=== PATIENT | female | born 1950 | race Caucasian/White ===

== ENCOUNTER 2022-09-13 16:54 | Outpatient (OUT) | payer MEDICARE, OTHER, SELFPAY ==
[2022-09-13 17:40] LABS: D Dimer 0.21 mg/L FEU (<=0.59)
== END 2022-09-13 16:55 | disposition home or self-care (01) ==
PROVIDERS: PCP Internal Medicine; Visit Provider Internal Medicine
DX: R60.0 Localized edema (principal)
CPT/HCPCS: 36415; 85378

== ENCOUNTER 2022-09-21 13:01 | Outpatient (OUT) | payer MEDICARE, OTHER, SELFPAY | END 2022-09-21 13:02 | disposition home or self-care (01) | LOC: WC 13:01 | PROVIDERS: PCP Internal Medicine; Visit Provider Surgery | DX: I87.311 Chronic venous hypertension (idiopathic) with ulcer of right lower extremity (principal); L97.811 Non-pressure chronic ulcer of other part of right lower leg limited to breakdown of skin; E11.21 Type 2 diabetes mellitus with diabetic nephropathy; R09.89 Other specified symptoms and signs involving the circulatory and respiratory systems | CPT/HCPCS: A6213; G0463 ==

== ENCOUNTER 2022-10-04 14:19 | Outpatient (RCR) | payer MEDICARE, OTHER, SELFPAY | END 2022-11-25 13:25 | disposition home or self-care (01) | LOC: OT 14:19 | PROVIDERS: PCP Internal Medicine; Visit Provider Internal Medicine | DX: I89.0 Lymphedema, not elsewhere classified (principal) | CPT/HCPCS: 97110; 97140; 97166; 97530 ==

== ENCOUNTER 2022-10-09 12:55 | Outpatient (OUT) | payer MEDICARE, OTHER, SELFPAY ==
--- NOTE | 2022-10-09 13:19 | XR_ITS ---
The [address] [address] Patient Name: BILLIE URBINA MRN: [id number] date: 1950 Sex: F Assigned Patient Location: Current Patient Location: Accession/Order Number: [id number] Exam Date: 10/09/2022 13:19 Report Date: 10/10/2022 07:16 At the request of: STEVEN BE Procedure: XR foot LT min 3V PROCEDURE: XR foot LT min 3V COMPARISON: None. HISTORY: LEFT FOOT PAIN FINDINGS: BONES:Acute transverse fracture base of fifth metatarsal possibly extending to the medial articular surface. Distraction up to 2 mm with no angulation. Partial flattening of the plantar arch. Moderate enthesopathic spurring of the calcaneus at the Achilles and plantar insertions SOFT TISSUES:Moderate dorsal soft tissue swelling EFFUSION:None visible. OTHER: Negative. XR/XR foot LT min 3V IMPRESSION: Transverse fracture base of fifth metatarsal Electronically authenticated by: SID GALDAMEZ Date: 10/10/2022 07:16
== END 2022-10-09 12:56 | disposition home or self-care (01) ==
LOC: WC 12:56
PROVIDERS: PCP Internal Medicine; Visit Provider Physician Assistant
DX: M79.672 Pain in left foot (principal); I87.311 Chronic venous hypertension (idiopathic) with ulcer of right lower extremity; L97.811 Non-pressure chronic ulcer of other part of right lower leg limited to breakdown of skin
CPT/HCPCS: 73630; G0463

== ENCOUNTER 2022-10-25 13:55 | Outpatient (OUT) | payer MEDICARE, OTHER, SELFPAY ==
--- NOTE | 2022-10-25 | XR_ITS ---
The [address] [address] Patient Name: BILLIE URBINA MRN: [id number] date: 1950 Sex: F Assigned Patient Location: [facility] Current Patient Location: Accession/Order Number: [id number] Exam Date: 10/25/2022 14:09 Report Date: 10/26/2022 10:38 At the request of: AIMEE RUVALCABA Procedure: XR foot LT min 3V PROCEDURE: XR foot LT min 3V DATE: 10/25/2022 1:09 PM CDT COMPARISONS: 10/09/2022 CLINICAL INDICATION: LEFT FOOT PAIN FINDINGS: Transverse fracture base of fifth metatarsal is again identified. I estimate the amount of distraction at 3 mm slightly greater than on previous exam. No definite evidence of interval healing on today's images. Small spur off the posterior inferior os calcis, stable mild midfoot degenerative changes, stable XR/XR foot LT min 3V IMPRESSION: Slightly more distraction of the transverse fracture proximal fifth metatarsal than on previous exam. No clear evidence of interval healing at the fracture site on today's images.. Electronically authenticated by: JAQUELIN STAHL Date: 10/26/2022 10:38
== END 2022-10-25 13:56 | disposition home or self-care (01) ==
LOC: RAD 13:55
PROVIDERS: PCP Internal Medicine; Visit Provider Podiatrist Foot & Ankle Surgery
DX: S92.355A Nondisplaced fracture of fifth metatarsal bone, left foot, initial encounter for closed fracture (principal)
CPT/HCPCS: 73630

== ENCOUNTER 2022-11-08 14:26 | Outpatient (OUT) | payer MEDICARE, OTHER, SELFPAY ==
--- NOTE | 2022-11-08 | XR_ITS ---
The [address] [address] Patient Name: BILLIE URBINA MRN: [id number] date: 1950 Sex: F Assigned Patient Location: [facility] Current Patient Location: Accession/Order Number: [id number] Exam Date: 11/08/2022 14:38 Report Date: 11/09/2022 06:26 At the request of: AIMEE RUVALCABA Procedure: XR foot LT min 3V PROCEDURE: XR foot LT min 3V HISTORY: LEFT FOOT PAIN COMPARISON: XR foot left 10/25/2022, 10/09/2022 FINDINGS: BONES:Increasing with of the transverse fracture through base of fifth metatarsal, now 3 mm. No appreciable callus formation but there is slightly increasing density of the fracture line. SOFT TISSUES:No visible soft tissue swelling. EFFUSION:None visible. OTHER: Negative. XR/XR foot LT min 3V IMPRESSION: 1. Increasing width of fifth metatarsal fracture line; ongoing bone resorption versus movement/retraction at site of fracture. 2. No callus formation along the margins, but there appears to be minimally increased density within the fracture line suggesting some degree of bone healing. Electronically authenticated by: JIMY LAMB Date: 11/09/2022 06:26
== END 2022-11-08 14:27 | disposition home or self-care (01) ==
LOC: RAD 14:26
PROVIDERS: PCP Internal Medicine; Visit Provider Podiatrist Foot & Ankle Surgery
DX: S92.355A Nondisplaced fracture of fifth metatarsal bone, left foot, initial encounter for closed fracture (principal)
CPT/HCPCS: 73630

== ENCOUNTER 2022-11-29 11:18 | Outpatient (OUT) | payer MEDICARE, OTHER, SELFPAY ==
--- NOTE | 2022-11-29 | XR_ITS ---
The [address] [address] Patient Name: BILLIE URBINA MRN: [id number] date: 1950 Sex: F Assigned Patient Location: [facility] Current Patient Location: [facility] Accession/Order Number: [id number] Exam Date: 11/29/2022 11:43 Report Date: 11/29/2022 13:04 At the request of: AIMEE RUVALCABA Procedure: XR foot LT min 3V PROCEDURE: XR foot LT min 3V HISTORY: LEFT FOOT PAIN COMPARISON: XR foot left 11/08/2022 FINDINGS: BONES:Transverse fracture through base of fifth metatarsal with 4 mm wide fracture line. Questionable, very minimal increase in density of the fracture line. No callus formation. SOFT TISSUES:Mild dorsal soft tissue swelling. EFFUSION:None visible. OTHER: Negative. XR/XR foot LT min 3V IMPRESSION: 1. Base of fifth metatarsal fracture appears slightly wider than previously seen suggesting continuing movement. 2. Questionable minimal increased density of the fracture line which may represent some very early bone healing. Electronically authenticated by: JIMY LAMB Date: 11/29/2022 13:04
== END 2022-11-29 11:19 | disposition home or self-care (01) ==
LOC: RAD 11:18
PROVIDERS: PCP Internal Medicine; Visit Provider Podiatrist Foot & Ankle Surgery
DX: S92.355A Nondisplaced fracture of fifth metatarsal bone, left foot, initial encounter for closed fracture (principal)
CPT/HCPCS: 73630

== ENCOUNTER 2022-12-04 11:40 | Outpatient (OUT) | payer MEDICARE, OTHER, SELFPAY ==
[2022-12-04 12:28] LABS: Estimated Average Glucose 128 mg/dL; Glycohemoglobin A1C 6.1 % (4.5-6.2)
== END 2022-12-04 11:41 | disposition home or self-care (01) ==
LOC: LAB 11:43
PROVIDERS: PCP Internal Medicine; Visit Provider Internal Medicine
DX: E11.65 Type 2 diabetes mellitus with hyperglycemia (principal)
CPT/HCPCS: 36415; 83036

== ENCOUNTER 2023-01-10 13:55 | Outpatient (OUT) | payer MEDICARE, OTHER, SELFPAY ==
--- NOTE | 2023-01-10 | XR_ITS ---
The [address] [address] Patient Name: BILLIE URBINA MRN: [id number] date: 1950 Sex: F Assigned Patient Location: [facility] Current Patient Location: Accession/Order Number: [id number] Exam Date: 01/10/2023 14:10 Report Date: 01/11/2023 00:55 At the request of: AIMEE RUVALCABA Procedure: XR foot LT min 3V PROCEDURE: XR foot LT min 3V HISTORY: LEFT FOOT PAIN ; follow-up 5th metatarsal fracture COMPARISON: XR foot left 11/29/2022 FINDINGS: BONES:Base of 5th metatarsal fracture with stable alignment and increasing density of the fracture line. Mild calcaneal degenerative enthesopathic spurring. Moderate flattening of plantar arch. SOFT TISSUES:Mild soft tissue swelling; improved. EFFUSION:None visible. OTHER: Negative. XR/XR foot LT min 3V IMPRESSION: 1. Stable alignment and ongoing bone healing of 5th metatarsal fracture. 2. Pes planus. Electronically authenticated by: JIMY LAMB Date: 01/11/2023 00:55
== END 2023-01-10 13:56 | disposition home or self-care (01) ==
LOC: RAD 13:55
PROVIDERS: PCP Internal Medicine; Visit Provider Podiatrist Foot & Ankle Surgery
DX: M79.672 Pain in left foot (principal); S92.355D Nondisplaced fracture of fifth metatarsal bone, left foot, subsequent encounter for fracture with routine healing
CPT/HCPCS: 73630

== ENCOUNTER 2023-03-22 14:55 | Outpatient (OUT) | payer MEDICARE, OTHER, SELFPAY ==
--- NOTE | 2023-03-22 14:59 | US_ITS ---
[place] [id number] Patient Name: BILLIE URBINA MRN: [id number] date: 1950 Sex: F Assigned Patient Location: Current Patient Location: Accession/Order Number: [id number] Exam Date: 03/22/2023 15:00 Report Date: 03/23/2023 07:30 At the request of: DAVID MCKOY Procedure: US carotid duplex BI EXAMINATION: US carotid duplex BI HISTORY: transient ischemic attack G45.9, carotid stenosis I65.23 COMPARISON: No relevant comparison available. TECHNIQUE: Duplex Doppler ultrasound analysis of carotid and vertebral arteries. . Bilateral carotid arterial duplex examination was performed using B-mode, color flow and spectral analysis. Carotid stenosis is reported according to validated velocity parameters, similar to NASCET criteria. FINDINGS: RIGHT CAROTID ARTERY Moderate atherosclerotic plaque. Maximum area reduction in the bulb of 81%. Maximum area of reduction in the proximal ICA 78% Subclavian: PSV: 119.8 cm/s cm/s EDV: 4.7 cm/s cm/s CCA: Prox: PSV: 53.1 cm/s cm/s EDV: 6.8 cm/s cm/s Mid: PSV: 58.8 cm/s cm/s EDV: 8.3 cm/s cm/s Distal: PSV: 57.4 cm/s cm/s EDV: 8.3 cm/s cm/s BULB: PSV: 74.7 cm/s cm/s EDV: 9.2 cm/s cm/s ICA: Prox: PSV: 72.1 cm/s cm/s EDV: 17.1 cm/s cm/s Mid: PSV: 79.9 cm/s cm/s EDV: 11.0 cm/s cm/s Distal: PSV: 76.4 cm/s cm/s EDV: 17.1 cm/s cm/s ECA: PSV: 112.4 cm/s cm/s EDV: 5.8 cm/s cm/s VERTEBRAL: PSV: 46.8 cm/s cm/s EDV: 9.2 cm/s cm/s, antegrade ICA/CCA ratio: PSV: 1.4 EDV: 1.3 LEFT CAROTID ARTERY Marked atherosclerotic plaque Subclavian: PSV: 132.3 cm/s cm/s EDV: 14.7 cm/s CCA: Prox: PSV: 83.8 cm/s cm/s EDV: 9.5 cm/s Mid: PSV: 64.4 cm/s cm/s EDV: 11.7 cm/s Distal: PSV: 58.1 cm/s cm/s EDV: 11.0 cm/s BULB: PSV: 79.9 cm/s cm/s EDV: 8.4 cm/s ICA: Prox: PSV: 83.1 cm/s cm/s EDV: 16.0 cm/s Mid: PSV: 82.0 cm/s cm/s EDV: 14.9 cm/s Distal: PSV: 84.2 cm/s cm/s EDV: 19.3 cm/s ECA: PSV: 100.6 cm/s cm/s EDV: 5.1 cm/s VERTEBRAL: PSV: 48.5 cm/s cm/s EDV: 8.4 cm/s , antegrade ICA/CCA ratio: PSV: 1.4 EDV: 1.8 US/US carotid duplex BI IMPRESSION: Flow velocities suggests 0-49% flow stenosis bilateral internal carotid arteries Maximum area reduction measured to be 78% proximal right internal carotid artery Spectral Doppler US Thresholds (Reference: Isauro EG, et al. Radiology 2000; 214:247-252) Stenosis (%) PSV (cm/sec) VICA/VCCA 0-49 <150 <2.5 50-69 150-225 2.5-4.0 >70 >225 >4.0 Electronically authenticated by: SID GALDAMEZ Date: 03/23/2023 07:30
--- OUTSIDE RECORDS SUMMARY | 2023-03-22 14:59 | XMS_ITS | CCD ---
Author Name Unknown Address [address] [place] [address] Organization [facility] Care Team Providers Care Director Special Education Name Role Phone PHYSICIAN, DEFAULT Unavailable Unavailable PHYSICIAN, DEFAULT Unavailable Unavailable ALTOROK, NEZAM I Unavailable Unavailable ALTOROK, NEZAM I Unavailable Unavailable UNKNOWN, PHYSICIAN Unavailable Unavailable UNKNOWN, PHYSICIAN Unavailable Unavailable Roby Dumont DO Primary Care Provider Ramone JEONG, Maryam Koehler Unavailable [phone] Germania Ozuna PA-C Unavailable [phone] Rachael Bruce MD Unavailable Roby Dumont DO Primary Care Provider Ramone JEONG, Maryam Koehler Unavailable Germania Ozuna PA-C Unavailable Rachael Bruce MD Unavailable [phone] Roby Dumont Unavailable NATAN, DR HERBERT Admitting Unavailable BALL, DR HERBERT Attending Unavailable BALL, DR HERBERT Primary Care Unavailable BALL, DR HERBERT Consulting Unavailable NATAN, DR HERBERT Admitting Unavailable BALL, DR HERBERT Attending Unavailable BALL, DR HERBERT Primary Care Unavailable BALL, DR HERBERT Consulting Unavailable NATAN, DR HERBERT Admitting Unavailable BALL, DR HERBERT Attending Unavailable BALL, DR HERBERT Primary Care Unavailable BALL, DR HERBERT Consulting Unavailable DENICE, DR SID Rodriges Consulting Unavailable BALL, DR HERBERT Admitting Unavailable BALL, DR HERBERT Attending Unavailable BALL, DR HERBERT Primary Care Unavailable BALL, DR HERBERT Consulting Unavailable AMRITEBRADHA, DR JIMY Wynn Consulting Unavailable BALL, DR HERBERT Admitting Unavailable BALL, DR HERBERT Attending Unavailable BALL, DR HERBERT Primary Care Unavailable BALL, DR HERBERT Admitting Unavailable BALL, DR HERBERT Attending Unavailable BALL, DR HERBERT Primary Care Unavailable Roby Dumont DO Primary Care Provider Ramone JEONG, Maryam Koehler Unavailable Laith SCHOFIELD, Germania M Unavailable [phone] Rachael Bruce MD Unavailable [phone] ROBY DUMONT E Primary Care Unavailable KARAMLOU, RACHAEL Referring Unavailable KARAMLOU, RACHAEL Attending Unavailable NATAN, ROBY E Primary Care Unavailable BALL, ROBY E Primary Care Unavailable KARAMLOU, RACHAEL Referring Unavailable KARAMLOU, RACHAEL Attending Unavailable ROBY DUMONT Primary Care Unavailable KARAMLOU, RACHAEL Referring Unavailable Allergies Allergy Classification Reported Allergen(s) Allergy Type Date of Onset Reaction(s) Facility (8 sources) Aspirin; Translations: [ASPIRIN] Drug Allergy 07-22-19 14 Other: See Comments [facility] Work Phone: (5 sources) Non-steroidal anti-inflammatory agent; Translations: [NSAIDS (NON-STEROIDAL ANTI-INFLAMMATORY DRUG)] Drug Allergy 07-22-19 14 Other: See Comments [facility] Work Phone: (8 sources) Ondansetron; Translations: [ONDANSETRON HCL (PF)] Drug Allergy 06-16-19 18 Vomiting [facility] (8 sources) Nut - Unspecified; Translations: [NUT - UNSPECIFIED] Drug Allergy 07-22-19 14 Unknown [facility] (5 sources) Non-steroidal anti-inflammatory agent Drug Allergy 07-22-19 14 Other: See Comments [facility] Work Phone: (6 sources) NSAIDs Propensity to adverse reactions shortness of breath [facility] [email or web address] Other (5 sources) Ondansetron; Translations: [Zofran] Drug Allergy vomiting [facility] Repository (6 sources) tree nut, unspecified Propensity to adverse reactions anaphylaxis [email or web address] [email or web address] Other (1 source) Aspirin Drug Allergy 07-15-19 14 [facility] (1 source) NSAIDs Drug allergy (disorder) 07-29-19 15 [facility] (1 source) tree nut, unspecified Drug allergy (disorder) 03-12-18 70 [facility] (2 sources) DULoxetine Drug Allergy Comment:gennaro garcia [employer] Other (2 sources) Toradol *ANALGESICS - ANTI-INFLAMMATORY* Propensity to adverse reactions Unknown [employer] Other (2 sources) aspirin contraindicated Propensity to adverse reactions 10-21-19 Comment:advers e rxn/side effects [employer] Other (2 sources) Zofran *ANTIEMETICS* Propensity to adverse reactions Unknown [employer] Other Medications Current Medications Medication Drug Class(es) Dates Sig (Normalized) Sig (Original) Accu-Chek Toma Plus - (6 sources) Accu-Chek Toma Plus - USE TO TEST BLOOD SUGAR 3 TIMES DAILY for 30 Active Accu-Chek Toma Plus - as directed In Vitro Active furosemide 20 mg oral tablet (4 sources) Loop Diuretic Start: 09-13-2022 take 1 tablet by mouth every twenty-four hours Furosemide 20 MG 1 tablet Orally Once a day Sep, Active hydroCHLOROthiazide 12.5 mg oral capsule (12 sources) Thiazide Diuretic take 1 capsule by mouth once daily hydroCHLOROthiazide 12.5 MG TAKE 1 CAPSULE BY MOUTH EVERY DAY Active take 1 tablet by mouth once marilia y hydroCHLOROthiazide (HYDRODIURIL, ESIDRIX) 12.5 mg tablet Take 12.5 mg by mouth once daily. 0 Active Comment on above: Take 12.5 mg by mout h once daily. hydroxychloroquine sulfate 200 mg oral tablet (19 sources) Antimalarial, Antirheumatic Agent take 1 tablet by mouth twice daily Hydroxychloroquine Sulfate 200 MG TAKE 1 TABLET BY MOUTH TWICE A DAY for 90 Active take 1 tablet by mariana th every twenty-four hours Plaquenil 200 MG 1 tablet with food or milk Orally Once a day Not-Taking Comment on above: Take 200 mg by mouth twice daily. insulin isophane, human 100 unt/ml injectable suspension (6 sources) NovoLIN N 100 UN IT/ML 30/50 Subcutaneous daily Active NovoLIN N 100 UN IT/ML 20/50 Subcutaneous daily Active insulin, regular, human 100 unt/ml injectable solution (6 sources) Insulin NovoLIN R 100 UN IT/ML 30 units Injection three times daily Active magnesium citrate 200 mg ora l tablet (6 sources) Magnesium Citrat e 200 MG as directed Orally Active predniSONE 10 mg oral tablet (5 sources) Start: 07-28-2022 predniSONE 10 MG 2 tablets Orally twice daily w/ food and decrease slowly over 7-10 days for 10 days July, Active Completed/Discontinued Medications Medication Drug Class(es) Dates Sig (Normalized) Sig (Original) Acetaminophen (7 sources) ACETAMINOPHEN (TYLENOL ARTHRITIS ORAL) Take by mouth. 0 Active Comment on above: Take by mouth. atorvastatin 20 mg oral tablet (13 sources) HMG-CoA Reductase Inhibitor Start: 06-16-2018 take 1 tablet by mouth once daily atorvastatin (LIPITOR) 20 mg tablet Take 20 mg by mouth once daily. 5 06/16/2018 Active Comment on above: Take 20 mg by mouth once daily. biotin 1 mg oral tablet (7 sources) take 1 tablet by mouth once daily Biotin 1 mg tab Take 1 tablet by mouth once daily. 0 Active Comment on above: Take 1 tablet by mariana th once daily. cholecalciferol 0.05 mg oral capsule (7 sources) Vitamin D take 1 capsule by mouth once daily Cholecalciferol, Vitamin D3, 50 mcg (2,000 unit) cap Take 2,000 Units by mouth once daily. 0 Active Comment on above: Take 2,000 Units by mouth once daily. clopidogrel 75 mg oral tablet (13 sources) P2Y12 Platelet Inhibitor Start: 11-06-2020 take 1 tablet by mouth once daily clopidogrel (PLAVIX) 75 mg tablet Take 75 mg by mouth once daily. 0 11/06/2020 Active Comment on above: Take 75 mg by mouth once daily. famotidine 20 mg oral tablet (13 sources) Histamine-2 Receptor Antagonist Start: 12-12-2018 famotidine (PEPCID) 20 mg tablet insulin NPH human isophane (NOVOLIN N SUBCUTANEOUS) (7 sources) insulin NPH luly n isophane (NOVOLIN N SUBCUTANEOUS) Inject subcutaneously. Use as directed 0 Active Comment on above: Inject subcutaneousl y. Use as directed insulin regular, human (NOVOLIN R INJECTION) (7 sources) insulin regular, human (NOVOLIN R INJECTION) by INJECTION(UNSPECIFI ED PARENTERAL ROUTES) route. Sliding scale with meals 0 Active Comment on above: by INJECTION(UNSPECI FIED PARENTERAL ROUTES) route. Sliding scale with meals Lactobacillus acidophilus (7 sources) Lactobacillus acidophilus (PROBIOTIC ORAL) Take 1 capsule by mouth as needed. 0 Active Comment on above: Take 1 capsule by mo uth as needed. levothyroxine sodium 0.112 mg oral tablet (9 sources) l-Thyroxine Start: 06-25-2013 take 1 tablet by mouth once daily LEVOTHYROXINE 112 mcg tablet Take 112 mcg by mouth once daily. 0 06/25/2013 Active take 1 tablet by mouth once marilia y Levothyroxine Sodium 112 MCG TAKE 1 TABLET BY MOUTH EVERY DAY ON AN EMPTY STOMACH Active Comment on above: Take 112 mcg by mout h once daily. loratadine 10 mg oral tablet (13 sources) take 1 tablet by mouth every twenty-four hours Claritin 10 MG 1 tablet Orally Once a day Not-Taking Comment on above: Take 10 mg by mouth once daily. promethazine hydrochloride 12.5 mg oral tablet (6 sources) Phenothiazine take 1 tablet by mouth every six hours Promethazine HCl 12.5 MG 1 tablet as needed Orally every 6 hrs Not-Taking thioctic acid 600 mg oral capsule (7 sources) Alpha Lipoic Aci d 600 mg cap Take by mouth. 0 Active Comment on above: Take by mouth. Tylenol Arthritis Pain 650 MG (6 sources) take 2 tablets by mouth every eight hours as needed Tylenol Arthritis Pain 650 MG 2 tablets as needed Orally every 8 hrs Not-Taking Vitamin D3 2000 UNIT (6 sources) take 1 capsule by mouth twice daily Vitamin D3 2000 UNIT 1 capsule Orally TWICE a day Not-Taking Zantac 150 Maximum Strength 150 MG (6 sources) take 1 tablet by mouth once daily at bedtime Zantac 150 Maximum Strength 150 MG 1 tablet at bedtime Orally Once a day Not-Taking Problems Active Problems Problem Classification Problem Date Documented Date Episodic/Chronic Acute bronchitis (1 source) Acute bronchitis; Translations: [Acute bronchitis due to other specified organisms] Episodic Asthma (6 sources) Mild intermittent asthma; Translations: [Mild intermittent asthma, uncomplicated] Chronic Cancer of colon (20 sources) Malignant tumor of splenic flexure; Translations: [Malignant neoplasm of splenic flexure] Onset: 06-19-2017 06-19-2017 Chronic Cancer of colon (7 sources) History of malignant neoplasm of colon; Translations: [Personal history of other malignant neoplasm of large intestine] Episodic Chronic obstructive pulmonary disease and bronchiectasis (15 sources) Simple chronic bronchitis; Translations: [Simple chronic bronchitis] Chronic Chronic ulcer of skin (1 source) Non-pressure chronic ulcer of skin of other sites with unspecified severity; Translations: [Ulcer of skin] Chronic Diabetes mellitus with complications (20 sources) Hyperglycemia due to type 2 diabetes mellitus; Translations: [Type 2 diabetes mellitus with hyperglycemia] Onset: 05-10-2022 Chronic Diabetes mellitus without complication (8 sources) Type 2 diabetes mellitus without complication; Translations: [Type 2 diabetes mellitus without complications] Onset: 07-21-2013 Chronic Disorders of lipid metabolism (17 sources) Hyperlipidemia; Translations: [Hyperlipidemia, unspecified] Onset: 07-21-2013 07-21-2013 Chronic Esophageal disorders (1 source) Gastro-esophageal reflux disease with esophagitis; Translations: [Gastroesophageal reflux disease with esophagitis, unspecified whether hemorrhage] Chronic Essential hypertension (17 sources) Hypertensive disorder; Translations: [Essential (primary) hypertension] Onset: 07-21-2013 07-21-2013 Chronic Occlusion or stenosis of precerebral arteries (6 sources) Occlusion and stenosis of multiple and bilateral cerebral arteries; Translations: [Occlusion and stenosis of bilateral carotid arteries] Chronic Osteoarthritis (13 sources) Localized, primary osteoarthritis of the pelvic region and thigh; Translations: [Unilateral primary osteoarthritis, right hip] Onset: 08-15-2021 Chronic Osteoporosis (1 source) Age-related osteoporosis without current pathological fracture; Translations: [AGE-RELATED OSTEOPOROSIS W/O CURRENT PATHOLOGICAL FRACTURE] Onset: 01-24-2017 Chronic Other aftercare (6 sources) Long-term current use of insulin; Translations: [MCC (current) use of insulin] Episodic Other aftercare (3 sources) MCC (current) use of insulin Episodic Other circulatory disease (6 sources) Carotid bruit; Translations: [Other specified symptoms and signs involving the circulatory and respiratory systems] Episodic Other circulatory disease (6 sources) History of cerebrovascular accident without residual deficits; Translations: [Personal history of transient ischemic attack (TIA), and cerebral infarction without residual deficits] Episodic Other circulatory disease (1 source) Personal history of transient ischemic attack (TIA), and cerebral infarction without residual deficits Episodic Other connective tissue disease (1 source) Disorder of musculoskeletal system; Translations: [Other symptoms and signs involving the musculoskeletal system] Episodic Other connective tissue disease (1 source) Other symptoms and signs involving the nervous system; Translations: [Suspected sleep apnea] Episodic Other diseases of veins and lymphatics (4 sources) Lymphedema; Translations: [Lymphedema, not elsewhere classified] Chronic Other diseases of veins and lymphatics (1 source) Lymphedema, not elsewhere classified Chronic Other diseases of veins and lymphatics (6 sources) Peripheral venous insufficiency; Translations: [Venous insufficiency (chronic) (peripheral)] Episodic Other diseases of veins and lymphatics (4 sources) Venous insufficiency (chronic) (peripheral) Episodic Other hereditary and degenerative nervous system conditions (1 source) Idiopathic peripheral autonomic neuropathy; Translations: [Other idiopathic peripheral autonomic neuropathy] Chronic Other nervous system disorders (9 sources) Neuropathy; Translations: [Polyneuropathy, unspecified] Onset: 03-06-2018 03-06-2018 Chronic Other nervous system disorders (1 source) Paresthesia; Translations: [Paresthesia of skin] Episodic Other nutritional; endocrine; and metabolic disorders (6 sources) Body mass index 30+ - obesity; Translations: [Body mass index (BMI) 37.0-37.9, adult] Chronic Other screening for suspected conditions (not mental disorders or infectious disease) (1 source) Encounter for screening mammogram for malignant neoplasm of breast Episodic Residual codes; unclassified (12 sources) Obstructive sleep apnea syndrome; Translations: [Obstructive sleep apnea (adult) (pediatric)] Chronic Residual codes; unclassified (3 sources) Obstructive sleep apnea (adult) (pediatric) Chronic Residual codes; unclassified (6 sources) Asymptomatic menopausal state; Translations: [Menopause] Episodic Residual codes; unclassified (6 sources) Insomnia; Translations: [Insomnia, unspecified] Episodic Residual codes; unclassified (1 source) Localized edema Episodic Rheumatoid arthritis and related disease (14 sources) Rheumatoid arthritis, unspecified; Translations: [Rheumatoid arthritis] Onset: 01-24-2017 Chronic Spondylosis; intervertebral disc disorders; other back problems (20 sources) Cervical spondylosis without myelopathy; Translations: [Other spondylosis with radiculopathy, cervical region] Onset: 08-03-2021 Chronic Spondylosis; intervertebral disc disorders; other back problems (5 sources) Dorsalgia, unspecified; Translations: [Cervicalgia] Onset: 08-17-2021 Episodic Sprains and strains (1 source) Strain of unspecified muscle(s) and tendon(s) at lower leg level, right leg, initial encounter; Translations: [Strain of right knee, initial encounter] Episodic Substance-related disorders (6 sources) Tobacco user; Translations: [Nicotine dependence, cigarettes, in remission] Chronic Systemic lupus erythematosus and connective tissue disorders (6 sources) Sjogren's syndrome; Translations: [Sicca syndrome, unspecified] Chronic Thyroid disorders (20 sources) Zenaida thyroiditis; Translations: [Autoimmune thyroiditis] Onset: 08-03-2021 Chronic Transient cerebral ischemia (1 source) Transient cerebral ischemia; Translations: [Transient cerebral ischemic attack, unspecified] Chronic Past or Other Problems Problem Classification Problem Date Documented Date Episodic/Chronic Complication of device; implant or graft (7 sources) Blocked central line; Translations: [Other mechanical complication of infusion catheter, initial encounter] Onset: 02-12-2019 02-12-2019 Episodic Esophageal disorders (5 sources) Esophageal disorders; Translations: [Gastroesophageal reflux disease with esophagitis, unspecified whether hemorrhage] Other connective tissue disease (1 source) Other symptoms and signs involving the musculoskeletal system; Translations: [OTH SX AND SYMP INVOLV MUSCULOSKELTAL] Onset: 08-15-2021 Episodic Other nervous system disorders (1 source) Unsteadiness on feet; Translations: [UNSTEADINESS ON FEET] Onset: 08-15-2021 Episodic Other non-traumatic joint disorders (1 source) Pain in unspecified joint; Translations: [PAIN IN UNSPECIFIED JOINT] Onset: 01-24-2017 Episodic Residual codes; unclassified (7 sources) Edema; Translations: [Edema, unspecified] Onset: 09-15-2013 09-15-2013 Episodic Results Test Name Value Interpretation Reference Range Facility CBC W Auto Differential pane l (Bld)on 07-05-2022 Basophils (Bld) [#/Vol] 0.07 10*3/uL Normal <0.11 [facility] Comment on above: Order Comment: Landy riojas Type: BLOOD SPECIMENOrdering Facility: [facility] Address: [address] [place] [address] Performed By: #### 5 7021-8 ####[facility] LABCLIA [id number] [place] [address] Basophils/100 WBC (Bld) 1.0 % Normal [facility] Comment on above: Order Comment: Landy riojas Type: BLOOD SPECIMENOrdering Facility: [facility] Address: [address] [address] Performed By: #### 5 7021-8 ####[facility]CLIA [id number] [place] [address] Differential cell count method Nom (Bld) Auto Normal [facility] Comment on above: Order Comment: Speci men Type: BLOOD SPECIMENOrdering Facility: [facility] Address: [address] [place] [address] Performed By: #### 5 7021-8 ####[facility]CLIA [id number] [place] [address] Eosinophils (Bld) [#/Vol] 0.49 10*3/uL High <0.46 [facility] Comment on above: Order Comment: Speci men Type: BLOOD SPECIMENOrdering Facility: [facility] Address: [address] [place] [address] Performed By: #### 5 7021-8 ####[facility]CLIA [id number] [place] [address] Eosinophils/100 WBC (Bld) 6.7 % Normal [facility] Comment on above: Order Comment: Speci men Type: BLOOD SPECIMENOrdering Facility: [facility] Address: [address] [place] [address] Performed By: #### 5 7021-8 ####[facility]CLIA [id number] [place] [address] Erythrocyte distribution width (RBC) [Ratio] 14.6 % Normal 11.5-15.0 [facility] Comment on above: Order Comment: Speci men Type: BLOOD SPECIMENOrdering Facility: [facility] Address: [address] [place] [address] Performed By: #### 5 7021-8 ####[facility]CLIA [id number] [place] [address] Hematocrit (Bld) [Volume fraction] 42.3 % Normal 36.0-46.0 [facility] Comment on above: Order Comment: Speci men Type: BLOOD SPECIMENOrdering Facility: [facility] Address: [address] [address] Performed By: #### 5 7021-8 ####[facility]CLIA [id number] [place] [address] Hemoglobin (Bld) [Mass/Vol] 14.2 g/dL Normal 11.5-15.5 [facility] Comment on above: Order Comment: Speci men Type: BLOOD SPECIMENOrdering Facility: [facility] Address: [address] [address] Performed By: #### 5 7021-8 ####[facility] LABIA [id number] [place] [address] Immature granulocytes (Bld) [#/Vol] 0.04 10*3/uL Normal <0.10 [facility] Comment on above: Order Comment: Speci men Type: BLOOD SPECIMENOrdering Facility: [facility] Address: [address] [address] Performed By: #### 5 7021-8 ####[facility] LABIA [id number] [place] [address] Immature granulocytes/100 WBC (Bld) 0.5 % Normal [facility] Comment on above: Order Comment: Speci men Type: BLOOD SPECIMENOrdering Facility: [facility] Address: [address] [address] Performed By: #### 5 7021-8 ####[facility] LABIA [id number] [place] [address] Lymphocytes (Bld) [#/Vol] 1.84 10*3/uL Normal 1.00-4.00 [facility] Comment on above: Order Comment: Speci men Type: BLOOD SPECIMENOrdering Facility: [facility] Address: [address] [address] Performed By: #### 5 7021-8 ####[facility]CLIA [id number] [place] [address] Lymphocytes/100 WBC (Bld) 25.1 % Normal [facility] Comment on above: Order Comment: Speci men Type: BLOOD SPECIMENOrdering Facility: [facility] Address: [address] [place] [address] Performed By: #### 5 7021-8 ####[facility]CLIA [id number] [place] [address] MCH (RBC) [Entitic mass] 31.5 pg Normal 26.0-34.0 [facility] Comment on above: Order Comment: Speci men Type: BLOOD SPECIMENOrdering Facility: [facility] Address: [address] [place] [address] Performed By: #### 5 7021-8 ####[facility]CLIA [id number] [place] [address] MCHC (RBC) [Mass/Vol] 33.6 g/dL Normal 30.5-36.0 [facility] Comment on above: Order Comment: Speci men Type: BLOOD SPECIMENOrdering Facility: [facility] Address: [address] [place] [address] Performed By: #### 5 7021-8 ####[facility]CLIA [id number] [place] [address] MCV (RBC) [Entitic vol] 93.8 fL Normal 80.0-100.0 [facility] Comment on above: Order Comment: Speci men Type: BLOOD SPECIMENOrdering Facility: [facility] Address: [address] [place] [address] Performed By: #### 5 7021-8 ####[facility] LABIA [id number] [place] [address] Monocytes (Bld) [#/Vol] 0.70 10*3/uL Normal <0.87 [facility] Comment on above: Order Comment: Speci men Type: BLOOD SPECIMENOrdering Facility: [facility] Address: [address] [address] Performed By: #### 5 7021-8 ####[facility]CLIA [id number] [place] [address] Monocytes/100 WBC (Bld) 9.5 % Normal [facility] Comment on above: Order Comment: Speci men Type: BLOOD SPECIMENOrdering Facility: [facility] Address: [address] [address] Performed By: #### 5 7021-8 ####[facility]CLIA [id number] [place] [address] Neutrophils (Bld) [#/Vol] 4.20 10*3/uL Normal 1.45-7.50 [facility] Comment on above: Order Comment: Speci men Type: BLOOD SPECIMENOrdering Facility: [facility] Address: [address] [address] Performed By: #### 5 7021-8 ####[facility] LABIA [id number] [place] [address] Neutrophils/100 WBC (Bld) 57.2 % Normal [facility] Comment on above: Order Comment: Speci men Type: BLOOD SPECIMENOrdering Facility: [facility] Address: [address] [place] [address] Performed By: #### 5 7021-8 ####[facility]CLIA [id number] [place] [address] Nucleated RBC (Bld) [#/Vol] 10*3/uL Normal <0.01 [facility] Comment on above: Order Comment: Speci men Type: BLOOD SPECIMENOrdering Facility: [facility] Address: [address] [place] [address] Performed By: #### 5 7021-8 ####[facility]CLIA [id number] [place] [address] Nucleated RBC/100 WBC (Bld) [Ratio] 0.0 /100 WBC Normal [facility] Comment on above: Order Comment: Speci men Type: BLOOD SPECIMENOrdering Facility: [facility] Address: [address] [place] [address] Performed By: #### 5 7021-8 ####[facility]CLIA [id number] [place] [address] Platelet mean volume (Bld) [Entitic vol] 8.9 fL Low 9.0-12.7 [facility] Comment on above: Order Comment: Speci men Type: BLOOD SPECIMENOrdering Facility: [facility] Address: [address] [place] [address] Performed By: #### 5 7021-8 ####[facility] [id number] [place] [address] Platelets (Bld) [#/Vol] 188 10*3/uL Normal 150-400 [facility] Comment on above: Order Comment: Speci men Type: BLOOD SPECIMENOrdering Facility: [facility] Address: [address] [place] [address] Performed By: #### 5 7021-8 ####[facility] [id number] [place] [address] RBC (Bld) [#/Vol] 4.51 10*6/uL Normal 3.90-5.20 [facility] Comment on above: Order Comment: Speci men Type: BLOOD SPECIMENOrdering Facility: [facility] Address: [address] [place] [address] Performed By: #### 5 7021-8 ####[facility] [id number] [place] [address] WBC (Bld) [#/Vol] 7.34 10*3/uL Normal 3.70-11.00 [facility] Comment on above: Order Comment: Speci men Type: BLOOD SPECIMENOrdering Facility: [facility] Address: [address] [id number] Performed By: #### 5 7021-8 ####[facility] [id number] [place] [address] CEA SerPl-mCncon 07-05-2022 Carcinoembryonic Ag [Mass/Vol] 3.4 ng/mL High <=2.9 [facility] Comment on above: Order Comment: Landy men Type: BLOOD SPECIMEN Ordering Facility: [facility] Address: [address] [place] [address] Result Comment: Carc inoembryonic antigen test is used as an aid in monitoring response to treatment or recurrence in patients with established colorectal, breast, lung, prostatic, pancreatic, and ovarian carcinomas. Clinical correlation is required. The Carcinoembryonic antigen test was performed using the [employer] Unicel DXI paramagnetic particle chemiluminescent immunoassay method. Results obtained with different assay methods or kits cannot be used interchangeably. Performed By: #### 2 039-6 #### [facility] CLIA [id number] [address] [place] [address] OF [facility] CNOVSPon 07-05-2022 CNOVS Visit (SP) Office ([place]) BILLIE LIRIANO ([id number]) 1950 F Date Time Provider Department 07/05/22 2:30 PM RACHAEL BRUCE During your visit today, we recorded the following information about you: Temperature Pulse Respiration Blood pressure 97 degrees 73/minute 18/minute 184/59 Weight Height 114.1 kg 1.575 m Rachael Bruce MD 07/05/2022 4:47 PM Signed PATIENT NAME: Billie Liriano CLINIC NO.: [id number] ATTENDING PHYSICIAN: Rachael Bruce MD DATE OF SERVICE: July 05, 2022 Some of the elements of this note have been copied from my previous progress note dated 01/04/2022. All the information has been reviewed carefully. Here is an update on a follow up visit on female Billie Liriano at the clinic July 05, 2022 Diagnosis: 1. Original diagnosis of pathologically staged at T3a,N2a,M0 colon cancer April 2017. Tumor was microsatellite stable Treatment History: 1. While on vacation in [place] developed severe abdominal pain in April 2017. CT at that point noted a large bowel obstruction with colonic mass at the splenic flexure. No metastatic disease was identified and patient had a CEA of 20. At that point underwent resection. 2. Started adjuvant FOLFOX May 2017 while in [place]. Oxaliplatin dose reduced due to toxicity. In August 2017 oxaliplatin was held and patient continued 6 months of adjuvant chemotherapy with infusional 5FU and LCV, completed October 2017. 3. Signatera February 2019, Nov 2019, 04/2020, 07/2020, 12/2020, 06/2021 and 12/2021- negative 4. Last colonoscopy December 2018-, Negative- Repeat 08/2021: 2026 follow up recommended HPI: Billie Liriano is a 71 year old year old female here for follow up. Doing well but struggles with her neuropathy which was started after her FOLFOX. She did not have pre-existing neuropathy. DM well controlled. Denies any changes in BM and was not able to see the folks at [facility] but interested in discussing with palliative care team here. PAST MEDICAL HISTORY Diagnosis Date Colon cancer (HCC) Stage IIB ([id number] COPD (chronic obstructive pulmonary disease) (HCC) Esophagitis GERD (gastroesophageal reflux disease) Hyperlipidemia Lower extremity edema Lumbar spondylosis Menopause Nephrolithiasis OA (osteoarthritis) Obesity PMR (polymyalgia rheumatica) (HCC) Portacath in place T2DM (type 2 diabetes mellitus) (HCC) Thyroid disease Social History Tobacco Use Smoking status: Former Packs/day: 2.00 Years: 25.00 Pack years: 50.00 Types: Cigarettes Quit date: 03/12/1990 Years since quittin.3 Passive exposure: Past Smokeless tobacco: Never Tobacco comments: Quit 05/01/1990 Vaping Use Vaping Use: Never used Substance Use Topics Alcohol use: Yes Comment: occasionally Drug use: No FAMILY HISTORY Problem Relation Age of Onset Diabetes Mother Heart Mother 52 [place]. S/P CABG. at 69 from [place] other (Parkinson's [Other]) Mother COPD Mother Coronary Artery Disease Father 70 CABG other (CHF [Other]) Father Coronary Artery Disease Brother 65 CABG Coronary Artery Disease Brother 54 Stent Coronary Artery Disease Sister 52 CABG Past medical, social and family history reviewed without any changes. REVIEW OF SYSTEMS GENERAL: No weight loss, malaise or fevers. No night sweats. HEENT: Negative for headaches, No changes in hearing or vision, no nose bleeds or other nasal problems. RESPIRATORY: Negative for cough, wheezing and shortness of breath CARDIOVASCULAR: Negative for chest pain, leg swelling and palpitations GI: Negative for abdominal discomfort, blood in stools or black stools and change in bowel habits : Negative for dysuria, frequency and incontinence MUSCULOSKELETAL: Negative for joint pain or swelling, back pain, and muscle pain. SKIN: Negative for lesions, rash, and itching. HEMATOLOGY/LYMPHOLOGY Negative for prolonged bleeding, bruising easily, and swollen nodes. NEURO: Negative for numbness or tingling of hands/feet. No weakness. PHYSICAL EXAMINATION: BP 184/59 Pulse 73 Temp (Src) 97 (Temporal) Resp 18 Ht 5' 2.008 (1.58m) Wt 251 lb 9.6 oz (114.1kg) SpO2 100% BMI 46.01 kg/(m2). There were no vitals taken for this visit. Last 3 Encounter Wt Readings: Date: Wt: 02/26/2019 102.1 kg (225 lb) 02/12/2019 99.8 kg (220 lb) 09/04/2018 98.4 kg (217 lb) General appearance:ECOG PERFORMANCE STATUS: 0- Fully active, able to carry on all pre-disease performance w/o restriction. Patient in NAD. Skin: Skin color, texture, turgor normal. No rashes or lesions. Eyes: Anicteric sclera. Pupils are equally round and reactive to light. Extraocular movements are intact. Lymph Nodes: No cervical, supraclavicular, axillary or inguinal adenopathy. Oropharynx: Lips, mucosa, and tongue normal. Back: No pain to percussion. Negative SLR te (more content not included)... Normal [facility] metabolic 2000 panelon 07-05-2022 Albumin [Mass/Vol] 4.6 g/dL Normal 3.9-4.9 [facility] Comment on above: Order Comment: Speci men Type: BLOOD SPECIMENOrdering Facility: [facility] Address: [address] [address] Performed By: #### 2 4323-8 ####[facility] LABCLIA [id number] [place] [address] ALP [Catalytic activity/Vol] 116 U/L Normal 34-123 [facility] Comment on above: Order Comment: Speci men Type: BLOOD SPECIMENOrdering Facility: [facility] Address: [address] [address] Performed By: #### 2 4323-8 ####[facility]CLIA [id number] [place] [address] ALT [Catalytic activity/Vol] 17 U/L Normal 7-38 [facility] Comment on above: Order Comment: Speci men Type: BLOOD SPECIMENOrdering Facility: [facility] Address: [address] [address] Performed By: #### 2 4323-8 ####[facility]CLIA [id number] [place] [address] Anion gap [Moles/Vol] 9 mmol/L Normal 9-18 [facility] Comment on above: Order Comment: Speci men Type: BLOOD SPECIMENOrdering Facility: [facility] Address: [address] [address] Performed By: #### 2 4323-8 ####[facility]CLIA [id number] [place] [address] AST [Catalytic activity/Vol] 19 U/L Normal 13-35 [facility] Comment on above: Order Comment: Speci men Type: BLOOD SPECIMENOrdering Facility: [facility] Address: [address] [address] Performed By: #### 2 4323-8 ####[facility]CLIA [id number] [place] [address] Bilirubin [Mass/Vol] 0.9 mg/dL Normal 0.2-1.3 [facility] Comment on above: Order Comment: Speci men Type: BLOOD SPECIMENOrdering Facility: [facility] Address: [address] [place] [address] Performed By: #### 2 4323-8 ####[facility]CLIA [id number] [place] [address] Calcium [Mass/Vol] 9.9 mg/dL Normal 8.5-10.2 [facility] Comment on above: Order Comment: Speci men Type: BLOOD SPECIMENOrdering Facility: [facility] Address: [address] [place] [address] Performed By: #### 2 4323-8 ####[facility]CLIA [id number] [place] [address] Chloride [Moles/Vol] 101 mmol/L Normal 97-105 [facility] Comment on above: Order Comment: Speci men Type: BLOOD SPECIMENOrdering Facility: [facility] Address: [address] [place] [address] Performed By: #### 2 4323-8 ####[facility] [id number] [place] [address] CO2 [Moles/Vol] 29 mmol/L Normal 22-30 [facility] Comment on above: Order Comment: Speci men Type: BLOOD SPECIMENOrdering Facility: [facility] Address: [address] [place] [address] Performed By: #### 2 4323-8 ####[facility]CLIA [id number] [place] [address] Creatinine [Mass/Vol] 0.87 mg/dL Normal 0.58-0.96 [facility] Comment on above: Order Comment: Speci men Type: BLOOD SPECIMENOrdering Facility: [facility] Address: [address] [place] [address] Performed By: #### 2 4323-8 ####[facility] LABCLIA [id number] [place] [address] ESTIMATED GLOMERULAR FILTRATION RATE 71 mL/min/1.73m??? Normal >=60 [facility] Comment on above: Order Comment: Landy riojas Type: BLOOD SPECIMENOrdering Facility: [facility] Address: [address] [place] [address] Result Comment: Christi mated Glomerular Filtration Rate (eGFR) is calculated using the 2020 CKD-EPI creatinine equation. This equation utilizes serum creatinine, sex, and age as parameters. The creatinine assay has traceable calibration to isotope dilution-mass spectrometry. Refer to KDIGO guidelines for clinical interpretation. In patients with unstable renal function, e.g. those with acute kidney injury, the eGFR may not accurately reflect actual GFR. Performed By: #### 2 4323-8 ####[facility]CLIA [id number] [place] [address] Glucose [Mass/Vol] 162 mg/dL High 74-99 [facility] Comment on above: Order Comment: Nadianannette riojas Type: BLOOD SPECIMENOrdering Facility: [facility] Address: [address] [place] [address] Result Comment: The [place] Diabetes Association (ADA) provides guidance for cutoff values for fasting glucose and random glucose. The ADA defines fasting as no caloric intake for at least 8 hours. Fasting plasma glucose results between 100 to 125 mg/dL indicate increased risk for diabetes (prediabetes). Fasting plasma glucose results greater than or equal to 126 mg/dL meet the criteria for diagnosis of diabetes. In the absence of unequivocal hyperglycemia, results should be confirmed by repeat testing. In a patient with classic symptoms of hyperglycemia or hyperglycemic crisis, random plasma glucose results greater than or equal to 200 mg/dL meet the criteria for diagnosis of diabetes. Reference: Standards of Medical Care in Diabetes 2016, [place] Diabetes Association. Diabetes Care. 2016.39(Suppl 1). Performed By: #### 2 4323-8 ####[facility] LABCLIA [id number] [place] [address] Potassium [Moles/Vol] 4.2 mmol/L Normal 3.7-5.1 [facility] Comment on above: Order Comment: Speci men Type: BLOOD SPECIMENOrdering Facility: [facility] Address: [address] [address] Performed By: #### 2 4323-8 ####[facility]CLIA [id number] [place] [address] Protein [Mass/Vol] 7.0 g/dL Normal 6.3-8.0 [facility] Comment on above: Order Comment: Speci men Type: BLOOD SPECIMENOrdering Facility: [facility] Address: [address] [place] [address] Performed By: #### 2 4323-8 ####[facility]IA [id number] [place] [address] Sodium [Moles/Vol] 139 mmol/L Normal 136-144 [facility] Comment on above: Order Comment: Speci men Type: BLOOD SPECIMENOrdering Facility: [facility] Address: [address] [place] [address] Performed By: #### 2 4323-8 ####[facility]CLIA [id number] [place] [address] Urea nitrogen [Mass/Vol] 10 mg/dL Normal 7-21 [facility] Comment on above: Order Comment: Speci men Type: BLOOD SPECIMENOrdering Facility: [facility] Address: [address] [place] [address] Performed By: #### 2 4323-8 ####[facility] [id number] [place] [address] GLYCOHEMOGLOBIN A1Con 2022 ADA RECOMMENDATION SEE BELOW Normal [facility] [place] [facility] Comment on above: Result Comment: ADA RECOMMENDED LIMIT 4.0 - 6.0 ADA THERAPEUTIC TARGET < 7.0 ACTION SUGGESTED > 7.0 Performed By: #### A 1C #### [facility] [address] [address] [address] Linn Leone Glucose [Mass/Vol] 123 mg/dL Normal [facility] Comment on above: Performed By: #### A 1C #### [facility] [address] [address] [address] Linn Leone HbA1c (Bld) [Mass fraction] 5.9 % Normal 4.5-6.2 [facility] Comment on above: Performed By: #### A 1C #### [facility] [address] [address] [address] Linn Leone GLYCOHEMOGLOBIN A1Con 2021 ADA RECOMMENDATION SEE BELOW Normal [facility] Comment on above: Result Comment: ADA RECOMMENDED LIMIT 4.0 - 6.0 ADA THERAPEUTIC TARGET < 7.0 ACTION SUGGESTED > 7.0 Performed By: #### A 1C #### [facility] [address] [address] [address] Linn Leone Glucose [Mass/Vol] 134 mg/dL Normal [facility] Comment on above: Performed By: #### A 1C #### [facility] [address] [address] [address] Linn Leone HbA1c (Bld) [Mass fraction] 6.3 % Critically high 4.5-6.2 [facility] Comment on above: Performed By: #### A 1C #### [facility] [address] [place] [address] Dr. Linn Delgado 01-05-2022 GLORYN Telephone (HEMTSA) BILLIE LIRIANO ([id number]) 1950 F Date Time Provider Department 01/05/22 JOSUÉ HAMPTON During your visit today, we recorded the following information about you: Josué Hampton RN 01/05/2022 9:18 AM Signed Pt aware of negative Signatera results. She denies any questions or concerns at this time. Josué Hampton RN Allergies As of Date: 01/05/2022 Noted Allergy Reaction ASPIRIN 07/21/2013 14 - Other: See Comments Comments: NSAIDs-induced asthma NSAIDS (NON-STEROIDAL ANTI-INFLAM*07/21/2013 14 - Other: See Comments Comments: NSAIDs-induced asthma NUT - UNSPECIFIED 07/21/2013 16 - Unknown ZOFRAN (ONDANSETRON HCL (PF)) 06/15/2017 11 - Vomiting Date Reviewed: 01/04/2022 Reviewed by: Rachael Bruce MD - Fully Assessed Reason for Visit: Results [95] Prescriptions as of 01/05/2022 - clopidogrel (PLAVIX) 75 mg tablet Take 75 mg by mouth once daily. - ACCU-CHEK TOMA PLUS TEST STRP test strip USE TO TEST BLOOD SUGAR 3 TIMES A DAY E11.65 - Alpha Lipoic Acid 600 mg cap Take by mouth. - famotidine (PEPCID) 20 mg tablet - atorvastatin (LIPITOR) 20 mg tablet Take 20 mg by mouth once daily. - Lactobacillus acidophilus (PROBIOTIC ORAL) Take 1 capsule by mouth as needed. - insulin regular, human (NOVOLIN R INJECTION) by INJECTION(UNSPECIFIED PARENTERAL ROUTES) route. Sliding scale with meals - insulin NPH human isophane (NOVOLIN N SUBCUTANEOUS) Inject subcutaneously. Use as directed - ACETAMINOPHEN (TYLENOL ARTHRITIS ORAL) Take by mouth. - Biotin 1 mg tab Take 1 tablet by mouth once daily. - Cholecalciferol, Vitamin D3, 50 mcg (2,000 unit) cap Take 2,000 Units by mouth once daily. - hydroCHLOROthiazide (HYDRODIURIL, ESIDRIX) 12.5 mg tablet Take 12.5 mg by mouth once daily. - loratadine (CLARITIN) 10 mg tablet Take 10 mg by mouth once daily. - LEVOTHYROXINE 112 mcg tablet Take 112 mcg by mouth once daily. - hydrOXYchloroQUINE (PLAQUENIL) 200 mg tablet Take 200 mg by mouth twice daily. Problem List As Of Date 01/05/2022 Noted Resolved Hypertension [I10] 07/21/2013 Hyperlipidemia [E78.5] 07/21/2013 DM (diabetes mellitus) (HCC) [E11.9] 07/21/2013 Edema [R60.9] 09/15/2013 Malignant neoplasm of splenic flexure (HCC) [C1*06/19/2017 Neuropathy (HCC) [G62.9] 03/06/2018 Central line clotted (HCC) [T82.594A] 02/12/2019 Encounter Status:Closed by JOSUÉ HAMPTON on 01/05/22 [facility] CNOVSPon 01-04-2022 CNOVSP Visit (SP) Office ([place]) BILLIE LIRIANO ([id number]) 1950 F Date Time Provider Department 01/04/22 2:30 PM RACHAEL BRUCE During your visit today, we recorded the following information about you: Temperature Pulse Respiration Blood pressure 97.2 degrees 89/minute 18/minute 152/78 Weight Height 113.9 kg 1.575 m Rachael Bruce MD 01/04/2022 3:16 PM Signed PATIENT NAME: Billie Liriano CLINIC NO.: [id number] ATTENDING PHYSICIAN: Rachael Bruce MD DATE OF SERVICE: January 04, 2022 Some of the elements of this note have been copied from my previous progress note dated 07/06/2021. All the information has been reviewed carefully. Here is an update on a follow up visit on female Billie Liriano at the clinic January 04, 2022 Diagnosis: 1. Original diagnosis of pathologically staged at T3a,N2a,M0 colon cancer April 2017. Tumor was microsatellite stable Treatment History: 1. While on vacation in [place] developed severe abdominal pain in April 2017. CT at that point noted a large bowel obstruction with colonic mass at the splenic flexure. No metastatic disease was identified and patient had a CEA of 20. At that point underwent resection. 2. Started adjuvant FOLFOX May 2017 while in [place]. Oxaliplatin dose reduced due to toxicity. In August 2017 oxaliplatin was held and patient continued 6 months of adjuvant chemotherapy with infusional 5FU and LCV, completed October 2017. 3. Signatera February 2019, Nov 2019, 04/2020, 07/2020, 12/2020, 06/2021 and 12/2021- negative 4. Last colonoscopy December 2018-, Negative- Repeat 08/2021: 2026 follow up recommended HPI: Billie Liriano is a 71 year old year old female here for follow up. Doing well but struggles with her neuropathy which was started after her FOLFOX. She did not have pre-existing neuropathy. DM well controlled. Denies any changes in BM PAST MEDICAL HISTORY Diagnosis Date Colon cancer (HCC) Stage IIB ([id number] COPD (chronic obstructive pulmonary disease) (HCC) Esophagitis GERD (gastroesophageal reflux disease) Hyperlipidemia Lower extremity edema Lumbar spondylosis Menopause Nephrolithiasis OA (osteoarthritis) Obesity PMR (polymyalgia rheumatica) (HCC) Portacath in place T2DM (type 2 diabetes mellitus) (HCC) Thyroid disease Social History Tobacco Use Smoking status: Former Packs/day: 2.00 Years: 25.00 Pack years: 50.00 Types: Cigarettes Quit date: 03/12/1990 Years since quittin.8 Passive exposure: Past Smokeless tobacco: Never Tobacco comments: Quit 05/01/1990 Vaping Use Vaping Use: Never used Substance Use Topics Alcohol use: Yes Comment: occasionally Drug use: No FAMILY HISTORY Problem Relation Age of Onset Diabetes Mother Heart Mother 52 [place]. S/P CABG. at 69 from [place] other (Parkinson's [Other]) Mother COPD Mother Coronary Artery Disease Father 70 CABG other (CHF [Other]) Father Coronary Artery Disease Brother 65 CABG Coronary Artery Disease Brother 54 Stent Coronary Artery Disease Sister 52 CABG Past medical, social and family history reviewed without any changes. REVIEW OF SYSTEMS GENERAL: No weight loss, malaise or fevers. No night sweats. HEENT: Negative for headaches, No changes in hearing or vision, no nose bleeds or other nasal problems. RESPIRATORY: Negative for cough, wheezing and shortness of breath CARDIOVASCULAR: Negative for chest pain, leg swelling and palpitations GI: Negative for abdominal discomfort, blood in stools or black stools and change in bowel habits : Negative for dysuria, frequency and incontinence MUSCULOSKELETAL: Negative for joint pain or swelling, back pain, and muscle pain. SKIN: Negative for lesions, rash, and itching. HEMATOLOGY/LYMPHOLOGY Negative for prolonged bleeding, bruising easily, and swollen nodes. NEURO: Negative for numbness or tingling of hands/feet. No weakness. PHYSICAL EXAMINATION: BP 152/78[manuelly[ Pulse 89 Temp (Src) 97.2 (Temporal) Resp 18 Ht 5' 2.008 (1.58m) Wt 251 lb 3.2 oz (113.9kg) SpO2 96% BMI 45.93 kg/(m2). There were no vitals taken for this visit. Last 3 Encounter Wt Readings: Date: Wt: 02/26/2019 102.1 kg (225 lb) 02/12/2019 99.8 kg (220 lb) 09/04/2018 98.4 kg (217 lb) General appearance:ECOG PERFORMANCE STATUS: 0- Fully active, able to carry on all pre-disease performance w/o restriction. Patient in NAD. Skin: Skin color, texture, turgor normal. No rashes or lesions. Eyes: Anicteric sclera. Pupils are equally round and reactive to light. Extraocular movements are intact. Lymph Nodes: No cervical, supraclavicular, axillary or inguinal adenopathy. Oropharynx: Lips, mucosa, and tongue normal. Back: No pain to percussion. Negative SLR test Lungs clear to auscultation, No wheezing or rhonchi Heart: RRR without murmur, g (more content not included)... Normal [facility] CBC W Auto Differential pane l (Bld)on 12-21-2021 Basophils (Bld) [#/Vol] 0.06 10*3/uL Normal <0.11 [facility] Comment on above: Order Comment: Speci men Type: BLOOD SPECIMEN [facility]ing Facility: [facility] Address: [address] [place] [address] Performed By: #### 5 7021-8 #### [facility] CLIA [id number] [address] [place] [address] Basophils/100 WBC (Bld) 0.8 % Normal [facility] Comment on above: Order Comment: Speci men Type: BLOOD SPECIMEN Ordering Facility: [facility] Address: [address] [place] [address] Performed By: #### 5 7021-8 #### [facility] CLIA [id number] [address] [place] [address] Differential cell count method Nom (Bld) Auto Normal [facility] Comment on above: Order Comment: Speci men Type: BLOOD SPECIMEN Ordering Facility: [facility] Address: [address] [place] [address] Performed By: #### 5 7021-8 #### [facility] CLIA [id number] [address] [place] [address] Eosinophils (Bld) [#/Vol] 0.48 10*3/uL High <0.46 [facility] Comment on above: Order Comment: Speci men Type: BLOOD SPECIMEN Ordering Facility: [facility] Address: [address] [place] [address] Performed By: #### 5 7021-8 #### [facility] CLIA [id number] [address] [place] [address] Eosinophils/100 WBC (Bld) 6.3 % Normal [facility] Comment on above: Order Comment: Speci men Type: BLOOD SPECIMEN Ordering Facility: [facility] Address: [address] [place] [address] Performed By: #### 5 7021-8 #### [facility] CLIA [id number] [address] [place] [address] Erythrocyte distribution width (RBC) [Ratio] 14.4 % Normal 11.5-15.0 [facility] Comment on above: Order Comment: Speci men Type: BLOOD SPECIMEN Ordering Facility: [facility] Address: [address] [place] [address] Performed By: #### 5 7021-8 #### [facility] CLIA [id number] [address] [place] [address] 22875 Hematocrit (Bld) [Volume fraction] 40.7 % Normal 36.0-46.0 [facility] Comment on above: Order Comment: Speci men Type: BLOOD SPECIMEN Ordering Facility: [facility] Address: [address] [place] [address] Performed By: #### 5 7021-8 #### [facility] CLIA [id number] [address] [place] [address] 84957 Hemoglobin (Bld) [Mass/Vol] 13.6 g/dL Normal 11.5-15.5 [facility] Comment on above: Order Comment: Speci men Type: BLOOD SPECIMEN Ordering Facility: [facility] Address: [address] [place] [address] Performed By: #### 5 7021-8 #### [facility] CLIA [id number] [address] [place], [place] [address] IMMATURE GRAN % 0.5 % Normal [facility] Comment on above: Order Comment: Speci men Type: BLOOD SPECIMEN Ordering Facility: [facility] Address: [address] [place] [address] Performed By: #### 5 7021-8 #### [facility] CLIA [id number] [address] [place] [address] 91870 IMMATURE GRAN ABS 0.04 k/uL Normal <0.10 [facility] Comment on above: Order Comment: Speci men Type: BLOOD SPECIMEN Ordering Facility: [facility] Address: [address] [place] [address] Performed By: #### 5 7021-8 #### [facility] CLIA [id number] [address] [place] [address] 45744 Lymphocytes (Bld) [#/Vol] 1.70 10*3/uL Normal 1.00-4.00 [facility] Comment on above: Order Comment: Speci men Type: BLOOD SPECIMEN Ordering Facility: [facility] Address: [address] [place] [address] Performed By: #### 5 7021-8 #### [facility] CLIA [id number] [address] [place] [address] 28669 Lymphocytes/100 WBC (Bld) 22.1 % Normal [facility] Comment on above: Order Comment: Speci men Type: BLOOD SPECIMEN Ordering Facility: [facility] Address: [address] [place] [address] Performed By: #### 5 7021-8 #### [facility] CLIA [id number] [address] [place] [address] 35972 MCH (RBC) [Entitic mass] 31.3 pg Normal 26.0-34.0 [facility] Comment on above: Order Comment: Speci men Type: BLOOD SPECIMEN Ordering Facility: [facility] Address: [address] [place] [address] Performed By: #### 5 7021-8 #### [facility] CLIA [id number] [address] [place] [address] 80262 MCHC (RBC) [Mass/Vol] 33.4 g/dL Normal 30.5-36.0 [facility] Comment on above: Order Comment: Speci men Type: BLOOD SPECIMEN Ordering Facility: [facility] Address: [address] [place] [address] Performed By: #### 5 7021-8 #### [facility] CLIA [id number] [address] [place] [address] 55831 MCV (RBC) [Entitic vol] 93.6 fL Normal 80.0-100.0 [facility] Comment on above: Order Comment: Speci men Type: BLOOD SPECIMEN Ordering Facility: [facility] Address: [address] [place] [address] Performed By: #### 5 7021-8 #### [facility] CLIA [id number] [address] [place] [address] 97670 Monocytes (Bld) [#/Vol] 0.68 10*3/uL Normal <0.87 [facility] Comment on above: Order Comment: Speci men Type: BLOOD SPECIMEN Ordering Facility: [facility] Address: [address] Performed By: #### 5 7021-8 #### [facility] CLIA [id number] [address] [place] [address] 21264 Monocytes/100 WBC (Bld) 8.9 % Normal [facility] Comment on above: Order Comment: Speci men Type: BLOOD SPECIMEN Ordering Facility: [facility] Address: [address] [place], [place] [address] Performed By: #### 5 7021-8 #### [facility] CLIA [id number] [address] [place] [address] 23219 Neutrophils (Bld) [#/Vol] 4.72 10*3/uL Normal 1.45-7.50 [facility] Comment on above: Order Comment: Speci men Type: BLOOD SPECIMEN Ordering Facility: [facility] Address: [address] [place], [place] [address] Performed By: #### 5 7021-8 #### [facility] CLIA [id number] [address] [place] [address] 62442 Neutrophils/100 WBC (Bld) 61.4 % Normal [facility] Comment on above: Order Comment: Speci men Type: BLOOD SPECIMEN Ordering Facility: [facility] Address: [address] [place], [place] [address] Performed By: #### 5 7021-8 #### [facility] CLIA [id number] [address] [place] [address] 15079 Nucleated RBC (Bld) [#/Vol] 10*3/uL Normal <0.01 [facility] Comment on above: Order Comment: Speci men Type: BLOOD SPECIMEN Ordering Facility: [facility] Address: [address] [place], [place] [address] Performed By: #### 5 7021-8 #### [facility] CLIA [id number] [address] [place] [address] 28851 Nucleated RBC/100 WBC (Bld) [Ratio] 0.0 /100 WBC Normal [facility] Comment on above: Order Comment: Speci men Type: BLOOD SPECIMEN Ordering Facility: [facility] Address: [address] [place] [address] Performed By: #### 5 7021-8 #### [facility] CLIA [id number] [address] [place] [address] 92746 Platelet mean volume (Bld) [Entitic vol] 9.1 fL Normal 9.0-12.7 [facility] Comment on above: Order Comment: Speci men Type: BLOOD SPECIMEN Ordering Facility: [facility] Address: [address] [place] [address] Performed By: #### 5 7021-8 #### [facility] CLIA [id number] [address] [place] [address] 03521 Platelets (Bld) [#/Vol] 190 10*3/uL Normal 150-400 [facility] Comment on above: Order Comment: Speci men Type: BLOOD SPECIMEN Ordering Facility: [facility] Address: [address] [place] [address] Performed By: #### 5 7021-8 #### [facility] CLIA [id number] [address] [place] [address] 70472 RBC (Bld) [#/Vol] 4.35 10*6/uL Normal 3.90-5.20 [facility] Comment on above: Order Comment: Speci men Type: BLOOD SPECIMEN Ordering Facility: [facility] Address: [address] [place] [address] Performed By: #### 5 7021-8 #### [facility] CLIA [id number] [address] [place] [address] 55845 WBC (Bld) [#/Vol] 7.68 10*3/uL Normal 3.70-11.00 [facility] Comment on above: Order Comment: Speci men Type: BLOOD SPECIMEN Ordering Facility: [facility] Address: [address] [place] [address] Performed By: #### 5 7021-8 #### [facility] CLIA [id number] [address] [place] [address] 23888 CEA SerPl-mCncon 12-21-2021 Carcinoembryonic Ag [Mass/Vol] 3.8 ng/mL High <=2.9 [facility] Comment on above: Order Comment: Speci men Type: BLOOD SPECIMEN Ordering Facility: [facility] Address: [address] [place] [address] Result Comment: Carc inoembryonic antigen test is used as an aid in monitoring response to treatment or recurrence in patients with established colorectal, breast, lung, prostatic, pancreatic, and ovarian carcinomas. Clinical correlation is required. The Carcinoembryonic antigen test was performed using the [employer] Unicel DXI paramagnetic particle chemiluminescent immunoassay method. Results obtained with different assay methods or kits cannot be used interchangeably. Performed By: #### 2 039-6 #### [facility] CLIA [id number] [address] [place] [address] [place] Comprehensive metabolic 2000 panelon 12-21-2021 Albumin [Mass/Vol] 4.2 g/dL Normal 3.9-4.9 [facility] Comment on above: Order Comment: Speci men Type: BLOOD SPECIMEN Ordering Facility: [facility] Address: [address] [place] [address] Performed By: #### 2 4323-8 #### [facility] CLIA [id number] [address] [place] [address] 64217 ALP [Catalytic activity/Vol] 86 U/L Normal 34-123 [facility] Comment on above: Order Comment: Speci men Type: BLOOD SPECIMEN Ordering Facility: [facility] Address: [address] [place] [address] Performed By: #### 2 4323-8 #### [facility] CLIA [id number] [address] [place] [address] 71341 ALT [Catalytic activity/Vol] 15 U/L Normal 7-38 [facility] Comment on above: Order Comment: Speci men Type: BLOOD SPECIMEN Ordering Facility: [facility] Address: [facility] [address] Performed By: #### 2 4323-8 #### [facility] CLIA [id number] [address] [place] [address] 57306 Anion gap [Moles/Vol] 7 mmol/L Low 9-18 [facility] Comment on above: Order Comment: Speci men Type: BLOOD SPECIMEN Ordering Facility: [facility] Address: [address] [place] [address] Performed By: #### 2 4323-8 #### [facility] CLIA [id number] [address] [place] [address] 92429 AST [Catalytic activity/Vol] 18 U/L Normal 13-35 [facility] Comment on above: Order Comment: Speci men Type: BLOOD SPECIMEN Ordering Facility: [facility] Address: [address] [place], [place] [address] Performed By: #### 2 4323-8 #### [facility] CLIA [id number] [address] [place] [address] 89816 Bilirubin [Mass/Vol] 1.0 mg/dL Normal 0.2-1.3 [facility] Comment on above: Order Comment: Speci men Type: BLOOD SPECIMEN Ordering Facility: [facility] Address: [address] [place], [place] [address] Performed By: #### 2 4323-8 #### [facility] CLIA [id number] [address] [place] [address] 15106 Calcium [Mass/Vol] 9.6 mg/dL Normal 8.5-10.2 [facility] Comment on above: Order Comment: Speci men Type: BLOOD SPECIMEN Ordering Facility: [facility] Address: [address] [place], [place] [address] Performed By: #### 2 4323-8 #### [facility] CLIA [id number] [address] [place] [address] Chloride [Moles/Vol] 103 mmol/L Normal 97-105 [facility] Comment on above: Order Comment: Speci men Type: BLOOD SPECIMEN Ordering Facility: [facility] Address: [address] [place] [address] Performed By: #### 2 4323-8 #### [facility] CLIA [id number] [address] [place] [address] CO2 [Moles/Vol] 30 mmol/L Normal 22-30 [facility] Comment on above: Order Comment: Speci men Type: BLOOD SPECIMEN Ordering Facility: [facility] Address: [address] [place] [address] Performed By: #### 2 4323-8 #### [facility] CLIA [id number] [address] [place] [address] 82502 Creatinine [Mass/Vol] 0.79 mg/dL Normal 0.58-0.96 [facility] Comment on above: Order Comment: Speci men Type: BLOOD SPECIMEN Ordering Facility: [facility] Address: [address] [place] [address] Performed By: #### 2 4323-8 #### [facility] CLIA [id number] [address] [place] [address] 35989 ESTIMATED GLOMERULAR FILTRATION RATE 80 mL/min/1.73m??? Normal >=60 [facility] Comment on above: Order Comment: Speci men Type: BLOOD SPECIMEN Ordering Facility: [facility] Address: [address] [place] [address] Result Comment: Christi mated Glomerular Filtration Rate (eGFR) is calculated using the 2020 CKD-EPI creatinine equation. This equation utilizes serum creatinine, sex, and age as parameters. The creatinine assay has traceable calibration to isotope dilution-mass spectrometry. Refer to KDIGO guidelines for clinical interpretation. In patients with unstable renal function, e.g. those with acute kidney injury, the eGFR may not accurately reflect actual GFR. Performed By: #### 2 4323-8 #### [facility] CLIA [id number] [address] [place] [address] Glucose [Mass/Vol] 171 mg/dL High 74-99 [facility] Comment on above: Order Comment: Speci men Type: BLOOD SPECIMEN Ordering Facility: [facility] Address: [address] [place] [address] Result Comment: The [place] Diabetes Association (ADA) provides guidance for cutoff values for fasting glucose and random glucose. The ADA defines fasting as no caloric intake for at least 8 hours. Fasting plasma glucose results between 100 to 125 mg/dL indicate increased risk for diabetes (prediabetes). Fasting plasma glucose results greater than or equal to 126 mg/dL meet the criteria for diagnosis of diabetes. In the absence of unequivocal hyperglycemia, results should be confirmed by repeat testing. In a patient with classic symptoms of hyperglycemia or hyperglycemic crisis, random plasma glucose results greater than or equal to 200 mg/dL meet the criteria for diagnosis of diabetes. Reference: Standards of Medical Care in Diabetes 2016, [place] [employer] Association. Diabetes Care. 2016.39(Suppl 1). Performed By: #### 2 4323-8 #### [facility] CLIA [id number] [address] [place] [address] 79204 Potassium [Moles/Vol] 3.8 mmol/L Normal 3.7-5.1 [facility] Comment on above: Order Comment: Speci men Type: BLOOD SPECIMEN Ordering Facility: [facility] Address: [address] [place] [address] Performed By: #### 2 4323-8 #### [facility] CLIA [id number] [address] [place] [address] Sodium [Moles/Vol] 140 mmol/L Normal 136-144 [facility] Comment on above: Order Comment: Speci men Type: BLOOD SPECIMEN Ordering Facility: [facility] Address: [address] [place] [address] Performed By: #### 2 4323-8 #### [facility] CLIA [id number] [address] [place] [address] 56939 Urea nitrogen [Mass/Vol] 10 mg/dL Normal 7-21 [facility] Comment on above: Order Comment: Speci men Type: BLOOD SPECIMEN Ordering Facility: [facility] Address: [address] [place] [address] Performed By: #### 2 4323-8 #### [facility] CLIA [id number] [address] [place], [place] [address] IMMUNOFIXATION SCREEN, SERUM on 12-21-2021 MPA RESULT No M protein is identified. Normal No M protein is identified. [facility] Comment on above: Order Comment: Speci men Type: BLOOD SPECIMENOrdering Facility: [facility] Address: [address] [place] [address] Performed By: #### I FES ####[facility] [id number] [place] [address] [place] STAFF REVIEW (MPA) Reviewed by Juli Wagner MD [facility] Comment on above: Order Comment: Speci men Type: BLOOD SPECIMENOrdering Facility: [facility] Address: [address] [place] [address] Performed By: #### I FES ####[facility] [id number] [place] [address] [place] IMMUNOGLOBULINS GAMon 2021 IgA [Mass/Vol] 234 mg/dL Normal 70-400 [facility] Comment on above: Order Comment: Speci men Type: BLOOD SPECIMEN Ordering Facility: [facility] Address: [address] [place] [address] Performed By: #### S ERIMM #### [facility] CLIA [id number] [address] [place] [address] [place] IgG [Mass/Vol] 685 mg/dL Low 700-1600 [facility] Comment on above: Order Comment: Speci men Type: BLOOD SPECIMEN Ordering Facility: [facility] Address: [address] [place] [address] Performed By: #### S ERIMM #### [facility] CLIA [id number] [address] [place] [address] [place] IgM [Mass/Vol] 32 mg/dL Low 40-230 [facility] Comment on above: Order Comment: Speci men Type: BLOOD SPECIMEN Ordering Facility: [facility] Address: [address] [place] [address] Performed By: #### S ERIMM #### [facility] CLIA [id number] [address] [place] [address] [place] KAPPA/BAILEY,FREE,SERon 2021 Immunoglobulin light chains.kappa.free (S) [Mass/Vol] 20.8 mg/L High 3.3-19.4 [facility] Comment on above: Order Comment: Speci men Type: BLOOD SPECIMENOrdering Facility: [facility] Address: [address] [place] [address] Result Comment: Rare ly, increased serum free light chains levels may not be detected or accurately quantified due to prozone phenomenon or in high viscosity samples using this immunoturbidimetric assay. Correlation with other laboratory results and clinical findings is recommended. The [place] Free Light Chain was performed using the Binding Site Optilite immunoturbidimetric method. Result obtained with different assay methods or kits cannot be used interchangeably. Performed By: #### K LFRS ####[facility] [id number] [address] [place] Immunoglobulin light chains.kappa/Immunog lobulin light chains.lambda (S) [Mass ratio] 0.99 Normal 0.26-1.65 [facility] Comment on above: Order Comment: Speci men Type: BLOOD SPECIMENOrdering Facility: [facility] Address: [address] [place] [address] Performed By: #### K LFRS ####[facility] [id number] [place] Immunoglobulin light chains.lambda.free [Mass/Vol] 21.1 mg/L Normal 5.7-26.3 [facility] Comment on above: Order Comment: Speci men Type: BLOOD SPECIMENOrdering Facility: [facility] Address: [address] [place] [address] Result Comment: Rare ly, increased serum free light chains levels may not be detected or accurately quantified due to prozone phenomenon or in high viscosity samples using this immunoturbidimetric assay. Correlation with other laboratory results and clinical findings is recommended. The Lambda Free Light Chain was performed using the Binding Site Optilite immunoturbidimetric method. Result obtained with different assay methods or kits cannot be used interchangeably. Performed By: #### K LFRS ####[facility] [id number] [place] [address] [place] PROTEIN ELECTROPHORESIS SERU M (P)on 12-21-2021 Albumin [Mass/Vol] 3.79 g/dL Normal 3.37-4.23 [facility] Comment on above: Order Comment: Speci men Type: BLOOD SPECIMENOrdering Facility: [facility] Address: [address] [place] [address] Performed By: #### L [id number] ####[facility] [id number] [place] [address] [place] Alpha 1 globulin Elph [Mass/Vol] 0.25 g/dL Normal 0.18-0.31 [facility] Comment on above: Order Comment: Speci men Type: BLOOD SPECIMENOrdering Facility: [facility] Address: [address] [place] [address] Performed By: #### L [id number] ####[facility] [id number] [place] [address] [place] Alpha 2 globulin Elph [Mass/Vol] 0.74 g/dL Normal 0.52-0.97 [facility] Comment on above: Order Comment: Speci men Type: BLOOD SPECIMENOrdering Facility: [facility] Address: [address] [place], [place] [address] Performed By: #### L [id number] ####[facility] [id number] [address] [place] Beta globulin Elph [Mass/Vol] 0.91 g/dL Normal 0.84-1.36 [facility] Comment on above: Order Comment: Speci men Type: BLOOD SPECIMENOrdering Facility: [facility] Address: [address] [place], [place] [address] Performed By: #### L [id number] ####[facility] [id number] [address] [place] Gamma globulin Elph (Body fld) [Mass fraction] 0.72 g/dL Normal 0.70-1.44 [facility] Comment on above: Order Comment: Speci men Type: BLOOD SPECIMENOrdering Facility: [facility] Address: [address] [place] [address] Performed By: #### L [id number] ####[facility] [id number] [address] [place] M-PROTEIN LOCATION Normal [facility] Comment on above: Order Comment: Speci men Type: BLOOD SPECIMENOrdering Facility: [facility] Address: [address] [place] [address] Result Comment: Not Applicable. Performed By: #### L [id number] ####[facility] [id number] [place] [address] [place] Protein Fractions [Interp] No definitive M protein is identified on protein electrophoresis. Normal No definitive M protein is identified on protein electrophoresi s. [facility] Comment on above: Order Comment: Speci men Type: BLOOD SPECIMENOrdering Facility: [facility] Address: [address] [place] [address] Performed By: #### L [id number] ####[facility] [id number] [address] Protein.monoclonal Elph [Mass/Vol] 0.00 g/dL Normal <=0.00 [facility] Comment on above: Order Comment: Speci men Type: BLOOD SPECIMENOrdering Facility: [facility] Address: [address] [place] [address] Performed By: #### L [id number] ####[facility] [id number] [address] [place] SPE STAFF REVIEW Reviewed by Juli Wagner MD [facility] Comment on above: Order Comment: Speci men Type: BLOOD SPECIMENOrdering Facility: [facility] Address: [address] [place] [address] Performed By: #### L [id number] ####[facility] [id number] [address] [place] Prot SerPl-mCncon 12-21-2021 Protein [Mass/Vol] 6.4 g/dL Normal 6.3-8.0 [facility] Comment on above: Order Comment: Speci men Type: BLOOD SPECIMEN Ordering Facility: [facility] Address: [address] [place] [address] Performed By: #### 2 885-2 #### [facility] CLIA [id number] [address] [place] [address] [place] Performed By: #### 2 4323-8 #### [facility] CLIA [id number] [address] [place] [address] 41658 Glucose Poct Glucometerson 0 08-23-2021 Commemt1 Glu2: Cleaned Meter Normal [facility] Comment on above: Result Comment: PERF ORMED BY: [facility] [address] [place] [address] PATHOLOGIST [employer] [place]EN [place] M.D. Performed By: #### G DAVILS #### Point of Care testing , Glucose [Mass/Vol] 136 mg/dL Normal [facility] Comment on above: Result Comment: [place] Glucose Reference Range is dependent on time and content of last meal. Glucose of more than 200 mg/dL in a nonstressed, ambulatory subject supports the diagnosis of Diabetes Mellitus. Performed By: #### G LULS #### Point of Care testing , COVID-19 Antigenon 2 COVID-19 Antigen Healthcare Worker?: N Reference Range: Negative Negative results, from patients with symptom onset beyond five days, should be treated as presumptive and confirmation with a molecular assay, if necessary, for patient management, may be performed. Negative results do not rule out COVID-19 and should not be used as the sole basis for treatment or patient management decisions, including infection control decisions. Negative results should be considered in the context of a patient's recent exposures, history and the presence of clinical signs and symptoms consistent with COVID-19. The Jodie SARS Antigen MAXIMILIANO does not differentiate between SARS-CoV and SARS-CoV-2. This test was developed and its performance characteristic determined by [employer] and validated at [facility]. This test has not been FDA cleared or approved. This test has been authorized by FDA under an Emergency Use Authorization (EUA). This test has been validated in accordance with the FDA's Guidance Document (Policy for Diagnostics Testing in Laboratories Certified to Perform High Complexity Testing under CLIA prior to Emergency Use Authorization for Coronavirus Disease-2019 during the Public Health Emergency) issued on June 12, 2019. This test is only authorized for the duration of time the declaration that circumstances exist justifying the authorization of the emergency use of in vitro diagnostic tests for detection of SARS-CoV-2 virus and/or diagnosis of COVID-19 infection under section 564(b)(1) of the Act, 21 U.S.C. 360bbb-3(b)(1), unless the authorization is terminated or revoked sooner. SARS-CoV+SARS-CoV-2 (COVID-19) Ag [Presence] in Respiratory specimen by Rapid immunoassay Negative for SARS Antigen by [employer] PERFORMED BY: [place] [address] PATHOLOGIST [employer] CHEN RIVER M.D. Normal [facility] Comment on above: Performed By: #### S ANIVAL COVID-19 JODIE #### [address] Jodie Ag Negativeon 08-20-19 Jodie Ag Negative Negative Normal Negative [facility] Comment on above: Result Comment: This is a duplicate Jodie SARS Antigen (MAXIMILIANO) result to be used for statistical tracking purpose only. PERFORMED BY: [place] [address] PATHOLOGIST [employer] STAKER CHEN RIVER M.D. Performed By: #### S SHERRELLMEL COVID-19 JODIE #### [address] MRI CSPINE WO CONon 08-05-19 MRI CSPINE WO CON EXAMINATION: MRI CSPINE WO CON HISTORY: Radiculopathy due to cervical spondylosis COMPARISON: No relevant comparison available. TECHNIQUE: A variety of imaging planes and parameters were utilized for visualization of suspected pathology. FINDINGS: Limited exam secondary to use of an alternative coil for the patient's kyphosis CRANIOCERVICAL AREA: Normal foramen magnum with no Chiari malformation. PARASPINAL AREA: Normal with no visible mass. BONES: Normal alignment with no acute fracture or spondylolisthesis. No bone edema. CORD: Normal caliber, contour, and signal intensity. CERVICAL DISC LEVELS: C2-C3: Early degenerative disc disease is present without focal protrusion or neural impingement. C3-C4: Disc space narrowing and disc desiccation. Mild diffuse disc/osteophyte complex and facet osteoarthropathy. Narrowing of the central canal to 6.5 mm. No definite foraminal stenosis C4-C5: Disc space narrowing and disc desiccation. Mild diffuse disc/osteophyte complex and facet osteoarthropathy. Ligamentum flavum hypertrophy. Moderate trefoil narrowing of the central canal measuring 6 mm. No definite foraminal stenosis. C5-C6: Disc desiccation. Mild diffuse disc bulge and facet osteoarthropathy. No definite central canal or foraminal stenosis. C6-C7: Collapse with endplate sclerosis. Moderate diffuse anterior and posterior disc/osteophyte complex and facet osteoarthropathy. Narrowing the central canal to 7 mm in anterior posterior dimension. Mild right and severe left foraminal stenosis C7-T1:. Moderate disc space narrowing. No definite central or foraminal stenosis IMPRESSION: Moderately limited exam secondary to use of an alternative head coil from the patient's kyphosis Degenerative changes resulting in central and foraminal stenosis at multiple levels as detailed above Electronically authenticated by: SID GALDAMEZ Date: 2021-08-04 14:38 Normal [facility] MICROALBUMIN, RAND URon 05-2 mALB 1.3 mg/L Normal <=30.0 [facility] Comment on above: Performed By: #### M ALBR #### [facility] [address] [place] [address] Dr. Linn Leone TSHon 07-29-2021 TSH 2.670 uIU/mL Normal 0.358-3.740 [facility] Comment on above: Performed By: #### T SH #### [facility] [address] [place] [address] Dr. Linn Leone TSH RANGE SEE BELOW Normal [facility] Comment on above: Result Comment: <0.3 4 UIU/ml HYPERTHYROID 0.34-5.60 UIU/ml EUTHYROID >5.60 UIU/ml HYPOTHYROID Performed By: #### T SH #### [facility] [address] [place] [address] Dr. Linn Leone XR CSPINE 2_3 VIEWSon 2021 XR CSPINE 2_3 VIEWS EXAMINATION: XR CSPI NE 2_3 VIEWS HISTORY: Radiculopathy due to cervical spondylosis ; chronic neck pain COMPARISON: No relevant comparison available. FINDINGS: BONES: Moderate degenerative facet arthropathy at all cervical levels, greater involving the lower levels. Slight reversal of the normal lordotic curvature of the lower cervical spine. No fracture or significant spondylolisthesis. DISC SPACES: Moderate narrowing C6-C7. PARASPINOUS: Negative. No paraspinous abnormality is seen. OTHER: Negative. IMPRESSION: 1. Multilevel degenerative facet arthropathy. 2. Moderate or marked degenerative disc disease C6-C7. Consider MRI for further evaluation. Electronically authenticated by: JIMY Can: 2021-07-29 17:40 Normal [facility] CBC W Auto Differential pane l (Bld)on 06-29-2021 Abs Immature Gran 0.06 k/uL <0.10 k/uL [facility] Basophils (Bld) [#/Vol] 0.04 10*3/uL <0.11 k/uL [facility] Basophils/100 WBC (Bld) 0.5 % [facility] Differential cell count method Nom (Bld) Auto [facility] Eosinophils (Bld) [#/Vol] 0.44 10*3/uL <0.46 k/uL [facility] Eosinophils/100 WBC (Bld) 5.8 % [facility] Erythrocyte distribution width (RBC) [Ratio] 14.7 % 11.5 - 15.0 % [facility] Hematocrit (Bld) [Volume fraction] 42.2 % 36.0 - 46.0 % [facility] Hemoglobin (Bld) [Mass/Vol] 13.9 g/dL 11.5 - 15.5 g/dL [facility] Immature Gran % 0.8 % [facility] Lymphocytes (Bld) [#/Vol] 1.69 10*3/uL 1.00 - 4.00 k/uL [facility] Lymphocytes/100 WBC (Bld) 22.3 % [facility] MCH (RBC) [Entitic mass] 30.8 pg 26.0 - 34.0 pg [facility] MCHC (RBC) [Mass/Vol] 32.9 g/dL 30.5 - 36.0 g/dL [facility] MCV (RBC) [Entitic vol] 93.4 fL 80.0 - 100.0 fL [facility] Monocytes (Bld) [#/Vol] 0.77 10*3/uL <0.87 k/uL [facility] Monocytes/100 WBC (Bld) 10.2 % [facility] Neutrophils (Bld) [#/Vol] 4.58 10*3/uL 1.45 - 7.50 k/uL [facility] Neutrophils/100 WBC (Bld) 60.4 % [facility] Nucleated RBC (Bld) [#/Vol] 10*3/uL <0.01 k/uL [facility] Nucleated RBC/100 WBC (Bld) [Ratio] 0.0 /100 WBC [facility] Platelet mean volume (Bld) [Entitic vol] 8.9 fL Low 9.0 - 12.7 fL [facility] Platelets (Bld) [#/Vol] 200 10*3/uL 150 - 400 k/uL [facility] RBC (Bld) [#/Vol] 4.52 10*6/uL 3.90 - 5.2 0 m/uL [facility] WBC (Bld) [#/Vol] 7.58 10*3/uL 3.70 - 11. 00 k/uL [facility] Ambulatory Clinical Summaryo n 10-08-2019 Ambulatory Clinical Summary {[id number]}CD:[id number] Normal [facility] General Surgery Office/Clini c Noteon 10-08-2019 General Surgery Office/Clinic Note Chief Complaint post operative follow up HPI Staff 7 day post operative follow up post Mediport removal. Denies pain; minimal discomfort with palpation. No use of pain medication. Denies drainage or bleeding. History of Present Illness 1 week s/p port removal,doing well. minimal soreness, no drainage, not taking any pain meds. Physical Exam Vitals & Measurements T: 37.1 ?C (Tympanic) skin: incision healing well, minimal resolving ecchymosis, no drainage or erythema. Assessment/Plan 1. Encounter for care related to Port-a-Cath (Z45.2: Encounter for adjustment and management of vascular access device) doing well; call with problems/questions. 2. History of colon cancer, stage III (Z85.038: Personal history of other malignant neoplasm of large intestine) see # 1 Follow-up No qualifying data available Problem List/Past Medical History Ongoing COPD with emphysema DM II (diabetes mellitus, type II), controlled Encounter for care related to Port-a-Cath Esophagitis GERD (gastroesophageal reflux disease) History of colon cancer, stage III Hyperlipidemia Lumbar spondylosis Nephrolithiasis OA (osteoarthritis) PMR (polymyalgia rheumatica) Thyroid disease Historical Diabetes HT - Hypertension Procedure/Surgical History Removal of implantable venous access port (10/01/2019), Colonoscopy (12/10/2018), Appendectomy, Colostomy, Dilatation and curettage, History of back surgery, Partial resection of colon, Tonsillectomy and adenoidectomy. Medications Claritin 10 mg Tab, 10 mg= 1 tab(s), Oral, Daily Fish Oil 500 mg oral capsule, 1000 mg= 2 cap(s), Oral, Daily High Potency Probiotic, 2 cap(s), Oral, Daily hydrochlorothiazide 12.5 mg Cap, 12.5 mg= 1 cap(s), Oral, Daily hydroxychloroquine 200 mg Tab, 200 mg= 1 tab(s), Oral, BID levothyroxine 112 mcg (0.112 mg) oral capsule, 112 microgram= 1 cap(s), Oral, Daily magnesium citrate 125 mg oral capsule, 250 mg= 2 cap(s), Oral, Daily Novolin 70/30, See Instructions Novolin R, See Instructions Pepcid 40 mg Tab, 40 mg= 1 tab(s), Oral, BID Vitamin D3 2000 intl units, 1 tab, Oral, BID Allergies NSAIDs (H/O: asthma) Tree Nuts (mary, Anaphylactic reaction to food) Zofran (Vomiting) Social History Alcohol Current, Beer, Liquor, 1-2 times per month, 09/16/2019 Substance Abuse - Denies Substance Abuse, 09/16/2019 Tobacco - Denies Tobacco Use, 08/21/2016 Former smoker, quit more than 30 days ago Tobacco Use:., 09/16/2019 Family History Cardiac arrest: Mother and Father. [facility] Comment on above: Result Comment: Elec tronically Signed By: SUMAYA PATTEN, Victor Hugo Correa.david\Date and Time Signed: 10/08/19 16:33 EDT Operative Reporton 0 Operative Report [id number]. [id number]#1.0 0CD:127 Normal [facility] Lab Reportson 09-30-2019 Lab Reports [id number]. 70 [id number]#1.0 0CD:127 Normal [facility] ECG 12-Leadon 09-26-2019 ECG 12-Lead 104.170.. 70 [id number] 0CD:[address] [facility] Consenton 09-22-2019 Consent [id number] 70 [id number]#1.0 0CD:127 Normal [facility] Facesheeton 09-18-2019 Facesheet [id number]#1.0 0CD:127 Normal [facility] Ambulatory Clinical Summaryo n 09-16-2019 Ambulatory Clinical Summary {[id number]-98}[id number] Normal [facility] Physician Referralon 020 Physician Referral [id number] CD:127 Normal [facility] C REACTIVE PROTEINon 017 C reactive protein (CRP) 16.4 mg/L High 0.0-7.0 [facility] Comment on above: Performed By: #### 6 1405, 28058 ####[facility] CPKon 01-24-2017 Creatine kinase (CK) 54 U/L Normal 30-223 [facility] Comment on above: Performed By: #### 2 5508, 00009, 39927 ####[facility] CYCLIC CITRULLINATED PEPTIDE [place] [address]ia 01-24-2017 CYCLIC CIT PEP 2 Units Normal 0-19 [facility] Comment on above: Result Comment: INTE RPRETIVE INFORMATION: Cyclic Citrullinated PeptideAntibody, IgG 19 Units or less ................... Negative 20-39 Units ........................ Weak Positive 40-59 Units ........................ Moderate Positive 60 Units or greater ................ Strong PositiveAnti-cyclic citrullinated peptide (anti-CCP), IgGantibodies are present in about 69-83 percent of patientswith rheumatoid arthritis (RA) and have specificities of93-95 percent. These autoantibodies may be present in thepreclinical phase of disease, are associated with future RAdevelopment, and may predict radiographic jointdestruction. Patients with weak positive results should bemonitored and testing repeated.Performed by [facility],[address] [place] [id number] [email or web address], Stewart Rollins MD - Lab. Director [facility] LEFT [address] [facility] 01-24-2017 [facility] 3 [facility] [id number] [place] [address] ========Patient Name: BILLIE LIRIANO : 1950ex: FAge: Race: WhiteMRN: [id number]. Location: 264Patient Status: DVisit #: [id number] Date: 01/24/2017 4:50:00 PMCompleted Date: 01/24/2017 05:00 PMRequesting Provider: DALLAS BERNSTEIN I Attending Provider: DALLAS BERNSTEIN I Report Copy To: UNKNOWN, PHYSICIAN Signs & Symptoms: M06.9 Rheumatoid arthritis, unspecified [id number]: AthenaComments: , , Please evaluate for erosions , , , Ordering Provider - DALLAS BERNSTEIN MD , Rendering Provider - DALLAS BERNSTEIN MD , Supervising Provider - DALLAS BERNSTEIN MD , Exam: HAND LEFT 3 VWSAccession #: [id number] HAND RIGHT 3 VWS, HAND LEFT 3 VWS 01/24/2017 5:00 PM EST SIGNS AND SYMPTOMS: M06.9 Rheumatoid arthritis, unspecified I10 TECHNOLOGIST COMMENTS: pt states checking for rheumatoid arthritis, has nodules on both hands and pain in all joints of hands QUESTION FOR THE RADIOLOGIST: , , Please evaluate for erosions , , , Ordering Provider Gutierrez BERNSTEIN MD , Rendering Provider Gutierrez BERNSTEIN MD , Supervising Provider Gutierrez BERNSTEIN MD , PROTOCOL: AP,Lateral and Oblique views were obtained. COMPARISON: None FINDINGS: Soft tissues:Mild swelling Bones:Mild osteoporosisNo definite erosions Joints:Minor scattered spurring IMPRESSION: 1. No erosions2. Mild osteoporosis and minor scattered spurring consistent with osteoarthritis Electronically signed by:Tae Molina. Transcribed by: [email or web address], User Resident: Electronically Signed by: TAE MOLINA @ 01/25/2017 07:56 AM Normal [facility] [place] [facility] Comment on above: Order Comment: , , P lease evaluate for erosions , , , Ordering Provider Gutierrez BERNSTEIN MD , Rendering Provider Gutierrez BERNSTEIN MD , Supervising Ariel BERNSTEIN MD , HAND RIGHT 3 Son 7 HAND RIGHT 3 S [place] [facility] [address] [place] [address] ========Patient Name: BILLIE LIRIANO : 1950ex: FAge: Race: WhiteMRN: [id number]. Location: 264Patient Status: DVisit #: [id number] Date: 01/24/2017 4:50:00 PMCompleted Date: 01/24/2017 05:00 PMRequesting Provider: DALLAS BERNSTEIN I Attending Provider: DALLAS BERNSTEIN I Report Copy To: UNKNOWN, PHYSICIAN Signs & Symptoms: M06.9 Rheumatoid arthritis, unspecified [id number]: AthenaComments: , , Please evaluate for erosions , , , Ordering Provider - DALLAS BERNSTEIN MD , Rendering Provider - DALLAS BERNSTEIN MD , Supervising Provider - DALLAS BERNSTEIN MD , Exam: HAND RIGHT 3 VWSAccession #: [id number] HAND RIGHT 3 VWS, HAND LEFT 3 VWS 01/24/2017 5:00 PM EST SIGNS AND SYMPTOMS: M06.9 Rheumatoid arthritis, unspecified I10 TECHNOLOGIST COMMENTS: pt states checking for rheumatoid arthritis, has nodules on both hands and pain in all joints of hands QUESTION FOR THE RADIOLOGIST: , , Please evaluate for erosions , , , Ordering Provider - DALLAS BERNSTEIN MD , Rendering Provider - DALLAS BERNSTEIN MD , Supervising Provider Gutierrez BERNSTEIN MD , PROTOCOL: AP,Lateral and Oblique views were obtained. COMPARISON: None FINDINGS: Soft tissues:Mild swelling Bones:Mild osteoporosisNo definite erosions Joints:Minor scattered spurring IMPRESSION: 1. No erosions2. Mild osteoporosis and minor scattered spurring consistent with osteoarthritis Electronically signed by:Tae Molina. Transcribed by: [email or web address], User Resident: Electronically Signed by: TAE MOLINA @ 01/25/2017 07:56 AM Normal [facility] [place] [facility] Comment on above: Order Comment: , , P lease evaluate for erosions , , , Ordering Provider Gutierrez BERNSTEIN MD , Rendering Provider - DALLAS BERNSTEIN MD , Supervising Provider - DALLAS BERNSTEIN MD , HEPATITIS C ANTIBODYon 01-24 ANTI-HCV NONREACTIVE Normal NONREACTIVE [facility] [place] [facility] Comment on above: Performed By: #### 4 1661, 95370 ####[facility] [place] [address], [facility] PROTEIN ELECT Rudi 01-24-2017 Protein 6.6 g/dL Normal 6.0-8.3 [facility] [place] [facility] Comment on above: Performed By: #### 4 1661, 66224 ####[facility]3000 [facility] PROTEIN ELECT fractions of alpha 1 , alpha 2, beta and gamma globulins. Normal [facility] [place] [facility] Comment on above: Performed By: #### 4 1661, 06591 ####[facility]3000 [facility].[address] RHEUMATOID FACTOR SERUMon RA <20 Normal 0-20 [facility] [place] [facility] Comment on above: Performed By: #### 6 1405, [address] ####[place] [address] [facility] SEDIMENTATION RATEon 017 SED RATE 42 mm/hr High 0-20 [facility] [place] [facility] Comment on above: Performed By: #### 5 6506 ####[facility] TSHon 01-24-2017 Thyroid stimulating hormone (TSH) 2.61 MICRO-IU/ML Normal 0.34-5.60 [facility] [place] [facility] Comment on above: Performed By: #### 2 5508, 74720, 17093 ####[facility] VITAMIN D 25-HYDROXYon 01-24 VITAMIN D 25-OH 50.6 ng/mL Normal 30.0-80.0 [facility] [place] [facility] Comment on above: Result Comment: >80. 0 Toxicity possible Performed By: #### 2 5508, 54099, 14460 ####[facility] Vital Signs Date Time Vital Sign Value Performing Clinician Facility 11-28-2022 15:00-0400 Body height 157.48 cm Roby Ball Other [facility] Other 11-28-2022 15:00-0400 Body mass index (BMI) [Ratio] 43.93 kg/m2 Roby Ball Other [facility] Other 11-28-2022 15:00-0400 Body weight 108.95 kg Roby Ball Other [facility] Other 11-28-2022 15:00-0400 Diastolic blood pressure 70 mm[Hg] Roby Ball Other [facility] Other 11-28-2022 15:00-0400 Respiratory rate 12 /min Roby Ball Other [facility] Other 11-28-2022 15:00-0400 Systolic blood pressure 130 mm[Hg] Roby Ball Other [facility] Other 09-13-2022 15:45-0400 Body height 157.48 cm Roby Ball Other [facility] Other 09-13-2022 15:45-0400 Body mass index (BMI) [Ratio] 45.5 kg/m2 Roby Ball Other [facility] Other 09-13-2022 15:45-0400 Body weight 112.86 kg Roby Ball Other [facility] Other 09-13-2022 15:45-0400 Diastolic blood pressure 76 mm[Hg] Roby Ball Other [facility] Other 09-13-2022 15:45-0400 Respiratory rate 16 /min Roby Ball Other [facility] Other 09-13-2022 15:45-0400 Systolic blood pressure 124 mm[Hg] Roby Ball Other [facility] Other 07-28-2022 14:00-0400 Body height 157.48 cm Roby Ball Other [facility] Other 07-28-2022 14:00-0400 Body mass index (BMI) [Ratio] 45.9 kg/m2 Roby Ball Other [facility] Other 07-28-2022 14:00-0400 Body weight 113.85 kg Roby Ball Other [facility] Other 07-28-2022 14:00-0400 Diastolic blood pressure 68 mm[Hg] Roby Ball Other [facility] Other 07-28-2022 14:00-0400 Respiratory rate 12 /min Roby Ball Other [facility] Other 07-28-2022 14:00-0400 Systolic blood pressure 142 mm[Hg] Roby Ball Other [facility] Other 07-05-2022 14:30-0400 Body height 157.5 cm Rachael Bruce MD Work Phone: [facility] 07-05-2022 14:30-0400 Body temperature 97 [degF] Rachael Bruce MD Work Phone: [facility] 07-05-2022 14:30-0400 Body weight 114.13 kg Rachael Bruce MD Work Phone: [facility] 07-05-2022 14:30-0400 Diastolic blood pressure 59 mm[Hg] Rachael Bruce MD Work Phone: [facility] 07-05-2022 14:30-0400 Heart rate 73 /min Rachael Bruce MD Work Phone: [facility] 07-05-2022 14:30-0400 Respiratory rate 18 /min Rachael Bruce MD Work Phone: [facility] 07-05-2022 14:30-0400 SaO2% (BldA) [Mass fraction] 100 % Rachael Bruce MD Work Phone: [facility] 07-05-2022 14:30-0400 Systolic blood pressure 184 mm[Hg] Rachael Bruce MD Work Phone: [facility] 05-05-2022 14:00-0500 Body height 157.48 cm Roby Avaz Other [facility] Other 05-05-2022 14:00-0500 Body mass index (BMI) [Ratio] 46.12 kg/m2 Roby Ball Other [facility] Other 05-05-2022 14:00-0500 Body weight 114.4 kg Roby Ball Other [facility] Other 05-05-2022 14:00-0500 Diastolic blood pressure 70 mm[Hg] Roby Ball Other [facility] Other 05-05-2022 14:00-0500 Respiratory rate 16 /min Roby Ball Other [facility] Other 05-05-2022 14:00-0500 Systolic blood pressure 122 mm[Hg] Roby Ball Other [facility] Other 01-04-2022 14:22-0400 Body height 157.5 cm Rachael Bruce MD Work Phone: [facility] 01-04-2022 14:22-0400 Body temperature 97.2 [degF] Rachael Bruce MD Work Phone: [facility] 01-04-2022 14:22-0400 Body weight 113.94 kg Rachael Bruce MD Work Phone: [facility] 01-04-2022 14:22-0400 Diastolic blood pressure 78 mm[Hg] Rachael Bruce MD Work Phone: [facility] 01-04-2022 14:22-0400 Heart rate 89 /min Rachael Bruce MD Work Phone: [facility] 01-04-2022 14:22-0400 Respiratory rate 18 /min Rachael Bruce MD Work Phone: [facility] 01-04-2022 14:22-0400 SaO2% (BldA) [Mass fraction] 96 % Rachael Bruce MD Work Phone: [facility] 01-04-2022 14:22-0400 Systolic blood pressure 152 mm[Hg] Rachael Bruce MD Work Phone: [facility] 07-06-2021 14:17-0400 Body height 157.5 cm Rachael Bruce MD Work Phone: [facility] 07-06-2021 14:17-0400 Body temperature 98.29 [degF] Rachael Bruce MD Work Phone: [facility] 07-06-2021 14:17-0400 Body weight 112.95 kg Rachael Bruce MD Work Phone: [facility] 07-06-2021 14:17-0400 Diastolic blood pressure 78 mm[Hg] Rachael Bruce MD Work Phone: [facility] 07-06-2021 14:17-0400 Heart rate 78 /min Rachael Bruce MD Work Phone: [facility] 07-06-2021 14:17-0400 Respiratory rate 18 /min Rachael Bruce MD Work Phone: [facility] 07-06-2021 14:17-0400 SaO2% (BldA) [Mass fraction] 99 % Rachael Bruce MD Work Phone: [facility] 07-06-2021 14:17-0400 Systolic blood pressure 157 mm[Hg] Rachael Bruce MD Work Phone: [facility] Encounters Encounter Date Encounter Type Care Provider Facility Start: 12-05-2022 End: 12-05-2022 ambulatory Roby Dumont Other [facility] Other Start: 12-05-2022 Telephone encounter Roby Dumont [facility] Start: 11-28-2022 End: 11-28-2022 ambulatory Roby Dumont Other [facility] Other Start: 11-28-2022 Office outpatient vi sit [address] [facility] Start: 09-13-2022 End: 09-13-2022 ambulatory Roby Dumont Other [facility] Other Start: 09-13-2022 Office outpatient vi sit [address] [facility] Start: 09-13-2022 Telephone encounter Roby Dumont [facility] Start: 07-28-2022 End: 07-28-2022 ambulatory Roby Dumont Other [facility] Other Start: 07-28-2022 Patient encounter procedure Roby Dumont [facility] Start: 07-05-2022 End: 07-05-2022 ambulatory ROBY DUMONT Facility:[facility] Start: 07-05-2022 End: 07-05-2022 ambulatory Rachael Bruce MD Work Phone: Hematology/Oncology Comment on above: Idiopathic periphera l autonomic neuropathy (Primary Dx); Type 2 diabetes mellitus with hyperglycemia, without long-term current use of insulin (HCC) Start: 07-05-2022 End: 07-05-2022 Patient encounter procedure Rachael Bruce MD Work Phone: [facility] Start: 07-03-[address] ROBY DUMONT Facili ty:[facility] Start: 05-10-2022 End: 05-11-[address] ROBY DUMONT Facility:[facility] Start: 05-05-2022 End: 05-05-2022 ambulatory Roby Dumont Other [facility] Other Start: 05-05-2022 Office outpatient vi sit 25 minutes Roby Dumont [facility] Start: 01-13-2022 End: 01-14-[address] ROBY DUMONT Facility:[facility] Start: 01-05-2022 Telephone encounter Josué Garcia Hematology/Oncology Comment on above: Results Start: 01-04-2022 End: 01-04-2022 ambulatory ROBY DUMONT Facility:[facility] Start: 01-04-2022 End: 01-04-2022 ambulatory Rachael Bruce MD Work Phone: Hematology/Oncology Comment on above: Malignant neoplasm o f colon, unspecified part of colon (HCC) (Primary Dx); Neuropathy Start: 01-04-2022 End: 01-04-2022 Patient encounter procedure Rachael Bruce MD Work Phone: [facility] Start: 12-21-2021 End: 12-21-2021 ambulatory ROBY DUMONT Facility:[facility] Start: 08-12-2021 End: 11-19-[address] ROBY DUMONT Facility:[facility] Start: 08-04-2021 End: 08-05-[address] ROBY DUMONT Facility:[facility] Start: 07-29-2021 End: 07-30-[address] ROBY DUMONT Facility:[facility] Start: 07-06-2021 End: 07-06-2021 ambulatory Rachael Bruce MD Work Phone: Hematology/Oncology Comment on above: Malignant neoplasm o f colon, unspecified part of colon (HCC) (Primary Dx); Type 2 diabetes mellitus without complication, without long-term current use of insulin (HCC); Neuropathy Start: 07-06-2021 End: 07-06-2021 Patient encounter procedure Rachael Bruce MD Work Phone: YINKA Start: 07-06-2021 Telephone encounter Rachael bishop MD [facility] Comment on above: Referral Information (GI) Start: 06-29-2021 Telephone encounter Susanna Chavez RN Hematology/Oncology Comment on above: Results Start: 06-28-2021 Telephone encounter Rachael bishop MD Work Phone: Hematology/Oncology Comment on above: Lab Orders Start: 01-24-2017 End: 01-25-2017 Ambulatory NEZAM Nannette YBARRAK Facility:[facility] Start: 12-14-2016 End: 12-15-2016 Ambulatory DEFAULT PHYSICIAN Facility:[facility] Procedures Date Procedure Procedure Detail Performing Clinician Start: 07-06-2021 Adult depression screening assessment Rachael Bruce MD Work Phone: Start: 01-05-2021 Adult depression screening assessment Susanna Chavez RN Plan of Treatment Date Care Activity Detail Author Start: 07-06-2022 Adult depression screening assessment DEPRESSION SCREENING [facility] Start: 07-05-2022 End: 09-04-2022 Carcinoembryonic Ag [Mass/volume] in Serum or Plasma CEA BLD Lab Routine Malignant neoplasm of colon, unspecified part of colon (HCC) Expected: 07/05/2022 (Approximate), Expires: 09/04/2022 Work Phone: Comment on above: Expected: 07/05/2022 (Approximate), Expires: 09/04/2022 Start: 07-05-2022 End: 09-04-2022 CBC W Auto Differential panel - Blood CBC + DIFF Lab Routine Malignant neoplasm of colon, unspecified part of colon (HCC) Expected: 07/05/2022 (Approximate), Expires: 09/04/2022 Work Phone: Comment on above: Expected: 07/05/2022 (Approximate), Expires: 09/04/2022 Start: 07-05-2022 End: 09-04-2022 Comprehensive metabolic 2000 panel - Serum or Plasma COMP METABOLIC PANEL Lab Routine Malignant neoplasm of colon, unspecified part of colon (HCC) Expected: 07/05/2022 (Approximate), Expires: 09/04/2022 Work Phone: Comment on above: Expected: 07/05/2022 (Approximate), Expires: 09/04/2022 Start: 03-12-2022 ADVANCE DIRECTIVE DISCUSSION ADVANCE DIRECTIVE DISCUSSION [facility] Start: 03-12-2022 DEPRESSION ASSESSMENT DEPRESSION ASS ESSMENT [facility] Start: 01-05-2022 Adult depression screening assessment DEPRESSION SCREENING [facility] Start: 01-05-2022 End: 03-07-2022 Carcinoembryonic Ag [Mass/volume] in Serum or Plasma CEA BLD Lab Routine Malignant neoplasm of colon, unspecified part of colon (HCC) Expected: 01/05/2022 (Approximate), Expires: 03/07/2022 Work Phone: Comment on above: Expected: 01/05/2022 (Approximate), Expires: 03/07/2022 Start: 01-05-2022 End: 03-07-2022 CBC W Auto Differential panel - Blood CBC + DIFF Lab Routine Malignant neoplasm of colon, unspecified part of colon (HCC) Expected: 01/05/2022 (Approximate), Expires: 03/07/2022 Work Phone: Comment on above: Expected: 01/05/2022 (Approximate), Expires: 03/07/2022 Start: 01-05-2022 End: 03-07-2022 Comprehensive metabolic 2000 panel - Serum or Plasma COMP METABOLIC PANEL Lab Routine Malignant neoplasm of colon, unspecified part of colon (HCC) Expected: 01/05/2022 (Approximate), Expires: 03/07/2022 Work Phone: Comment on above: Expected: 01/05/2022 (Approximate), Expires: 03/07/2022 Start: 01-05-2022 End: 03-07-2022 MISC SEND OUT TST 1 MISC SEND OUT TST 1 Lab Routine Malignant neoplasm of colon, unspecified part of colon (HCC) Expected: 01/05/2022 (Approximate), Expires: 03/07/2022 Work Phone: Comment on above: Expected: 01/05/2022 (Approximate), Expires: 03/07/2022 Start: 01-05-2022 End: 03-07-2022 MONOCLONAL PROTEIN, SERUM (BLOOD) MONOCLONAL PROTEIN, SERUM (BLOOD) Lab Routine Neuropathy Expected: 01/05/2022 (Approximate), Expires: 03/07/2022 Work Phone: Comment on above: Expected: 01/05/2022 (Approximate), Expires: 03/07/2022 Start: 01-05-2022 End: 03-07-2022 PROTEIN ELECTROPHORESIS SERUM W/INTERP PROTEIN ELECTROPHORESIS SERUM W/INTERP Lab Routine Neuropathy Expected: 01/05/2022 (Approximate), Expires: 03/07/2022 Work Phone: Comment on above: Expected: 01/05/2022 (Approximate), Expires: 03/07/2022 Start: 12-29-2021 Hemoglobin A1c/Hemoglobin.total in Blood HBA1C [facility] Start: 06-29-2021 End: 08-29-2021 Hemoglobin A1c/Hemoglobin.total in Blood Work Phone: Comment on above: Expected: 06/29/2021 , Expires: 08/29/2021 Start: 03-12-2021 ADVANCE DIRECTIVE DISCUSSION ADVANCE DIRECTIVE DISCUSSION [facility] Start: 03-12-2021 DEPRESSION ASSESSMENT DEPRESSION ASS ESSMENT [facility] Start: 02-22-2021 COVID-19 VACCINE (4 - Booster for Pfizer series) COVID-19 VACCINE (4 - Booster for Pfizer series) [facility] Start: 01-10-2018 Hemoglobin A1c/Hemoglobin.total in Blood HBA1C [facility] Start: 12-19-2015 BONE DENSITY BONE DENSITY [facility] Start: 12-19-1995 COLOGUARD (FIT-DNA) COLOGUAELISHA (FIT-D NA) [facility] Start: 12-19-1995 Colonoscopy COLONOSCOPY [facility] Start: 12-19-1995 COLORECTAL CANCER SCREENING COLORECTAL CANCER SCREENING [facility] Start: 12-19-[address] COLONOGRAPHY [facility] Start: 12-19-1995 FECAL OCCULT BLOOD FECAL OCCULT BLOO D [facility] Start: 12-19-1995 SIGMOIDOSCOPY SIGMOIDOSCOPY [facility] Start: 1990 Mammography MAMMOGRAM [facility] Start: 1969 Urine microalbumin profile DTAP,TDAP,TD (1 - Tdap) [facility] Start: 1968 ANNUAL PCP TEAM FOOD SERVICES MANAGER JOSE LUIS DISEASE VISIT ANNUAL PCP TEAM CHRONIC DISEASE VISIT [facility] Start: 1968 BP CONTROLLED (<130/80) BP CONTROLLE D (<130/80) [facility] Start: 1968 Hepatitis B surface antibody level LDL CHOLESTEROL [facility] Start: 1968 HEPATITIS C SCREENING HEPATITIS C SC REENING [facility] Start: 1960 3 comp foot exam completed DIABETIC FOOT EXAM [facility] Start: 1960 Hepatitis B screening URINE AL BUMIN:CREATININE RATIO [facility] Start: 1960 Hepatitis C antibody , confirmatory test DILATED RETINAL EXAM [facility] Immunizations Immunization Date Immunization Notes Care Provider Gareth hendrix 07-24-2022 COVID-19 Pfizer (bivalent) Roby Dumont Other [employer] Other 12-02-2021 COVID-19 Pfizer (bivalent) Roby Dumont Other [employer] [facility] Other 12-02-2021 influenza, high-dose , quadrivalent vaccine (FLUZONE HIGH DOSE QUADRIVALENT) Rachael Bruce MD Work Phone: [facility] 12-01-2021 influenza, high dose seasonal, preservative-free Roby Dumont Other [employer] Other 12-13-2020 influenza virus vaccine, split virus (incl. purified surface antigen) Roby Dumont Other [facility] [employer] [facility] Other 11-23-2020 COVID-19 Vaccine Pfi zer - Documentation Purposes Only Roby Dumont Other [facility] [employer] [facility] Other 11-15-2020 influenza virus vaccine, split virus (incl. purified surface antigen) Roby Dumont Other [facility] Other 11-12-2020 influenza virus vaccine, unspecified formulation Susanna Kathy [facility] 05-01-2020 COVID-19 vaccine, ag e 12+ yr (PFIZER-BIONTECH - PURPLE TOP) Susanna Chavez [facility] 04-10-2020 COVID-19 vaccine, ag e 12+ yr (PFIZER-BIONTECH - PURPLE TOP) Susanna Chavez [facility] 12-05-2019 influenza virus vaccine, split virus (incl. purified surface antigen) Roby Dumont Other [facility] Other 12-05-2019 influenza, high-dose , quadrivalent vaccine (FLUZONE HIGH DOSE QUADRIVALENT) Susanna Chavez [facility] 11-28-2019 zoster vaccine recombinant Roby Dumont Other [facility] Other 11-23-2019 zoster vaccine recombinant Susanna Chavez [facility] 09-20-2019 zoster vaccine recombinant Susanna Chavez [facility] 12-23-2018 influenza, seasonal, injectable Susanna Chavez [facility] 12-16-2018 influenza, high dose seasonal, preservative-free Susanna Chavez [facility] 02-04-2018 pneumococcal polysaccharide vaccine, 23 valent Susanna Chavez [facility] 12-10-2017 influenza virus vaccine, split virus (incl. purified surface antigen) Roby Dumont Other [facility] Other 12-10-2017 Seasonal trivalent influenza vaccine, adjuvanted, preservative free Susanna Chavez [facility] 01-01-2017 influenza virus vaccine, split virus (incl. purified surface antigen) Roby Dumont Other [facility] [email or web address] Other 01-01-2017 influenza, high dose seasonal, preservative-free Susanna Chavez RN [facility] 03-22-2016 pneumococcal conjuga te vaccine, 13 valent Susanna Chavez RN [facility] 01-25-2016 influenza, high dose seasonal, preservative-free Susanna Chavez RN [facility] 12-01-2014 tetanus and diphther ia toxoids, adsorbed, preservative free, for adult use (5 Lf of tetanus toxoid and 2 Lf of diphtheria toxoid) Roby Dumont Other [facility] [email or web address] Other 11-20-2012 tetanus and diphther ia toxoids, adsorbed, preservative free, for adult use (5 Lf of tetanus toxoid and 2 Lf of diphtheria toxoid) Roby Dumont Other [employer] Other 12-13-2005 diphtheria, tetanus toxoids and acellular pertussis vaccine, unspecified formulation Roby Dumont Other [employer] Other Payers Date Payer Category Payer Unknown 2019 Unknown MMO MMO MEDICARE SUPPLEMENT [id number] 2019-Present [phone] [address] [place] [address] Indemnity [id number] 2015 Medicare MEDICARE MEDICAR E A AND B [id number] 2015-Present [phone] [place] [address] Medicare [id number] 2015 Medicare MEDICARE MEDICAR E A AND B [id number] 2015-Present [phone] [place] [address] Medicare [id number] 1959 Medicare [id number] 1959 Unknown [id number] 1950 Unknown [id number] 1950 Unknown [id number] 1950 Unknown [id number] 1950 Unknown [id number] 1950 Unknown [id number] 1950 Unknown [id number] Medicare [id number] Social History Date Type Detail Facility Start: 07-21-2013 End: 01-04-2022 Tobacco smoking status NHIS Ex-smoker [facility] End: 03-12-1990 History of tobacco use Current smoker [facility] End: 03-12-1990 History of tobacco use Cigarette Smoker [facility] Start: 07-21-2013 End: 01-04-2022 Cigarettes smoked current (pack per day) - Reported 2 [facility] Start: 07-21-2013 End: 01-04-2022 Tobacco use and exposure Smokeless tobacco non-user [facility] Start: 01-05-2021 End: 07-05-2022 Alcohol intake Current drinker of alcohol (finding) [facility] Start: 07-21-2013 History SDOH Alcohol Comment occasionally [facility] Start: 06-15-2017 End: 01-04-2022 Tobacco Comment Quit 05/01/1990 [facility] Start: 1950 Sex Assigned At Not on file [facility] Start: 06-19-2021 End: 01-04-2022 Exposure to SARS-CoV-2 (event) Not sure [facility] History of tobacco use Passive smoker [facility] Sex Assigned At Sex Assigned At [place] [facility] [place] [employer] Other Medical Equipment Procedure Code Equipment Code Equipment Origin al Text Equipment Identifier Dates USE TO TEST BLOO D SUGAR 3 TIMES A DAY E11.65 Start: 07-15-2020 Comment on above: USE TO TEST BLOOD PIERRE GAR 3 TIMES A DAY E11.65 Clinical Notes 06-10-2021 to 11-28-2022 Note Date & Type Note Facility 11-28-2022 Evaluation note Encounter Date Diagnosis Assessment Notes Nov, Type 2 diabetes mellitus with hyperglycemia (ICD-10 - E11.65) This patient is following a comprehensive diabetic treatment plan. They are checking their feet daily for calluses and nonhealing ulcers. They are being seen for yearly dilated eye examinations. Goals: SBP less than 130, LDL less than 100, FBS less than 140, AC and A1C less than 7%. They are checking their BS daily, will which are reviewed at the office visit. Continue regular routine monitoring of A1C,] Microalbumin, Dilated eye exam and Foot exam Nov, Obstructive sleep apnea (ICD-10 - G47.33) This patient is aware of the benefits associated with MARCELINA: With continued use, the patient reduces the risk for [place], CVA, HTN, cardiac dysrhythmias and sudden cardiac deaths.The patient is also aware of the association between MARCELINA and morning headaches, daytime somnolence, fatigue and obesity, which also has been improved with continued use.The patient is compliant with treatment, wearing the equipment every night for greater than 4 hours.The patient is instructed to continue use of the CPAP for MARCELINA treatment. Nov, Primary hypertension (ICD-10 - I10) This patient is instructed to consume a healthy, low-fat, low-salt diet. They are also encouraged to continue exercise to achieve/maintain a normal BMI. Nov, Elevated cholesterol (ICD-10 - E78.00) Instructed on diet and exercise with continued statin therapy.Discussed the beneficial effects of lowering cholesterol in reducing the risk for cerebrovascular and cardiovascular disease. Nov, Simple chronic bronchitis (ICD-10 - J41.0) No inhalers necessary No ER visits for AE Cough and deep breathing exercises Weight loss Nov, Other specified hypothyroidism (ICD-10 - E03.8) Nov, Autoimmune thyroiditis (ICD-10 - E06.3) Clinically euthyroid, TSH yearly Nov, Chronic venous insufficiency (ICD-10 - I87.2) Avoid salt and elevate lower extremities, support stockings, inspect legs and feet daily for blisters and ulcerations. Completed treatment w/ wound clinic and lymphatic clinic Continue to use moisturizers Nov, Adenocarcinoma of cecum (ICD-10 - C18.0) UTD w/ surveillance scopes No change in appetite or bowel habits. No dysphagia, heartburn, abdominal pain, melena or hematochezia No s/s recurrence Nov, MCC (current) use of insulin (ICD-10 - Z79.4) Reviewed dose and adverse effects. [employer] Other 07-05-2023 Evaluation note* Encounter Date Diagnosis Assessment Notes Treatment Notes Treatment Clinical Notes Sep, Lower extremity edema (ICD-10 - R60.0) Refer to Lymphatic Clinic for treatment. Replace HCTZ w/ Lasix for next week Sep, Lymphedema (ICD-10 - I89.0) Refer to Lymphatic Clinic for treatment. Replace HCTZ w/ Lasix for next week Sep, Chronic venous insufficiency (ICD-10 - I87.2) Avoid salt and elevate lower extremities, support stockings, inspect legs and feet daily for blisters and ulcerations. Sep, Type 2 diabetes mellitus with hyperglycemia (ICD-10 - E11.65) May increase risk of infection. Presently, no s/s infection. Serous drainage form abrasion. This patient is following a comprehensive diabetic treatment plan. They are checking their feet daily for calluses and nonhealing ulcers. They are being seen for yearly dilated eye examinations. Goals: SBP less than 130, LDL less than 100, FBS less than 140, AC and A1C less than 7%. They are checking their BS daily, will which are reviewed at the office visit. Continue regular routine monitoring of A1C,] Microalbumin, Dilated eye exam and Foot exam [employer] Other 05-19-2023 Evaluation note* Encounter Date Diagnosis Assessment Notes Treatment Notes Treatment Clinical Notes July, Medicare annual wellness visit, subsequent (ICD-10 - Z00.00) Personalized health advice was given to the beneficiary including a written plan for screenings discussed and provided. Advanced care planning reviewed and/or information given as requested. Additional counseling was provided here today in regards to, [ ]. The above visit was performed by [ ], under direct supervision of [ ]. Document reviewed and amended by provider signed below. July, Type 2 diabetes mellitus with hyperglycemia (ICD-10 - E11.65) This patient is following a comprehensive diabetic treatment plan. They are checking their feet daily for calluses and nonhealing ulcers. They are being seen for yearly dilated eye examinations. Goals: SBP less than 130, LDL less than 100, FBS less than 140, AC and A1C less than 7%. They are checking their BS daily, will which are reviewed at the office visit. Continue regular routine monitoring of A1C,] Microalbumin, Dilated eye exam and Foot exam July, Obstructive sleep apnea (ICD-10 - G47.33) This patient is aware of the benefits associated with MARCELINA: With continued use, the patient reduces the risk for KS, CVA, HTN, cardiac dysrhythmias and sudden cardiac deaths.The patient is also aware of the association between MARCELINA and morning headaches, daytime somnolence, fatigue and obesity, which also has been improved with continued use.The patient is compliant with treatment, wearing the equipment every night for greater than 4 hours.The patient is instructed to continue use of the CPAP for MARCELINA treatment. July, Primary hypertension (ICD-10 - I10) This patient is instructed to consume a healthy, low-fat, low-salt diet. They are also encouraged to continue exercise to achieve/maintain a normal BMI. July, Other specified hypothyroidism (ICD-10 - E03.8) July, Autoimmune thyroiditis (ICD-10 - E06.3) Euthyroid, yearly TSH July, Chronic venous insufficiency (ICD-10 - I87.2) Avoid salt and elevate lower extremities, support stockings, inspect legs and feet daily for blisters and ulcerations. July, Elevated cholesterol (ICD-10 - E78.00) Instructed on diet and exercise with continued statin therapy.Discussed the beneficial effects of lowering cholesterol in reducing the risk for cerebrovascular and cardiovascular disease. July, Adenocarcinoma of cecum (ICD-10 - C18.0) UTD w/ survellance scopes. No s/s recurrence. July, Simple chronic bronchitis (ICD-10 - J41.0) July, Screening mammogram, encounter for (ICD-10 - Z12.31) July, terminal gauger supervisor (current) use of insulin (ICD-10 - Z79.4) [employer] Other 04-26-2023 NoteHNO ID: [id number] Author: Rachael Bruce MD Service: ? Author Type: Physician Type: Progress Notes Filed: 07/05/2022 4:47 PM Note Text: PATIENT NAME: Billie Liriano CLINIC NO.: [id number] ATTENDING PHYSICIAN: Rachael Bruce MD DATE OF SERVICE: July 05, 2022 Some of the elements of this note have been copied from my previous progress note dated 01/04/2022. All the information has been reviewed carefully. Here is an update on a follow up visit on female Billie Liriano at the clinic July 05, 2022 Diagnosis: 1. Original diagnosis of pathologically staged at T3a,N2a,M0 colon cancer April 2017. Tumor was microsatellite stable Treatment History: 1. While on vacation in [place] developed severe abdominal pain in April 2017. CT at that point noted a large bowel obstruction with colonic mass at the splenic flexure. No metastatic disease was identified and patient had a CEA of 20. At that point underwent resection. 2. Started adjuvant FOLFOX May 2017 while in [place]. Oxaliplatin dose reduced due to toxicity. In August 2017 oxaliplatin was held and patient continued 6 months of adjuvant chemotherapy with infusional 5FU and LCV, completed October 2017. 3. Signatera February 2019, Nov 2019, 04/2020, 07/2020, 12/2020, 06/2021 and 12/2021- negative 4. Last colonoscopy December 2018-, Negative- Repeat 08/2021: 2026 follow up recommended HPI: Billie Liriano is a 71 year old year old female here for follow up. Doing well but struggles with her neuropathy which was started after her FOLFOX. She did not have pre-existing neuropathy. DM well controlled. Denies any changes in BM and was not able to see the folks at main but interested in discussing with palliative care team here. PAST MEDICAL HISTORY Diagnosis Date Colon cancer (HCC) Stage IIB ([id number] COPD (chronic obstructive pulmonary disease) ([facility]) Esophagitis GERD (gastroesophageal reflux disease) Hyperlipidemia Lower extremity edema Lumbar spondylosis Menopause Nephrolithiasis OA (osteoarthritis) Obesity PMR (polymyalgia rheumatica) ([facility]) Portacath in place T2DM (type 2 diabetes mellitus) ([facility]) Thyroid disease Social History Tobacco Use Smoking status: Former Packs/day: 2.00 Years: 25.00 Pack years: 50.00 Types: Cigarettes Quit date: 03/12/1990 Years since quittin.3 Passive exposure: Past Smokeless tobacco: Never Tobacco comments: Quit 05/01/1990 Vaping Use Vaping Use: Never used Substance Use Topics Alcohol use: Yes Comment: occasionally Drug use: No FAMILY HISTORY Problem Relation Age of Onset Diabetes Mother Heart Mother 52 [place]. S/P CABG. at 69 from [place] other (Parkinson's [Other]) Mother COPD Mother Coronary Artery Disease Father 70 CABG other (CHF [Other]) Father Coronary Artery Disease Brother 65 CABG Coronary Artery Disease Brother 54 Stent Coronary Artery Disease Sister 52 CABG Past medical, social and family history reviewed without any changes. REVIEW OF SYSTEMS GENERAL: No weight loss, malaise or fevers. No night sweats. HEENT: Negative for headaches, No changes in hearing or vision, no nose bleeds or other nasal problems. RESPIRATORY: Negative for cough, wheezing and shortness of breath CARDIOVASCULAR: Negative for chest pain, leg swelling and palpitations GI: Negative for abdominal discomfort, blood in stools or black stools and change in bowel habits : Negative for dysuria, frequency and incontinence MUSCULOSKELETAL: Negative for joint pain or swelling, back pain, and muscle pain. SKIN: Negative for lesions, rash, and itching. HEMATOLOGY/LYMPHOLOGY Negative for prolonged bleeding, bruising easily, and swollen nodes. NEURO: Negative for numbness or tingling of hands/feet. No weakness. PHYSICAL EXAMINATION: BP 184/59 Pulse 73 Temp (Src) 97 (Temporal) Resp 18 Ht 5' 2.008 (1.58m) Wt 251 lb 9.6 oz (114.1kg) SpO2 100% BMI 46.01 kg/(m2). There were no vitals taken for this visit. Last 3 Encounter Wt Readings: Date: Wt: 02/26/2019 102.1 kg (225 lb) 02/12/2019 99.8 kg (220 lb) 09/04/2018 98.4 kg (217 lb) General appearance:ECOG PERFORMANCE STATUS: 0- Fully active, able to carry on all pre-disease performance w/o restriction. Patient in NAD. Skin: Skin color, texture, turgor normal. No rashes or lesions. Eyes: Anicteric sclera. Pupils are equally round and reactive to light. Extraocular movements are intact. Lymph Nodes: No cervical, supraclavicular, axillary or inguinal adenopathy. Oropharynx: Lips, mucosa, and tongue normal. Back: No pain to percussion. Negative SLR test Lungs clear to auscultation, No wheezing or rhonchi Heart: RRR without murmur, gallop, or rubs. Abdomen soft, non-tender. No masses, organomegaly Extremities: No deformities. No edema Neuro: Gait and speech normal. Reflexes normal and symmetric. Muscular strength intact. Sensation grossly intact. (more content not included)...[facility]04-26-2023 History of Present illness Narrative* Rachael Bruce MD - 07/05/2022 2:55 PM EDT Images from the original note were not included. PATIENT NAME: Billie Liriano [facility] NO.: [id number] ATTENDING PHYSICIAN: Rachael Bruce MD DATE OF SERVICE: July 05, 2022 Some of the elements of this note have been copied from my previous progress note dated 01/04/2022.All the information has been reviewed carefully. Here is an update on a follow up visit on female Billie Liriano at the clinic July 05, 2022 Diagnosis: 1. Original diagnosis of pathologically staged at T3a,N2a,M0 colon cancer April 2017. Tumor was microsatellite stable Treatment History: 1. While on vacation in [place] developed severe abdominal pain in April 2017. CT at thatpoint noted a large bowel obstruction with colonic mass at the splenic flexure. No metastatic disease was identified and patient had a CEA of 20. At that point underwent resection. 2. Started adjuvant FOLFOX May 2017 while in [place]. Oxaliplatin dose reduced due to toxicity. In August 2017 oxaliplatin was held and patient continued 6 months of adjuvant chemotherapy withinfusional 5FU and LCV, completed October 2017. 3. Signatera February 2019, Nov 2019, 04/2020, 07/2020, 12/2020, 06/2021 and 12/2021- negative 4. Last colonoscopy December 2018-, Negative- Repeat 08/2021: 2026 follow up recommended HPI: Billie Liriano is a 71 year old year old female here for follow up. Doing well but struggles with her neuropathy which was started after her FOLFOX. She did not have pre-existing neuropathy. DM well controlled. Denies any changes in BM and was not able to see the folks at [facility] but interested in discussing with palliative care team here. PAST MEDICAL HISTORY Diagnosis Date Colon cancer (HCC) Stage IIB ([id number] COPD (chronic obstructive pulmonary disease) ([facility]) Esophagitis GERD (gastroesophageal reflux disease) Hyperlipidemia Lower extremity edema Lumbar spondylosis Menopause Nephrolithiasis OA (osteoarthritis) Obesity PMR (polymyalgia rheumatica) ([facility]) Portacath in place T2DM (type 2 diabetes mellitus) ([facility]) Thyroid disease Social History Tobacco Use Smoking status: Former Packs/day: 2.00 Years: 25.00 Pack years: 50.00 Types: Cigarettes Quit date: 03/12/1990 Years since quittin.3 Passive exposure: Past Smokeless tobacco: Never Tobacco comments: Quit 05/01/1990 Vaping Use Vaping Use: Never used Substance Use Topics Alcohol use: Yes Comment: occasionally Drug use: No FAMILY HISTORY Problem Relation Age of Onset Diabetes Mother Heart Mother 52 [place]. S/P CABG. at 69 from [place] other (Parkinson's [Other]) Mother COPD Mother Coronary Artery Disease Father 70 CABG other (CHF [Other]) Father Coronary Artery Disease Brother 65 CABG Coronary Artery Disease Brother 54 Stent Coronary Artery Disease Sister 52 CABG Past medical, social and family history reviewed without any changes. REVIEW OF SYSTEMS GENERAL: No weight loss, malaise or fevers. No night sweats. HEENT: Negative for headaches, No changes in hearing or vision, no nose bleeds or other nasal problems. RESPIRATORY: Negative for cough, wheezing and shortness of breath CARDIOVASCULAR: Negative for chest pain, leg swelling and palpitations GI: Negative for abdominal discomfort, blood in stools or black stools and change in bowel habits : Negative for dysuria, frequency and incontinence MUSCULOSKELETAL: Negative for joint pain or swelling, back pain, and muscle pain. SKIN: Negative for lesions, rash, and itching. HEMATOLOGY/LYMPHOLOGY Negative for prolonged bleeding, bruising easily, and swollen nodes. NEURO: Negative for numbness or tingling of hands/feet. No weakness. PHYSICAL EXAMINATION: BP 184/59 Pulse 73 Temp (Src) 97 (Temporal) Resp 18 Ht 5' 2.008 (1.58m) Wt 251 lb 9.6 oz(114.1kg) SpO2 100% BMI 46.01 kg/(m^2). There were no vitals taken for this visit. Last 3 Encounter Wt Readings: Date: Wt: 02/26/2019 102.1 kg (225 lb) 02/12/2019 99.8 kg (220 lb) 09/04/2018 98.4 kg (217 lb) General appearance:ECOG PERFORMANCE STATUS: 0- Fully active, able to carry on all pre-disease performance w/o restriction. Patient in NAD. Skin: Skin color, texture, turgor normal. No rashes or lesions. Eyes: Anicteric sclera. Pupils are equally round and reactive to light. Extraocular movements are intact. Lymph Nodes: No cervical, supraclavicular, axillary or inguinal adenopathy. Oropharynx: Lips, mucosa, and tongue normal. Back: No pain to percussion. Negative SLR test Lungs clear to auscultation, No wheezing or rhonchi Heart: RRR without murmur, gallop, or rubs. Abdomen soft, non-tender. No masses, organomegaly Extremities: No deformities. No edema Neuro: Gait and speech normal. Reflexes normal and symmetric. Muscular strength intact. Sensation grossly intact. Rectal: Deferred : Deferred LABS: Glucose (mg/dL) Date Value 07/05/2022 162 12/20/2020 147 Potassium (mmol/L) Date Value 07/05/2022 4.2 12/20/2020 4.5 Sodium (mmol/L) Date Value 07/05/2022 139 12/20/2020 139 Chloride (mmol/L) Date Value 07/05/2022 101 12/20/2020 103 CO2 (mmol/L) Date Value 07/05/2022 29 12/20/2020 27 Creatinine (mg/dL) Date Value 07/05/2022 0.87 12/20/2020 0.78 BUN (mg/dL) Date Value 07/05/2022 10 12/20/2020 13 Anion Gap (mmol/L) Date Value 07/05/2022 9 12/20/2020 9 Calcium (mg/dL) Date Value 12/20/2020 10.2 Calcium, Total (mg/dL) Date Value 07/05/2022 9.9 Protein, Total (g/dL) Date Value 07/05/2022 7.0 12/20/2020 6.9 Albumin (g/dL) Date Value 07/05/2022 4.6 12/20/2020 4.5 Bilirubin, Total (mg/dL) Date Value 07/05/2022 0.9 12/20/2020 0.9 Alkaline Phosphatase (U/L) Date Value 07/05/2022 116 12/20/2020 81 AST (U/L) Date Value 07/05/2022 19 12/20/2020 18 ALT (U/L) Date Value 07/05/2022 17 12/20/2020 13 WBC Date Value Ref Range Status 07/05/2022 7.34 3.70 - 11.00 k/uL Final RBC Date Value Ref Range Status 07/05/2022 4.51 3.90 - 5.20 m/uL Final Hemoglobin Date Value Ref Range Status 07/05/2022 14.2 11.5 - 15.5 g/dL Final Hematocrit Date Value Ref Range Status 07/05/2022 42.3 36.0 - 46.0 % Final MCV Date Value Ref Range Status 07/05/2022 93.8 80.0 - 100.0 fL Final MCH Date Value Ref Range Status 07/05/2022 31.5 26.0 - 34.0 pg Final MCHC Date Value Ref Range Status 07/05/2022 33.6 30.5 - 36.0 g/dL Final RDW-CV Date Value Ref Range Status 07/05/2022 14.6 11.5 - 15.0 % Final Platelet Count Date Value Ref Range Status 07/05/2022 188 150 - 400 k/uL Final MPV Date Value Ref Range Status 07/05/2022 8.9 (L) 9.0 - 12.7 fL Final Abs Neut Date Value Ref Range Status 07/05/2022 4.20 1.45 - 7.50 k/uL Final Lymphocytes % Date Value Ref Range Status 07/05/2022 25.1 % Final Abs Lymph Date Value Ref Range Status 07/05/2022 1.84 1.00 - 4.00 k/uL Final Monocytes % Date Value Ref Range Status 07/05/2022 9.5 % Final Abs [place] Date Value Ref Range Status 07/05/2022 0.70 <0.87 k/uL Final Eosinophils % Date Value Ref Range Status 07/05/2022 6.7 % Final Abs Eosin Date Value Ref Range Status 07/05/2022 0.49 (H) <0.46 k/uL Final Basophils % Date Value Ref Range Status 07/05/2022 1.0 % Final Abs Baso Date Value Ref Range Status 07/05/2022 0.07 <0.11 k/uL Final PATH: Imaging: CT of the Chest and Abdomen and Pelvis 09/01/2019: 1. No evidence of intrathoracic metastases. No interval change since 02/19/2019. 2. Multiple groundglass opacities measuring up to 1-1.5 cm and nodular opacities measuring less than 5 mm, stable since 11/27/2017 1. No evidence of intra-abdominal/pelvic metastases. No evidence of a locally recurrent mass. No interval change since 02/19/2019. 2. Cholelithiasis. 3. Sigmoid colon and left colon diverticulosis without evidence of diverticulitis. Assessment and Plan: Billie Liriano is a 71 year old year old female here for follow up. Pathologically staged at T3a,N2a, M0, left sided colon cancer status post resection and completion of 6 months of adjuvant chemotherapy with FOLFOX. Oxaliplatin was held for the last 2 months of therapy per review of her notes due to neuropathy. She appears to be doing well. Follow up Signatera negative on multiple occasions. Colonoscopy 08/2021- Next 2026 Neuropathy- Unchanged referred to functional medicine at [facility], but she decided that it was difficultto go to [place] and she does not want to see neurology. Pharmacologic treatments have not helped. Noevidence on M spike. Will refer to palliative care locally DM- Follow up with Dr. Dumont HTN- Per Dr. Dumont She is 5 years post treatment and can see us on a prn basis Thank you for the kind referral. If there are any questions and or concerns please do not hesitate to contact me at [phone]. Rachael Bruce MD Hematology/Medical Oncology [facility] CC: Roby Dumont MD I spent a total of 30 minutes on the date of the service which included preparing to see the patient, [id number] patient care, completing clinical documentation, obtaining and/or reviewing separately obtained history, performing a medically appropriate examination, counseling and educating the pat ient/family/caregiver and ordering medications, tests, or procedures. documented in this encounterM[facility] Evaluation note* Encounter Date Diagnosis Assessment Notes Treatment Notes Treatment Clinical Notes Apr, Primary hypertension (ICD-10 - I10) This patient is instructed to consume a healthy, low-fat, low-salt diet. They are also encouraged to continue exercise to achieve/maintain a normal BMI. Apr, MARCELINA (obstructive sleep apnea) (ICD-10 - G47.33) This patient is aware of the benefits associated with MARCELINA: With continued use, the patient reduces the risk for [place], CVA, HTN, cardiac dysrhythmias and sudden cardiac deaths.The patient is also aware of the association between MARCELINA and morning headaches, daytime somnolence, fatigue and obesity, which also has been improved with continued use.The patient is compliant with treatment, wearing the equipment every night for greater than 4 hours.The patient is instructed to continue use of the CPAP for MARCELINA treatment. Apr, Simple chronic bronchitis (ICD-10 - J41.0) Continue abstinence from tobacco use. Cough and deep breathing exercises. Mucinex as needed Apr, Type 2 diabetes mellitus with hyperglycemia (ICD-10 - E11.65) This patient is following a comprehensive diabetic treatment plan. They are checking their feet daily for calluses and nonhealing ulcers. They are being seen for yearly dilated eye examinations. Goals: SBP less than 130, LDL less than 100, FBS less than 140, AC and A1C less than 7%. They are checking their BS daily, will which are reviewed at the office visit. A1C: [ ] Microalbumin: [ ] Eye exam: [ ] Foot exam: [ ] Apr, MCC (current) use of insulin (ICD-10 - Z79.4) Apr, Elevated cholesterol (ICD-10 - E78.00) Diet and exercise with continued statin therapy. Apr, Rheumatoid arthritis with rheumatoid factor of right wrist without organ or systems involvement (ICD-10 - M05.731) Apr, Rheumatoid arthritis with rheumatoid factor of left wrist without organ or systems involvement (ICD-10 - M05.732) Apr, Other specified hypothyroidism (ICD-10 - E03.8) Apr, Autoimmune thyroiditis (ICD-10 - E06.3) Euthyroid, yearly TSH Apr, Chronic venous insufficiency (ICD-10 - I87.2) Avoid salt and elevate lower extremities, support stockings, inspect legs and feet daily for blisters and ulcerations. Apr, Hx of malignant neoplasm of colon (ICD-10 - Z85.038) Apr, History of TIA (transient ischemic attack) (ICD-10 - Z86.73) Continue secondary prevention measures. Antiplatelet therapy and statin [employer] [place] Other [id number] Miscellaneous Notes* Telephone Encounter - Josué Hampton RN - 01/05/2022 9:16 AM EDT Pt aware of negative Signatera results. She denies any questions or concerns at this time. Josué Hampton RN documented in this encounterM[facility]10-26-[facility] NoteHNO ID: [id number] Author: Rachael Bruce MD Service: ? Author Type: Physician Type: Progress Notes Filed: 01/04/2022 3:16 PM Note Text: PATIENT NAME: Billie Liriano [facility] NO.: [id number] ATTENDING PHYSICIAN: Rachael Bruce MD DATE OF SERVICE: January 04, 2022 Some of the elements of this note have been copied from my previous progress note dated 07/06/2021. All the information has been reviewed carefully. Here is an update on a follow up visit on female Billie Liriano at the clinic January 04, 2022 Diagnosis: 1. Original diagnosis of pathologically staged at T3a,N2a,M0 colon cancer April 2017. Tumor was microsatellite stable Treatment History: 1. While on vacation in [place] developed severe abdominal pain in April 2017. CT at that point noted a large bowel obstruction with colonic mass at the splenic flexure. No metastatic disease was identified and patient had a CEA of 20. At that point underwent resection. 2. Started adjuvant FOLFOX May 2017 while in [place]. Oxaliplatin dose reduced due to toxicity. In August 2017 oxaliplatin was held and patient continued 6 months of adjuvant chemotherapy with infusional 5FU and LCV, completed October 2017. 3. Signatera February 2019, Nov 2019, 04/2020, 07/2020, 12/2020, 06/2021 and 12/2021- negative 4. Last colonoscopy December 2018-, Negative- Repeat 08/2021: 2026 follow up recommended HPI: Billie Liriano is a 71 year old year old female here for follow up. Doing well but struggles with her neuropathy which was started after her FOLFOX. She did not have pre-existing neuropathy. DM well controlled. Denies any changes in BM PAST MEDICAL HISTORY Diagnosis Date Colon cancer (HCC) Stage IIB ([id number] COPD (chronic obstructive pulmonary disease) (HCC) Esophagitis GERD (gastroesophageal reflux disease) Hyperlipidemia Lower extremity edema Lumbar spondylosis Menopause Nephrolithiasis OA (osteoarthritis) Obesity PMR (polymyalgia rheumatica) (HCC) Portacath in place T2DM (type 2 diabetes mellitus) (HCC) Thyroid disease Social History Tobacco Use Smoking status: Former Packs/day: 2.00 Years: 25.00 Pack years: 50.00 Types: Cigarettes Quit date: 03/12/1990 Years since quittin.8 Passive exposure: Past Smokeless tobacco: Never Tobacco comments: Quit 05/01/1990 Vaping Use Vaping Use: Never used Substance Use Topics Alcohol use: Yes Comment: occasionally Drug use: No FAMILY HISTORY Problem Relation Age of Onset Diabetes Mother Heart Mother 52 [place]. S/P CABG. at 69 from [place] other (Parkinson's [Other]) Mother COPD Mother Coronary Artery Disease Father 70 CABG other (CHF [Other]) Father Coronary Artery Disease Brother 65 CABG Coronary Artery Disease Brother 54 Stent Coronary Artery Disease Sister 52 CABG Past medical, social and family history reviewed without any changes. REVIEW OF SYSTEMS GENERAL: No weight loss, malaise or fevers. No night sweats. HEENT: Negative for headaches, No changes in hearing or vision, no nose bleeds or other nasal problems. RESPIRATORY: Negative for cough, wheezing and shortness of breath CARDIOVASCULAR: Negative for chest pain, leg swelling and palpitations GI: Negative for abdominal discomfort, blood in stools or black stools and change in bowel habits : Negative for dysuria, frequency and incontinence MUSCULOSKELETAL: Negative for joint pain or swelling, back pain, and muscle pain. SKIN: Negative for lesions, rash, and itching. HEMATOLOGY/LYMPHOLOGY Negative for prolonged bleeding, bruising easily, and swollen nodes. NEURO: Negative for numbness or tingling of hands/feet. No weakness. PHYSICAL EXAMINATION: BP 152/78[manuelly[ Pulse 89 Temp (Src) 97.2 (Temporal) Resp 18 Ht 5' 2.008 (1.58m) Wt 251 lb 3.2 oz (113.9kg) SpO2 96% BMI 45.93 kg/(m2). There were no vitals taken for this visit. Last 3 Encounter Wt Readings: Date: Wt: 02/26/2019 102.1 kg (225 lb) 02/12/2019 99.8 kg (220 lb) 09/04/2018 98.4 kg (217 lb) General appearance:ECOG PERFORMANCE STATUS: 0- Fully active, able to carry on all pre-disease performance w/o restriction. Patient in NAD. Skin: Skin color, texture, turgor normal. No rashes or lesions. Eyes: Anicteric sclera. Pupils are equally round and reactive to light. Extraocular movements are intact. Lymph Nodes: No cervical, supraclavicular, axillary or inguinal adenopathy. Oropharynx: Lips, mucosa, and tongue normal. Back: No pain to percussion. Negative SLR test Lungs clear to auscultation, No wheezing or rhonchi Heart: RRR without murmur, gallop, or rubs. Abdomen soft, non-tender. No masses, organomegaly Extremities: No deformities. No edema Neuro: Gait and speech normal. Reflexes normal and symmetric. Muscular strength intact. Sensation grossly intact. Rectal: Deferred : Deferred LABS: Glucose (mg/dL) Date Value 12/21/2021 171 (more content not included)...[facility]10-26-2022 Miscellaneous Notes* Addendum Note - Rachael Bruce MD - 01/04/2022 3:17 PM EDTAddended by: RACHAEL BRUCE on: 01/04/2022 03:17 PM Modules accepted: Orders documented in this encounterMari[facility]10-26-2022 History of Present illness Narrative* Rachael Bruce MD - 01/04/2022 2:57 PM EDT Images from the original note were not included. PATIENT NAME: Billie Liriano [facility] NO.: [id number] ATTENDING PHYSICIAN: Rachael Bruce MD DATE OF SERVICE: January 04, 2022 Some of the elements of this note have been copied from my previous progress note dated 07/06/2021. All the information has been reviewed carefully. Here is an update on a follow up visit on female Billie Liriano at the clinic January 04, 2022 Diagnosis: 1. Original diagnosis of pathologically staged at T3a,N2a,M0 colon cancer April 2017. Tumor was microsatellite stable Treatment History: 1. While on vacation in [place] developed severe abdominal pain in April 2017. CT at thatpoint noted a large bowel obstruction with colonic mass at the splenic flexure. No metastatic disease was identified and patient had a CEA of 20. At that point underwent resection. 2. Started adjuvant FOLFOX May 2017 while in [place]. Oxaliplatin dose reduced due to toxicity. In August 2017 oxaliplatin was held and patient continued 6 months of adjuvant chemotherapy withinfusional 5FU and LCV, completed October 2017. 3. Signatera February 2019, Nov 2019, 04/2020, 07/2020, 12/2020, 06/2021 and 12/2021- negative 4. Last colonoscopy December 2018-, Negative- Repeat 08/2021: 2026 follow up recommended HPI: Billie Liriano is a 71 year old year old female here for follow up. Doing well but struggles with her neuropathy which was started after her FOLFOX. She did not have pre-existing neuropathy. DM well controlled. Denies any changes in BM PAST MEDICAL HISTORY Diagnosis Date Colon cancer (HCC) Stage IIB ([id number] COPD (chronic obstructive pulmonary disease) (HCC) Esophagitis GERD (gastroesophageal reflux disease) Hyperlipidemia Lower extremity edema Lumbar spondylosis Menopause Nephrolithiasis OA (osteoarthritis) Obesity PMR (polymyalgia rheumatica) (HCC) Portacath in place T2DM (type 2 diabetes mellitus) (HCC) Thyroid disease Social History Tobacco Use Smoking status: Former Packs/day: 2.00 Years: 25.00 Pack years: 50.00 Types: Cigarettes Quit date: 03/12/1990 Years since quittin.8 Passive exposure: Past Smokeless tobacco: Never Tobacco comments: Quit 05/01/1990 Vaping Use Vaping Use: Never used Substance Use Topics Alcohol use: Yes Comment: occasionally Drug use: No FAMILY HISTORY Problem Relation Age of Onset Diabetes Mother Heart Mother 52 [place]. S/P CABG. at 69 from [place] other (Parkinson's [Other]) Mother COPD Mother Coronary Artery Disease Father 70 CABG other (CHF [Other]) Father Coronary Artery Disease Brother 65 CABG Coronary Artery Disease Brother 54 Stent Coronary Artery Disease Sister 52 CABG Past medical, social and family history reviewed without any changes. REVIEW OF SYSTEMS GENERAL: No weight loss, malaise or fevers. No night sweats. HEENT: Negative for headaches, No changes in hearing or vision, no nose bleeds or other nasal problems. RESPIRATORY: Negative for cough, wheezing and shortness of breath CARDIOVASCULAR: Negative for chest pain, leg swelling and palpitations GI: Negative for abdominal discomfort, blood in stools or black stools and change in bowel habits : Negative for dysuria, frequency and incontinence MUSCULOSKELETAL: Negative for joint pain or swelling, back pain, and muscle pain. SKIN: Negative for lesions, rash, and itching. HEMATOLOGY/LYMPHOLOGY Negative for prolonged bleeding, bruising easily, and swollen nodes. NEURO: Negative for numbness or tingling of hands/feet. No weakness. PHYSICAL EXAMINATION: BP 152/78[manuelly[ Pulse 89 Temp (Src) 97.2 (Temporal) Resp 18 Ht 5' 2.008 (1.58m) Wt 251 lb 3.2 oz (113.9kg) SpO2 96% BMI 45.93 kg/(m^2). There were no vitals taken for this visit. Last 3 Encounter Wt Readings: Date: Wt: 02/26/2019 102.1 kg (225 lb) 02/12/2019 99.8 kg (220 lb) 09/04/2018 98.4 kg (217 lb) General appearance:ECOG PERFORMANCE STATUS: 0- Fully active, able to carry on all pre-disease performance w/o restriction. Patient in NAD. Skin: Skin color, texture, turgor normal. No rashes or lesions. Eyes: Anicteric sclera. Pupils are equally round and reactive to light. Extraocular movements are intact. Lymph Nodes: No cervical, supraclavicular, axillary or inguinal adenopathy. Oropharynx: Lips, mucosa, and tongue normal. Back: No pain to percussion. Negative SLR test Lungs clear to auscultation, No wheezing or rhonchi Heart: RRR without murmur, gallop, or rubs. Abdomen soft, non-tender. No masses, organomegaly Extremities: No deformities. No edema Neuro: Gait and speech normal. Reflexes normal and symmetric. Muscular strength intact. Sensation grossly intact. Rectal: Deferred : Deferred LABS: Glucose (mg/dL) Date Value 12/21/2021 171 12/20/2020 147 Potassium (mmol/L) Date Value 12/21/2021 3.8 12/20/2020 4.5 Sodium (mmol/L) Date Value 12/21/2021 140 12/20/2020 139 Chloride (mmol/L) Date Value 12/21/2021 103 12/20/2020 103 CO2 (mmol/L) Date Value 12/21/2021 30 12/20/2020 27 Creatinine (mg/dL) Date Value 12/21/2021 0.79 12/20/2020 0.78 BUN (mg/dL) Date Value 12/21/2021 10 12/20/2020 13 Anion Gap (mmol/L) Date Value 12/21/2021 7 12/20/2020 9 Calcium (mg/dL) Date Value 12/20/2020 10.2 Calcium, Total (mg/dL) Date Value 12/21/2021 9.6 Protein, Total (g/dL) Date Value 12/21/2021 6.4 12/21/2021 6.4 12/20/2020 6.9 Albumin (g/dL) Date Value 12/21/2021 4.2 12/20/2020 4.5 Bilirubin, Total (mg/dL) Date Value 12/21/2021 1.0 12/20/2020 0.9 Alkaline Phosphatase (U/L) Date Value 12/21/2021 86 12/20/2020 81 AST (U/L) Date Value 12/21/2021 18 12/20/2020 18 ALT (U/L) Date Value 12/21/2021 15 12/20/2020 13 WBC Date Value Ref Range Status 12/21/2021 7.68 3.70 - 11.00 k/uL Final RBC Date Value Ref Range Status 12/21/2021 4.35 3.90 - 5.20 m/uL Final Hemoglobin Date Value Ref Range Status 12/21/2021 13.6 11.5 - 15.5 g/dL Final Hematocrit Date Value Ref Range Status 12/21/2021 40.7 36.0 - 46.0 % Final MCV Date Value Ref Range Status 12/21/2021 93.6 80.0 - 100.0 fL Final MCH Date Value Ref Range Status 12/21/2021 31.3 26.0 - 34.0 pg Final MCHC Date Value Ref Range Status 12/21/2021 33.4 30.5 - 36.0 g/dL Final RDW-CV Date Value Ref Range Status 12/21/2021 14.4 11.5 - 15.0 % Final Platelet Count Date Value Ref Range Status 12/21/2021 190 150 - 400 k/uL Final MPV Date Value Ref Range Status 12/21/2021 9.1 9.0 - 12.7 fL Final Abs Neut Date Value Ref Range Status 12/21/2021 4.72 1.45 - 7.50 k/uL Final Lymph% Date Value Ref Range Status 12/21/2021 22.1 % Final Abs Lymph Date Value Ref Range Status 12/21/2021 1.70 1.00 - 4.00 k/uL Final [place]% Date Value Ref Range Status 12/21/2021 8.9 % Final Abs [place] Date Value Ref Range Status 12/21/2021 0.68 <0.87 k/uL Final Eosin% Date Value Ref Range Status 12/21/2021 6.3 % Final Abs Eosin Date Value Ref Range Status 12/21/2021 0.48 (H) <0.46 k/uL Final Baso% Date Value Ref Range Status 12/21/2021 0.8 % Final Abs Baso Date Value Ref Range Status 12/21/2021 0.06 <0.11 k/uL Final PATH: Imaging: CT of the Chest and Abdomen and Pelvis 09/01/2019: 1. No evidence of intrathoracic metastases. No interval change since 02/19/2019. 2. Multiple groundglass opacities measuring up to 1-1.5 cm and nodular opacities measuring less than 5 mm, stable since 11/27/2017 1. No evidence of intra-abdominal/pelvic metastases. No evidence of a locally recurrent mass. No interval change since 02/19/2019. 2. Cholelithiasis. 3. Sigmoid colon and left colon diverticulosis without evidence of diverticulitis. Assessment and Plan: Billie Liriano is a 71 year old year old female here for follow up. Pathologically staged at T3a,N2a, M0, left sided colon cancer status post resection and completion of 6 months of adjuvant chemotherapy with FOLFOX. Oxaliplatin was held for the last 2 months of therapy per review of her notes due to neuropathy. She appears to be doing well. Follow up Signatera negative. Colonoscopy 08/2021- Next 2026 See back with in 6 months Neuropathy- Unchanged will refer to functional medicine at [facility] and she does not want to see neurology. Pharmacologic treatments have not helped. No evidence on M spike DM- Follow up with Dr. Dumont HTN- Per Dr. Dumont Thank you for the kind referral. If there are any questions and or concerns please do not hesitate to contact me at [phone]. Rachael Bruce MD Hematology/Medical Oncology [facility] CC: Roby Dumont MD I spent a total of 25 minutes on the date of the service which included preparing to see the patient, [id number] patient care, completing clinical documentation, obtaining and/or reviewing separately obtained history, performing a medically appropriate examination, counseling and educating the pat ient/family/caregiver and ordering medications, tests, or procedures. documented in this encounterM[facility]05-20-2022 NotePROCEDURE: XR KNEE RT 3V HISTORY: Idiopathic osteoarthritis ; chronic knee pain and weakness and COMPARISON: None. FINDINGS: BONES:Mild-moderate narrowing the medial and lateral joint spaces with small periarticular degenerative osteophytes involving all 3 compartments. No fracture, dislocation, bone lesion. SOFT TISSUES:No visible soft tissue swelling. EFFUSION:Small joint effusion. OTHER: Negative. IMPRESSION: 1. Mild-moderate degenerative joint disease. No acute bone abnormality. 2. Small joint effusion. Electronically authenticated by: JIMY LAMB Date: 2021-07-29 17:38[facility]05-02-2022 Miscellaneous Notes* Telephone Encounter - Bibiana Garay [facility] [place] - 07/11/2021 9:29 AM EDT Meagan Correa spoke with Sherie. She states they have received patient referral/records and have patient scheduled to see Dr Holbrook for colonoscopy on 08/23. Bibiana Walters * Telephone Encounter - Estrella Barillas [facility] - 07/07/2021 8:02 AM EDT Records faxed to Dr. Holbrook * Telephone Encounter - Bibiana Garay [facility] [place] - 07/07/2021 7:27 AM EDT Theodora: Information ready for you. Bibiana Walters * Telephone Encounter - Sangeeta Keane - 07/06/2021 3:18 PM EDT Patient to be referred to Dr. Holbrook for surveillance colonoscopy. Previous patient of Dr. Licona from 2018 per patient. Theodora/Calvin: Can you please send referral information and follow up? Thanks! Sangeeta Keane documented in this encounterMarietta [facility] Hospital04-27-2022 History of Present illness Narrative* Rachael Bruce MD - 07/06/2021 3:00 PM EDT PATIENT NAME: Billie Liriano CLINIC NO.: [id number] ATTENDING PHYSICIAN: Rachael Bruce MD DATE OF SERVICE: July 06, 2021 Some of the elements of this note have been copied from my previous progress note dated 01/05/2021.All the information has been reviewed carefully. Here is an update on a follow up visit on female Billie Liriano at the clinic July 06, 2021 Diagnosis: 1. Original diagnosis of pathologically staged at T3a,N2a,M0 colon cancer April 2017. Tumor was microsatellite stable Treatment History: 1. While on vacation in [place] developed severe abdominal pain in April 2017. CT at thatpoint noted a large bowel obstruction with colonic mass at the splenic flexure. No metastatic disease was identified and patient had a CEA of 20. At that point underwent resection. 2. Started adjuvant FOLFOX May 2017 while in [place]. Oxaliplatin dose reduced due to toxicity. In August 2017 oxaliplatin was held and patient continued 6 months of adjuvant chemotherapy withinfusional 5FU and LCV, completed October 2017. 3. Signatera February 2019, Nov 2019, 04/2020, 07/2020, 12/2020, 06/2021- negative 4. Last colonoscopy December 2018-, Negative-3 year follow-up recommended (2021) HPI: Billie Liriano is a 70 year old year old female here for follow up. Did not have a great time in [place] and continues to have difficulty with her neuropathy and she is seeing neurology in am and also joint stiffness [facility]. Denies any bowel changes and or abdominal pain PAST MEDICAL HISTORY Diagnosis Date Colon cancer (HCC) Stage IIB ([id number] COPD (chronic obstructive pulmonary disease) (HCC) Esophagitis GERD (gastroesophageal reflux disease) Hyperlipidemia Lower extremity edema Lumbar spondylosis Menopause Nephrolithiasis OA (osteoarthritis) Obesity PMR (polymyalgia rheumatica) (HCC) Portacath in place T2DM (type 2 diabetes mellitus) (HCC) Thyroid disease Social History Tobacco Use Smoking status: Former Smoker Packs/day: 2.00 Years: 25.00 Pack years: 50.00 Types: Cigarettes Quit date: 03/12/1990 Years since quittin.3 Smokeless tobacco: Never Used Tobacco comment: Quit 05/01/1990 Vaping Use Vaping Use: Never used Substance Use Topics Alcohol use: Yes Comment: occasionally Drug use: No FAMILY HISTORY Problem Relation Age of Onset Diabetes Mother Heart Mother 52 [place]. S/P CABG. at 69 from [place] other (Parkinson's [Other]) Mother COPD Mother Coronary Artery Disease Father 70 CAB[place] other (CHF [Other]) Father Coronary Artery Disease Brother 65 CABG Coronary Artery Disease Brother 54 Stent Coronary Artery Disease Sister 52 CABG Past medical, social and family history reviewed without any changes. REVIEW OF SYSTEMS GENERAL: No weight loss, malaise or fevers. No night sweats. HEENT: Negative for headaches, No changes in hearing or vision, no nose bleeds or other nasal problems. RESPIRATORY: Negative for cough, wheezing and shortness of breath CARDIOVASCULAR: Negative for chest pain, leg swelling and palpitations GI: Negative for abdominal discomfort, blood in stools or black stools and change in bowel habits : Negative for dysuria, frequency and incontinence MUSCULOSKELETAL: Negative for joint pain or swelling, back pain, and muscle pain. SKIN: Negative for lesions, rash, and itching. HEMATOLOGY/LYMPHOLOGY Negative for prolonged bleeding, bruising easily, and swollen nodes. NEURO: Negative for numbness or tingling of hands/feet. No weakness. PHYSICAL EXAMINATION: BP 157/78 Pulse 78 Temp (Src) 98.3 (Temporal) Resp 18 Ht 5' 2.008 (1.58m) Wt 249 lb (112.9kg) SpO2 99% BMI 45.53 kg/(m^2). There were no vitals taken for this visit. Last 3 Encounter Wt Readings: Date: Wt: 02/26/2019 102.1 kg (225 lb) 02/12/2019 99.8 kg (220 lb) 09/04/2018 98.4 kg (217 lb) General appearance:ECOG PERFORMANCE STATUS: 0- Fully active, able to carry on all pre-disease performance w/o restriction. Patient in NAD. Skin: Skin color, texture, turgor normal. No rashes or lesions. Eyes: Anicteric sclera. Pupils are equally round and reactive to light. Extraocular movements are intact. Lymph Nodes: No cervical, supraclavicular, axillary or inguinal adenopathy. Oropharynx: Lips, mucosa, and tongue normal. Back: No pain to percussion. Negative SLR test Lungs clear to auscultation, No wheezing or rhonchi Heart: RRR without murmur, gallop, or rubs. Abdomen soft, non-tender. No masses, organomegaly Extremities: No deformities. No edema Neuro: Gait and speech normal. Reflexes normal and symmetric. Muscular strength intact. Sensation grossly intact. Rectal: Deferred : Deferred LABS: Glucose (mg/dL) Date Value 06/29/2021 135 12/20/2020 147 Potassium (mmol/L) Date Value 06/29/2021 4.6 12/20/2020 4.5 Sodium (mmol/L) Date Value 06/29/2021 141 12/20/2020 139 Chloride (mmol/L) Date Value 06/29/2021 104 12/20/2020 103 CO2 (mmol/L) Date Value 06/29/2021 28 12/20/2020 27 Creatinine (mg/dL) Date Value 06/29/2021 0.82 12/20/2020 0.78 BUN (mg/dL) Date Value 06/29/2021 12 12/20/2020 13 Anion Gap (mmol/L) Date Value 06/29/2021 9 12/20/2020 9 Calcium (mg/dL) Date Value 12/20/2020 10.2 Calcium, Total (mg/dL) Date Value 06/29/2021 10.2 Protein, Total (g/dL) Date Value 06/29/2021 6.9 12/20/2020 6.9 Albumin (g/dL) Date Value 06/29/2021 4.5 12/20/2020 4.5 Bilirubin, Total (mg/dL) Date Value 06/29/2021 0.9 12/20/2020 0.9 Alkaline Phosphatase (U/L) Date Value 06/29/2021 91 12/20/2020 81 AST (U/L) Date Value 06/29/2021 19 12/20/2020 18 ALT (U/L) Date Value 06/29/2021 14 12/20/2020 13 WBC Date Value Ref Range Status 06/29/2021 7.58 3.70 - 11.00 k/uL Final RBC Date Value Ref Range Status 06/29/2021 4.52 3.90 - 5.20 m/uL Final Hemoglobin Date Value Ref Range Status 06/29/2021 13.9 11.5 - 15.5 g/dL Final Hematocrit Date Value Ref Range Status 06/29/2021 42.2 36.0 - 46.0 % Final MCV Date Value Ref Range Status 06/29/2021 93.4 80.0 - 100.0 fL Final MCH Date Value Ref Range Status 06/29/2021 30.8 26.0 - 34.0 pg Final MCHC Date Value Ref Range Status 06/29/2021 32.9 30.5 - 36.0 g/dL Final RDW-CV Date Value Ref Range Status 06/29/2021 14.7 11.5 - 15.0 % Final Platelet Count Date Value Ref Range Status 06/29/2021 200 150 - 400 k/uL Final MPV Date Value Ref Range Status 06/29/2021 8.9 (L) 9.0 - 12.7 fL Final Abs Neut Date Value Ref Range Status 06/29/2021 4.58 1.45 - 7.50 k/uL Final Lymph% Date Value Ref Range Status 06/29/2021 22.3 % Final Abs Lymph Date Value Ref Range Status 06/29/2021 1.69 1.00 - 4.00 k/uL Final [place]% Date Value Ref Range Status 06/29/2021 10.2 % Final Abs [place] Date Value Ref Range Status 06/29/2021 0.77 <0.87 k/uL Final Eosin% Date Value Ref Range Status 06/29/2021 5.8 % Final Abs Eosin Date Value Ref Range Status 06/29/2021 0.44 <0.46 k/uL Final Baso% Date Value Ref Range Status 06/29/2021 0.5 % Final Abs Baso Date Value Ref Range Status 06/29/2021 0.04 <0.11 k/uL Final PATH: Imaging: CT of the Chest and Abdomen and Pelvis 09/01/2019: 1. No evidence of intrathoracic metastases. No interval change since 02/19/2019. 2. Multiple groundglass opacities measuring up to 1-1.5 cm and nodular opacities measuring less than 5 mm, stable since 11/27/2017 1. No evidence of intra-abdominal/pelvic metastases. No evidence of a locally recurrent mass. No interval change since 02/19/2019. 2. Cholelithiasis. 3. Sigmoid colon and left colon diverticulosis without evidence of diverticulitis. Assessment and Plan: Billie Liriano is a 70 year old year old female here for follow up. Pathologically staged at T3a,N2a, M0, left sided colon cancer status post resection and completion of 6 months of adjuvant chemotherapy with FOLFOX. Oxaliplatin was held for the last 2 months of therapy per review of her notes due to neuropathy. She appears to be doing well. Follow up Signatera negative. Refer to GI for colonoscopy due this year, See back with Signatera in 6 months and labs Neuropathy- follow up with neuro DM- Follow up with Dr. Dumont HTN- Per Dr. Dumont Thank you for the kind referral. If there are any questions and or concerns please do not hesitate to contact me at [phone]. Rachael Bruce MD Hematology/Medical Oncology [facility] CC: Roby Dumont MD I spent a total of 25 minutes on the date of the service which included preparing to see the patient, [id number] patient care, completing clinical documentation, obtaining and/or reviewing separately obtained history, performing a medically appropriate examination, counseling and educating the pat ient/family/caregiver and ordering medications, tests, or procedures. documented in this encounterMarietta [facility] Hospital04-20-2022 Miscellaneous Notes* Telephone Encounter - Susanna Chavez RN - 06/29/2021 12:01 PM EDT Informed pt of Signatera results. Pt verbalized understanding. RONEL: Pt would like to know if she can have her A1C checked today with her other labs. Order pending, if agreeable to review and sign. Susanna Chavez RN documented in this encounterMarietta [facility] Hospital04-01-2022 Miscellaneous Notes* Telephone Encounter - Zuly Denton - 06/28/2021 11:00 AM EDT Please sign pending new cbc order. Thanks, Zuly Denton mA [facility] encounterJ[facility]* Diagnosis Type 2 diabetes mellitus without complication, without long-term current use of insulin (HCC)- Primary documented in this encounter [facility]* Diagnosis Malignant neoplasm of colon, unspecified part of colon (HCC)- Primary documented in this encounter [facility]* Diagnosis Malignant neoplasm of colon, unspecified part of colon (HCC)- Primary Type 2 diabetes mellitus without complication, without long-term current use of insulin (HCC) Neuropathy Mononeuritis of unspecified site documented in this encounter [facility]* Diagnosis Malignant neoplasm of colon, unspecified part of colon (HCC)- Primary Neuropathy Mononeuritis of unspecified site documented in this encounter [facility]* Diagnosis Idiopathic peripheral autonomic neuropathy- Primary Idiopathic peripheral autonomic neuropathy, unspecified Type 2 diabetes mellitus with hyperglycemia, without long-term current use of insulin (HCC) documented in this encounter [facility] noteNo Data Stream CBOT Other History general Narrative - Reported* Type Description Date Medical History Hyperlipemia, mixed Medical History Chronic bronchitis, simple Medical History Paresthesia Medical History Cervical spondylosis with radicu lopathy Medical History Rheumatoid arthritis involving right hand with positive rheumatoid factor Medical History Sjogren's syndrome Medical History Carcinoma of ascending colon Medical History Essential hypertension Medical History Controlled type 2 di abetes mellitus with hyperglycemia, unspecified whether predatory animal exterminator insulin use Medical History Weakness of both lower extremiti es Medical History Ulcer of skin Medical History Primary osteoarthritis of right knee Medical History Strain of right knee, initial en counter Medical History Obstructive sleep apnea Medical History Carotid stenosis, bilateral Medical History Transient ischemic a ttack (TIA), and cerebral infarction without residual deficits Medical History Carotid bruit Medical History Primary osteoarthritis of right hip Medical History TIA (transient ischemic attack) Medical History Insomnia Medical History Suspected sleep apnea Medical History Menopause Medical History Asthmatic bronchitis , mild intermittent, uncomplicated Medical History Lumbosacral spondylosis with rad iculopathy Medical History Acquired autoimmune hypothyroidi sm Medical History Nicotine dependence, cigarettes, in remission Medical History Lumbar spondylosis Medical History Acute bronchitis due to other sp ecified organisms Medical History Gastroesophageal ref lux disease with esophagitis, unspecified whether hemorrhage Surgical History COLON RESECTION AT SPLENIC FLEX URE/COLOSTOMY 04-17-2017 Surgical History TONSILLECTOMY Surgical History APPENDECTOMY Surgical History D&C Surgical History PORT PLACED Surgical History REMOVAL OF LENS LESION 03/2021 Surgical History REVISION OF COLOSTOMY 03/2018 Hospitalization History SEE ABOVE [employer] [place] Other Summary Purpose Family History No Family History Records FoundNo Family History Records FoundNo Family History Records FoundNo Family History Records FoundNo Family History Records Found Advance Directives No Advanced Directives Records FoundNo Advanced Directives Records FoundNo Advanced Directives Records FoundNo Advanced Directives Records FoundNo Advanced Directives Records Found Reason for Referral Specialty Diagnoses / Procedures Referred By Contac t Referred To Contact Gastroenterology Diagnoses Malignant neoplasm of colon, unspecified part of colon (HCC) Procedures CONSULT TO GASTROENTEROLOGY OFFICE/OUTPATIENT CARE ONE AT [facility] 60-74 MINUTES Rachael Bruce MD [address] [place] [id number] Referral ID Status Reason Start Date Expiration Date Visits Requested Visits Authorized [id number] Authorized PCP Requested Referral 07/06/2021 07/06/2022 1 1 Specialty Diagnoses / Procedures Referred By Contac t Referred To Contact Diagnoses Malignant neoplasm of colon, unspecified part of colon (HCC) Neuropathy Procedures CONSULT TO FUNCTIONAL MEDICINE OFFICE/OUTPATIENT CARE ONE AT [facility] 60-74 MINUTES Rachael Bruce MD [address] [place] [id number] Referral ID Status Reason Start Date Expiration Date Visits Requested Visits Authorized [id number] Authorized PCP Requested Referral 2 01/04/2023 1 1 Specialty Diagnoses / Procedures Referred By Contac t Referred To Contact Diagnoses Malignant neoplasm of colon, unspecified part of colon (HCC) Neuropathy Procedures CONSULT TO WELLNESS PHYSICIAN OFFICE/OUTPATIENT CARE ONE AT [facility] 60-74 MINUTES Rachael Bruce MD [address] [place] [id number] Referral ID Status Reason Start Date Expiration Date Visits Requested Visits Authorized [id number] Authorized PCP Requested Referral 2 01/04/2023 1 1 Specialty Diagnoses / Procedures Referred By Contac t Referred To Contact Diagnoses Idiopathic peripheral autonomic neuropathy Procedures CONSULT TO PALLIATIVE CARE OFFICE/OUTPATIENT CARE ONE AT [facility] 60-74 MINUTES Rachael Bruce MD [address] [place] [id number] Referral ID Status Reason Start Date Expiration Date Visits Requested Visits Authorized [id number] Authorized PCP Requested Referral 07/05/2022 07/05/2023 1 1 Additional Source Comments INFORMATION SOURCE (unrecogn ized section and content) DATE CREATED AUTHOR 09/04/2017 [facility] DATE CREATED AUTHOR AUTHOR'S ORGANIZ ATION 10/09/2019 [facility] DATE CREATED AUTHOR AUTHOR'S ORGANIZ ATION 08/29/2021 [facility] DATE CREATED AUTHOR AUTHOR'S ORGANIZ ATION 07/04/2022 [facility] DATE CREATED AUTHOR AUTHOR'S ORGANIZ ATION 07/07/2022 [facility] Source Comments (unrecognize d section and content) In the event this informatio n is protected by the Federal Confidentiality of Alcohol and Drug Abuse Patient Records regulations: The Federal rules restrict any use of the information to criminally investigate or prosecute any alcohol or drug abuse patient.[facility] HospitalIn the event this information is protected by the Federal Confidentiality of Alcohol and Drug Abuse Patient Records regulations: The Federal rules restrict any use of the information to criminally investigate or prosecute any alcohol or drug abuse patient.[facility] HospitalIn the event this information is protected by the Federal Confidentiality of Alcohol and Drug Abuse Patient Records regulations: The Federal rules restrict any use of the information to criminally investigate or prosecute any alcohol or drug abuse patient.[facility] HospitalIn the event this information is protected by the Federal Confidentiality of Alcohol and Drug Abuse Patient Records regulations: The Federal rules restrict any use of the information to criminally investigate or prosecute any alcohol or drug abuse patient.[facility] HospitalIn the event this information is protected by the Federal Confidentiality of Alcohol and Drug Abuse Patient Records regulations: The Federal rules restrict any use of the information to criminally investigate or prosecute any alcohol or drug abuse patient.[facility] HospitalIn the event this information is protected by the Federal Confidentiality of Alcohol and Drug Abuse Patient Records regulations: The Federal rules restrict any use of the information to criminally investigate or prosecute any alcohol or drug abuse patient.[facility] HospitalIn the event this information is protected by the Federal Confidentiality of Alcohol and Drug Abuse Patient Records regulations: The Federal rules restrict any use of the information to criminally investigate or prosecute any alcohol or drug abuse patient.[facility] Reason for Visit (unrecogniz ed section and content) Lab Results Reason Comments Results Reason Comments Lab Orders Reason Comments Colon Cancer follow up Reason Comments Referral Information GI Reason Comments Colon Cancer Follow up Reason Comments Colon Cancer Follow up Care Teams (unrecognized sec tion and content) Director Special Education Relationship Specialty Start Date End Date Roby Dumont DO PCP - General Internal Medicine 07/15/13 Maryam Pack RN [address] [address] Specialty Lab Support Tech Hematology/Oncology 06/19/17 Germania Ozuna, PAGutierrezC [address] [place] [address] Physician [employer] Engineer Hematology/Oncology 06/19/17 Rachael Bruce MD [address] [facility] [place] [address] Physician Hematology/Oncology 03/20/19 Director Special Education Relationship Specialty Start Date End Date Roby Dumont DO PCP - General Internal Medicine 07/15/13 Maryam Pack RN [address] [facility] [address] Specialty Lab Support Tech Hematology/Oncology 06/19/17 Germania Ozuna, PA-C [address] [place] [address] Physician [employer] Engineer Hematology/Oncology 06/19/17 Rachael Bruce MD [address] [place] [address] Physician Hematology/Oncology 03/20/19 Director Special Education Relationship Specialty Start Date End Date Roby Dumont, DO PCP - General Internal Medicine 07/15/13 Maryam Pack RN [address] [facility] [address] Specialty Lab Support Tech Hematology/Oncology 06/19/17 Germania Ozuna, PAGutierrezC [address] [facility] [address] Physician [employer] Engineer Hematology/Oncology 06/19/17 Rachael Bruce MD [address] [facility] [address] [place] [address] Physician Hematology/Oncology 03/20/19 Director Special Education Relationship Specialty Start Date End Date Roby Dumont, DO PCP - General Internal Medicine 07/15/13 Maryam Pack RN [address] [facility] [address] Specialty Lab Support Tech Hematology/Oncology 06/19/17 Germania Ozuna, PAGutierrezC [address] [facility] [address] Physician [employer] Engineer Hematology/Oncology 06/19/17 Rachael Bruce MD [address] [facility] [place] [address] Physician Hematology/Oncology 03/20/19 Director Special Education Relationship Specialty Start Date End Date Roby Dumont, DO PCP - General Internal Medicine 07/15/13 Maryam Pack RN [address] [facility] [address] Specialty Lab Support Tech Hematology/Oncology 06/19/17 Germania Ozuna PA-C [address] [facility] [address] Physician [employer] Engineer Hematology/Oncology 06/19/17 Rachael Bruce MD [address] [place] [address] Physician Hematology/Oncology 03/20/19 Director Special Education Relationship Specialty Start Date End Date Roby Dumont, DO PCP - General Internal Medicine 07/15/13 Maryam Pack RN [address] [facility] [address] Specialty Lab Support Tech Hematology/Oncology 06/19/17 Germania Ozuna PA-C [address] [facility] [address] Physician [employer] Engineer Hematology/Oncology 06/19/17 Rachael Bruce MD [address] [place] [address] Physician Hematology/Oncology 03/20/19 Director Special Education Relationship Specialty Start Date End Date Roby Dumont, DO PCP - General Internal Medicine 07/15/13 Maryam Pack RN [address] [facility] [address] Specialty Lab Support Tech Hematology/Oncology 06/19/17 Germania Ozuna PA-C [address] [facility] [address] Physician [employer] Engineer Hematology/Oncology 06/19/17 Rachael Bruce MD [address] [place] [address] Physician Hematology/Oncology 03/20/19 FOR RECORDS PERTAINING TO PATIENTS WHO ARE OR HAVE BEEN ENROLLED IN A CHEMICAL DEPENDENCY/SUBSTANCEABUSE PROGRAM, SOME INFORMATION MAY BE OMITTED. This clinical summary was aggregated from multiple sources. Caution should be exercised in using it in the provision of clinical care. This summary normalizes information from multiple sources, and as a consequence, information in this document may materially change the coding, format and clinical context of patient data. In addition, data may be omitted in some cases. CLINICAL DECISIONS SHOULD BE BASED ON THE PRIMARY CLINICAL RECORDS. [facility]. provides no warranty or guarantee of the accuracy or completeness of information in this document.
== END 2023-03-22 14:56 | disposition home or self-care (01) ==
LOC: US 14:55
PROVIDERS: PCP Internal Medicine; Visit Provider Nurse Practitioner Family
DX: G45.9 Transient cerebral ischemic attack, unspecified (principal); I65.23 Occlusion and stenosis of bilateral carotid arteries; E78.5 Hyperlipidemia, unspecified
CPT/HCPCS: 93880

== ENCOUNTER 2023-04-16 13:49 | Outpatient (RCR) | payer MEDICARE, OTHER, SELFPAY | END 2023-06-01 16:43 | disposition home or self-care (01) | LOC: PT 13:49 | PROVIDERS: PCP Internal Medicine; Visit Provider Internal Medicine | DX: M47.816 Spondylosis without myelopathy or radiculopathy, lumbar region (principal) | CPT/HCPCS: 20561; 97010; 97035; 97110; 97140; 97161; G0283 ==

== ENCOUNTER 2023-10-11 14:54 | Outpatient (OUT) | payer MEDICARE, OTHER, SELFPAY ==
--- NOTE | 2023-10-11 14:57 | MM_ITS ---
Patient Name: BILLIE URBINA MR#: [id number] : 1950 Exam Date: 10/11/2023 Ordering Doctor: DR Roby Dumont D.O. RADIOLOGY REPORT PROCEDURE: MM TOMOSYNTHESIS SCREENING BI COMPARISON: MG MAMM SCREEN 3D SHARLENE CAD, 08/13/2020. MG MAMM SCREEN SHARLENE W CAD, 03/04/2018. MG MAMM SCREEN SHARLENE W CAD, 07/11/2016. INDICATIONS: Screening Calculator Name NCI Breast Cancer Risk Assessment Tool 5 Year Breast Cancer Risk 2.10% Lifetime Breast Cancer Risk 5.60% Personal Breast Cancer No Personal Ovarian Cancer No Treatments None Family Cancers None LOCATION: [facility] BREAST COMPOSITION: There are scattered areas of fibroglandular density. FINDINGS: DIAGNOSTIC CATEGORY 1--NEGATIVE. RIGHT BREAST: No significant suspicious finding. No significant change has occurred. LEFT BREAST: No significant suspicious finding. No significant change has occurred. RECOMMENDATIONS: ROUTINE MAMMOGRAM AND CLINICAL EVALUATION IN 12 MONTHS. PLEASE NOTE: A NORMAL MAMMOGRAM DOES NOT EXCLUDE THE POSSIBILITY OF BREAST CANCER. A CLINICALLY SUSPICIOUS PALPABLE LUMP SHOULD BE BIOPSIED. Dictated by: Chris Katz M.D. on 10/12/2023 at 14:14 Approved by: Chris Katz M.D. on 10/12/2023 at 14:17
--- OUTSIDE RECORDS SUMMARY | 2023-10-11 15:15 | XMS_ITS | CCD ---
[facility] Team Providers Care Powder Monkey Name Role Phone PHYSICIAN, DEFAULT Unavailable Unavailable PHYSICIAN, DEFAULT Unavailable Unavailable ALTOROK, NEZAM I Unavailable Unavailable ALTOROK, NEZAM I Unavailable Unavailable UNKNOWN, PHYSICIAN Unavailable Unavailable UNKNOWN, PHYSICIAN Unavailable Unavailable Roby Dumont DO Primary Care Provider Ramone JEONG, Maryam Koehler Unavailable Germania Ozuna PA-C M Unavailable [phone] Janis PATTEN, Rachael Unavailable [phone] Roby Dumont DO Primary Care Provider Ramone JEONG, Maryam Koehler Unavailable Laith SCHOFIELD, Germania M Unavailable [phone] Janis PATTEN, Rachael Unavailable Roby Dumont Unavailable NATAN, DR HERBERT Admitting Unavailable BALL, DR HERBERT Attending Unavailable BALL, DR HERBERT Primary Care Unavailable BALL, DR HERBERT Consulting Unavailable BALL, DR HERBERT Admitting Unavailable BALL, DR HERBERT Attending Unavailable BALL, DR HERBERT Primary Care Unavailable BALL, DR HERBERT Consulting Unavailable BALL, DR HERBERT Admitting Unavailable BALL, DR HERBERT Attending Unavailable BALL, DR HERBERT Primary Care Unavailable BALL, DR HERBERT Consulting Unavailable DENICE, DR SID Rodriges Consulting Unavailable BALL, DR HERBERT Admitting Unavailable BALL, DR HERBERT Attending Unavailable BALL, DR HERBERT Primary Care Unavailable BALL, DR HERBERT Consulting Unavailable ZIEBER, DR JIMY Wynn Consulting Unavailable BALL, DR HERBERT Admitting Unavailable BALL, DR HERBERT Attending Unavailable BALL, DR HERBERT Primary Care Unavailable BALL, DR HERBERT Admitting Unavailable BALL, DR HERBERT Attending Unavailable BALL, DR HERBERT Primary Care Unavailable Roby Dumont DO Primary Care Provider Maryam Pack RN Unavailable [phone] Laith SCHOFIELD, Germania Maia Unavailable [phone] Rachael Bruce MD Unavailable [phone] ROBY DUMONT Primary Care Unavailable KARAMLOAngella, RACHAEL Referring Unavailable JANIS, RACHAEL Attending Unavailable ROBY DUMONT E Primary Care Unavailable BALL, ROBY E Primary Care Unavailable KARAMLOU, RACHAEL Referring Unavailable HERMILALOU, RACHAEL Attending Unavailable ROBY DUMONT Primary Care Unavailable KARAMLOU, RACHAEL Referring Unavailable Bg Kramer Unavailable [phone] Allergies Allergy Classification Reported Allergen(s) Allergy Type Date of Onset Reaction(s) Facility (9 sources) Aspirin; Translations: [ASPIRIN] Drug Allergy 07-22-19 14 Other: See Comments [facility] Work Phone: (5 sources) Non-steroidal anti-inflammatory agent; Translations: [NSAIDS (NON-STEROIDAL ANTI-INFLAMMATORY DRUG)] Drug Allergy 07-22-19 14 Other: See Comments [facility] Work Phone: (8 sources) Ondansetron; Translations: [ONDANSETRON HCL (PF)] Drug Allergy 06-16-19 18 Vomiting [facility] (8 sources) Nut - Unspecified; Translations: [NUT - UNSPECIFIED] Drug Allergy 07-22-19 14 Unknown [facility] (8 sources) Non-steroidal anti-inflammatory agent Drug Allergy 07-22-19 14 Other: See Comments [facility] Work Phone: (6 sources) NSAIDs Propensity to adverse reactions shortness of breath [facility] Flare Code Other (5 sources) Ondansetron; Translations: [Zofran] Drug Allergy vomiting [facility] Rep[facility] (9 sources) tree nut, unspecified Propensity to adverse reactions anaphylaxis [facility] Flare Code Other (1 source) Aspirin Drug Allergy 07-15-19 14 [facility] (1 source) NSAIDs Drug allergy (disorder) 07-29-19 15 [facility] (2 sources) tree nut, unspecified Drug allergy (disorder) 03-12-18 70 Anaphylaxis [facility] (6 sources) DULoxetine Drug Allergy 10-02-19 24 Comment:diarrh ea [facility] (5 sources) Toradol *ANALGESICS - ANTI-INFLAMMATORY* Propensity to adverse reactions Unknown [facility] Flare Code Other (5 sources) aspirin contraindicated Propensity to adverse reactions 10-21-19 15 Comment:advers e rxn/side effects [facility] Ju[facility] Other (5 sources) Zofran *ANTIEMETICS* Propensity to adverse reactions Unknown [facility] Flare Code Other (1 source) Ibuprofen Drug Allergy 10-02-19 24 Unknown Reaction [facility] (1 source) Ondansetron Drug Allergy 10-02-[address] [facility] (1 source) NSAIDS (Non-Steroidal Anti-Inflamma Allergy to substance 10-02-19 Unknown Reaction, NSAIDS [facility] (1 source) Toradol *ANALGESICS - ANTI-INF Allergy to substance 10-02-19 Unknown Reaction [facility] Medications Current Medications Medication Drug Class(es) Dates Sig (Normalized) Sig (Original) Accu-Chek Toma Plus - (9 sources) Accu-Chek Toma Plus - USE TO TEST BLOOD SUGAR 3 TIMES DAILY for 30 Active Accu-Chek Toma Plus - as directed In Vitro Active biotin 1 mg oral capsule (8 sources) Start: 12-21-2017 take 1 mg by mouth once daily Biotin Active 1 MG PO Daily December 21, 2017 12:00am take 1 tablet by mouth once marilia y Biotin 1 mg tab Take 1 tablet by mouth once daily. 0 Active Comment on above: Take 1 tablet by [facility] once daily. cholecalciferol 0.125 mg oral tablet (9 sources) Vitamin D Start: take 125 ug by mouth once daily Cholecalciferol (Vitamin D3) Active 125 MCG PO Daily August 22, 2021 12:00am Start: 12-21-2017 End: 08-22-2021 take 2 capsules by mouth once daily Cholecalciferol (Vitamin D3) (Vitamin D3) 2,000 unit Tablet Discontinued 2 CAP PO Daily December 21, 2017 12:00am August 22, 2021 1:27pm take 1 capsule by [facility] once daily Cholecalciferol, Vitamin D3, 50 mcg (2,000 unit) cap Take 2,000 Units by mouth once daily. 0 Active Comment on above: Take 2,000 Units by mouth once daily. clopidogrel 75 mg oral tablet (18 sources) P2Y12 Platelet Inhibitor Start: 09-24-2023 take 1 tablet by mouth once daily Clopidogrel Active 0 .ROUTE .COMPLEX 90 September 24, 2023 12:50pm TAKE 1 TABLET BY MOUTH EVERY DAY Start: 11-06-2020 End: 09-24-2023 take 75 mg by mouth once daily Clopidogrel Discontinue d 75 MG PO Daily August 22, 2021 12:00am September 24, 2023 12:50pm Comment on above: Take 75 mg by mouth once daily. famotidine 20 mg oral tablet (17 sources) Histamine-2 Receptor Antagonist Start: 01-03-2019 take 20 mg by mouth twice daily Famotidine Active 20 MG PO Twice daily January 03, 2019 12:00am Start: 12-12-2018 famotidine (PE PCID) 20 mg tablet furosemide 20 mg oral tablet (7 sources) Loop Diuretic Start: 09-13-2022 take 1 tablet by mouth every twenty-four hours Furosemide 20 MG 1 tablet Orally Once a day Sep, Active hydroCHLOROthiazide 12.5 mg oral capsule (14 sources) Thiazide Diuretic Start: 07-25-2023 take 1 capsule by mouth once daily Hydrochlorothiazide Active 0 .ROUTE .COMPLEX July 25, 2023 1:20pm TAKE 1 CAPSULE BY MOUTH EVERY DAY Start: 12-21-2017 End: 07-25-2023 take 12.5 mg by mouth once daily Hydrochlorothiazide Discontinued 12.5 MG PO Daily December 21, 2017 12:00am July 25, 2023 1:20pm take 1 tablet by mariana th once daily hydroCHLOROthiazide (HYDRODIURIL, ESIDRIX) 12.5 mg tablet Take 12.5 mg by mouth once daily. 0 Active Comment on above: Take 12.5 mg by mout h once daily. hydroxychloroquine sulfate 200 mg oral tablet (20 sources) Antimalarial, Antirheumatic Agent Start: 2017 take 200 mg by mouth twice daily Hydroxychloroquine Active 200 MG PO Twice daily December 21, 2017 12:00am take 1 tablet by mariana th every twenty-four hours Plaquenil 200 MG 1 tablet with food or m ilk Orally Once a day Not-Taking/PRN Comment on above: Take 200 mg by mouth twice daily. insulin isophane, human 100 unt/ml injectable suspension (11 sources) Start: 12-21-2017 End: 06-27-2023 Insulin Nph Isoph U-100 Human (Novolin N Nph U-100 Insulin) 100 unit/mL suspension Active 30 UNIT SUBCUT Twice daily 54 90 June 27, 2023 5:05pm NovoLIN N 100 UN IT/ML 30 units SC before bkfst and 60units SC before evening meal Subcutaneous bid for 30 days Active NovoLIN N 100 UN IT/ML 30/50 Subcutaneous daily Active NovoLIN N 100 UN IT/ML 20/50 Subcutaneous daily Active insulin, regular, human 100 unt/ml injectable solution (11 sources) Insulin Start: 12-21-2017 End: 07-25-2023 Insulin Regular Human (Novol in R Regular U100 Insulin) 100 unit/mL solution Active 0 .ROUTE .COMPLEX July 25, 2023 1:20pm INJECT 30 UNITS BEFORE EACH MEAL SUBCUTANEOUSLY THREE TIMES A DAY NovoLIN R 100 UN IT/ML 30 units before each meal SC three times daily for 30 days Active NovoLIN R 100 UN IT/ML 30 units Injection three times daily Active Lactobacillus Combination No.4 (Probiotic) 3 billion cell Capsule (1 source) Start: 03-01-2018 take 3 capsules by mouth once daily Lactobacillus Combination No.4 (Probiotic) 3 billion cell Capsule Active 3000 MMU CELLS PO Daily March 01, 2018 1:00am levothyroxine sodium 0.112 mg oral tablet (13 sources) l-Thyrox ine Start: 06-25-2013 take 112 ug by mouth once daily Levothyroxine Active 112 MCG PO Daily December 21, 2017 12:00am take 1 tablet by mouth once marilia y Levothyroxine Sodium 112 MCG TAKE 1 TABLET BY MOUTH EVERY DAY ON AN EMPTY STOMACH Active Comment on above: Take 112 mcg by mout h once daily. loratadine 10 mg oral tablet (17 sources) Start: 12-21-2017 take 1 tablet by mouth once daily Loratadine (Claritin) 10 mg Tablet Active 10 MG PO Daily December 21, 2017 12:00am Comment on above: Take 10 mg by mouth once daily. magnesium citrate 200 mg oral tablet (9 sources) Magnesium Citrat e 200 MG as directed Orally Active [place] 3,6,9 Combination No.7 (1 source) Start: 03-01-2018 take 1 tablet by mouth once daily [place] 3,6,9 Combination No.7 Active 1 TAB PO Daily March 01, 2018 1:00am predniSONE 10 mg oral tablet (8 sources) Start: 07-28-2022 predniSONE 10 MG 2 tablets Orally twice daily w/ food and decrease slowly over 7-10 days for 10 days July, Active Completed/Discontinued Medications Medication Drug Class(es) Dates Sig (Normalized) Sig (Original) Acetaminophen (7 sources) ACETAMINOPHEN (TYLENOL ARTHRITIS ORAL) Take by mouth. 0 Active Comment on above: Take by mouth. atorvastatin 20 mg oral tablet (18 sources) HMG-CoA Reductase Inhibitor Start: 06-16-2018 End: 01-03-2019 Atorvastatin Discontinued TABLET January 03, 2019 12:00am January 03, 2019 1:47pm Comment on above: Take 20 mg by mouth once daily. insulin NPH human isophane (NOVOLIN N SUBCUTANEOUS) (7 sources) insulin NPH luly n isophane (NOVOLIN N SUBCUTANEOUS) Inject subcutaneously. Use as directed 0 Active Comment on above: Inject subcutaneousl y. Use as directed insulin regular, human (NOVOLIN R INJECTION) (7 sources) insulin regular, human (NOVOLIN R INJECTION) by INJECTION(UNSPECIF IED PARENTERAL ROUTES) route. Sliding scale with meals 0 Active Comment on above: by INJECTION(UNSPECI FIED PARENTERAL ROUTES) route. Sliding scale with meals Lactobacillus acidophilus (7 sources) Lactobacillus acidophilus (PROBIOTIC ORAL) Take 1 capsule by mouth as needed. 0 Active Comment on above: Take 1 capsule by [facility] as needed. promethazine hydrochloride 12.5 mg oral tablet (9 sources) Phenothiazine take 1 tablet by mouth every six hours Promethazine HCl 12.5 MG 1 tablet as needed Orally every 6 hrs Not-Taking/PRN raNITIdine 150 mg oral tablet (1 source) Histamine-2 Receptor Antagonist Start: 12-21-2017 End: 01-03-2019 take 1 tablet by mouth twice daily Ranitidine Hcl (Zantac) 150 mg Tablet Discontinued 150 MG PO Twice daily December 21, 2017 12:00am January 03, 2019 1:46pm thioctic acid 600 mg oral capsule (7 sources) Alpha Lipoic Aci d 600 mg cap Take by mouth. 0 Active Comment on above: Take by mouth. Tylenol Arthritis Pain 650 MG (9 sources) take 2 tablets by mouth every eight hours as needed Tylenol Arthritis Pain 650 MG 2 tablets as needed Orally every 8 hrs Not-Taking/PRN take 2 tablets by mo ut every eight hours as needed Tylenol Arthritis Pain 650 MG 2 tablets as needed Orally every 8 hrs Not-Taking Vitamin D3 2000 UNIT (9 sources) take 1 capsule by mo uth twice daily as needed Vitamin D3 2000 UNIT 1 capsule Orally TWICE a day Not-Taking/PRN take 1 capsule by mouth twice da shahid Vitamin D3 2000 UNIT 1 capsule Orally TWICE a day Not-Taking Zantac 150 Maximum Strength 150 MG (9 sources) take 1 tablet by mariana th once daily at bedtime Zantac 150 Maximum Strength 150 MG 1 tablet at bedtime Orally Once a day Not-Taking/PRN take 1 tablet by mariana th once daily at bedtime Zantac 150 Maximum Strength 150 MG 1 tab let at bedtime Orally Once a day Not-Taking Problems Active Problems Problem Classification Problem Date Documented Date Episodic/Chronic Acute bronchitis (1 source) Acute bronchitis; Translations: [Acute bronchitis due to other specified organisms] Episodic Asthma (11 sources) Mild intermittent asthma; Translations: [Mild intermittent asthma, uncomplicated] 09-30-2023 Chronic Cancer of colon (20 sources) Malignant tumor of splenic flexure; Translations: [Malignant neoplasm of splenic flexure] Onset: 06-19-2017 06-19-2017 Chronic Cancer of colon (13 sources) History of malignant neoplasm of colon; Translations: [Personal history of other malignant neoplasm of large intestine] Episodic Chronic obstructive pulmonary disease and bronchiectasis (20 sources) Simple chronic bronchitis; Translations: [Simple chronic [...] Onset: 07-21-2013 Chronic Disorders of lipid metabolism (20 sources) Hyperlipidemia; Translations: [Hyperlipidemia, unspecified] Onset: 07-21-2013 07-21-2013 Chronic Esophageal disorders (6 sources) Gastro-esophageal reflux disease with esophagitis; Translations: [Gastroesophageal reflux disease with esophagitis, unspecified whether hemorrhage] 09-30-2023 Chronic Essential hypertension (20 sources) Hypertensive disorder; Translations: [Essential (primary) hypertension] Onset: 07-21-2013 07-21-2013 Chronic Occlusion or stenosis of precerebral arteries (13 sources) Occlusion and stenosis of multiple and bilateral cerebral arteries; Translations: [Occlusion and stenosis of bilateral carotid arteries] Chronic Osteoarthritis (19 sources) Localized, primary osteoarthritis of the pelvic region and thigh; Translations: [Unilateral primary osteoarthritis, right hip] Onset: 08-15-2021 Chronic Osteoporosis (1 source) Age-related osteoporosis without current pathological fracture; Translations: [AGE-RELATED OSTEOPOROSIS W/O CURRENT PATHOLOGICAL FRACTURE] Onset: 01-24-2017 Chronic Other aftercare (9 sources) Long-term current use of insulin; Translations: [intermediate (current) use of insulin] Episodic Other aftercare (4 sources) terminal computer operator (current) use of insulin Episodic Other and ill-defined cerebrovascular disease (3 sources) Cerebral atherosclerosis; Translations: [Cerebral atherosclerosis] Chronic Other and ill-defined cerebrovascular disease (1 source) Cerebral atherosclerosis Chronic Other circulatory disease (9 sources) Carotid bruit; Translations: [Other specified symptoms and signs involving the circulatory and respiratory systems] Episodic Other circulatory disease (9 sources) History of cerebrovascular accident without residual deficits; Translations: [Personal history of transient ischemic attack (TIA), and cerebral infarction without residual deficits] Episodic Other circulatory disease (2 sources) Personal history of transient ischemic attack (TIA), and cerebral infarction without residual deficits Episodic Other connective tissue disease (1 source) Disorder of musculoskeletal system; Translations: [Other symptoms and signs involving the musculoskeletal system] Episodic Other connective tissue disease (1 source) Other symptoms and signs involving the nervous system; Translations: [Suspected sleep apnea] Episodic Other diseases of veins and lymphatics (7 sources) Lymphedema; Translations: [Lymphedema, not elsewhere classified] Chronic Other diseases of veins and lymphatics (1 source) Lymphedema, not elsewhere classified Chronic Other diseases of veins and lymphatics (9 sources) Peripheral venous insufficiency; Translations: [Venous insufficiency (chronic) (peripheral)] Episodic Other diseases of veins and lymphatics (5 sources) Venous insufficiency (chronic) (peripheral) Episodic Other hereditary and degenerative nervous system conditions (1 source) Idiopathic peripheral autonomic neuropathy; Translations: [Other idiopathic peripheral autonomic neuropathy] Chronic Other nervous system disorders (9 sources) Neuropathy; Translations: [Polyneuropathy, unspecified] Onset: 03-06-2018 03-06-2018 Chronic Other nervous system disorders (1 source) Paresthesia; Translations: [Paresthesia of skin] Episodic Other nutritional; endocrine; and metabolic disorders (9 sources) Body mass index 30+ - obesity; Translations: [Body mass index (BMI) 37.0-37.9, adult] Chronic Other screening for suspected conditions (not mental disorders or infectious disease) (2 sources) Encounter for screening mammogram for malignant neoplasm of breast; Translations: [Other screening mammogram] Episodic Residual codes; unclassified (19 sources) Obstructive sleep apnea syndrome; Translations: [Obstructive sleep apnea (adult) (pediatric)] 09-30-2023 Chronic Residual codes; unclassified (5 sources) Obstructive sleep apnea (adult) (pediatric); Translations: [Obstructive sleep apnea (adult)(pediatric)] Chronic Residual codes; unclassified (7 sources) Asymptomatic menopausal state; Translations: [Menopause] Episodic Residual codes; unclassified (9 sources) Insomnia; Translations: [Insomnia, unspecified] Episodic Residual codes; unclassified (1 source) Localized edema Episodic Residual codes; unclassified (2 sources) Menopause present; Translations: [Asymptomatic menopausal state] Episodic Rheumatoid arthritis and related disease (17 sources) Rheumatoid arthritis, unspecified; Translations: [Rheumatoid arthritis] [...] right knee, initial encounter] Episodic Substance-related disorders (9 sources) Tobacco user; Translations: [Nicotine dependence, cigarettes, in remission] Chronic Systemic lupus erythematosus and connective tissue disorders (9 sources) Sjogren's syndrome; Translations: [Sicca syndrome, unspecified] [...] Basophils (Bld) [#/Vol] 0.07 10*3/uL Normal <0.11 [facility] Comment on above: Order Comment: Speci men Type: BLOOD SPECIMENOrdering Facility: [facility] Address: [address] [place] [address] Performed By: #### 5 7021-8 ####[facility] LABCLIA [id number] [place] [address] Basophils/100 WBC (Bld) 1.0 % Normal [facility] Comment on above: Order Comment: Speci men Type: BLOOD SPECIMENOrdering Facility: [facility] Address: [address] [place] [address] Performed By: #### 5 7021-8 ####[facility] LABCLIA [id number] [place] [address] Differential cell count method Nom (Bld) Auto Normal [facility] Comment on above: Order Comment: Speci men Type: BLOOD SPECIMENOrdering Facility: [facility] Address: [address] [place] [address] Performed By: #### 5 7021-8 ####[facility] LABCLIA [id number] [place] [address] Eosinophils (Bld) [#/Vol] 0.49 10*3/uL High <0.46 [facility] Comment on above: Order Comment: Speci men Type: BLOOD SPECIMENOrdering Facility: [facility] Address: [address] [place] [address] Performed By: #### 5 7021-8 ####[facility] LABCLIA [id number] [place] [address] Eosinophils/100 WBC (Bld) 6.7 % Normal [facility] Comment on above: Order Comment: Speci men Type: BLOOD SPECIMENOrdering Facility: [facility] Address: [address] [place] [address] Performed By: #### 5 7021-8 ####[facility] LABCLIA [id number] [place] [address] Erythrocyte distribution width (RBC) [Ratio] 14.6 % Normal 11.5-15.0 [facility] Comment on above: Order Comment: Speci men Type: BLOOD SPECIMENOrdering Facility: [facility] Address: [address] [place] [address] Performed By: #### 5 7021-8 ####[facility] LABCLIA [id number] [place] [address] Hematocrit (Bld) [Volume fraction] 42.3 % Normal 36.0-46.0 [facility] Comment on above: Order Comment: Speci men Type: BLOOD SPECIMENOrdering Facility: [facility] Address: [address] [place] [address] Performed By: #### 5 7021-8 ####[facility] LABCLIA [id number] [place] [address] Hemoglobin (Bld) [Mass/Vol] 14.2 g/dL Normal 11.5-15.5 [facility] Comment on above: Order Comment: Speci men Type: BLOOD SPECIMENOrdering Facility: [facility] Address: [address] [place] [address] Performed By: #### 5 7021-8 ####[facility] LABCLIA [id number] [place] [address] Immature granulocytes (Bld) [#/Vol] 0.04 10*3/uL Normal <0.10 [facility] Comment on above: Order Comment: Speci men Type: BLOOD SPECIMENOrdering Facility: [facility] Address: [address] [place] [address] Performed By: #### 5 7021-8 ####[facility] LABCLIA [id number] [place] [address] Immature granulocytes/100 WBC (Bld) 0.5 % Normal [facility] Comment on above: Order Comment: Speci men Type: BLOOD SPECIMENOrdering Facility: [facility] Address: [address] [place] [address] Performed By: #### 5 7021-8 ####[facility] LABCLIA [id number] [place] [address] Lymphocytes (Bld) [#/Vol] 1.84 10*3/uL Normal 1.00-4.00 [facility] Comment on above: Order Comment: Speci men Type: BLOOD SPECIMENOrdering Facility: [facility] Address: [address] [place] [address] Performed By: #### 5 7021-8 ####[facility] LABCLIA [id number] [place] [address] Lymphocytes/100 WBC (Bld) 25.1 % Normal [facility] Comment on above: Order Comment: Speci men Type: BLOOD SPECIMENOrdering Facility: [facility] Address: [address] [place] [address] Performed By: #### 5 7021-8 ####[facility] LABCLIA [id number] [place] [address] MCH (RBC) [Entitic mass] 31.5 pg Normal 26.0-34.0 [facility] Comment on above: Order Comment: Speci men Type: BLOOD SPECIMENOrdering Facility: [facility] Address: [address] [place] [address] Performed By: #### 5 7021-8 ####[facility] LABCLIA [id number] [place] [address] MCHC (RBC) [Mass/Vol] 33.6 g/dL Normal 30.5-36.0 [facility] Comment on above: Order Comment: Speci men Type: BLOOD SPECIMENOrdering Facility: [facility] Address: [address] [address] Performed By: #### 5 7021-8 ####[facility] LABCLIA [id number] [place] [address] MCV (RBC) [Entitic vol] 93.8 fL Normal 80.0-100.0 [facility] Comment on above: Order Comment: Speci men Type: BLOOD SPECIMENOrdering Facility: [facility] Address: [address] [address] Performed By: #### 5 7021-8 ####[facility] LABCLIA [id number] [place] [address] Monocytes (Bld) [#/Vol] 0.70 10*3/uL Normal <0.87 [facility] Comment on above: Order Comment: Speci men Type: BLOOD SPECIMENOrdering Facility: [facility] Address: [address] [place] [address] Performed By: #### 5 7021-8 ####[facility] LABCLIA [id number] [place] [address] Monocytes/100 WBC (Bld) 9.5 % Normal [facility] Comment on above: Order Comment: Speci men Type: BLOOD SPECIMENOrdering Facility: [facility] Address: [address] [place] [address] Performed By: #### 5 7021-8 ####[facility] [id number] [place] [address] Neutrophils (Bld) [#/Vol] 4.20 10*3/uL Normal 1.45-7.50 [facility] Comment on above: Order Comment: Speci men Type: BLOOD SPECIMENOrdering Facility: [facility] Address: [address] [place] [address] Performed By: #### 5 7021-8 ####[facility] [id number] [place] [address] Neutrophils/100 WBC (Bld) 57.2 % Normal [facility] Comment on above: Order Comment: Speci men Type: BLOOD SPECIMENOrdering Facility: [facility] Address: [address] [place] [address] Performed By: #### 5 7021-8 ####[facility]CLIA [id number] [place] [address] Nucleated RBC (Bld) [#/Vol] 10*3/uL Normal <0.01 [facility] Comment on above: Order Comment: Speci men Type: BLOOD SPECIMENOrdering Facility: [facility] Address: [address] [place] [address] Performed By: #### 5 7021-8 ####[facility]CLIA [id number] [place] [address] Nucleated RBC/100 WBC (Bld) [Ratio] 0.0 /100 WBC Normal [facility] Comment on above: Order Comment: Speci men Type: BLOOD SPECIMENOrdering Facility: [facility] Address: [address] [place] [address] Performed By: #### 5 7021-8 ####[facility]IA [id number] [place] [address] Platelet mean volume (Bld) [Entitic vol] 8.9 fL Low 9.0-12.7 [facility] Comment on above: Order Comment: Speci men Type: BLOOD SPECIMENOrdering Facility: [facility] Address: [address] [place] [address] Performed By: #### 5 7021-8 ####[facility]CLIA [id number] [place] [address] Platelets (Bld) [#/Vol] 188 10*3/uL Normal 150-400 [facility] Comment on above: Order Comment: Speci men Type: BLOOD SPECIMENOrdering Facility: [facility] Address: [address] [place] [address] Performed By: #### 5 7021-8 ####[facility]CLIA [id number] [place] [address] RBC (Bld) [#/Vol] 4.51 10*6/uL Normal 3.90-5.20 [facility] Comment on above: Order Comment: Speci men Type: BLOOD SPECIMENOrdering Facility: [facility] Address: [address] [place] [address] Performed By: #### 5 7021-8 ####[facility]CLIA [id number] [place] [address] WBC (Bld) [#/Vol] 7.34 10*3/uL Normal 3.70-11.00 [facility] Comment on above: Order Comment: Speci men Type: BLOOD SPECIMENOrdering Facility: [facility] Address: [address] [place] [address] Performed By: #### 5 7021-8 ####[facility]CLIA [id number] [place] [address] CEA SerPl-mCncon 07-05-2022 Carcinoembryonic Ag [Mass/Vol] 3.4 ng/mL High <=2.9 [facility] Comment on above: Order Comment: Speci men Type: BLOOD SPECIMEN [facility] Address: [address] [place] [address] Result Comment: Carc inoembryonic antigen test is used as an aid in monitoring response to treatment or recurrence in patients with established colorectal, breast, lung, prostatic, pancreatic, and ovarian carcinomas. Clinical correlation is required. The Carcinoembryonic antigen test was performed using the Junito [employer] DXI paramagnetic particle chemiluminescent immunoassay method. Results obtained with different assay methods or kits cannot be used interchangeably. Performed By: #### 2 039-6 #### [facility] CLIA [id number] [place] CNOVSPon 07-05-2022 CNOVSP Visit (SP) Office (HEMAS[place]) CARLITOSBILLIE ([id number]) 1950 F Date Time Provider Department 07/05/22 2:30 PM RACHAEL BRUCE During your visit today, we recorded the following information about you: Temperature Pulse Respiration Blood pressure 97 degrees 73/minute 18/minute 184/59 Weight Height 114.1 kg 1.575 m Rachael Bruce MD 07/05/2022 4:47 PM Signed PATIENT NAME: Billie Liriano CLINIC NO.: [id number] ATTENDING PHYSICIAN: Rachael Bruce MD DATE OF [...] Treatment History: 1. While on vacation in [place] developed severe abdominal pain in April 2017. CT at that point noted a large bowel obstruction with colonic mass at the splenic flexure. No metastatic disease was identified and patient had a CEA of 20. At that point underwent resection. 2. Started adjuvant FOLFOX May 2017 while in [place]. Oxaliplatin dose reduced due to toxicity. In [...] Diagnosis Date Colon cancer (HCC) Stage IIB ([id number] COPD (chronic obstructive pulmonary disease) (HCC) Esophagitis [...] of Onset Diabetes Mother Heart Mother 52 [place]. S/P CABG. at 69 from [place] other (Parkinson's [Other]) Mother COPD Mother Coronary [...] SLR te (more content not included)... Normal [facility] Comprehensive metabolic 2000 panelon 07-05-2022 Albumin [Mass/Vol] 4.6 g/dL Normal 3.9-4.9 [facility] Comment on above: Order Comment: Speci men Type: BLOOD SPECIMENOrdering Facility: [facility] Address: [address] [address] Performed By: #### 2 4323-8 ####[facility]CLIA [id number] [place] [address] ALP [Catalytic activity/Vol] 116 U/L Normal 34-123 [facility] Comment on above: Order Comment: Speci men Type: BLOOD SPECIMENOrdering Facility: [facility] Address: [address] [address] Performed By: #### 2 4323-8 ####[facility]CLIA [id number] [place] [address] ALT [Catalytic activity/Vol] 17 U/L Normal 7-38 [facility] Comment on above: Order Comment: Speci men Type: BLOOD SPECIMENOrdering Facility: [facility] Address: [address] [address] Performed By: #### 2 4323-8 ####[facility]CLIA [id number] [place] [address] Anion gap [Moles/Vol] 9 mmol/L Normal 9-18 [facility] Comment on above: Order Comment: Speci men Type: BLOOD SPECIMENOrdering Facility: [facility] Address: [address] [address] Performed By: #### 2 4323-8 ####[facility]CLIA [id number] [place] [address] AST [Catalytic activity/Vol] 19 U/L Normal 13-35 [facility] Comment on above: Order Comment: Speci men Type: BLOOD SPECIMENOrdering Facility: [facility] Address: [address] [place] [address] Performed By: #### 2 4323-8 ####[facility]CLIA [id number] [place] [address] Bilirubin [Mass/Vol] 0.9 mg/dL Normal 0.2-1.3 [facility] Comment on above: Order Comment: Speci men Type: BLOOD SPECIMENOrdering Facility: [facility] Address: [address] [address] Performed By: #### 2 4323-8 ####[facility] LABCLIA [id number] [place] [address] Calcium [Mass/Vol] 9.9 mg/dL Normal 8.5-10.2 [facility] Comment on above: Order Comment: Speci men Type: BLOOD SPECIMENOrdering Facility: [facility] Address: [address] [address] Performed By: #### 2 4323-8 ####[facility]CLIA [id number] [place] [address] Chloride [Moles/Vol] 101 mmol/L Normal 97-105 [facility] Comment on above: Order Comment: Speci men Type: BLOOD SPECIMENOrdering Facility: [facility] Address: [address] [address] Performed By: #### 2 4323-8 ####[facility]CLIA [id number] [place] [address] CO2 [Moles/Vol] 29 mmol/L Normal 22-30 [facility] Comment on above: Order Comment: Speci men Type: BLOOD SPECIMENOrdering Facility: [facility] Address: [address] [address] Performed By: #### 2 4323-8 ####[facility]CLIA [id number] [place] [address] Creatinine [Mass/Vol] 0.87 mg/dL Normal 0.58-0.96 [facility] Comment on above: Order Comment: Speci men Type: BLOOD SPECIMENOrdering Facility: [facility] Address: [address] [address] Performed By: #### 2 4323-8 ####[facility] LABCLIA [id number] [place] [address] ESTIMATED GLOMERULAR FILTRATION RATE 71 mL/min/1.73m??? Normal >=60 [facility] Comment on above: Order Comment: Landy riojas Type: BLOOD SPECIMENOrdering Facility: [facility] Address: [address] [place] [address] Result Comment: Christi mated Glomerular Filtration Rate [...] actual GFR. Performed By: #### 2 4323-8 ####[facility] LABCLIA [id number] [place] [address] Glucose [Mass/Vol] 162 mg/dL High 74-99 [facility] Comment on above: Order Comment: Speci men Type: BLOOD SPECIMENOrdering Facility: [facility] Address: [address] [place] [address] Result Comment: The [place] Diabetes Association (ADA) provides guidance for cutoff [...] Standards of Medical Care in Diabetes 2016, [place] Diabetes Association. Diabetes Care. 2016.39(Suppl 1). Performed By: #### 2 4323-8 ####[facility] LABCLIA [id number] [place] [address] Potassium [Moles/Vol] 4.2 mmol/L Normal 3.7-5.1 [facility] Comment on above: Order Comment: Speci men Type: BLOOD SPECIMENOrdering Facility: [facility] Address: [address] [place] [address] Performed By: #### 2 4323-8 ####[facility] LABCLIA [id number] [place] [address] Protein [Mass/Vol] 7.0 g/dL Normal 6.3-8.0 [facility] Comment on above: Order Comment: Speci men Type: BLOOD SPECIMENOrdering Facility: [facility] Address: [address] [place] [address] Performed By: #### 2 4323-8 ####[facility] LABCLIA [id number] [place] [address] Sodium [Moles/Vol] 139 mmol/L Normal 136-144 [facility] Comment on above: Order Comment: Speci men Type: BLOOD SPECIMENOrdering Facility: [facility] Address: [address] [address] Performed By: #### 2 4323-8 ####[facility] LABCLIA [id number] [place] [address] Urea nitrogen [Mass/Vol] 10 mg/dL Normal 7-21 [facility] Comment on above: Order Comment: Speci men Type: BLOOD SPECIMENOrdering Facility: [facility] Address: [address] [address] Performed By: #### 2 4323-8 ####[facility] LABCLIA [id number] [place] [address] GLYCOHEMOGLOBIN A1Con 2022 ADA RECOMMENDATION SEE BELOW Normal [facility] Comment on above: Result Comment: ADA RECOMMENDED LIMIT 4.0 - 6.0 ADA THERAPEUTIC TARGET < 7.0 ACTION SUGGESTED > 7.0 Performed By: #### A 1C #### [facility] [address] [place] [address] [address] Linn Leone Glucose [Mass/Vol] 123 mg/dL Normal [facility] Comment on above: Performed By: #### A 1C #### [facility] [address] [place] [address] Dr. Linn Leone HbA1c (Bld) [Mass fraction] 5.9 % Normal 4.5-6.2 [facility] Comment on above: Performed By: #### A 1C #### [facility] [address] [address] [address] Linn Leone GLYCOHEMOGLOBIN A1Con 2021 ADA RECOMMENDATION SEE BELOW Normal [facility] Comment on above: Result Comment: ADA RECOMMENDED LIMIT 4.0 - 6.0 ADA THERAPEUTIC TARGET < 7.0 ACTION SUGGESTED > 7.0 Performed By: #### A 1C #### [facility] [address] [place] [address] Dr. Linn Leone Glucose [Mass/Vol] 134 mg/dL Normal [facility] Comment on above: Performed By: #### A 1C #### [facility] [address] [address] [address] Linn Leone HbA1c (Bld) [Mass fraction] 6.3 % Critically high 4.5-6.2 [facility] Comment on above: Performed By: #### A 1C #### [facility] [address] [place] [address] Dr. Linn Delgado 01-05-2022 HEIDI Telephone (HEMTSA) BILLIE LIRIANO ([id number]) 1950 F Date Time Provider Department 01/05/22 [...] Encounter Status:Closed by JOSUÉ HAMPTON on 01/05/22 [facility] CNOVSPon 01-04-2022 CNOVSP Visit (SP) Office ([place]) BILLIE LIRIANO ([id number]) 1950 F Date Time Provider Department 01/04/22 2:30 PM RACHAEL BRUCE During your visit today, we recorded the following information about you: Temperature Pulse Respiration Blood pressure 97.2 degrees 89/minute 18/minute 152/78 Weight Height 113.9 kg 1.575 m Rachael Bruce MD 01/04/2022 3:16 PM Signed PATIENT NAME: Billie Liriano CLINIC NO.: [id number] ATTENDING PHYSICIAN: Rachael Bruce MD DATE OF [...] Treatment History: 1. While on vacation in [place] developed severe abdominal pain in April 2017. CT at that point noted a large bowel obstruction with colonic mass at the splenic flexure. No metastatic disease was identified and patient had a CEA of 20. At that point underwent resection. 2. Started adjuvant FOLFOX May 2017 while in [place]. Oxaliplatin dose reduced due to toxicity. In [...] Diagnosis Date Colon cancer (HCC) Stage IIB ([id number] COPD (chronic obstructive pulmonary disease) ([facility]) Esophagitis GERD (gastroesophageal reflux disease) Hyperlipidemia Lower extremity edema Lumbar spondylosis Menopause Nephrolithiasis OA (osteoarthritis) Obesity PMR (polymyalgia rheumatica) ([facility]) Portacath in place T2DM (type 2 diabetes mellitus) ([facility]) Thyroid disease Social History Tobacco Use Smoking status: Former Packs/day: 2.00 Years: 25.00 Pack years: 50.00 Types: Cigarettes Quit date: 03/12/1990 Years since quittin.8 Passive exposure: Past Smokeless tobacco: Never Tobacco comments: Quit 05/01/1990 Vaping Use Vaping Use: Never used Substance Use Topics Alcohol use: Yes Comment: occasionally Drug use: No FAMILY HISTORY Problem Relation Age of Onset Diabetes Mother Heart Mother 52 [place]. S/P CABG. at 69 from [place] other (Parkinson's [Other]) Mother COPD Mother Coronary [...] murmur, g (more content not included)... Normal [facility] CBC W Auto Differential pane l (Bld)on 12-21-2021 Basophils (Bld) [#/Vol] 0.06 10*3/uL Normal <0.11 [facility] Comment on above: Order Comment: Speci men Type: BLOOD SPECIMEN [facility] Address: [address] [id number] Performed By: #### 5 7021-8 #### [facility] CLIA [id number] [address] [place] [address] Basophils/100 WBC (Bld) 0.8 % Normal [facility] Comment on above: Order Comment: Speci men Type: BLOOD SPECIMEN [facility] Address: [address] [id number] Performed By: #### 5 7021-8 #### [facility] CLIA [id number] [address] [place] [address] Differential cell count method Nom (Bld) Auto Normal [facility] Comment on above: Order Comment: Speci men Type: BLOOD SPECIMEN [facility] Address: [address] [place] [address] Performed By: #### 5 7021-8 #### [facility] CLIA [id number] [address] [place] [address] Eosinophils (Bld) [#/Vol] 0.48 10*3/uL High <0.46 [facility] Comment on above: Order Comment: Speci men Type: BLOOD SPECIMEN [facility] Address: [address] [place] [address] Performed By: #### 5 7021-8 #### [facility] CLIA [id number] [address] [place] [address] Eosinophils/100 WBC (Bld) 6.3 % Normal [facility] Comment on above: Order Comment: Speci men Type: BLOOD SPECIMEN [facility] Address: [address] [place] [address] Performed By: #### 5 7021-8 #### [facility] CLIA [id number] [address] [place] [address] Erythrocyte distribution width (RBC) [Ratio] 14.4 % Normal 11.5-15.0 [facility] Comment on above: Order Comment: Speci men Type: BLOOD SPECIMEN [facility] Address: [address] [place] [address] Performed By: #### 5 7021-8 #### [facility] CLIA [id number] [address] [place] [address] Hematocrit (Bld) [Volume fraction] 40.7 % Normal 36.0-46.0 [facility] Comment on above: Order Comment: Speci men Type: BLOOD SPECIMEN [facility] Address: [address] [place] [address] Performed By: #### 5 7021-8 #### [facility] CLIA [id number] [address] [place] [address] Hemoglobin (Bld) [Mass/Vol] 13.6 g/dL Normal 11.5-15.5 [facility] Comment on above: Order Comment: Speci men Type: BLOOD SPECIMEN [facility] Address: [address] [place] [address] Performed By: #### 5 7021-8 #### [facility] CLIA [id number] [address] [place] [address] IMMATURE GRAN % 0.5 % Normal [facility] Comment on above: Order Comment: Speci men Type: BLOOD SPECIMEN [facility] Address: [address] [place] [address] Performed By: #### 5 7021-8 #### [facility] CLIA [id number] [address] [place] [address] IMMATURE GRAN ABS 0.04 k/uL Normal <0.10 [facility] Comment on above: Order Comment: Speci men Type: BLOOD SPECIMEN [facility] Address: [address] [place] [address] Performed By: #### 5 7021-8 #### [facility] CLIA [id number] [address] [place] [address] Lymphocytes (Bld) [#/Vol] 1.70 10*3/uL Normal 1.00-4.00 [facility] Comment on above: Order Comment: Speci men Type: BLOOD SPECIMEN [facility] Address: [address] [place] [address] Performed By: #### 5 7021-8 #### [facility] CLIA [id number] [address] [place] [address] Lymphocytes/100 WBC (Bld) 22.1 % Normal [facility] Comment on above: Order Comment: Speci men Type: BLOOD SPECIMEN [facility] Address: [address] [place], [place] [address] Performed By: #### 5 7021-8 #### [facility] CLIA [id number] [address] [place] [address] MCH (RBC) [Entitic mass] 31.3 pg Normal 26.0-34.0 [facility] Comment on above: Order Comment: Speci men Type: BLOOD SPECIMEN [facility] Address: [address] [place] [address] Performed By: #### 5 7021-8 #### [facility] CLIA [id number] [address] [place] [address] MCHC (RBC) [Mass/Vol] 33.4 g/dL Normal 30.5-36.0 [facility] Comment on above: Order Comment: Speci men Type: BLOOD SPECIMEN [facility] Address: [address] [place] [address] Performed By: #### 5 7021-8 #### [facility] CLIA [id number] [address] [place] [address] MCV (RBC) [Entitic vol] 93.6 fL Normal 80.0-100.0 [facility] Comment on above: Order Comment: Speci men Type: BLOOD SPECIMEN [facility] Address: [address] [place], [place] [address] Performed By: #### 5 7021-8 #### [facility] CLIA [id number] [address] [place] [address] Monocytes (Bld) [#/Vol] 0.68 10*3/uL Normal <0.87 [facility] Comment on above: Order Comment: Speci men Type: BLOOD SPECIMEN [facility] Address: [address] [place], [place] [address] Performed By: #### 5 7021-8 #### [facility] CLIA [id number] [address] [place] [address] Monocytes/100 WBC (Bld) 8.9 % Normal [facility] Comment on above: Order Comment: Speci men Type: BLOOD SPECIMEN [facility] Address: [address] [place] [address] Performed By: #### 5 7021-8 #### [facility] CLIA [id number] [address] [place] [address] Neutrophils (Bld) [#/Vol] 4.72 10*3/uL Normal 1.45-7.50 [facility] Comment on above: Order Comment: Speci men Type: BLOOD SPECIMEN [facility] Address: [address] [place] [address] Performed By: #### 5 7021-8 #### [facility] CLIA [id number] [address] [place] [address] Neutrophils/100 WBC (Bld) 61.4 % Normal [facility] Comment on above: Order Comment: Speci men Type: BLOOD SPECIMEN [facility] Address: [address] [place] [address] Performed By: #### 5 7021-8 #### [facility] CLIA [id number] [address] [place] [address] Nucleated RBC (Bld) [#/Vol] 10*3/uL Normal <0.01 [facility] Comment on above: Order Comment: Speci men Type: BLOOD SPECIMEN [facility] Address: [address] [place] [address] Performed By: #### 5 7021-8 #### [facility] CLIA [id number] [address] [place] [address]21 Nucleated RBC/100 WBC (Bld) [Ratio] 0.0 /100 WBC Normal [facility] Comment on above: Order Comment: Speci men Type: BLOOD SPECIMEN [facility] Address: [address] [place], [place] [address] Performed By: #### 5 7021-8 #### [facility] CLIA [id number] [address] [place] [address]682 Platelet mean volume (Bld) [Entitic vol] 9.1 fL Normal 9.0-12.7 [facility] Comment on above: Order Comment: Speci men Type: BLOOD SPECIMEN [facility] Address: [address] [place], [place] [address] Performed By: #### 5 7021-8 #### [facility] CLIA [id number] [address] [place] [address] Platelets (Bld) [#/Vol] 190 10*3/uL Normal 150-400 [facility] Comment on above: Order Comment: Speci men Type: BLOOD SPECIMEN [facility] Address: [address] [place] [address] Performed By: #### 5 7021-8 #### [facility] CLIA [id number] [address] [place] [address] RBC (Bld) [#/Vol] 4.35 10*6/uL Normal 3.90-5.20 [facility] Comment on above: Order Comment: Speci men Type: BLOOD SPECIMEN [facility] Address: [address] [place], [place] [address] Performed By: #### 5 7021-8 #### [facility] CLIA [id number] [address] [place] [address]70 WBC (Bld) [#/Vol] 7.68 10*3/uL Normal 3.70-11.00 [facility] Comment on above: Order Comment: Speci men Type: BLOOD SPECIMEN [facility] Address: [address] [place], [place] [address] Performed By: #### 5 7021-8 #### [facility] CLIA [id number] [address] [place], [place] [address] CEA SerPl-ncon 12-21-2021 Carcinoembryonic Ag [Mass/Vol] 3.8 ng/mL High <=2.9 [facility] Comment on above: Order Comment: Speci men Type: BLOOD SPECIMEN [facility] Address: [address] [place] [address] Result Comment: Carc inoembryonic antigen test is used as an aid in monitoring response to treatment or recurrence in patients with established colorectal, breast, lung, prostatic, pancreatic, and ovarian carcinomas. Clinical correlation is required. The Carcinoembryonic antigen test was performed using the Junito [employer] DXI paramagnetic particle chemiluminescent immunoassay method. Results obtained with different assay methods or kits cannot be used interchangeably. Performed By: #### 2 039-6 #### [facility] CLIA [id number] [address] [place] [address] [facility] Comprehensive metabolic 2000 panelon 12-21-2021 Albumin [Mass/Vol] 4.2 g/dL Normal 3.9-4.9 [facility] Comment on above: Order Comment: Speci men Type: BLOOD SPECIMEN [facility] Address: [address] [place] [address] Performed By: #### 2 4323-8 #### [facility] CLIA [id number] [address] [place] [address] 85982 ALP [Catalytic activity/Vol] 86 U/L Normal 34-123 [facility] Comment on above: Order Comment: Speci men Type: BLOOD SPECIMEN Ordering Facility[facility] Address: [address] [place] [address] Performed By: #### 2 4323-8 #### [facility] CLIA [id number] [address] [place] [address] 02762 ALT [Catalytic activity/Vol] 15 U/L Normal 7-38 [facility] Comment on above: Order Comment: Speci men Type: BLOOD SPECIMEN Ordering Facility: [facility] Address: [address] [place] [address] Performed By: #### 2 4323-8 #### [facility] CLIA [id number] [address] [place] [address] Anion gap [Moles/Vol] 7 mmol/L Low 9-18 [facility] Comment on above: Order Comment: Speci men Type: BLOOD SPECIMEN Ordering Facility: [facility] Address: [address] [place] [address] Performed By: #### 2 4323-8 #### [facility] CLIA [id number] [address] [place] [address] 19912 AST [Catalytic activity/Vol] 18 U/L Normal 13-35 [facility] Comment on above: Order Comment: Speci men Type: BLOOD SPECIMEN Ordering Facility[facility] Address: [address] [place] [address] Performed By: #### 2 4323-8 #### [facility] CLIA [id number] [address] [place] [address] 15957 Bilirubin [Mass/Vol] 1.0 mg/dL Normal 0.2-1.3 [facility] Comment on above: Order Comment: Speci men Type: BLOOD SPECIMEN Ordering Facility: [facility] Address: [address] [place] [address] Performed By: #### 2 4323-8 #### [facility] CLIA [id number] [address] [place] [address] 73355 Calcium [Mass/Vol] 9.6 mg/dL Normal 8.5-10.2 [facility] Comment on above: Order Comment: Speci men Type: BLOOD SPECIMEN Ordering Facility[facility] Address: [address] [place], [place] [address] Performed By: #### 2 4323-8 #### [facility] CLIA [id number] [address] [place] [address] 54048 Chloride [Moles/Vol] 103 mmol/L Normal 97-105 [facility] Comment on above: Order Comment: Speci men Type: BLOOD SPECIMEN Ordering Facility[facility] Address: [address] [place] [address] Performed By: #### 2 4323-8 #### [facility] CLIA [id number] [address] [place] [address] CO2 [Moles/Vol] 30 mmol/L Normal 22-30 [facility] Comment on above: Order Comment: Speci men Type: BLOOD SPECIMEN [facility] Address: [address] [place] [address] Performed By: #### 2 4323-8 #### [facility] CLIA [id number] [address] [place] [address] 30354 Creatinine [Mass/Vol] 0.79 mg/dL Normal 0.58-0.96 [facility] Comment on above: Order Comment: Speci men Type: BLOOD SPECIMEN Ordering Facility[facility] Address: [address] [place] [address] Performed By: #### 2 4323-8 #### [facility] CLIA [id number] [address] [place] [address] 30259 ESTIMATED GLOMERULAR FILTRATION RATE 80 mL/min/1.73m??? Normal >=60 [facility] Comment on above: Order Comment: Speci men Type: BLOOD SPECIMEN [facility]ing [facility] Address: [address] [place] [address] Result Comment: Christi mated Glomerular Filtration Rate [...] GFR. Performed By: #### 2 4323-8 #### [facility] CLIA [id number] [address] [place] [address] 82433 Glucose [Mass/Vol] 171 mg/dL High 74-99 [facility] Comment on above: Order Comment: Landy riojas Type: BLOOD SPECIMEN Ordering Facility: [facility] Address: [address] [place], [place] [address] Result Comment: The [place] Diabetes Association (ADA) provides guidance for cutoff [...] Standards of Medical Care in Diabetes 2016, [place] Diabetes Association. Diabetes Care. 2016.39(Suppl 1). Performed By: #### 2 4323-8 #### [facility] CLIA [id number] [address] [place] [address] 20629 Potassium [Moles/Vol] 3.8 mmol/L Normal 3.7-5.1 [facility] Comment on above: Order Comment: Landy riojas Type: BLOOD SPECIMEN Ordering Facility[facility] Address: [address] [place], [place] [address] Performed By: #### 2 4323-8 #### [facility] CLIA [id number] [address] [place] [address] 57449 Sodium [Moles/Vol] 140 mmol/L Normal 136-144 [facility] Comment on above: Order Comment: Landy riojas Type: BLOOD SPECIMEN [facility] Address: [address] [id number] Performed By: #### 2 4323-8 #### [facility] CLIA [id number] [address] [place] [address] 40274 Urea nitrogen [Mass/Vol] 10 mg/dL Normal 7-21 [facility] Comment on above: Order Comment: Landy riojas Type: BLOOD SPECIMEN [facility] Address: [address] [place], [place] [address] Performed By: #### 2 4323-8 #### [facility] CLIA [id number] [address] [place] [address] 95981 IMMUNOFIXATION SCREEN, SERUM on 12-21-2021 MPA RESULT No M protein is identified. Normal No M protein is identified. [facility] Comment on above: Order Comment: Speci men Type: BLOOD SPECIMENOrdering Facility: [facility] Address: [address] [place], [place] [address] Performed By: #### I FESC ####[facility] [id number] [place] [address] [place] STAFF REVIEW (MPA) Reviewed by Juli Wagner MD [facility] Comment on above: Order Comment: Speci men Type: BLOOD SPECIMENOrdering Facility: [facility] Address: [address] [place], [place] [address] Performed By: #### I FES ####[facility] [id number] [place] [address] [place] IMMUNOGLOBULINS GAMon 2021 IgA [Mass/Vol] 234 mg/dL Normal 70-400 [facility] Comment on above: Order Comment: Speci men Type: BLOOD SPECIMEN [facility] Address: [address] [place], [place] [address] Performed By: #### S ERIMM #### [facility] CLIA [id number] [address] [place] [address] [place] IgG [Mass/Vol] 685 mg/dL Low 700-1600 [facility] Comment on above: Order Comment: Speci men Type: BLOOD SPECIMEN [facility] Address: [address] [place] [address] Performed By: #### S ERIMM #### [facility] CLIA [id number] [place] IgM [Mass/Vol] 32 mg/dL Low 40-230 [facility] Comment on above: Order Comment: Landy riojas Type: BLOOD SPECIMEN [facility] Address: [address] [place] [address] Performed By: #### S LATRELLM #### [facility] CLIA [id number] [address] [place] [address] [place] KAPPA/BAILEY,FREE,SERon 2021 Immunoglobulin light chains.kappa.free (S) [Mass/Vol] 20.8 mg/L High 3.3-19.4 [facility] Comment on above: Order Comment: Landy riojas Type: BLOOD SPECIMENOrdering Facility: [facility] Address: [address] [place] [address] Result Comment: Rare ly, increased serum free light chains levels may not be detected or accurately quantified due to prozone phenomenon or in high viscosity samples using this immunoturbidimetric assay. Correlation with other laboratory results and clinical findings is recommended. The Spade Free Light Chain was performed using the Binding Site Optilite immunoturbidimetric method. Result obtained with different assay methods or kits cannot be used interchangeably. Performed By: #### K LFRS ####[facility] [id number] [place] [address] [place] Immunoglobulin light chains.kappa/Immunog lobulin light chains.lambda (S) [Mass ratio] 0.99 Normal 0.26-1.65 [facility] Comment on above: Order Comment: Landy riojas Type: BLOOD SPECIMENOrdering Facility: [facility] Address: [address] [place] [address] Performed By: #### K LFRS ####[facility] [id number] [place] [address] [place] Immunoglobulin light chains.lambda.free [Mass/Vol] 21.1 mg/L Normal 5.7-26.3 [facility] Comment on above: Order Comment: Speci men Type: BLOOD SPECIMENOrdering Facility: [facility] Address: [address] [place] [address] Result Comment: Rare ly, increased serum free [...] used interchangeably. Performed By: #### K LFRS ####[facility] [id number] [address] [place] PROTEIN ELECTROPHORESIS SERU M (P)on 12-21-2021 Albumin [Mass/Vol] 3.79 g/dL Normal 3.37-4.23 [facility] Comment on above: Order Comment: Speci men Type: BLOOD SPECIMENOrdering Facility: [facility] Address: [address] [place] [address] Performed By: #### L [id number] ####[facility] [id number] [address] [place] Alpha 1 globulin Elph [Mass/Vol] 0.25 g/dL Normal 0.18-0.31 [facility] Comment on above: Order Comment: Speci men Type: BLOOD SPECIMENOrdering Facility: [facility] Address: [address] [place] [address] Performed By: #### L [id number] ####[facility] [id number] [address] [place] Alpha 2 globulin Elph [Mass/Vol] 0.74 g/dL Normal 0.52-0.97 [facility] Comment on above: Order Comment: Speci men Type: BLOOD SPECIMENOrdering Facility: [facility] Address: [address] [place] [address] Performed By: #### L [id number] ####[facility] [id number] [place] [address] [place] Beta globulin Elph [Mass/Vol] 0.91 g/dL Normal 0.84-1.36 [facility] Comment on above: Order Comment: Speci men Type: BLOOD SPECIMENOrdering Facility: [facility] Address: [address] [place] [address] Performed By: #### L [id number] ####[facility] [id number] [place] [address] [place] Gamma globulin Elph (Body fld) [Mass fraction] 0.72 g/dL Normal 0.70-1.44 [facility] Comment on above: Order Comment: Speci men Type: BLOOD SPECIMENOrdering Facility: [facility] Address: [address] [place] [address] Performed By: #### L [id number] ####[facility] [id number] [address] [place] M-PROTEIN LOCATION Normal [facility] Comment on above: Order Comment: Speci men Type: BLOOD SPECIMENOrdering Facility: [facility] Address: [address] [place] [address] Result Comment: Not Applicable. Performed By: #### L [id number] ####[facility] [id number] [place] [address] [place] Protein Fractions [Interp] No definitive M protein is identified on protein electrophoresis. Normal No definitive M protein is identified on protein electrophoresi s. [facility] Comment on above: Order Comment: Speci men Type: BLOOD SPECIMENOrdering Facility: [facility] Address: [address] [place] [address] Performed By: #### L [id number] ####[facility] [id number] [place] [address] [place] Protein.monoclonal Elph [Mass/Vol] 0.00 g/dL Normal <=0.00 [facility] Comment on above: Order Comment: Speci men Type: BLOOD SPECIMENOrdering Facility: [facility] Address: [address] [place] [address] Performed By: #### L [id number] ####[facility] [id number] [place] [address] [place] SPE STAFF REVIEW Reviewed by Juli Wagner MD [facility] Comment on above: Order Comment: Speci men Type: BLOOD SPECIMENOrdering Facility: [facility] Address: [address] [place] [address] Performed By: #### L [id number] ####[facility] [id number] [place] [address] [place] Prot SerPl-mCncon 12-21-2021 Protein [Mass/Vol] 6.4 g/dL Normal 6.3-8.0 [facility] Comment on above: Order Comment: Speci men Type: BLOOD SPECIMEN [facility] Address: [address] [place] [address] Performed By: #### 2 885-2 #### [facility] CLIA [id number] [address] [place] [address] [place] Performed By: #### 2 4323-8 #### [facility] CLIA [id number] [address] [place] [address] 87821 Glucose Poct Glucometerson 0 08-23-2021 Commemt1 Glu2: Cleaned Meter Normal [facility] Comment on above: Result Comment: PERF ORMED BY: [facility] [address] [place] [address] PATHOLOGIST HOME VISITS NURSE CHEN RIVER M.D. Performed By: #### G LULS #### Point of Care testing , Glucose [Mass/Vol] 136 mg/dL Normal [facility] Comment on above: Result Comment: [place] om Glucose Reference Range is dependent on time and content of last meal. Glucose of more than 200 mg/dL in a nonstressed, ambulatory subject supports the diagnosis of Diabetes Mellitus. Performed By: #### G DONALDO #### Point of Care testing , COVID-19 [...] developed and its performance characteristic determined by [employer] and validated at [facility]. This test has not been FDA cleared [...] for SARS Antigen by MAXIMILIANO PERFORMED BY: [facility] [place] [address] PATHOLOGIST HOME VISITS NURSE [place] M.D. [facility] Comment on above: Performed By: #### S OFMEL, COVID-19 JODIE #### [facility] [address] [id number] [facility] Jodie Ag Negativeon 08-20-19 Jodie Ag Negative Negative Normal Negative [facility] Comment on above: Result Comment: This is a duplicate Jodie SARS Antigen (MAXIMILIANO) result to be used for statistical tracking purpose only. PERFORMED BY: [facility] [address] [facility] [place] [address] PATHOLOGIST HOME VISITS NURSE [place]EN [place] M.D. Performed By: #### S OFIANEG, COVID-19 JODIE #### [facility] [address] MRI CSPINE WO CONon 08-05-19 MRI [...] SID GALDAMEZ Date: 2021-08-04 14:38 Normal [facility] MICROALBUMIN, RAND URon 05-2 mALB 1.3 mg/L Normal <=30.0 [facility] Comment on above: Performed By: #### M ALBR #### [facility] [address] [address] [address] Linn Leone TSHon 07-29-2021 TSH 2.670 uIU/mL Normal 0.358-3.740 [facility] Comment on above: Performed By: #### T SH #### [facility] [address] [address] [address] Linn Leone TSH RANGE SEE BELOW Normal [facility] Comment on above: Result Comment: <0.3 4 UIU/ml HYPERTHYROID 0.34-5.60 UIU/ml EUTHYROID >5.60 UIU/ml HYPOTHYROID Performed By: #### T SH #### [facility] [address] [place] [address] Dr. Linn Leone XR CSPINE 2_3 VIEWSon [...] for further evaluation. Electronically authenticated by: JIMY LAMB Date: 2021-07-29 17:40 Normal [facility] CBC W Auto Differential pane l (Bld)on 06-29-2021 Abs Immature Gran 0.06 k/uL <0.10 k/uL [facility] Basophils (Bld) [#/Vol] 0.04 10*3/uL <0.11 k/uL [facility] Basophils/100 WBC (Bld) 0.5 % [facility] Differential cell count method Nom (Bld) Auto [facility] Eosinophils (Bld) [#/Vol] 0.44 10*3/uL <0.46 k/uL [facility] Eosinophils/100 WBC (Bld) 5.8 % [facility] Erythrocyte distribution width (RBC) [Ratio] 14.7 % 11.5 - 15.0 % [facility] Hematocrit (Bld) [Volume fraction] 42.2 % 36.0 - 46.0 % [facility] Hemoglobin (Bld) [Mass/Vol] 13.9 g/dL 11.5 - 15.5 g/dL [facility] Immature Gran % 0.8 % [facility] Lymphocytes (Bld) [#/Vol] 1.69 10*3/uL 1.00 - 4.00 k/uL [facility] Lymphocytes/100 WBC (Bld) 22.3 % [facility] MCH (RBC) [Entitic mass] 30.8 pg 26.0 - 34.0 pg [facility] MCHC (RBC) [Mass/Vol] 32.9 g/dL 30.5 - 36.0 g/dL [facility] MCV (RBC) [Entitic vol] 93.4 fL 80.0 - 100.0 fL [facility] Monocytes (Bld) [#/Vol] 0.77 10*3/uL <0.87 k/uL [facility] Monocytes/100 WBC (Bld) 10.2 % [facility] Neutrophils (Bld) [#/Vol] 4.58 10*3/uL 1.45 - 7.50 k/uL [facility] Neutrophils/100 WBC (Bld) 60.4 % [facility] Nucleated RBC (Bld) [#/Vol] 10*3/uL <0.01 k/uL [facility] Nucleated RBC/100 WBC (Bld) [Ratio] 0.0 /100 WBC [facility] Platelet mean volume (Bld) [Entitic vol] 8.9 fL Low 9.0 - 12.7 fL [facility] Platelets (Bld) [#/Vol] 200 10*3/uL 150 - 400 k/uL [facility] RBC (Bld) [#/Vol] 4.52 10*6/uL 3.90 - 5.2 0 m/uL [facility] WBC (Bld) [#/Vol] 7.58 10*3/uL 3.70 - 11. 00 k/uL [facility] Ambulatory Clinical Summaryo n 10-08-2019 Ambulatory Clinical Summary {[id number]-23}CD:[id number] Normal [facility] General Surgery Office/Clini c Noteon 10-08-2019 General [...] Family History Cardiac arrest: Mother and Father. [facility] Comment on above: Result Comment: Elec tronically Signed By: SUMAYA PATTEN, Victor Hugo Flores\Date and Time Signed: 10/08/19 16:33 EDT Operative Reporton 0 Operative Report [id number] 0CD:127 [facility] Lab Reportson 09-30-2019 Lab Reports [id number]#1.0 0CD:127 [facility] ECG 12-Leadon 09-26-2019 ECG 12-Lead [id number]. [id number]#1.0 0CD:127 [facility] Consenton 09-22-2019 Consent [id number]#1.0 0CD:127 [facility] Facesheeton 09-18-2019 Facesheet [id number]#1.0 0CD:127 Normal [facility] Ambulatory Clinical Summaryo n 09-16-2019 Ambulatory Clinical Summary {[id number]-98}CD:[id number] Normal [facility] Physician Referralon 020 Physician Referral [id number]#1.00 CD:127 Normal [facility] C REACTIVE PROTEINon 017 C reactive protein (CRP) 16.4 mg/L High 0.0-7.0 [facility] Comment on above: Performed By: #### 6 1405, 12766 ####[facility] CPKon 01-24-2017 Creatine kinase (CK) 54 U/L Normal 30-223 [facility] Comment on above: Performed By: #### 2 5508, 74297, 71036 ####[facility] CYCLIC [place] PEPTIDE [place] [id number] 01-24-2017 CYCLIC CIT PEP 2 Units Normal 0-19 [facility] Comment on above: Result Comment: INTE [...] results should bemonitored and testing repeated.Performed by [facility],[address] [place] [address],[place] [address] nwr.[employer], Stewart Rollins MD - Lab. Director HAND LEFT 3 VWSon 01-24-2017 HAND LEFT 3 VWS [facility] [address] [place] [address] ========Patient Name: BILLIE LIRIANO : 1950ex: FAge: Race: WhiteMRN: [id number]. Location: 264Patient Status: DVisit #: [id number] Date: 01/24/2017 4:50:00 PMCompleted Date: 01/24/2017 05:00 PMRequesting Provider: DALLAS BERNSTEIN I Attending Provider: DALLAS BERNSTEIN I Report Copy To: UNKNOWN, PHYSICIAN Signs & Symptoms: M06.9 Rheumatoid arthritis, unspecified I31Lsvbbkr: AthenaComments: , , Please evaluate for erosions , , , Ordering Provider - DALLAS BERNSTEIN MD , Rendering Provider - DALLAS BERNSTEIN MD , Supervising Provider - DALLAS BERNSTEIN MD , Exam: HAND LEFT 3 VWSAccession #: [id number] HAND RIGHT 3 VWS, HAND LEFT 3 [...] osteoarthritis Electronically signed by:Tae Molina. Transcribed by: [email or web address], User Resident: Electronically Signed by: TAE MOLINA @ 01/25/2017 07:56 AM Normal [facility] Comment on above: Order Comment: , , P lease evaluate for erosions , , , Ordering Provider Gutierrez BERNSTEIN MD , Rendering Provider Gutierrez BERNSTEIN MD , Supervising Provider Gutierrez BERNSTEIN MD , HAND RIGHT 3 [facility] 7 HAND RIGHT 3 [facility] [address] [place] [address] ========Patient Name: BILLIE LIRIANO : 1950ex: FAge: Race: WhiteMRN: [id number]. Location: 264Patient Status: DVisit #: [id number] Date: 01/24/2017 4:50:00 PMCompleted Date: 01/24/2017 05:00 PMRequesting Provider: DALLAS BERNSTEIN I Attending Provider: DALLAS BERNSTEIN I Report Copy To: UNKNOWN, PHYSICIAN Signs & Symptoms: M06.9 Rheumatoid arthritis, unspecified M74Tkygfhr: AthenaComments: , , Please evaluate for erosions , , , Ordering Provider Gutierrez BERNSTEIN MD , Rendering Provider Gutierrez BERNSTEIN MD , Supervising Provider Gutierrez BERNSTEIN MD , Exam: HAND RIGHT 3 VWSAccession #: [id number] HAND RIGHT 3 VWS, HAND LEFT 3 VWS 01/24/2017 5:00 PM EST SIGNS AND SYMPTOMS: M06.9 Rheumatoid arthritis, unspecified I10 TECHNOLOGIST COMMENTS: pt states checking for rheumatoid arthritis, has nodules on both hands and pain in all joints of hands QUESTION FOR THE RADIOLOGIST: , , Please evaluate for erosions , , , Ordering Ariel BERNSTEIN MD , Rendering Provider Gutierrez BERNSTEIN MD , Supervising Ariel BERNSTEIN MD , PROTOCOL: AP,Lateral and Oblique views were obtained. COMPARISON: None FINDINGS: Soft tissues:Mild swelling Bones:Mild osteoporosisNo definite erosions Joints:Minor scattered spurring IMPRESSION: 1. No erosions2. Mild osteoporosis and minor scattered spurring consistent with osteoarthritis Electronically signed by:Tae Molina. Transcribed by: [email or web address], User Resident: Electronically Signed by: TAE MOLINA @ 01/25/2017 07:56 AM Normal [facility] Comment on above: Order Comment: , , P lease evaluate for erosions , , , Ordering Ariel BERNSTEIN MD , Rendering Ariel BERNSTEIN MD , Supervising Ariel BERNSTEIN MD , HEPATITIS C ANTIBODYon 01-24 ANTI-HCV NONREACTIVE Normal NONREACTIVE [facility] Comment on above: Performed By: #### 4 1661, 97704 ####[facility] [place] [address], [facility] PROTEIN ELECT Rudi 01-24-2017 Protein 6.6 g/dL Normal 6.0-8.3 [facility] Comment on above: Performed By: #### 4 1661, 55710 ####[facility] PROTEIN ELECT fractions of alpha 1 , alpha 2, beta and gamma globulins. Normal [facility] Comment on above: Performed By: #### 4 1661, 39487 ####[facility] RHEUMATOID FACTOR SERUMon RA <20 Normal 0-20 [facility] Comment on above: Performed By: #### 6 1405, 34235 ####[facility] SEDIMENTATION RATEon 017 SED RATE 42 mm/hr High 0-20 [facility] Comment on above: Performed By: #### 5 6506 ####[facility] TSHon 01-24-2017 Thyroid stimulating hormone (TSH) 2.61 MICRO-IU/ML Normal 0.34-5.60 [facility] Comment on above: Performed By: #### 2 5508, 43026, 48887 ####[facility] VITAMIN D 25-HYDROXYon 01-24 VITAMIN D 25-OH 50.6 ng/mL Normal 30.0-80.0 [facility] Comment on above: Result Comment: >80. 0 Toxicity possible Performed By: #### 2 [id number] ####[facility] Vital Signs Date Time Vital Sign Value Performing Clinician Facility 10-02-2023 15:32-0400 Body height 157.48 cm [facility] 10-02-2023 15:32-0400 Body mass index (BMI) [Ratio] 44 kg/m2 [facility] 10-02-2023 15:32-0400 Body weight 109.31 kg [facility] 10-02-2023 15:32-0400 Diastolic blood pressure 50 mm[Hg] [facility] 10-02-2023 15:32-0400 Heart rate 66 /min [facility] 10-02-2023 15:32-0400 Respiratory rate 12 /min [facility] 10-02-2023 15:32-0400 Systolic blood pressure 118 mm[Hg] [facility] 04-05-2023 10:00-0500 Body height 157.48 cm Bg Kramer Other [facility] Other 04-05-2023 10:00-0500 Body mass index (BMI) [Ratio] 44.44 kg/m2 Bg Kramer Other [facility] Other 04-05-2023 10:00-0500 Body temperature 97.8 [degF] Bg Kramer Other [facility] Other 04-05-2023 10:00-0500 Body weight 110.22 kg Bg Kramer Other [facility] Other 04-05-2023 10:00-0500 Diastolic blood pressure 86 mm[Hg] Bg Kramer Other [facility] Other 04-05-2023 10:00-0500 SaO2% (BldA) [Mass fraction] 99 % Bg Kramer Other [facility] Other 04-05-2023 10:00-0500 Systolic blood pressure 152 mm[Hg] Bg Kramer Other [facility] Other 03-30-2023 13:30-0500 Body height 157.48 cm Roby Ball Other [facility] Other 03-30-2023 13:30-0500 Body mass index (BMI) [Ratio] 44.44 kg/m2 Roby Ball Other [facility] Other 03-30-2023 13:30-0500 Body weight 110.22 kg Roby Ball Other [facility] Other 03-30-2023 13:30-0500 Diastolic blood pressure 85 mm[Hg] Roby Ball Other [facility] Other 03-30-2023 13:30-0500 Respiratory rate 12 /min Roby Ball Other [facility] Other 03-30-2023 13:30-0500 Systolic blood pressure 135 mm[Hg] Roby Ball Other [facility] Other 11-28-2022 15:00-0400 Body height 157.48 cm Roby Ball Other [facility] Other 11-28-2022 15:00-0400 Body mass index (BMI) [Ratio] 43.93 kg/m2 Roby Ball Other [facility] Other 11-28-2022 15:00-0400 Body weight 108.95 kg Roby Ball Other [facility] Other 11-28-2022 15:00-0400 Diastolic blood pressure 70 mm[Hg] Roby Ball Other [facility] Other 11-28-2022 15:00-0400 Respiratory rate 12 /min Roby Ball Other [facility] Other 11-28-2022 15:00-0400 Systolic blood pressure 130 mm[Hg] Roby Ball Other [facility] Other 09-13-2022 15:45-0400 Body height 157.48 cm Roby Ball Other [facility] Other 09-13-2022 15:45-0400 Body mass index (BMI) [Ratio] 45.5 kg/m2 Roby Ball Other [facility] Other 09-13-2022 15:45-0400 Body weight 112.86 kg Roby Ball Other [facility] Other 09-13-2022 15:45-0400 Diastolic blood pressure 76 mm[Hg] Roby Ball Other [facility] Other 09-13-2022 15:45-0400 Respiratory rate 16 /min Roby Ball Other [facility] Other 09-13-2022 15:45-0400 Systolic blood pressure 124 mm[Hg] Roby Ball Other [facility] Other 07-28-2022 14:00-0400 Body height 157.48 cm Roby Ball Other [facility] Other 07-28-2022 14:00-0400 Body mass index (BMI) [Ratio] 45.9 kg/m2 Roby Ball Other [facility] Other 07-28-2022 14:00-0400 Body weight 113.85 kg Roby Ball Other [facility] Other 07-28-2022 14:00-0400 Diastolic blood pressure 68 mm[Hg] Roby Ball Other [facility] Other 07-28-2022 14:00-0400 Respiratory rate 12 /min Roby Ball Other [facility] Other 07-28-2022 14:00-0400 Systolic blood pressure 142 mm[Hg] Roby Ball Other [facility] Other 07-05-2022 14:30-0400 Body height 157.5 cm Rachael Bruce MD Work Phone: [facility] 07-05-2022 14:30-0400 Body temperature 97 [degF] Rachael Bruce MD Work Phone: [facility] 07-05-2022 14:30-0400 Body weight 114.13 kg Rachael Bruce MD Work Phone: [facility] 07-05-2022 14:30-0400 Diastolic blood pressure 59 mm[Hg] Rachael Bruce MD Work Phone: [facility] 07-05-2022 14:30-0400 Heart rate 73 /min Rachael Bruce MD Work Phone: [facility] 07-05-2022 14:30-0400 Respiratory rate 18 /min Rachael Bruce MD Work Phone: [facility] 07-05-2022 14:30-0400 SaO2% (BldA) [Mass fraction] 100 % Rachael Bruce MD Work Phone: [facility] 07-05-2022 14:30-0400 Systolic blood pressure 184 mm[Hg] Rachael Bruce MD Work Phone: [facility] 05-05-2022 14:00-0500 Body height 157.48 cm Roby Ball Other [facility] Other 05-05-2022 14:00-0500 Body mass index (BMI) [Ratio] 46.12 kg/m2 Roby Ball Other [facility] Other 05-05-2022 14:00-0500 Body weight 114.4 kg Roby Ball Other [facility] Other 05-05-2022 14:00-0500 Diastolic blood pressure 70 mm[Hg] Roby Ball Other [facility] Other 05-05-2022 14:00-0500 Respiratory rate 16 /min Roby Ball Other [facility] Other 05-05-2022 14:00-0500 Systolic blood pressure 122 mm[Hg] Roby Ball Other [facility] Other 01-04-2022 14:22-0400 Body height 157.5 cm Rachael Bruce MD Work Phone: [facility] 01-04-2022 14:22-0400 Body temperature 97.2 [degF] Rachael Bruce MD Work Phone: [facility] 01-04-2022 14:22-0400 Body weight 113.94 kg Rachael Bruce MD Work Phone: [facility] 01-04-2022 14:22-0400 Diastolic blood pressure 78 mm[Hg] Rachael Bruce MD Work Phone: [facility] 01-04-2022 14:22-0400 Heart rate 89 /min Rachael Bruce MD Work Phone: [facility] 01-04-2022 14:22-0400 Respiratory rate 18 /min Rachael Bruce MD Work Phone: [facility] 01-04-2022 14:22-0400 SaO2% (BldA) [Mass fraction] 96 % Rachael Bruce MD Work Phone: [facility] 01-04-2022 14:22-0400 Systolic blood pressure 152 mm[Hg] Rachael Bruce MD Work Phone: [facility] 07-06-2021 14:17-0400 Body height 157.5 cm Rachael Bruce MD Work Phone: [facility] 07-06-2021 14:17-0400 Body temperature 98.29 [degF] Rachael Bruce MD Work Phone: [facility] 07-06-2021 14:17-0400 Body weight 112.95 kg Rachael Bruce MD Work Phone: [facility] 07-06-2021 14:17-0400 Diastolic blood pressure 78 mm[Hg] Rachael Bruce MD Work Phone: [facility] 07-06-2021 14:17-0400 Heart rate 78 /min Rachael Bruce MD Work Phone: [facility] 07-06-2021 14:17-0400 Respiratory rate 18 /min Rachael Bruce MD Work Phone: [facility] 07-06-2021 14:17-0400 SaO2% (BldA) [Mass fraction] 99 % Rachael Bruce MD Work Phone: [facility] 07-06-2021 14:17-0400 Systolic blood pressure 157 mm[Hg] Rachael Bruce MD Work Phone: [facility] Encounters Encounter Date Encounter Type Care Provider Facility Start: 10-02-2023 End: 10-02-2023 ambulatory [facility] Work Phone: Start: 10-02-2023 End: 10-02-2023 Patient encounter procedure [facility] Work Phone: Start: 07-25-2023 Non-patient / Non-visit [facility] Work Phone: Start: 04-05-2023 End: 04-05-2023 ambulatory Bg Kramer Other [facility] Other Start: 04-05-2023 FQ visit new patient Bg Ibarra tirsoadrian [facility] V[facility] Surgery Start: 04-01-2023 End: 04-01-2023 ambulatory Roby Dumont Other [facility] Other Start: 04-01-2023 Telephone encounter Roby Dumont [facility] Start: 03-30-2023 End: 03-30-2023 ambulatory Roby Dumont Other [facility] Other Start: 03-30-2023 Office outpatient vi sit 25 minutes Roby Ball [facility] Start: 12-05-2022 End: 12-05-2022 ambulatory Roby Natan Other [facility] Other Start: 12-05-2022 Telephone encounter Roby Dumont [facility] Start: 11-28-2022 End: 11-28-2022 ambulatory Roby Ball Other [facility] Other Start: 11-28-2022 Office outpatient vi sit 25 minutes Roby Ball [facility] Start: 09-13-2022 End: 09-13-2022 ambulatory Roby Ball Other [facility] Other Start: 09-13-2022 Office outpatient vi sit 15 minutes Roby Ball [facility] Start: 09-13-2022 Telephone encounter Roby Ball [facility] Start: 07-28-2022 End: 07-28-2022 ambulatory Roby Ball Other [facility] Other Start: 07-28-2022 Patient encounter procedure Roby Ball [facility] Start: 07-05-2022 End: 07-05-2022 ambulatory ROBY DUMONT Facility:[facility] Start: 07-05-2022 End: 07-05-2022 ambulatory Rachael [...] 05-05-2022 End: 05-05-2022 ambulatory Roby Dumont Other [facility] Other Start: 05-05-2022 Office outpatient vi sit 25 minutes Roby Dumont [facility] Start: 01-13-2022 End: 01-14-[address] ROBY DUMONT Facility:[facility] Start: 01-05-2022 Telephone encounter Josué Garcia Hematology/Oncology Comment on above: Results Start: 01-04-2022 End: 01-04-2022 ambulatory ROBY DUMONT Facility:[facility] Start: 01-04-2022 End: 01-04-2022 ambulatory Rachael Bruce MD Work Phone: Hematology/Oncology Comment on above: Malignant neoplasm o f colon, unspecified part of colon (HCC) (Primary Dx); Neuropathy Start: 01-04-2022 End: 01-04-2022 Patient encounter procedure Rachael Bruce MD Work Phone: [facility] Start: 12-21-2021 End: 12-21-2021 ambulatory ROBY DUMONT Facility:[facility] Start: 08-12-2021 End: 11-19-[address] ROBY DUMONT Facility:[facility] Start: 08-04-2021 End: 08-05-[address] ROBY DUMONT Facility:[facility] Start: 07-29-2021 End: 07-30-[address] ROBY DUMONT Facility: Start: 07-06-2021 End: 07-06-2021 ambulatory Rachael Bruce MD Work Phone: Hematology/Oncology Comment on above: Malignant neoplasm o f colon, unspecified part of colon (HCC) (Primary Dx); Type 2 diabetes mellitus without complication, without long-term current use of insulin (HCC); Neuropathy Start: 07-06-2021 End: 07-06-2021 Patient encounter procedure Rachael Bruce MD Work Phone: [facility] Start: 07-06-2021 Telephone encounter Rachael bishop MD [facility] on above: Referral Information (GI) Start: 06-29-2021 Telephone encounter Susanna Chavez RN Hematology/Oncology Comment on above: Results Start: 06-28-2021 Telephone encounter Rachael bishop MD Work Phone: Hematology/Oncology Comment on above: Lab Orders Start: 01-24-2017 End: 01-25-2017 Ambulatory JASIELM Ni BERNSTEIN Facility:[facility] Start: 12-14-2016 End: 12-15-2016 Ambulatory DEFAULT PHYSICIAN Facility:[facility] Procedures Date Procedure Procedure Detail Performing Clinician Start: 07-06-2021 Adult depression screening assessment Rachael Bruce MD Work Phone: Start: 01-05-2021 Adult depression screening assessment Susanna Chavez RN Plan of Treatment Date Care Activity Detail Author Start: 07-06-2022 Adult depression screening assessment DEPRESSION SCREENING [facility] Start: 07-05-2022 End: 09-04-2022 Carcinoembryonic Ag [Mass/volume] in Serum or Plasma CEA BLD Lab Routine Malignant neoplasm of colon, unspecified part of colon (HCC) Expected: 07/05/2022 (Approximate), Expires: 09/04/2022 [facility] Work Phone: Comment on above: Expected: 07/05/2022 (Approximate), Expires: 09/04/2022 Start: 07-05-2022 End: 09-04-2022 CBC W Auto Differential panel - Blood CBC + DIFF Lab Routine Malignant neoplasm of colon, unspecified part of colon (HCC) Expected: 07/05/2022 (Approximate), Expires: 09/04/2022 [facility] Work Phone: Comment on above: Expected: 07/05/2022 (Approximate), Expires: 09/04/2022 Start: 07-05-2022 End: 09-04-2022 Comprehensive metabolic 2000 panel - Serum or Plasma COMP METABOLIC PANEL Lab Routine Malignant neoplasm of colon, unspecified part of colon (HCC) Expected: 07/05/2022 (Approximate), Expires: 09/04/2022 [facility] Work Phone: Comment on above: Expected: 07/05/2022 (Approximate), Expires: 09/04/2022 Start: 03-12-2022 ADVANCE DIRECTIVE DISCUSSION ADVANCE DIRECTIVE DISCUSSION [facility] Start: 03-12-2022 DEPRESSION ASSESSMENT DEPRESSION ASS ESSMENT [facility] Start: 01-05-2022 Adult depression screening assessment DEPRESSION SCREENING [facility] Start: 01-05-2022 End: 03-07-2022 Carcinoembryonic Ag [Mass/volume] in Serum or Plasma CEA BLD Lab Routine Malignant neoplasm of colon, unspecified part of colon (HCC) Expected: 01/05/2022 (Approximate), Expires: 03/07/2022 [facility] Work Phone: Comment on above: Expected: 01/05/2022 (Approximate), Expires: 03/07/2022 Start: 01-05-2022 End: 03-07-2022 CBC W Auto Differential panel - Blood CBC + DIFF Lab Routine Malignant neoplasm of colon, unspecified part of colon (HCC) Expected: 01/05/2022 (Approximate), Expires: 03/07/2022 [facility] Work Phone: Comment on above: Expected: 01/05/2022 (Approximate), Expires: 03/07/2022 Start: 01-05-2022 End: 03-07-2022 Comprehensive metabolic 2000 panel - Serum or Plasma COMP METABOLIC PANEL Lab Routine Malignant neoplasm of colon, unspecified part of colon (HCC) Expected: 01/05/2022 (Approximate), Expires: 03/07/2022 [facility] Work Phone: Comment on above: Expected: 01/05/2022 (Approximate), Expires: 03/07/2022 Start: 01-05-2022 End: 03-07-2022 MISC SEND OUT TST 1 MISC SEND OUT TST 1 Lab Routine Malignant neoplasm of colon, unspecified part of colon (HCC) Expected: 01/05/2022 (Approximate), Expires: 03/07/2022 [facility] Work Phone: Comment on above: Expected: 01/05/2022 (Approximate), Expires: 03/07/2022 Start: 01-05-2022 End: 03-07-2022 MONOCLONAL PROTEIN, SERUM (BLOOD) MONOCLONAL PROTEIN, SERUM (BLOOD) Lab Routine Neuropathy Expected: 01/05/2022 (Approximate), Expires: 03/07/2022 [facility] Work Phone: Comment on above: Expected: 01/05/2022 (Approximate), Expires: 03/07/2022 Start: 01-05-2022 End: 03-07-2022 PROTEIN ELECTROPHORESIS SERUM W/INTERP PROTEIN ELECTROPHORESIS SERUM W/INTERP Lab Routine Neuropathy Expected: 01/05/2022 (Approximate), Expires: 03/07/2022 [facility] Work Phone: Comment on above: Expected: 01/05/2022 (Approximate), Expires: 03/07/2022 Start: 12-29-2021 Hemoglobin A1c/Hemoglobin.total in Blood HBA1C [facility] Start: 06-29-2021 End: 08-29-2021 Hemoglobin A1c/Hemoglobin.total in Blood [facility] Work Phone: Comment on above: Expected: 06/29/2021 , Expires: 08/29/2021 Start: 03-12-2021 ADVANCE DIRECTIVE DISCUSSION ADVANCE DIRECTIVE DISCUSSION [facility] Start: 03-12-2021 DEPRESSION ASSESSMENT DEPRESSION ASS ESSMENT [facility] Start: 02-22-2021 COVID-19 VACCINE (4 - Booster for Pfizer series) COVID-19 VACCINE (4 - Booster for Pfizer series) [facility] Start: 01-10-2018 Hemoglobin A1c/Hemoglobin.total in Blood HBA1C [facility] Start: 12-19-2015 BONE DENSITY BONE DENSITY [facility] Start: 12-19-1995 COLOGUARD (FIT-DNA) COLOGUARD (FIT-D NA) [facility] Start: 12-19-1995 Colonoscopy COLONOSCOPY [facility] Start: 12-19-1995 COLORECTAL CANCER SCREENING COLORECTAL CANCER SCREENING [facility] Start: 12-19-[address] COLONOGRAPHY [facility] Start: 12-19-1995 FECAL OCCULT BLOOD FECAL OCCULT BLOO D [facility] Start: 12-19-1995 SIGMOIDOSCOPY SIGMOIDOSCOPY [facility] Start: 1990 Mammography MAMMOGRAM [facility] Start: 1969 Urine microalbumin profile DTAP,TDAP,TD (1 - Tdap) [facility] Start: 1968 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 DISEASE VISIT ANNUAL PCP TEAM CHRONIC DISEASE VISIT [facility] Start: 1968 BP CONTROLLED (<130/80) BP CONTROLLE D (<130/80) [facility] Start: 1968 Hepatitis B surface antibody level LDL CHOLESTEROL [facility] Start: 1968 HEPATITIS C SCREENING HEPATITIS C SC REENING [facility] Start: 1960 3 comp foot exam completed DIABETIC FOOT EXAM [facility] Start: 1960 Hepatitis B screening URINE AL BUMIN:CREATININE RATIO [facility] Start: 1960 Hepatitis C antibody , confirmatory test DILATED RETINAL EXAM [facility] Comprehensive metabo lic 2000 panel - Serum or Plasma [facility] MG Breast - bilatera l Screening [facility] Microalbumin [Mass/volume] in Urine [facility] Immunizations Immunization Date Immunization Notes Care Provider Gareth hendrix 07-24-2022 COVID-19 Pfizer (bivalent) Roby Dumont Other [facility] 12-02-2021 COVID-19 Pfizer (bivalent) Roby Dumont Other [facility] 12-02-2021 influenza, high-dose , quadrivalent vaccine (FLUZONE HIGH DOSE QUADRIVALENT) Rachael Bruce MD Work Phone: [facility] 12-01-2021 influenza, high dose seasonal, preservative-free Roby Dumont Other [facility] Other 12-01-2021 influenza virus vaccine, unspecified formulation [facility] 05-26-2021 COVID-19 mRNA, Comirnaty (Pfizer) [facility] 12-13-2020 influenza virus vaccine, split virus (incl. purified surface antigen) Roby Dumont Other [facility] Other 12-13-2020 influenza virus vaccine, unspecified formulation [facility] 11-23-2020 COVID-19 Vaccine Pfi zer - Documentation Purposes Only Roby Dumont Other [facility] 11-15-2020 influenza virus vaccine, split virus (incl. purified surface antigen) Roby Dumont Other [facility] Other 11-15-2020 influenza virus vaccine, unspecified formulation [facility] 11-12-2020 influenza virus vaccine, unspecified formulation Susanna Chavez [facility] 05-01-2020 COVID-19 vaccine, ag e 12+ yr (PFIZER-BIONTECH - PURPLE TOP) Susanna Chavez RN [facility] 04-10-2020 COVID-19 vaccine, ag e 12+ yr (PFIZER-BIONTECH - PURPLE TOP) Susanna Chavez RN [facility] 12-05-2019 influenza virus vaccine, split virus (incl. purified surface antigen) Roby Dumont Other [facility] [employer] [facility] Other 12-05-2019 influenza virus vaccine, unspecified formulation [facility] 12-05-2019 influenza, high-dose , quadrivalent vaccine (FLUZONE HIGH DOSE QUADRIVALENT) Susanna Chavez RN [facility] 11-28-2019 zoster vaccine recombinant Roby Dumont Other [facility] 11-24-2019 COVID-19 mRNA, Comirnaty (Pfizer) [facility] 11-23-2019 zoster vaccine recombinant Susanna Chavez [facility] 09-20-2019 zoster vaccine recombinant Susanna Chavez [facility] 12-23-2018 influenza, seasonal, injectable Susanna Chavez [facility] 12-16-2018 influenza, high dose seasonal, preservative-free Susanna Chavez [facility] 02-04-2018 pneumococcal polysaccharide vaccine, 23 valent Susanna Chavez [facility] 12-10-2017 influenza virus vaccine, split virus (incl. purified surface antigen) Roby Dumont Other [facility] Other 12-10-2017 influenza virus vaccine, unspecified formulation [facility] 12-10-2017 Seasonal trivalent influenza vaccine, adjuvanted, preservative free Susanna Chavez [facility] 01-01-2017 influenza virus vaccine, split virus (incl. purified surface antigen) Roby Dumont Other [facility] Other 01-01-2017 influenza virus vaccine, unspecified formulation [facility] 01-01-2017 influenza, high dose seasonal, preservative-free Susanna Chavez [facility] 03-22-2016 pneumococcal conjuga te vaccine, 13 valent Susanna Chavez [facility] 01-25-2016 influenza, high dose seasonal, preservative-free Susanna Chavez [facility] 12-01-2014 tetanus and diphther ia toxoids, adsorbed, preservative free, for adult use (5 Lf of tetanus toxoid and 2 Lf of diphtheria toxoid) Roby Dumont Other [facility] 11-20-2012 tetanus and diphther ia toxoids, adsorbed, preservative free, for adult use (5 Lf of tetanus toxoid and 2 Lf of diphtheria toxoid) Roby Dumont Other [facility] 12-13-2005 diphtheria, tetanus toxoids and acellular pertussis vaccine, unspecified formulation Roby Dumont Other [facility] Payers Date Payer Category Payer Unknown 2019 Unknown MMO MMO MEDICARE SUPPLEMENT [id number] 2019-Present [phone] [address] [place] [address] Indemnity [id number] 2015 Medicare MEDICARE MEDICAR E A AND B [id number] 2015-Present [phone] [address] [address] [place] [address] Medicare [id number] 2015 Medicare MEDICARE MEDICAR E A AND B [id number] 2015-Present [phone] [place] [address] Medicare [id number] 1959 Medicare [id number] 1959 Unknown [id number] 1950 Unknown [id number] 1950 Unknown [id number] 1950 Unknown [id number] 1950 Unknown [id number] 1950 Unknown [id number] 1950 Unknown [id number] Medicare [id number] Self-pay Self Pay [id number] Unknown [id number] Social History Date Type Detail Facility Start: 07-21-2013 End: 03-30-2023 Tobacco smoking status NHIS Ex-smoker [facility] End: 03-12-1990 History of tobacco use Current smoker [facility] End: 03-12-1990 History of tobacco use Cigarette Smoker [facility] Start: 07-21-2013 End: 01-04-2022 Cigarettes smoked current (pack per day) - Reported 2 [facility] Start: 07-21-2013 End: 01-04-2022 Tobacco use and exposure Smokeless tobacco non-user [facility] Start: 01-05-2021 End: 07-05-2022 Alcohol intake Current drinker of alcohol (finding) [facility] Start: 07-21-2013 History SDOH Alcohol Comment occasionally [facility] Start: 06-15-2017 End: 01-04-2022 Tobacco Comment Quit 05/01/1990 [facility] Start: 1950 Sex Assigned At Not on file [facility] Start: 06-19-2021 End: 01-04-2022 Exposure to SARS-CoV-2 (event) Not sure [facility] History of tobacco use Passive smoker [facility] Sex Assigned At Sex Assigned At [facility] Other Start: 1950 Sex Assigned At Female [facility] Medical Equipment Procedure Code Equipment Code Equipment Origin al Text Equipment Identifier Dates USE TO TEST BLOO D SUGAR 3 TIMES A DAY E11.65 Start: 07-15-2020 Comment on above: USE TO TEST BLOOD PIERRE GAR 3 TIMES A DAY E11.65 Blood Sugar Diagnostic (Accu-Chek Toma Plus Test Strp) strip Start: 07-25-2023 Blood Sugar Diagnostic (Accu-Chek Toma Plus Test Strp) strip Start: 07-25-2023 End: 07-25-2023 Clinical Notes 06-10-2021 to 04-05-2023 Note Date & Type Note Facility 04-05-2023 Evaluation note Encounter Date Diagnosis Assessment Notes Mar, Other This documentation is being amended on 05/28/2023 due to an internal data corruption event that occurred on 04/05/2023. This data corruption event was not the result of any breach, fraud, or malicious third-libertarian actors and no personal patient information was compromised. [facility] Other 01-19-2024 Evaluation note* Encounter Date Diagnosis Assessment Notes Treatment Notes Treatment Clinical Notes Mar, Type 2 diabetes mellitus with hyperglycemia (ICD-10 - E11.65) This patient is following a comprehensive diabetic treatment plan. They are checking their feet daily for calluses and nonhealing ulcers. They are being seen for yearly dilated eye examinations. Goals: SBP less than 130, LDL less than 100, FBS less than 140, A1C less than 7%. They are checking their BS daily, will which are reviewed at the office visit. Continue regular routine monitoring of A1C,] Microalbumin, Dilated eye exam and Foot exam Mar, Primary hypertension (ICD-10 - I10) This patient is instructed to consume a healthy, low-fat, low-salt diet. They are also encouraged to continue exercise to achieve/maintain a normal BMI. Patient is instructed on home BP measurements: - rest for 5 minutes w/o talking.- positioned w/ feet on floor and arm supported.- average best 2/3 readings w/ goal < 135/85.- update office w/ home readings in 2 weeks. Mar, Elevated cholesterol (ICD-10 - E78.00) Instructed on diet and exercise with continued statin therapy.Discussed the beneficial effects of lowering cholesterol in reducing the risk for cerebrovascular and cardiovascular disease. Mar, Obstructive sleep apnea (ICD-10 - G47.33) This patient is aware of the benefits associated with MARCELINA: With continued use, the patient reduces the risk for AR, CVA, HTN, cardiac dysrhythmias and sudden cardiac deaths.The patient is also aware of the association between MARCELINA and morning headaches, daytime somnolence, fatigue and obesity, which also has been improved with continued use.The patient is compliant with treatment, wearing the equipment every night for greater than 4 hours.The patient is instructed to continue use of the CPAP for MARCELINA treatment. Mar, Cerebral atherosclerosis (ICD-10 - I67.2) Continue secondary prevention measures. Reviewed stroke symptoms and instructed to go to ER for any suspicious symptoms. Mar, Autoimmune thyroiditis (ICD-10 - E06.3) Mar, Other specified hypothyroidism (ICD-10 - E03.8) Clinically euthyroid, continue to monitor TSH yearly Mar, Chronic venous insufficiency (ICD-10 - I87.2) Avoid salt and elevate lower extremities, support stockings, inspect legs and feet daily for blisters and ulcerations. Monitor for any skin changes: blisters, ulcers, erythema, warmth or tenderness Mar, Adenocarcinoma of cecum (ICD-10 - C18.0) UTD w/ surveillance scopes and scans. No longer required to f/u with Oncology Planned repeat colonoscopy in 2026 No change in bowel habits as well as melena or hematochezia Mar, intermediate (current) use of insulin (ICD-10 - Z79.4) Mar, Hx of transient ischemic attack (TIA) (ICD-10 - Z86.73) Mar, Stenosis of right carotid artery (ICD-10 - I65.21) Soft bruit right carotid w/ strong pulsation. Continue secondary prevention measures. Recent carotid US w/ 78% proximal right ICA stenosis - velocities < 125 and ICA/CCA < 2 [facility] Other 09-19-2023 Evaluation note* Encounter Date Diagnosis Assessment Notes Treatment Notes Treatment Clinical Notes Nov, Type 2 diabetes mellitus with [...] use, the patient reduces the risk for AR, CVA, HTN, cardiac dysrhythmias and sudden cardiac [...] melena or hematochezia No s/s recurrence Nov, intermediate (current) use of insulin (ICD-10 - Z79.4) Reviewed dose and adverse effects. [facility] Other 07-05-2023 Evaluation note* Encounter Date Diagnosis [...] Microalbumin, Dilated eye exam and Foot exam [facility] Other 05-19-2023 Evaluation note* Encounter Date Diagnosis [...] use, the patient reduces the risk for AR, CVA, HTN, cardiac dysrhythmias and sudden cardiac [...] mammogram, encounter for (ICD-10 - Z12.31) July, intermediate (current) use of insulin (ICD-10 - Z79.4) [facility] Other 04-26-2023 NoteHNO ID: [id number] Author: Rachael Bruce MD Service: ? Author Type: Physician Type: Progress Notes Filed: 07/05/2022 4:47 PM Note Text: PATIENT NAME: Billie Liriano CLINIC NO.: [id number] ATTENDING PHYSICIAN: Rachael Bruce MD DATE OF [...] Treatment History: 1. While on vacation in [place] developed severe abdominal pain in April 2017. CT at that point noted a large bowel obstruction with colonic mass at the splenic flexure. No metastatic disease was identified and patient had a CEA of 20. At that point underwent resection. 2. Started adjuvant FOLFOX May 2017 while in [place]. Oxaliplatin dose reduced due to toxicity. In [...] Diagnosis Date Colon cancer (HCC) Stage IIB ([id number] COPD (chronic obstructive pulmonary disease) (HCC) Esophagitis GERD (gastroesophageal reflux disease) Hyperlipidemia Lower extremity edema Lumbar spondylosis Menopause Nephrolithiasis OA (osteoarthritis) Obesity PMR (polymyalgia rheumatica) ([facility]) Portacath in place T2DM (type 2 diabetes mellitus) ([facility]) Thyroid disease Social History Tobacco Use Smoking status: Former Packs/day: 2.00 Years: 25.00 Pack years: 50.00 Types: Cigarettes Quit date: 03/12/1990 Years since quittin.3 Passive exposure: Past Smokeless tobacco: Never Tobacco comments: Quit 05/01/1990 Vaping Use Vaping Use: Never used Substance Use Topics Alcohol use: Yes Comment: occasionally Drug use: No FAMILY HISTORY Problem Relation Age of Onset Diabetes Mother Heart Mother 52 AR. S/P CABG. at 69 from [place] other (Parkinson's [Other]) Mother COPD Mother Coronary [...] intact. Sensation grossly intact. (more content not included)...[facility]04-26-2023 History of Present illness Narrative* Rachael Bruce MD - 07/05/2022 2:55 PM EDT Images from the original note were not included. [id number] ATTENDING PHYSICIAN: Rachael Bruce MD DATE OF [...] Treatment History: 1. While on vacation in [place] developed severe abdominal pain in April 2017. CT at thatpoint noted a large bowel obstruction with colonic mass at the splenic flexure. No metastatic disease was identified and patient had a CEA of 20. At that point underwent resection. 2. Started adjuvant FOLFOX May 2017 while in [place]. Oxaliplatin dose reduced due to toxicity. In [...] Diagnosis Date Colon cancer (HCC) Stage IIB ([id number] COPD (chronic obstructive pulmonary disease) ([facility]) Esophagitis GERD (gastroesophageal reflux disease) Hyperlipidemia Lower extremity edema Lumbar spondylosis Menopause Nephrolithiasis OA (osteoarthritis) Obesity PMR (polymyalgia rheumatica) ([facility]) Portacath in place T2DM (type 2 diabetes mellitus) ([facility]) Thyroid disease Social History Tobacco Use Smoking status: Former Packs/day: 2.00 Years: 25.00 Pack years: 50.00 Types: Cigarettes Quit date: 03/12/1990 Years since quittin.3 Passive exposure: Past Smokeless tobacco: Never Tobacco comments: Quit 05/01/1990 Vaping Use Vaping Use: Never used Substance Use Topics Alcohol use: Yes Comment: occasionally Drug use: No FAMILY HISTORY Problem Relation Age of Onset Diabetes Mother Heart Mother 52 AR. S/P CABG. at 69 from [place] other (Parkinson's [Other]) Mother COPD Mother Coronary [...] Range Status 07/05/2022 9.5 % Final Abs Emmons Date Value Ref Range Status 07/05/2022 0.70 [...] Neuropathy- Unchanged referred to functional medicine at [facility], but she decided that it [...] do not hesitate to contact me at [phone]. Rachael Bruce MD Hematology/Medical Oncology [facility] CC: Roby Dumont MD I spent a total of 30 minutes on the date of the service which included preparing to see the patient, [id number] patient care, completing clinical documentation, obtaining and/or reviewing separately obtained history, performing a medically appropriate examination, counseling and educating the pat ient/family/caregiver and ordering medications, tests, or procedures. documented in this encounterChildren'S [facility]02-24-2023 Evaluation note* Encounter Date Diagnosis Assessment Notes [...] use, the patient reduces the risk for AR, CVA, HTN, cardiac dysrhythmias and sudden cardiac [...] [ ] Foot exam: [ ] Apr, intermediate (current) use of insulin (ICD-10 - Z79.4) [...] secondary prevention measures. Antiplatelet therapy and statin [facility] Other 10-27-2022 Miscellaneous Notes* Telephone Encounter - Josué Hampton RN - 01/05/2022 9:16 AM EDT Pt aware of negative Signatera results. She denies any questions or concerns at this time. Josué aHmpton RN documented in this encounterChildren'S Hospital For Rehabilitation10-26-2022 NoteHNO ID: [id number] Author: Rachael Bruce MD Service: ? Author Type: Physician Type: Progress Notes Filed: 01/04/2022 3:16 PM Note Text: PATIENT NAME: Billie Liriano CLINIC NO.: [id number] ATTENDING PHYSICIAN: Rachael Bruce MD DATE OF [...] Treatment History: 1. While on vacation in [place] developed severe abdominal pain in April 2017. CT at that point noted a large bowel obstruction with colonic mass at the splenic flexure. No metastatic disease was identified and patient had a CEA of 20. At that point underwent resection. 2. Started adjuvant FOLFOX May 2017 while in [place]. Oxaliplatin dose reduced due to toxicity. In [...] Diagnosis Date Colon cancer (HCC) Stage IIB ([id number] COPD (chronic obstructive pulmonary disease) (HCC) Esophagitis [...] of Onset Diabetes Mother Heart Mother 52 AR. S/P CABG. at 69 from [place] other (Parkinson's [Other]) Mother COPD Mother Coronary [...] Date Value 12/21/2021 171 (more content not included)...[facility]10-26-2022 Miscellaneous Notes* Addendum Note - Rachael Bruce MD - 01/04/2022 3:17 PM EDTAddended by: RACHAEL BRUCE on: 01/04/2022 03:17 PM Modules accepted: Orders documented in this encounterChildren'S Hospital For Rehabilitation10-26-2022 History of Present illness Narrative* Rachael Bruce MD - 01/04/2022 2:57 PM EDT Images from the original note were not included. PATIENT NAME: Billie Liriano [facility] NO.: [id number] ATTENDING PHYSICIAN: Rachael Bruce MD DATE OF [...] Treatment History: 1. While on vacation in [place] developed severe abdominal pain in April 2017. CT at thatpoint noted a large bowel obstruction with colonic mass at the splenic flexure. No metastatic disease was identified and patient had a CEA of 20. At that point underwent resection. 2. Started adjuvant FOLFOX May 2017 while in [place]. Oxaliplatin dose reduced due to toxicity. In [...] Diagnosis Date Colon cancer (HCC) Stage IIB ([id number] COPD (chronic obstructive pulmonary disease) (HCC) Esophagitis [...] of Onset Diabetes Mother Heart Mother 52 AR. S/P CABG. at 69 from [place] other (Parkinson's [Other]) Mother COPD Mother Coronary [...] 12/21/2021 1.70 1.00 - 4.00 k/uL Final Emmons% Date Value Ref Range Status 12/21/2021 8.9 % Final Abs Emmons Date Value Ref Range Status 12/21/2021 0.68 [...] Unchanged will refer to functional medicine at [facility] and she does not want to see neurology. Pharmacologic treatments have not helped. No evidence on M spike DM- Follow up with Dr. Dumont HTN- Per Dr. Dumont Thank you for the kind referral. If there are any questions and or concerns please do not hesitate to contact me at [phone]. Rachael Bruce MD Hematology/Medical Oncology [facility] CC: Roby Dumont MD I spent a total of 25 minutes on the date of the service which included preparing to see the patient, [id number] patient care, completing clinical documentation, obtaining and/or reviewing separately obtained history, performing a medically appropriate examination, counseling and educating the pat ient/family/caregiver and ordering medications, tests, or procedures. documented in this encounterChildren'S Hospital For Rehabilitation05-20-2022 NotePROCEDURE: XR KNEE RT 3V HISTORY: Idiopathic [...] Electronically authenticated by: JIMY LAMB Date: 2021-07-29 17:38[facility]05-02-2022 Miscellaneous Notes* Telephone Encounter - Bibiana Garay [facility] - 07/11/2021 9:29 AM EDT Meagan Correa spoke with Sherie. She states they have received patient referral/records and have patient scheduled to see Dr Holbrook for colonoscopy on 08/23. Bibiana Walters * Telephone Encounter - Estrella Barillas [facility] - 07/07/2021 8:02 AM EDT Records faxed to Dr. Holbrook * Telephone Encounter - Bibiana Garay [facility] - 07/07/2021 7:27 AM EDT Theodora: Information ready for you. Bibiana Walters * Telephone Encounter - Sangeeta Keane - 07/06/2021 3:18 PM EDT Patient to be referred to Dr. Holbrook for surveillance colonoscopy. Previous patient of Dr. Licona from 2018 per patient. Theodora/Calvin: Can you please send referral information and follow up? Thanks! Sangeeta Keane documented in this encounterChildren'S Hospital For Rehabilitation04-27-2022 History of Present illness Narrative* Rachael Bruce MD - 07/06/2021 3:00 PM EDT PATIENT NAME: Billie Liriano [facility] NO.: [id number] ATTENDING PHYSICIAN: Rachael Bruce MD DATE OF [...] Treatment History: 1. While on vacation in [place] developed severe abdominal pain in April 2017. CT at thatpoint noted a large bowel obstruction with colonic mass at the splenic flexure. No metastatic disease was identified and patient had a CEA of 20. At that point underwent resection. 2. Started adjuvant FOLFOX May 2017 while in [place]. Oxaliplatin dose reduced due to toxicity. In [...] Did not have a great time in [place] and continues to have difficulty with her neuropathy and she is seeing neurology in am and also joint stiffness and will reconnect with rhem as well. Denies any bowel changes and or abdominal pain PAST MEDICAL HISTORY Diagnosis Date Colon cancer (HCC) Stage IIB ([id number] COPD (chronic obstructive pulmonary disease) (HCC) Esophagitis [...] of Onset Diabetes Mother Heart Mother 52 AR. S/P CABG. at 69 from [place] other (Parkinson's [Other]) Mother COPD Mother Coronary [...] 06/29/2021 1.69 1.00 - 4.00 k/uL Final Emmons% Date Value Ref Range Status 06/29/2021 10.2 % Final Abs Emmons Date Value Ref Range Status 06/29/2021 0.77 [...] do not hesitate to contact me at [phone]. Rachael Bruce MD Hematology/Medical Oncology [facility] CC: Roby Dumont MD I spent a total of 25 minutes on the date of the service which included preparing to see the patient, [id number] patient care, completing clinical documentation, obtaining and/or reviewing separately obtained history, performing a medically appropriate examination, counseling and educating the pat ient/family/caregiver and ordering medications, tests, or procedures. documented in this encounterChildren'S Hospital For Rehabilitation04-20-2022 Miscellaneous Notes* Telephone Encounter - Susanna Chavez RN - 06/29/2021 12:01 PM EDT Informed pt of Signatera results. Pt verbalized understanding. RONEL: Pt would like to know if she can have her A1C checked today with her other labs. Order pending, if agreeable to review and sign. Susanna Chavez RN documented in this encounterChildren'S Hospital For Rehabilitation04-01-2022 Miscellaneous Notes* Telephone Encounter - Zuly Denton - 06/28/2021 11:00 AM EDT Please sign pending new cbc order. Thanks, Zuly Denton mA [facility]* Diagnosis Type 2 diabetes mellitus without complication, without long-term current use of insulin (HCC)- Primary documented in this encounter [facility] note* Diagnosis Malignant neoplasm of colon, unspecified part of colon (HCC)- Primary documented in this encounter [facility] note* Diagnosis Malignant neoplasm of colon, unspecified part of colon (HCC)- Primary Type 2 diabetes mellitus without complication, without long-term current use of insulin (HCC) Neuropathy Mononeuritis of unspecified site documented in this encounter [facility] note* Diagnosis Malignant neoplasm of colon, unspecified part of colon (HCC)- Primary Neuropathy Mononeuritis of unspecified site documented in this encounter [facility] note* Diagnosis Idiopathic peripheral autonomic neuropathy- Primary Idiopathic peripheral autonomic neuropathy, unspecified Type 2 diabetes mellitus with hyperglycemia, without long-term current use of insulin (HCC) documented in this encounter [facility] noteNo [employer] [facility] [employer] Other Evaluation note* Diagnosis Onset Date Resolution Status Asthma acute GERD (gastroesophageal reflux disease) acute History of colon cancer acut e Hypercholesterolemia acute Hypertension acute MARCELINA (obstructive sleep apnea) acute Type 2 diabetes mellitus with hyperglycemia acute Medicare annual wellness visit, subsequent noneactive Screening mammogram for breast cancer noneactive [facility] Work Phone: History general Narrative - Reported* Type Description [...] di abetes mellitus with hyperglycemia, unspecified whether retirement insulin use Medical History Weakness of both [...] History COLON RESECTION AT SPLENIC FLEX URE/COLOSTOMY - Surgical History TONSILLECTOMY Surgical History APPENDECTOMY Surgical History D&C Surgical History PORT PLACED Surgical History REMOVAL OF LENS LESION 03/2021 Surgical History REVISION OF COLOSTOMY 03/2018 Hospitalization History SEE ABOVE [facility] Other History general Narrative - Reported* Type [...] di abetes mellitus with hyperglycemia, unspecified whether retirement insulin use Medical History Weakness of both [...] History COLON RESECTION AT SPLENIC FLEX URE/COLOSTOMY - Surgical History TONSILLECTOMY Surgical History APPENDECTOMY Surgical History D&C Surgical History PORT PLACED Surgical History REMOVAL OF LENS LESION 03/2021 Surgical History REVISION OF COLOSTOMY 03/2018 Surgical History Colonoscopy (repeat 5 years) 20 22 Hospitalization History SEE ABOVE [facility] Other Summary Purpose Family History Relationship Condition Age at Onset Recorded Date/T jeramie father Coronary artery disease Unknown mother Coronary artery disease Unknown brother Coronary artery disease Unknown Malignant neoplasm of neck Unknown Malignant neoplasm of kidney Unknown sister Coronary artery disease Unknown Non-small cell lung cancer Unknown father Unknown Diabetes mellitus Unknown Hypertension Unknown Heart disease Unknown mother Heart disease Unknown Unknown Advance Directives Advance Directive Response Recorded Date/ Time Advance Directives No 2017 12:58pm Reason for Referral Specialty Diagnoses / Procedures Referred By Contac t Referred To Contact Gastroenterology Diagnoses Malignant neoplasm of colon, unspecified part of colon (HCC) Procedures CONSULT TO GASTROENTEROLOGY OFFICE/OUTPATIENT [facility] 60-74 MINUTES Rachael Bruce MD [address] [place] [id number] Referral ID Status Reason Start Date Expiration Date Visits Requested Visits Authorized [id number] Authorized PCP Requested Referral 07/06/2021 07/06/2022 1 1 Specialty Diagnoses / Procedures Referred By Contac t Referred To Contact Diagnoses Malignant neoplasm of colon, unspecified part of colon (HCC) Neuropathy Procedures CONSULT TO FUNCTIONAL MEDICINE OFFICE/OUTPATIENT [facility] 60-74 MINUTES Rachael Bruce MD [address] [place] [id number] Referral ID Status Reason Start Date Expiration Date Visits Requested Visits Authorized [id number] Authorized PCP Requested Referral 01/04/2023 1 1 Specialty Diagnoses / Procedures Referred By Contac t Referred To Contact Diagnoses Malignant neoplasm of colon, unspecified part of colon (HCC) Neuropathy Procedures CONSULT TO WELLNESS PHYSICIAN OFFICE/OUTPATIENT [facility] 60-74 MINUTES Rachael Bruce MD [address] [place] [phone] Referral ID Status Reason Start Date Expiration Date Visits Requested Visits Authorized [id number] Authorized PCP Requested Referral 01/04/2023 1 1 Specialty Diagnoses / Procedures Referred By Contac t Referred To Contact Diagnoses Idiopathic peripheral autonomic neuropathy Procedures CONSULT TO PALLIATIVE CARE OFFICE/OUTPATIENT [facility] MDM 60-74 MINUTES Rachael Bruce MD [address] [place] [address] Referral ID Status Reason Start Date Expiration Date Visits Requested Visits Authorized [id number] Authorized PCP Requested Referral 07/05/2022 07/05/2023 1 1 Chief Complaint and Reason for Visit Chief Complaint Amb Documentation Wellness Reason for Visit Asthma GERD (gastroesophageal reflux disease) History of colon cancer Hypercholesterolemia Hypertension MARCELINA (obstructive sleep apnea) Type 2 diabetes mellitus with hyperglycemia Medicare annual wellness visit, subsequent Screening mammogram for breast cancer Additional Source Comments INFORMATION SOURCE (unrecogn ized section and content) DATE CREATED AUTHOR 09/04/2017 [facility] DATE CREATED AUTHOR AUTHOR'S ORGANIZ ATION 10/09/2019 [facility] DATE CREATED AUTHOR AUTHOR'S ORGANIZ ATION 08/29/2021 [facility] DATE CREATED AUTHOR AUTHOR'S ORGANIZ ATION 07/04/2022 [facility] DATE CREATED AUTHOR AUTHOR'S ORGANIZ ATION 07/07/2022 [facility] Source Comments (unrecognize d section and content) In the event this informatio n is protected by the Federal Confidentiality of Alcohol and Drug Abuse Patient Records regulations: The Federal rules restrict any use of the information to criminally investigate or prosecute any alcohol or drug abuse patient.[facility] For RehabilitationIn the event this information is protected by the Federal Confidentiality of Alcohol and Drug Abuse Patient Records regulations: The Federal rules restrict any use of the information to criminally investigate or prosecute any alcohol or drug abuse patient.[facility] For RehabilitationIn the event this information is protected by the Federal Confidentiality of Alcohol and Drug Abuse Patient Records regulations: The Federal rules restrict any use of the information to criminally investigate or prosecute any alcohol or drug abuse patient.[facility] RehabilitationIn the event this information is protected by the Federal Confidentiality of Alcohol and Drug Abuse Patient Records regulations: The Federal rules restrict any use of the information to criminally investigate or prosecute any alcohol or drug abuse patient.[facility] RehabilitationIn the event this information is protected by the Federal Confidentiality of Alcohol and Drug Abuse Patient Records regulations: The Federal rules restrict any use of the information to criminally investigate or prosecute any alcohol or drug abuse patient.[facility] For RehabilitationIn the event this information is protected by the Federal Confidentiality of Alcohol and Drug Abuse Patient Records regulations: The Federal rules restrict any use of the information to criminally investigate or prosecute any alcohol or drug abuse patient.[facility] For RehabilitationIn the event this information is protected by the Federal Confidentiality of Alcohol and Drug Abuse Patient Records regulations: The Federal rules restrict any use of the information to criminally investigate or prosecute any alcohol or drug abuse patient.[facility] Reason for Visit (unrecogniz ed section and content) Reason Comments Results Reason Comments Lab Orders Reason Comments Colon Cancer follow up Reason Comments Referral Information GI Reason Comments Colon Cancer Follow up Reason Comments Colon Cancer Follow up Care Teams (unrecognized sec tion and content) Powder Monkey Relationship Specialty Start Date End Date Roby Dumont DO PCP - General Internal Medicine 07/15/13 Maryam Pack RN [facility] [place] [address] Specialty Vocal Teacher Hematology/Oncology 06/19/17 Germania Ozuna PA-C [facility] [place] [address] Physician Client Experience Specialist Hematology/Oncology 06/19/17 Rachael Bruce MD [facility] [place] [address] Physician Hematology/Oncology 03/20/19 Powder Monkey Relationship Specialty Start Date End Date Roby Dumont, DO PCP - General Internal Medicine 07/15/13 Maryam Pack, RN [address] [facility] [place] [address] Specialty Vocal Teacher Hematology/Oncology 06/19/17 Germania Ozuna, PAGutierrezC [address] [facility] [place] [address] Physician Client Experience Specialist Hematology/Oncology 06/19/17 Rachael Bruce MD [address] [facility] [place] [address] Physician Hematology/Oncology 03/20/19 Powder Monkey Relationship Specialty Start Date End Date Roby Dumont, DO PCP - General Internal Medicine 07/15/13 Maryam Pack RN [address] [facility] [place] [address] Specialty Vocal Teacher Hematology/Oncology 06/19/17 Germania Ozuna PAGutierrezC [address] [facility] [place] [address] Physician Client Experience Specialist Hematology/Oncology 06/19/17 Rachael Bruce MD [address] [facility] [place] [address] Physician Hematology/Oncology 03/20/19 Powder Monkey Relationship Specialty Start Date End Date Roby Dumont, DO PCP - General Internal Medicine 07/15/13 Maryam Pack RN [address] [facility] [place] [address] Specialty Vocal Teacher Hematology/Oncology 06/19/17 Germania Ozuna PAGutierrezC [address] [facility] [place] [address] Physician Client Experience Specialist Hematology/Oncology 06/19/17 Rachael Bruce MD [address] [place] [address] Physician Hematology/Oncology 03/20/19 Powder Monkey Relationship Specialty Start Date End Date Roby Dumont, DO PCP - General Internal Medicine 07/15/13 Maryam Pack, ADENIKE [address] [facility] [place] [address] Specialty Vocal Teacher Hematology/Oncology 06/19/17 Germania Ozuna, PAGutierrezC [address] [facility] [place] [address] Physician Client Experience Specialist Hematology/Oncology 06/19/17 Rachael Bruce MD [address] [place] [address] Physician Hematology/Oncology 03/20/19 Powder Monkey Relationship Specialty Start Date End Date Roby Dumont, DO PCP - General Internal Medicine 07/15/13 Maryam Pack RN [address] [facility] [place] [address] Specialty Vocal Teacher Hematology/Oncology 06/19/17 Germania Ozuna PAGutierrezC [address] [facility] [place] [address] Physician Client Experience Specialist Hematology/Oncology 06/19/17 Rachael Bruce MD [address] [facility] [place] [address] Physician Hematology/Oncology 03/20/19 Powder Monkey Relationship Specialty Start Date End Date Roby Dumont, DO PCP - General Internal Medicine 07/15/13 Maryam Pack RN [address] [facility] [place] [address] Specialty Vocal Teacher Hematology/Oncology 06/19/17 Germania Ozuna PA-C [address] [facility] [place] [place] [address] Physician Client Experience Specialist Hematology/Oncology 06/19/17 Rachael Bruce MD [address] [facility] [place] [address] Physician Hematology/Oncology 03/20/19 Team Status: Active Member Role Status Dates Roby Dumont , Primary Care Provider Active Team Status: Active Member Role Status Dates Roby Dumont DO Primary Care Provider Active Start: July 25, 2023 RADHIKA Baltazar Attending Provider Active Start : July 25, 2023 Team Status: Inactive Member Role Status Dates Roby Dumont DO Primary Care Provide r, Attending Provider Active Start: October 02, 2023 End: October 02, 2023 Goals (unrecognized section and content) Goals may be documented in a n alternate section FOR RECORDS PERTAINING TO PATIENTS WHO ARE [...] BE BASED ON THE PRIMARY CLINICAL RECORDS. [employer] provides no warranty or guarantee of the accuracy or completeness of information in this document.
== END 2023-10-11 14:55 | disposition home or self-care (01) ==
LOC: MAMMO 14:55
PROVIDERS: PCP Internal Medicine; Visit Provider Internal Medicine
DX: Z12.31 Encounter for screening mammogram for malignant neoplasm of breast (principal)
CPT/HCPCS: 77063; 77067

== ENCOUNTER 2023-10-15 09:59 | Outpatient (OUT) | payer MEDICARE, OTHER, SELFPAY ==
--- OUTSIDE RECORDS SUMMARY | 2023-10-15 10:09 | XMS_ITS | CCD ---
Author Organization [facility] Care Team Providers Care Solution Professional Name Role Phone PHYSICIAN, DEFAULT Unavailable Unavailable PHYSICIAN, DEFAULT Unavailable Unavailable ALTOROK, NEZAM I Unavailable Unavailable ALTOROK, NEZAM I Unavailable Unavailable UNKNOWN, PHYSICIAN Unavailable Unavailable UNKNOWN, PHYSICIAN Unavailable Unavailable Roby Dumont DO Primary Care Provider Ramone JEONG, Mayram Koehler Unavailable [phone] Germania Ozuna PA-C M Unavailable Janis PATTEN, Rachael Unavailable [phone] Roby Dumont DO Primary Care Provider Ramone JEONG, Maryam Koehler Unavailable Laith SCHOFIELD, Germania M Unavailable Janis PATTEN, Rachael Unavailable Roby Dumont Unavailable [...] Primary Care Provider Maryam Pack RN Unavailable [phone] Laith SCHOFIELD, Germania Maia Unavailable Rachael Bruce MD Unavailable ROBY DUMONT Primary Care Unavailable KARAMLOAngella, RACHAEL Referring Unavailable JANIS, RACHAEL Attending Unavailable ROBY DUMONT E Primary Care Unavailable BALL, ROBY E Primary Care Unavailable KARAMLOU, RACHAEL Referring Unavailable HERMILALOU, RACHAEL Attending Unavailable ROBY DUMONT Primary Care Unavailable KARAMLOU, RACHAEL Referring Unavailable Bg Kramer Unavailable Allergies Allergy Classification Reported Allergen(s) Allergy Type Date of Onset Reaction(s) Facility (9 sources) Aspirin; Translations: [ASPIRIN] Drug Allergy 07-22-19 14 Other: See Comments [facility] Work Phone: (5 sources) Non-steroidal anti-inflammatory agent; Translations: [NSAIDS (NON-STEROIDAL ANTI-INFLAMMATORY DRUG)] Drug Allergy 07-22-19 14 Other: See Comments [facility] Work Phone: (8 sources) Ondansetron; Translations: [ONDANSETRON HCL (PF)] Drug Allergy 06-16-19 18 Vomiting [facility] (8 sources) Nut - Unspecified; Translations: [NUT - UNSPECIFIED] Drug Allergy 07-22-19 14 Unknown [facility] (8 sources) Non-steroidal anti-inflammatory agent Drug Allergy 07-22-19 14 Other: See Comments [facility] Work Phone: (6 sources) NSAIDs Propensity to adverse reactions shortness of breath [facility] [employer] Other (5 sources) Ondansetron; Translations: [Zofran] Drug Allergy vomiting [facility] (9 sources) tree nut, unspecified Propensity to adverse reactions anaphylaxis [facility] [employer] Other (1 source) Aspirin Drug Allergy 07-15-19 14 [facility] (1 source) NSAIDs Drug allergy (disorder) 07-29-19 15 [facility] (2 sources) tree nut, unspecified Drug allergy (disorder) 03-12-18 70 Anaphylaxis [facility] (6 sources) DULoxetine Drug Allergy 10-02-19 24 Comment:diarrh ea [facility] (5 sources) Toradol *ANALGESICS - ANTI-INFLAMMATORY* Propensity to adverse reactions Unknown [facility] [employer] Other (5 sources) aspirin contraindicated Propensity to adverse reactions 10-21-19 15 Comment:advers e rxn/side effects [facility] Other (5 sources) Zofran *ANTIEMETICS* Propensity to adverse reactions Unknown [facility] [employer] Other (1 source) Ibuprofen Drug Allergy 10-02-19 24 Unknown Reaction [facility] (1 source) Ondansetron Drug Allergy 10-02-19 Nausea [facility] (1 source) NSAIDS (Non-Steroidal Anti-Inflamma Allergy to substance 10-02-19 Unknown Reaction, NSAIDS [facility] (1 source) Toradol *ANALGESICS - ANTI-INF Allergy to substance 10-02-19 Unknown Reaction [facility] Medications Current Medications Medication Drug Class(es) [...] Comment on above: Take 1 tablet by [facility] once daily. cholecalciferol 0.125 mg oral tablet [...] 22, 2021 1:27pm take 1 capsule by [facility] once daily Cholecalciferol, Vitamin D3, 50 mcg [...] e 200 MG as directed Orally Active [place] 3,6,9 Combination No.7 (1 source) Start: 03-01-2018 take 1 tablet by mouth once daily [place] 3,6,9 Combination No.7 Active 1 TAB PO [...] Comment on above: Take 1 capsule by [facility] as needed. promethazine hydrochloride 12.5 mg oral [...] sources) Long-term current use of insulin; Translations: [FDC (current) use of insulin] Episodic Other aftercare (4 sources) terminal operations supervisor (current) use of insulin Episodic Other and [...] Basophils (Bld) [#/Vol] 0.07 10*3/uL Normal <0.11 [facility] Comment on above: Order Comment: Speci men Type: BLOOD SPECIMENOrdering Facility: [facility] Address: [address] [place] [address] Performed By: #### 5 7021-8 ####[facility] LABCLIA [id number] [place] [address] Basophils/100 WBC (Bld) 1.0 % Normal [facility] Comment on above: Order Comment: Speci men Type: BLOOD SPECIMENOrdering Facility: [facility] Address: [address] [place] [address] Performed By: #### 5 7021-8 ####[facility] LABCLIA [id number] [place] [address] Differential cell count method Nom (Bld) Auto Normal [facility] Comment on above: Order Comment: Speci men Type: BLOOD SPECIMENOrdering Facility: [facility] Address: [address] [place] [address] Performed By: #### 5 7021-8 ####[facility] LABCLIA [id number] [place] [address] Eosinophils (Bld) [#/Vol] 0.49 10*3/uL High <0.46 [facility] Comment on above: Order Comment: Speci men Type: BLOOD SPECIMENOrdering Facility: [facility] Address: [address] [place] [address] Performed By: #### 5 7021-8 ####[facility] LABCLIA [id number] [place] [address] Eosinophils/100 WBC (Bld) 6.7 % Normal [facility] Comment on above: Order Comment: Speci men Type: BLOOD SPECIMENOrdering Facility: [facility] Address: [address] [place] [address] Performed By: #### 5 7021-8 ####[facility] LABCLIA [id number] [place] [address] Erythrocyte distribution width (RBC) [Ratio] 14.6 % Normal 11.5-15.0 [facility] Comment on above: Order Comment: Speci men Type: BLOOD SPECIMENOrdering Facility: [facility] Address: [address] [place] [address] Performed By: #### 5 7021-8 ####[facility] LABCLIA [id number] [place] [address] Hematocrit (Bld) [Volume fraction] 42.3 % Normal 36.0-46.0 [facility] Comment on above: Order Comment: Speci men Type: BLOOD SPECIMENOrdering Facility: [facility] Address: [address] [place] [address] Performed By: #### 5 7021-8 ####[facility] LABCLIA [id number] [place] [address] Hemoglobin (Bld) [Mass/Vol] 14.2 g/dL Normal 11.5-15.5 [facility] Comment on above: Order Comment: Speci men Type: BLOOD SPECIMENOrdering Facility: [facility] Address: [address] [place] [address] Performed By: #### 5 7021-8 ####[facility] LABCLIA [id number] [place] [address] Immature granulocytes (Bld) [#/Vol] 0.04 10*3/uL Normal <0.10 [facility] Comment on above: Order Comment: Speci men Type: BLOOD SPECIMENOrdering Facility: [facility] Address: [address] [place] [address] Performed By: #### 5 7021-8 ####[facility] LABCLIA [id number] [place] [address] Immature granulocytes/100 WBC (Bld) 0.5 % Normal [facility] Comment on above: Order Comment: Speci men Type: BLOOD SPECIMENOrdering Facility: [facility] Address: [address] [place] [address] Performed By: #### 5 7021-8 ####[facility] LABCLIA [id number] [place] [address] Lymphocytes (Bld) [#/Vol] 1.84 10*3/uL Normal 1.00-4.00 [facility] Comment on above: Order Comment: Speci men Type: BLOOD SPECIMENOrdering Facility: [facility] Address: [address] [place] [address] Performed By: #### 5 7021-8 ####[facility] LABCLIA [id number] [place] [address] Lymphocytes/100 WBC (Bld) 25.1 % Normal [facility] Comment on above: Order Comment: Speci men Type: BLOOD SPECIMENOrdering Facility: [facility] Address: [address] [place] [address] Performed By: #### 5 7021-8 ####[facility] LABCLIA [id number] [place] [address] MCH (RBC) [Entitic mass] 31.5 pg Normal 26.0-34.0 [facility] Comment on above: Order Comment: Speci men Type: BLOOD SPECIMENOrdering Facility: [facility] Address: [address] [place] [address] Performed By: #### 5 7021-8 ####[facility] LABCLIA [id number] [place] [address] MCHC (RBC) [Mass/Vol] 33.6 g/dL Normal 30.5-36.0 [facility] Comment on above: Order Comment: Speci men Type: BLOOD SPECIMENOrdering Facility: [facility] Address: [address] [address] Performed By: #### 5 7021-8 ####[facility] LABCLIA [id number] [place] [address] MCV (RBC) [Entitic vol] 93.8 fL Normal 80.0-100.0 [facility] Comment on above: Order Comment: Speci men Type: BLOOD SPECIMENOrdering Facility: [facility] Address: [address] [address] Performed By: #### 5 7021-8 ####[facility] LABCLIA [id number] [place] [address] Monocytes (Bld) [#/Vol] 0.70 10*3/uL Normal <0.87 [facility] Comment on above: Order Comment: Speci men Type: BLOOD SPECIMENOrdering Facility: [facility] Address: [address] [place] [address] Performed By: #### 5 7021-8 ####[facility] LABCLIA [id number] [place] [address] Monocytes/100 WBC (Bld) 9.5 % Normal [facility] Comment on above: Order Comment: Speci men Type: BLOOD SPECIMENOrdering Facility: [facility] Address: [address] [place] [address] Performed By: #### 5 7021-8 ####[facility] LABCLIA [id number] [place] [address] Neutrophils (Bld) [#/Vol] 4.20 10*3/uL Normal 1.45-7.50 [facility] Comment on above: Order Comment: Speci men Type: BLOOD SPECIMENOrdering Facility: [facility] Address: [address] [place] [address] Performed By: #### 5 7021-8 ####[facility] LABCLIA [id number] [place] [address] Neutrophils/100 WBC (Bld) 57.2 % Normal [facility] Comment on above: Order Comment: Speci men Type: BLOOD SPECIMENOrdering Facility: [facility] Address: [address] [place] [address] Performed By: #### 5 7021-8 ####[facility] LABCLIA [id number] [place] [address] Nucleated RBC (Bld) [#/Vol] 10*3/uL Normal <0.01 [facility] Comment on above: Order Comment: Speci men Type: BLOOD SPECIMENOrdering Facility: [facility] Address: [address] [place] [address] Performed By: #### 5 7021-8 ####[facility] LABCLIA [id number] [place] [address] Nucleated RBC/100 WBC (Bld) [Ratio] 0.0 /100 WBC Normal [facility] Comment on above: Order Comment: Speci men Type: BLOOD SPECIMENOrdering Facility: [facility] Address: [address] [place] [address] Performed By: #### 5 7021-8 ####[facility] LABCLIA [id number] [place] [address] Platelet mean volume (Bld) [Entitic vol] 8.9 fL Low 9.0-12.7 [facility] Comment on above: Order Comment: Speci men Type: BLOOD SPECIMENOrdering Facility: [facility] Address: [address] [place] [address] Performed By: #### 5 7021-8 ####[facility] LABCLIA [id number] [place] [address] Platelets (Bld) [#/Vol] 188 10*3/uL Normal 150-400 [facility] Comment on above: Order Comment: Speci men Type: BLOOD SPECIMENOrdering Facility: [facility] Address: [address] [place] [address] Performed By: #### 5 7021-8 ####[facility] LABCLIA [id number] [place] [address] RBC (Bld) [#/Vol] 4.51 10*6/uL Normal 3.90-5.20 [facility] Comment on above: Order Comment: Speci men Type: BLOOD SPECIMENOrdering Facility: [facility] Address: [address] [place] [address] Performed By: #### 5 7021-8 ####[facility] LABCLIA [id number] [place] [address] WBC (Bld) [#/Vol] 7.34 10*3/uL Normal 3.70-11.00 [facility] Comment on above: Order Comment: Speci men Type: BLOOD SPECIMENOrdering Facility: [facility] Address: [address] [place] [address] Performed By: #### 5 7021-8 ####[facility] LABCLIA [id number] [place] [address] CEA SerPl-mCncon 07-05-2022 Carcinoembryonic Ag [Mass/Vol] 3.4 ng/mL High <=2.9 [facility] Comment on above: Order Comment: Speci men Type: BLOOD SPECIMEN Ordering Facility: [facility] Address: [address] [place] [address] Result Comment: Carc inoembryonic antigen test is used as an aid in monitoring response to treatment or recurrence in patients with established colorectal, breast, lung, prostatic, pancreatic, and ovarian carcinomas. Clinical correlation is required. The Carcinoembryonic antigen test was performed using the [employer] DXI paramagnetic particle chemiluminescent immunoassay method. Results obtained with different assay methods or kits cannot be used interchangeably. Performed By: #### 2 039-6 #### [facility] CLIA [id number] [address] [place] CNOVSPon 07-05-2022 CNOVSP Visit (SP) Office (HEMASA) CARLITOSBILLIE ([id number]) 1950 F Date Time Provider Department 07/05/22 2:30 PM RACHAEL BRUCE During your visit today, we recorded the following information about you: Temperature Pulse Respiration Blood pressure 97 degrees 73/minute 18/minute 184/59 Weight Height 114.1 kg 1.575 m Rachael Bruce MD 07/05/2022 4:47 PM Signed PATIENT NAME: Billie Liriano CLINIC NO.: [id number] ATTENDING PHYSICIAN: Rachael Bruce MD DATE OF [...] Treatment History: 1. While on vacation in [place] developed severe abdominal pain in April 2017. CT at that point noted a large bowel obstruction with colonic mass at the splenic flexure. No metastatic disease was identified and patient had a CEA of 20. At that point underwent resection. 2. Started adjuvant FOLFOX May 2017 while in [place]. Oxaliplatin dose reduced due to toxicity. In August 2017 oxaliplatin was held and patient continued 6 months of adjuvant chemotherapy with infusional 5FU and LCV, completed October 2017. 3. Signatera February 2019, Nov 2019, 04/2020, 07/2020, 12/2020, 06/2021 and 12/2021- negative 4. Last colonoscopy December 2018-, Negative- Repeat 08/2021: 2026 follow up recommended HPI: Billei Liriano is a 71 year old year [...] Diagnosis Date Colon cancer (HCC) Stage IIB ([id number] COPD (chronic obstructive pulmonary disease) (HCC) Esophagitis [...] of Onset Diabetes Mother Heart Mother 52 [place]. S/P CABG. at 69 from [place] other (Parkinson's [Other]) Mother COPD Mother Coronary [...] SLR te (more content not included)... Normal [facility] Comprehensive metabolic 2000 panelon 07-05-2022 Albumin [Mass/Vol] 4.6 g/dL Normal 3.9-4.9 [facility] Comment on above: Order Comment: Speci men Type: BLOOD SPECIMENOrdering Facility: [facility] Address: [address] [address] Performed By: #### 2 4323-8 ####[facility] LABCLIA [id number] [place] [address] ALP [Catalytic activity/Vol] 116 U/L Normal 34-123 [facility] Comment on above: Order Comment: Speci men Type: BLOOD SPECIMENOrdering Facility: [facility] Address: [address] [address] Performed By: #### 2 4323-8 ####[facility] LABCLIA [id number] [place] [address] ALT [Catalytic activity/Vol] 17 U/L Normal 7-38 [facility] Comment on above: Order Comment: Speci men Type: BLOOD SPECIMENOrdering Facility: [facility] Address: [address] [address] Performed By: #### 2 4323-8 ####[facility] LABCLIA [id number] [place] [address] Anion gap [Moles/Vol] 9 mmol/L Normal 9-18 [facility] Comment on above: Order Comment: Speci men Type: BLOOD SPECIMENOrdering Facility: [facility] Address: [address] [address] Performed By: #### 2 4323-8 ####[facility] LABCLIA [id number] [place] [address] AST [Catalytic activity/Vol] 19 U/L Normal 13-35 [facility] Comment on above: Order Comment: Speci men Type: BLOOD SPECIMENOrdering Facility: [facility] Address: [address] [place] [address] Performed By: #### 2 4323-8 ####[facility] LABCLIA [id number] [place] [address] Bilirubin [Mass/Vol] 0.9 mg/dL Normal 0.2-1.3 [facility] Comment on above: Order Comment: Speci men Type: BLOOD SPECIMENOrdering Facility: [facility] Address: [address] [address] Performed By: #### 2 4323-8 ####[facility] LABCLIA [id number] [place] [address] Calcium [Mass/Vol] 9.9 mg/dL Normal 8.5-10.2 [facility] Comment on above: Order Comment: Speci men Type: BLOOD SPECIMENOrdering Facility: [facility] Address: [address] [address] Performed By: #### 2 4323-8 ####[facility] LABCLIA [id number] [place] [address] Chloride [Moles/Vol] 101 mmol/L Normal 97-105 [facility] Comment on above: Order Comment: Speci men Type: BLOOD SPECIMENOrdering Facility: [facility] Address: [address] [address] Performed By: #### 2 4323-8 ####[facility] LABCLIA [id number] [place] [address] CO2 [Moles/Vol] 29 mmol/L Normal 22-30 [facility] Comment on above: Order Comment: Speci men Type: BLOOD SPECIMENOrdering Facility: [facility] Address: [address] [address] Performed By: #### 2 4323-8 ####[facility] LABCLIA [id number] [place] [address] Creatinine [Mass/Vol] 0.87 mg/dL Normal 0.58-0.96 [facility] Comment on above: Order Comment: Speci men Type: BLOOD SPECIMENOrdering Facility: [facility] Address: [address] [address] Performed By: #### 2 4323-8 ####[facility] LABCLIA [id number] [place] [address] ESTIMATED GLOMERULAR FILTRATION RATE 71 mL/min/1.73m??? Normal >=60 [facility] Comment on above: Order Comment: Landy riojas Type: BLOOD SPECIMENOrdering Facility: [facility] Address: [address] [place] [address] Result Comment: Christi mated Glomerular Filtration Rate [...] actual GFR. Performed By: #### 2 4323-8 ####[facility] LABCLIA [id number] [place] [address] Glucose [Mass/Vol] 162 mg/dL High 74-99 [facility] Comment on above: Order Comment: Speci men Type: BLOOD SPECIMENOrdering Facility: [facility] Address: [address] [place] [address] Result Comment: The [place] Diabetes Association (ADA) provides guidance for cutoff [...] Standards of Medical Care in Diabetes 2016, [place] [employer] Association. Diabetes Care. 2016.39(Suppl 1). Performed By: #### 2 4323-8 ####[facility] LABCLIA [id number] [place] [address] Potassium [Moles/Vol] 4.2 mmol/L Normal 3.7-5.1 [facility] Comment on above: Order Comment: Speci men Type: BLOOD SPECIMENOrdering Facility: [facility] Address: [address] [place] [address] Performed By: #### 2 4323-8 ####[facility] LABCLIA [id number] [place] [address] Protein [Mass/Vol] 7.0 g/dL Normal 6.3-8.0 [facility] Comment on above: Order Comment: Speci men Type: BLOOD SPECIMENOrdering Facility: [facility] Address: [address] [place] [address] Performed By: #### 2 4323-8 ####[facility] LABCLIA [id number] [place] [address] Sodium [Moles/Vol] 139 mmol/L Normal 136-144 [facility] Comment on above: Order Comment: Speci men Type: BLOOD SPECIMENOrdering Facility: [facility] Address: [address] [address] Performed By: #### 2 4323-8 ####[facility] LABCLIA [id number] [place] [address] Urea nitrogen [Mass/Vol] 10 mg/dL Normal 7-21 [facility] Comment on above: Order Comment: Speci men Type: BLOOD SPECIMENOrdering Facility: [facility] Address: [address] [address] Performed By: #### 2 4323-8 ####[facility] LABCLIA [id number] [place] [address] GLYCOHEMOGLOBIN A1Con 2022 ADA RECOMMENDATION SEE BELOW Normal [facility] Comment on above: Result Comment: ADA RECOMMENDED LIMIT 4.0 - 6.0 ADA THERAPEUTIC TARGET < 7.0 ACTION SUGGESTED > 7.0 Performed By: #### A 1C #### [facility] [address] [place] [address] Linn Leone Glucose [Mass/Vol] 123 mg/dL Normal [facility] Comment on above: Performed By: #### A 1C #### [facility] [address] [place] [address] Dr. Linn Leone HbA1c (Bld) [Mass fraction] 5.9 % Normal 4.5-6.2 [facility] Comment on above: Performed By: #### A 1C #### [facility] [address] [address] [address] Linn Leone GLYCOHEMOGLOBIN A1Con 2021 ADA RECOMMENDATION SEE BELOW Normal [facility] Comment on above: Result Comment: ADA RECOMMENDED LIMIT 4.0 - 6.0 ADA THERAPEUTIC TARGET < 7.0 ACTION SUGGESTED > 7.0 Performed By: #### A 1C #### [facility] [address] [place] [address] Dr. Linn Leone Glucose [Mass/Vol] 134 mg/dL Normal [facility] Comment on above: Performed By: #### A 1C #### [facility] [address] [address] [address] Linn Leone HbA1c (Bld) [Mass fraction] 6.3 % Critically high 4.5-6.2 [facility] Comment on above: Performed By: #### A 1C #### [facility] [address] [place] [address] Dr. Linn Delgado 01-05-2022 HEIDI Telephone (HEMTSA) BILLIE LIRIANO ([id number]) 1950 F Date Time Provider Department 01/05/22 [...] by JOSUÉ HAMPTON on 01/05/22 [facility] CNOVSPon 01-04-2022 CNOVSP Visit (SP) Office (HEMASA) BILLIE LIRIANO ([id number]) 1950 F Date Time Provider Department 01/04/22 2:30 PM RACHAEL BRUCE During your visit today, we recorded the following information about you: Temperature Pulse Respiration Blood pressure 97.2 degrees 89/minute 18/minute 152/78 Weight Height 113.9 kg 1.575 m Rachael Bruce MD 01/04/2022 3:16 PM Signed PATIENT NAME: Billie Liriano CLINIC NO.: [id number] ATTENDING PHYSICIAN: Rachael Bruce MD DATE OF [...] Treatment History: 1. While on vacation in [place] developed severe abdominal pain in April 2017. CT at that point noted a large bowel obstruction with colonic mass at the splenic flexure. No metastatic disease was identified and patient had a CEA of 20. At that point underwent resection. 2. Started adjuvant FOLFOX May 2017 while in [place]. Oxaliplatin dose reduced due to toxicity. In [...] Diagnosis Date Colon cancer (HCC) Stage IIB ([id number] COPD (chronic obstructive pulmonary disease) ([facility]) Esophagitis GERD (gastroesophageal reflux disease) Hyperlipidemia Lower extremity edema Lumbar spondylosis Menopause Nephrolithiasis OA (osteoarthritis) Obesity PMR (polymyalgia rheumatica) ([facility]) Portacath in place T2DM (type 2 diabetes mellitus) ([facility]) Thyroid disease Social History Tobacco Use [...] of Onset Diabetes Mother Heart Mother 52 [place]. S/P CABG. at 69 from [place] other (Parkinson's [Other]) Mother COPD Mother Coronary [...] murmur, g (more content not included)... Normal [facility] CBC W Auto Differential pane l (Bld)on 12-21-2021 Basophils (Bld) [#/Vol] 0.06 10*3/uL Normal <0.11 [facility] Comment on above: Order Comment: Speci men Type: BLOOD SPECIMEN Ordering Facility: [facility] Address: [address] [id number] Performed By: #### 5 7021-8 #### [facility] CLIA [id number] [address] [place] [address] 11672 Basophils/100 WBC (Bld) 0.8 % Normal [facility] Comment on above: Order Comment: Speci men Type: BLOOD SPECIMEN Ordering Facility: [facility] Address: [address] [phone] Performed By: #### 5 7021-8 #### [facility] CLIA [id number] [address] [place] [address] Differential cell count method Nom (Bld) Auto Normal [facility] Comment on above: Order Comment: Speci men Type: BLOOD SPECIMEN Ordering Facility: [facility] Address: [address] [place] [address] Performed By: #### 5 7021-8 #### [facility] CLIA [id number] [address] [place] [address] 76838 Eosinophils (Bld) [#/Vol] 0.48 10*3/uL High <0.46 [facility] Comment on above: Order Comment: Speci men Type: BLOOD SPECIMEN Ordering Facility: [facility] Address: [address] [place] [address] Performed By: #### 5 7021-8 #### [facility] CLIA [id number] [address] [place] [address] 80335 Eosinophils/100 WBC (Bld) 6.3 % Normal [facility] Comment on above: Order Comment: Speci men Type: BLOOD SPECIMEN Ordering Facility: [facility] Address: [address] [place] [address] Performed By: #### 5 7021-8 #### [facility] CLIA [id number] [address] [place] [address] 36558 Erythrocyte distribution width (RBC) [Ratio] 14.4 % Normal 11.5-15.0 [facility] Comment on above: Order Comment: Speci men Type: BLOOD SPECIMEN Ordering Facility: [facility] Address: [address] [place] [address] Performed By: #### 5 7021-8 #### [facility] CLIA [id number] [address] [place] [address] 50963 Hematocrit (Bld) [Volume fraction] 40.7 % Normal 36.0-46.0 [facility] Comment on above: Order Comment: Speci men Type: BLOOD SPECIMEN Ordering Facility: [facility] Address: [address] [place] [address] Performed By: #### 5 7021-8 #### [facility] CLIA [id number] [address] [place] [address] 94415 Hemoglobin (Bld) [Mass/Vol] 13.6 g/dL Normal 11.5-15.5 [facility] Comment on above: Order Comment: Speci men Type: BLOOD SPECIMEN Ordering Facility: [facility] Address: [address] [place] [address] Performed By: #### 5 7021-8 #### [facility] CLIA [id number] [address] [place] [address] 13283 IMMATURE GRAN % 0.5 % Normal [facility] Comment on above: Order Comment: Speci men Type: BLOOD SPECIMEN Ordering Facility: [facility] Address: [address] [place] [address] Performed By: #### 5 7021-8 #### [facility] CLIA [id number] [address] [place] [address] 76737 IMMATURE GRAN ABS 0.04 k/uL Normal <0.10 [facility] Comment on above: Order Comment: Speci men Type: BLOOD SPECIMEN Ordering Facility: [facility] Address: [address] [place] [address] Performed By: #### 5 7021-8 #### [facility] CLIA [id number] [address] [place] [address] 06151 Lymphocytes (Bld) [#/Vol] 1.70 10*3/uL Normal 1.00-4.00 [facility] Comment on above: Order Comment: Speci men Type: BLOOD SPECIMEN Ordering Facility: [facility] Address: [address] [place] [address] Performed By: #### 5 7021-8 #### [facility] CLIA [id number] [address] [place] [address] 72355 Lymphocytes/100 WBC (Bld) 22.1 % Normal [facility] Comment on above: Order Comment: Speci men Type: BLOOD SPECIMEN Ordering Facility: [facility] Address: [address] [place], [place] [address] Performed By: #### 5 7021-8 #### [facility] CLIA [id number] [address] [place] [address] 13112 MCH (RBC) [Entitic mass] 31.3 pg Normal 26.0-34.0 [facility] Comment on above: Order Comment: Speci men Type: BLOOD SPECIMEN Ordering Facility: [facility] Address: [address] [place] [address] Performed By: #### 5 7021-8 #### [facility] CLIA [id number] [address] [place] [address] 02942 MCHC (RBC) [Mass/Vol] 33.4 g/dL Normal 30.5-36.0 [facility] Comment on above: Order Comment: Speci men Type: BLOOD SPECIMEN Ordering Facility: [facility] Address: [address] [place] [address] Performed By: #### 5 7021-8 #### [facility] CLIA [id number] [address] [place] [address] 72849 MCV (RBC) [Entitic vol] 93.6 fL Normal 80.0-100.0 [facility] Comment on above: Order Comment: Speci men Type: BLOOD SPECIMEN Ordering Facility: [facility] Address: [address] [place], [place] [address] Performed By: #### 5 7021-8 #### [facility] CLIA [id number] [address] [place] [address] 95742 Monocytes (Bld) [#/Vol] 0.68 10*3/uL Normal <0.87 [facility] Comment on above: Order Comment: Speci men Type: BLOOD SPECIMEN Ordering Facility: [facility] Address: [address] [place], [place] [address] Performed By: #### 5 7021-8 #### [facility] CLIA [id number] [address] [place] [address] Monocytes/100 WBC (Bld) 8.9 % Normal [facility] Comment on above: Order Comment: Speci men Type: BLOOD SPECIMEN Ordering Facility: [facility] Address: [address] [place] [address] Performed By: #### 5 7021-8 #### [facility] CLIA [id number] [address] [place] [address] 99537 Neutrophils (Bld) [#/Vol] 4.72 10*3/uL Normal 1.45-7.50 [facility] Comment on above: Order Comment: Speci men Type: BLOOD SPECIMEN Ordering Facility: [facility] Address: [address] [place] [address] Performed By: #### 5 7021-8 #### [facility] CLIA [id number] [address] [place] [address] 59229 Neutrophils/100 WBC (Bld) 61.4 % Normal [facility] Comment on above: Order Comment: Speci men Type: BLOOD SPECIMEN Ordering Facility: [facility] Address: [address] [place] [address] Performed By: #### 5 7021-8 #### [facility] CLIA [id number] [address] [place] [address] 70841 Nucleated RBC (Bld) [#/Vol] 10*3/uL Normal <0.01 [facility] Comment on above: Order Comment: Speci men Type: BLOOD SPECIMEN Ordering Facility: [facility] Address: [address] [place] [address] Performed By: #### 5 7021-8 #### [facility] CLIA [id number] [address] [place] [address] 64689 Nucleated RBC/100 WBC (Bld) [Ratio] 0.0 /100 WBC Normal [facility] Comment on above: Order Comment: Speci men Type: BLOOD SPECIMEN Ordering Facility: [facility] Address: [address] [place], [place] [address] Performed By: #### 5 7021-8 #### [facility] CLIA [id number] [address] [place] [address] 70177 Platelet mean volume (Bld) [Entitic vol] 9.1 fL Normal 9.0-12.7 [facility] Comment on above: Order Comment: Speci men Type: BLOOD SPECIMEN Ordering Facility: [facility] Address: [address] [place], [place] [address] Performed By: #### 5 7021-8 #### [facility] CLIA [id number] [address] [place] [address] 64501 Platelets (Bld) [#/Vol] 190 10*3/uL Normal 150-400 [facility] Comment on above: Order Comment: Speci men Type: BLOOD SPECIMEN Ordering Facility: [facility] Address: [address] [place] [address] Performed By: #### 5 7021-8 #### [facility] CLIA [id number] [address] [place] [address] 06280 RBC (Bld) [#/Vol] 4.35 10*6/uL Normal 3.90-5.20 [facility] Comment on above: Order Comment: Speci men Type: BLOOD SPECIMEN Ordering Facility: [facility] Address: [address] [place], [place] [address] Performed By: #### 5 7021-8 #### [facility] CLIA [id number] [address] [place] [address] 02799 WBC (Bld) [#/Vol] 7.68 10*3/uL Normal 3.70-11.00 [facility] Comment on above: Order Comment: Speci men Type: BLOOD SPECIMEN Ordering Facility: [facility] Address: [address] [place], [place] [address] Performed By: #### 5 7021-8 #### [facility] CLIA [id number] [address] [place], [place] [address] CEA SerPl-ncon 12-21-2021 Carcinoembryonic Ag [Mass/Vol] 3.8 ng/mL High <=2.9 [facility] Comment on above: Order Comment: Speci men Type: BLOOD SPECIMEN Ordering Facility: [facility] Address: [address] [place] [address] Result Comment: Carc inoembryonic antigen test is used as an aid in monitoring response to treatment or recurrence in patients with established colorectal, breast, lung, prostatic, pancreatic, and ovarian carcinomas. Clinical correlation is required. The Carcinoembryonic antigen test was performed using the [employer] Un[employer] DXI paramagnetic particle chemiluminescent immunoassay method. Results obtained with different assay methods or kits cannot be used interchangeably. Performed By: #### 2 039-6 #### [facility] CLIA [id number] [address] [place] [address] [facility] Comprehensive metabolic 2000 panelon 12-21-2021 Albumin [Mass/Vol] 4.2 g/dL Normal 3.9-4.9 [facility] Comment on above: Order Comment: Speci men Type: BLOOD SPECIMEN Ordering Facility: [facility] Address: [address] [place] [address] Performed By: #### 2 4323-8 #### [facility] CLIA [id number] [address] [place] [address] 86548 ALP [Catalytic activity/Vol] 86 U/L Normal 34-123 [facility] Comment on above: Order Comment: Speci men Type: BLOOD SPECIMEN Ordering Facility: [facility] Address: [address] [place] [address] Performed By: #### 2 4323-8 #### [facility] CLIA [id number] [address] [place] [address] 37131 ALT [Catalytic activity/Vol] 15 U/L Normal 7-38 [facility] Comment on above: Order Comment: Speci men Type: BLOOD SPECIMEN Ordering Facility: [facility] Address: [address] [place] [address] Performed By: #### 2 4323-8 #### [facility] CLIA [id number] [address] [place] [address] Anion gap [Moles/Vol] 7 mmol/L Low 9-18 [facility] Comment on above: Order Comment: Speci men Type: BLOOD SPECIMEN Ordering Facility: [facility] Address: [address] [place] [address] Performed By: #### 2 4323-8 #### [facility] CLIA [id number] [address] [place] [address] 84553 AST [Catalytic activity/Vol] 18 U/L Normal 13-35 [facility] Comment on above: Order Comment: Speci men Type: BLOOD SPECIMEN Ordering Facility: [facility] Address: [address] [place] [address] Performed By: #### 2 4323-8 #### [facility] CLIA [id number] [address] [place] [address] 03718 Bilirubin [Mass/Vol] 1.0 mg/dL Normal 0.2-1.3 [facility] Comment on above: Order Comment: Speci men Type: BLOOD SPECIMEN Ordering Facility: [facility] Address: [address] [place] [address] Performed By: #### 2 4323-8 #### [facility] CLIA [id number] [address] [place] [address] 14474 Calcium [Mass/Vol] 9.6 mg/dL Normal 8.5-10.2 [facility] Comment on above: Order Comment: Speci men Type: BLOOD SPECIMEN Ordering Facility: [facility] Address: [address] [place], [place] [address] Performed By: #### 2 4323-8 #### [facility] CLIA [id number] [address] [place] [address] 73046 Chloride [Moles/Vol] 103 mmol/L Normal 97-105 [facility] Comment on above: Order Comment: Speci men Type: BLOOD SPECIMEN Ordering Facility: [facility] Address: [address] [place] [address] Performed By: #### 2 4323-8 #### [facility] CLIA [id number] [address] [place] [address] CO2 [Moles/Vol] 30 mmol/L Normal 22-30 [facility] Comment on above: Order Comment: Speci men Type: BLOOD SPECIMEN Ordering Facility: [facility] Address: [address] [place] [address] Performed By: #### 2 4323-8 #### [facility] CLIA [id number] [address] [place] [address] 11052 Creatinine [Mass/Vol] 0.79 mg/dL Normal 0.58-0.96 [facility] Comment on above: Order Comment: Speci men Type: BLOOD SPECIMEN Ordering Facility: [facility] Address: [address] [place] [address] Performed By: #### 2 4323-8 #### [facility] CLIA [id number] [address] [place] [address] 50002 ESTIMATED GLOMERULAR FILTRATION RATE 80 mL/min/1.73m??? Normal >=60 [facility] Comment on above: Order Comment: Speci men Type: BLOOD SPECIMEN Ordering Facility: [facility] Address: [address] [place] [address] Result Comment: Christi mated Glomerular Filtration Rate [...] GFR. Performed By: #### 2 4323-8 #### [facility] CLIA [id number] [address] [place] [address] 05759 Glucose [Mass/Vol] 171 mg/dL High 74-99 [facility] Comment on above: Order Comment: Landy riojas Type: BLOOD SPECIMEN Ordering Facility: [facility] Address: [address] [place], [place] [phone] Result Comment: The [place] Diabetes Association (ADA) provides guidance for cutoff [...] Standards of Medical Care in Diabetes 2016, [place] [employer]. Diabetes Care. 2016.39(Suppl 1). Performed By: #### 2 4323-8 #### [facility] CLIA [id number] [address] [place] [address] 21135 Potassium [Moles/Vol] 3.8 mmol/L Normal 3.7-5.1 [facility] Comment on above: Order Comment: Landy riojas Type: BLOOD SPECIMEN Ordering Facility: [facility] Address: [address] [place], [place] [address] Performed By: #### 2 4323-8 #### [facility] CLIA [id number] [address] [place] [address] 31278 Sodium [Moles/Vol] 140 mmol/L Normal 136-144 [facility] Comment on above: Order Comment: Landy riojas Type: BLOOD SPECIMEN Ordering Facility: [facility] Address: [address] [phone] Performed By: #### 2 4323-8 #### [facility] CLIA [id number] [address] [place] [address] 46454 Urea nitrogen [Mass/Vol] 10 mg/dL Normal 7-21 [facility] Comment on above: Order Comment: Landy riojas Type: BLOOD SPECIMEN Ordering Facility: [facility] Address: [address] [place], [place] [address] Performed By: #### 2 4323-8 #### [facility] CLIA [id number] [address] [place] [address] 50339 IMMUNOFIXATION SCREEN, SERUM on 12-21-2021 MPA RESULT No M protein is identified. Normal No M protein is identified. [facility] Comment on above: Order Comment: Speci men Type: BLOOD SPECIMENOrdering Facility: [facility] Address: [address] [place], [place] [address] Performed By: #### I FESC ####[facility] [id number] [place] [address] [place] STAFF REVIEW (MPA) Reviewed by Juli Wagner MD [facility] Comment on above: Order Comment: Speci men Type: BLOOD SPECIMENOrdering Facility: [facility] Address: [address] [place], [place] [address] Performed By: #### I FES ####[facility] [id number] [place] [address] [place] IMMUNOGLOBULINS GAMon 2021 IgA [Mass/Vol] 234 mg/dL Normal 70-400 [facility] Comment on above: Order Comment: Speci men Type: BLOOD SPECIMEN Ordering Facility: [facility] Address: [address] [place], [place] [address] Performed By: #### S ERIMM #### [facility] CLIA [id number] [address] [place] [address] [place] IgG [Mass/Vol] 685 mg/dL Low 700-1600 [facility] Comment on above: Order Comment: Speci men Type: BLOOD SPECIMEN Ordering Facility: [facility] Address: [address] [place] [address] Performed By: #### S ERIMM #### [facility] CLIA [id number] [id number] [place] IgM [Mass/Vol] 32 mg/dL Low 40-230 [facility] Comment on above: Order Comment: Landy riojas Type: BLOOD SPECIMEN Ordering Facility: [facility] Address: [address] [place] [address] Performed By: #### S LATRELLM #### [facility] CLIA [id number] [address] [place] [address] [place] KAPPA/BAILEY,FREE,SERon 2021 Immunoglobulin light chains.kappa.free (S) [Mass/Vol] 20.8 mg/L High 3.3-19.4 [facility] Comment on above: Order Comment: Landy riojas Type: BLOOD SPECIMENOrdering Facility: [facility] Address: [address] [place] [address] Result Comment: Rare ly, increased serum free light chains levels may not be detected or accurately quantified due to prozone phenomenon or in high viscosity samples using this immunoturbidimetric assay. Correlation with other laboratory results and clinical findings is recommended. The [place] Free Light Chain was performed using the [employer] immunoturbidimetric method. Result obtained with different assay methods or kits cannot be used interchangeably. Performed By: #### K LFRS ####[facility] [id number] [place] [address] [place] Immunoglobulin light chains.kappa/Immunog lobulin light chains.lambda (S) [Mass ratio] 0.99 Normal 0.26-1.65 [facility] Comment on above: Order Comment: Landy riojas Type: BLOOD SPECIMENOrdering Facility: [facility] Address: [address] [place] [address] Performed By: #### K LFRS ####[facility] [id number] [place] [address] [place] Immunoglobulin light chains.lambda.free [Mass/Vol] 21.1 mg/L Normal 5.7-26.3 [facility] Comment on above: Order Comment: Speci men Type: BLOOD SPECIMENOrdering Facility: [facility] Address: [address] [place] [address] Result Comment: Rare ly, increased serum free [...] used interchangeably. Performed By: #### K LFRS ####[facility] [id number] [address] [place] PROTEIN ELECTROPHORESIS SERU M (P)on 12-21-2021 Albumin [Mass/Vol] 3.79 g/dL Normal 3.37-4.23 [facility] Comment on above: Order Comment: Speci men Type: BLOOD SPECIMENOrdering Facility: [facility] Address: [address] [place] [address] Performed By: #### L [id number] ####[facility] [id number] [address] [place] Alpha 1 globulin Elph [Mass/Vol] 0.25 g/dL Normal 0.18-0.31 [facility] Comment on above: Order Comment: Speci men Type: BLOOD SPECIMENOrdering Facility: [facility] Address: [address] [place] [address] Performed By: #### L [id number] ####[facility] [id number] [address] [place] Alpha 2 globulin Elph [Mass/Vol] 0.74 g/dL Normal 0.52-0.97 [facility] Comment on above: Order Comment: Speci men Type: BLOOD SPECIMENOrdering Facility: [facility] Address: [address] [place] [address] Performed By: #### L [id number] ####[facility] [id number] [place] [address] [place] Beta globulin Elph [Mass/Vol] 0.91 g/dL Normal 0.84-1.36 [facility] Comment on above: Order Comment: Speci men Type: BLOOD SPECIMENOrdering Facility: [facility] Address: [address] [place] [address] Performed By: #### L [id number] ####[facility] [id number] [place] [address] [place] Gamma globulin Elph (Body fld) [Mass fraction] 0.72 g/dL Normal 0.70-1.44 [facility] Comment on above: Order Comment: Speci men Type: BLOOD SPECIMENOrdering Facility: [facility] Address: [address] [place] [address] Performed By: #### L [id number] ####[facility] [id number] [address] [place] M-PROTEIN LOCATION Normal [facility] Comment on above: Order Comment: Speci men Type: BLOOD SPECIMENOrdering Facility: [facility] Address: [address] [place] [address] Result Comment: Not Applicable. Performed By: #### L [id number] ####[facility] [id number] [place] [address] [place] Protein Fractions [Interp] No definitive M protein is identified on protein electrophoresis. Normal No definitive M protein is identified on protein electrophoresi s. [facility] Comment on above: Order Comment: Speci men Type: BLOOD SPECIMENOrdering Facility: [facility] Address: [address] [place] [address] Performed By: #### L [id number] ####[facility] LABIA [id number] [place] [address] [place] Protein.monoclonal Elph [Mass/Vol] 0.00 g/dL Normal <=0.00 [facility] Comment on above: Order Comment: Speci men Type: BLOOD SPECIMENOrdering Facility: [facility] Address: [address] [place] [address] Performed By: #### L [id number] ####[facility] LABCLIA [id number] [place] [address] [place] SPE STAFF REVIEW Reviewed by Juli Wagner MD [facility] Comment on above: Order Comment: Speci men Type: BLOOD SPECIMENOrdering Facility: [facility] Address: [address] [place] [address] Performed By: #### L [id number] ####[facility] LABCLIA [id number] [place] [address] [place] Prot SerPl-mCncon 12-21-2021 Protein [Mass/Vol] 6.4 g/dL Normal 6.3-8.0 [facility] Comment on above: Order Comment: Speci men Type: BLOOD SPECIMEN Ordering Facility: [facility] Address: [address] [place] [address] Performed By: #### 2 885-2 #### [facility] CLIA [id number] [address] [place] [address] [place] Performed By: #### 2 4323-8 #### [facility] CLIA [id number] [address] [place] [address] Glucose Poct Glucometerson 0 08-23-2021 Commemt1 Glu2: Cleaned Meter Normal [facility] Comment on above: Result Comment: PERF ORMED BY: [facility] [address] [place] [address] PATHOLOGIST OPERATIONS RECRUITER CHEN RIVER M.D. Performed By: #### G LULS #### Point of Care testing , Glucose [Mass/Vol] 136 mg/dL Normal [facility] Comment on above: Result Comment: [place] Glucose Reference Range is dependent on [...] developed and its performance characteristic determined by [employer] and validated at [facility]. This test has not been FDA [...] for SARS Antigen by MAXIMILIANO PERFORMED BY: [facility] [place] [address] PATHOLOGIST OPERATIONS RECRUITER CHEN RIVER M.D. [facility] Comment on above: Performed By: #### S OFMEL, COVID-19 JODIE #### [facility] [address] [id number] [facility] Jodie Ag Negativeon 08-20-19 Jodie Ag Negative Negative Normal Negative [facility] Comment on above: Result Comment: This is a duplicate Jodie SARS Antigen (MAXIMILIANO) result to be used for statistical tracking purpose only. PERFORMED BY: [facility] [address] [facility] [place] [address] PATHOLOGIST OPERATIONS RECRUITER CHEN RIVER M.D. Performed By: #### S OFIANEG, COVID-19 JODIE #### [facility] [address] MRI CSPINE WO CONon 08-05-19 MRI [...] SID GALDAMEZ Date: 2021-08-04 14:38 Normal [facility] MICROALBUMIN, RAND URon 05-2 mALB 1.3 mg/L Normal <=30.0 [facility] Comment on above: Performed By: #### M ALBR #### [facility] [address] [address] [address] Linn Leone TSHon 07-29-2021 TSH 2.670 uIU/mL Normal 0.358-3.[address] [facility] Comment on above: Performed By: #### T SH #### [facility] [address] [address] [address] Linn Leone TSH RANGE SEE BELOW Normal [facility] Comment on above: Result Comment: <0.3 4 UIU/ml HYPERTHYROID 0.34-5.60 UIU/ml EUTHYROID >5.60 UIU/ml HYPOTHYROID Performed By: #### T SH #### [facility] [address] [place] [address] Dr. Linn Leone XR CSPINE 2_3 VIEWSon [...] JIMY LAMB Date: 2021-07-29 17:40 Normal [facility] CBC W Auto Differential pane l (Bld)on 06-29-2021 Abs Immature Gran 0.06 k/uL <0.10 k/uL [facility] Basophils (Bld) [#/Vol] 0.04 10*3/uL <0.11 k/uL [facility] Basophils/100 WBC (Bld) 0.5 % [facility] Differential cell count method Nom (Bld) Auto [facility] Eosinophils (Bld) [#/Vol] 0.44 10*3/uL <0.46 k/uL [facility] Eosinophils/100 WBC (Bld) 5.8 % [facility] Erythrocyte distribution width (RBC) [Ratio] 14.7 % 11.5 - 15.0 % [facility] Hematocrit (Bld) [Volume fraction] 42.2 % 36.0 - 46.0 % [facility] Hemoglobin (Bld) [Mass/Vol] 13.9 g/dL 11.5 - 15.5 g/dL [facility] Immature Gran % 0.8 % [facility] Lymphocytes (Bld) [#/Vol] 1.69 10*3/uL 1.00 - 4.00 k/uL [facility] Lymphocytes/100 WBC (Bld) 22.3 % [facility] MCH (RBC) [Entitic mass] 30.8 pg 26.0 - 34.0 pg [facility] MCHC (RBC) [Mass/Vol] 32.9 g/dL 30.5 - 36.0 g/dL [facility] MCV (RBC) [Entitic vol] 93.4 fL 80.0 - 100.0 fL [facility] Monocytes (Bld) [#/Vol] 0.77 10*3/uL <0.87 k/uL [facility] Monocytes/100 WBC (Bld) 10.2 % [facility] Neutrophils (Bld) [#/Vol] 4.58 10*3/uL 1.45 - 7.50 k/uL [facility] Neutrophils/100 WBC (Bld) 60.4 % [facility] Nucleated RBC (Bld) [#/Vol] 10*3/uL <0.01 k/uL [facility] Nucleated RBC/100 WBC (Bld) [Ratio] 0.0 /100 WBC [facility] Platelet mean volume (Bld) [Entitic vol] 8.9 fL Low 9.0 - 12.7 fL [facility] Platelets (Bld) [#/Vol] 200 10*3/uL 150 - 400 k/uL [facility] RBC (Bld) [#/Vol] 4.52 10*6/uL 3.90 - 5.2 0 m/uL [facility] WBC (Bld) [#/Vol] 7.58 10*3/uL 3.70 - 11. 00 k/uL [facility] Ambulatory Clinical Summaryo n 10-08-2019 Ambulatory Clinical Summary {[id number]}CD:[id number] Normal [facility] General Surgery Office/Clini c Noteon 10-08-2019 General [...] Family History Cardiac arrest: Mother and Father. [facility] Comment on above: Result Comment: Elec tronically Signed By: SUMAYA PATTEN, Victor Hugo Flores\Date and Time Signed: 10/08/19 16:33 EDT Operative Reporton 0 Operative Report [id number]#1.0 0CD:127 [facility] Lab Reportson 09-30-2019 Lab Reports [id number]#1.0 0CD:127 [facility] ECG 12-Leadon 09-26-2019 ECG 12-Lead [id number]. [id number]#1.0 0CD:127 [facility] Consenton 09-22-2019 Consent [id number]#1.0 0CD:127 [facility] Facesheeton 09-18-2019 Facesheet [id number]#1.0 0CD:127 Normal [facility] Ambulatory Clinical Summaryo n 09-16-2019 Ambulatory Clinical Summary {[id number]}CD:[id number] Normal [facility] Physician Referralon 020 Physician Referral [id number]#1.00 CD:127 Normal [facility] C REACTIVE PROTEINon 017 C reactive protein (CRP) 16.4 mg/L High 0.0-7.0 [facility] Comment on above: Performed By: #### 6 1405, 42980 ####[facility] CPKon 01-24-2017 Creatine kinase (CK) 54 U/L Normal 30-223 [facility] Comment on above: Performed By: #### 2 5508, 90300, 28108 ####[facility] CYCLIC CITRULLINATED PEPTIDE [place] [id number] 01-24-2017 CYCLIC CIT PEP 2 Units Normal 0-19 [facility] Comment on above: Result Comment: INTE [...] results should bemonitored and testing repeated.Performed by [employer],[address] [place] [address],[place] [address] [employer], Stewart Rollins MD - Lab. Director HAND LEFT 3 VWSon 01-24-2017 HAND LEFT 3 VWS [facility] [address]pl[address]fu[address] [place] [address] ========Patient Name: BILLIE LIRIANO : 1950ex: FAge: Race: WhiteMRN: [id number]. Location: 264Patient Status: DVisit #: [id number] Date: 01/24/2017 4:50:00 PMCompleted Date: 01/24/2017 05:00 PMRequesting Provider: DALLAS BERNSTEIN I Attending Provider: DALLAS BERNSTEIN I Report Copy To: UNKNOWN, PHYSICIAN Signs & Symptoms: M06.9 Rheumatoid arthritis, unspecified [id number]: AthenaComments: , , Please evaluate for erosions , , , Ordering Provider - DALLAS BERNSTEIN MD , Rendering Provider - DALLAS BERNSTEIN MD , Supervising Provider - DALLAS BERNSTEIN MD , Exam: HAND LEFT 3 VWSAccession #: [id number] HAND RIGHT 3 VWS, HAND LEFT 3 [...] osteoarthritis Electronically signed by:Tae Molina. Transcribed by: [email or web address], User Resident: Electronically Signed by: TAE MOLINA @ 01/25/2017 07:56 AM Normal [facility] Comment on above: Order Comment: , , P lease evaluate for erosions , , , Ordering Provider Gutierrez BERNSTEIN MD , Rendering Provider Gutierrez BERNSTEIN MD , Supervising Provider Gutierrez BERNSTEIN MD , HAND RIGHT 3 [facility] [address] [facility] [address] [place] [address] ========Patient Name: BILLIE LIRIANO : 1950ex: FAge: Race: WhiteMRN: [id number]. Location: 264Patient Status: DVisit #: [id number] Date: 01/24/2017 4:50:00 PMCompleted Date: 01/24/2017 05:00 PMRequesting Provider: DALLAS BERNSTEIN I Attending Provider: DALLAS BERNSTEIN I Report Copy To: UNKNOWN, PHYSICIAN Signs & Symptoms: M06.9 Rheumatoid arthritis, unspecified [id number]: AthenaComments: , , Please evaluate for erosions , , , Ordering Provider Gutierrez BERNSTEIN MD , Rendering Provider Gutierrez BERNSTEIN MD , Supervising Provider Gutierrez BERNSTEIN MD , Exam: HAND RIGHT 3 VWSAccession #: [id number] HAND RIGHT 3 VWS, HAND LEFT 3 [...] osteoarthritis Electronically signed by:Tae Molina. Transcribed by: [email or web address], User Resident: Electronically Signed by: TAE MOLINA @ 01/25/2017 07:56 AM Normal [facility] Comment on above: Order Comment: , , P lease evaluate for erosions , , , Ordering Ariel BERNSTEIN MD , Rendering Ariel BERNSTEIN MD , Supervising Ariel BERNSTEIN MD , HEPATITIS C ANTIBODYon 01-24 ANTI-HCV NONREACTIVE Normal NONREACTIVE [facility] Comment on above: Performed By: #### 4 1661, 32468 ####[facility] [place] [address], [facility] PROTEIN ELECT Rudi 01-24-2017 Protein 6.6 g/dL Normal 6.0-8.3 [facility] Comment on above: Performed By: #### 4 1661, 18341 ####[facility] PROTEIN ELECT fractions of alpha 1 , alpha 2, beta and gamma globulins. Normal [facility] Comment on above: Performed By: #### 4 1661, 61822 ####[facility] RHEUMATOID FACTOR SERUMon RA <20 Normal 0-20 [facility] Comment on above: Performed By: #### 6 1405, 424[address] ####[facility] SEDIMENTATION RATEon 017 SED RATE 42 mm/hr High 0-20 [facility] Comment on above: Performed By: #### 5 6506 ####[facility] TSHon 01-24-2017 Thyroid stimulating hormone (TSH) 2.61 MICRO-IU/ML Normal 0.34-5.60 [facility] Comment on above: Performed By: #### 2 5508, 10617, 27393 ####[facility] VITAMIN D 25-HYDROXYon 01-24 VITAMIN D 25-OH 50.6 ng/mL Normal 30.0-80.0 [facility] Comment on above: Result Comment: >80. 0 Toxicity possible Performed By: #### 2 1968, 99679, 70943 ####[facility] Vital Signs Date Time Vital Sign Value Performing Clinician Facility 10-02-2023 15:32-0400 Body height 157.48 cm [facility] 10-02-2023 15:32-0400 Body mass index (BMI) [Ratio] 44 kg/m2 [facility] 10-02-2023 15:32-0400 Body weight 109.31 kg [facility] 10-02-2023 15:32-0400 Diastolic blood pressure 50 mm[Hg] [facility] 10-02-2023 15:32-0400 Heart rate 66 /min [facility] 10-02-2023 15:32-0400 Respiratory rate 12 /min [facility] 10-02-2023 15:32-0400 Systolic blood pressure 118 mm[Hg] [facility] 04-05-2023 10:00-0500 Body height 157.48 cm Bg Kramer Other [facility] [employer] Other 04-05-2023 10:00-0500 Body mass index (BMI) [Ratio] 44.44 kg/m2 Bg Kramer Other [facility] [employer] Other 04-05-2023 10:00-0500 Body temperature 97.8 [degF] Bg Kramer Other [facility] Other 04-05-2023 10:00-0500 Body weight 110.22 kg Bg Kramer Other [facility] Other 04-05-2023 10:00-0500 Diastolic blood pressure 86 mm[Hg] Bg Kramer Other [facility] Other 04-05-2023 10:00-0500 SaO2% (BldA) [Mass fraction] 99 % Bg Kramer Other [facility] Other 04-05-2023 10:00-0500 Systolic blood pressure 152 mm[Hg] Bg Kramer Other [facility] Other 03-30-2023 13:30-0500 Body height 157.48 cm Roby Ball Other [facility] Other 03-30-2023 13:30-0500 Body mass index (BMI) [Ratio] 44.44 kg/m2 Roby Ball Other [facility] Other 03-30-2023 13:30-0500 Body weight 110.22 kg Roby Ball Other [facility] Other 03-30-2023 13:30-0500 Diastolic blood pressure 85 mm[Hg] Roby Ball Other [facility] Other 03-30-2023 13:30-0500 Respiratory rate 12 /min Roby Ball Other [facility] Other 03-30-2023 13:30-0500 Systolic blood pressure 135 mm[Hg] Roby Ball Other [facility] Other 11-28-2022 15:00-0400 Body height 157.48 cm Roby Ball Other [facility] Other 11-28-2022 15:00-0400 Body mass index (BMI) [Ratio] 43.93 kg/m2 Roby Ball Other [facility] Other 11-28-2022 15:00-0400 Body weight 108.95 kg Roby Ball Other [facility] Other 11-28-2022 15:00-0400 Diastolic blood pressure 70 mm[Hg] Roby Ball Other [facility] Other 11-28-2022 15:00-0400 Respiratory rate 12 /min Roby Ball Other [facility] Other 11-28-2022 15:00-0400 Systolic blood pressure 130 mm[Hg] Roby Ball Other [facility] Other 09-13-2022 15:45-0400 Body height 157.48 cm Roby Ball Other [facility] Other 09-13-2022 15:45-0400 Body mass index (BMI) [Ratio] 45.5 kg/m2 Roby Ball Other [facility] Other 09-13-2022 15:45-0400 Body weight 112.86 kg Roby Ball Other [facility] Other 09-13-2022 15:45-0400 Diastolic blood pressure 76 mm[Hg] Roby Ball Other [facility] Other 09-13-2022 15:45-0400 Respiratory rate 16 /min Roby Ball Other [facility] Other 09-13-2022 15:45-0400 Systolic blood pressure 124 mm[Hg] Roby Ball Other [facility] Other 07-28-2022 14:00-0400 Body height 157.48 cm Roby Ball Other [facility] Other 07-28-2022 14:00-0400 Body mass index (BMI) [Ratio] 45.9 kg/m2 Roby Ball Other [facility] Other 07-28-2022 14:00-0400 Body weight 113.85 kg Roby Ball Other [facility] Other 07-28-2022 14:00-0400 Diastolic blood pressure 68 mm[Hg] Roby Ball Other [facility] Other 07-28-2022 14:00-0400 Respiratory rate 12 /min Roby Ball Other [facility] Other 07-28-2022 14:00-0400 Systolic blood pressure 142 mm[Hg] Roby Ball Other [employer] Other 07-05-2022 14:30-0400 Body height 157.5 cm Rachael Bruce MD Work Phone: [facility] 07-05-2022 14:30-0400 Body temperature 97 [degF] Rachael Bruce MD Work Phone: [facility] 07-05-2022 14:30-0400 Body weight 114.13 kg Rachael Bruce MD Work Phone: [facility] 07-05-2022 14:30-0400 Diastolic blood pressure 59 mm[Hg] Rachael Bruce MD Work Phone: [facility] 07-05-2022 14:30-0400 Heart rate 73 /min Rachael Bruce MD Work Phone: [facility] 07-05-2022 14:30-0400 Respiratory rate 18 /min Rachael Bruce MD Work Phone: [facility] 07-05-2022 14:30-0400 SaO2% (BldA) [Mass fraction] 100 % Rachael Bruce MD Work Phone: [facility] 07-05-2022 14:30-0400 Systolic blood pressure 184 mm[Hg] Rachael Bruce MD Work Phone: [facility] 05-05-2022 14:00-0500 Body height 157.48 cm Roby Ball Other [facility] Other 05-05-2022 14:00-0500 Body mass index (BMI) [Ratio] 46.12 kg/m2 Roby Ball Other [facility] Other 05-05-2022 14:00-0500 Body weight 114.4 kg Roby Ball Other [facility] Other 05-05-2022 14:00-0500 Diastolic blood pressure 70 mm[Hg] Roby Ball Other [facility] Other 05-05-2022 14:00-0500 Respiratory rate 16 /min Roby Ball Other [facility] Other 05-05-2022 14:00-0500 Systolic blood pressure 122 mm[Hg] Roby Ball Other [facility] Other 01-04-2022 14:22-0400 Body height 157.5 cm Rachael Bruce MD Work Phone: [facility] 01-04-2022 14:22-0400 Body temperature 97.2 [degF] Rachael Bruce MD Work Phone: [facility] 01-04-2022 14:22-0400 Body weight 113.94 kg Rachael Bruce MD Work Phone: [facility] 01-04-2022 14:22-0400 Diastolic blood pressure 78 mm[Hg] Rachael Bruce MD Work Phone: [facility] 01-04-2022 14:22-0400 Heart rate 89 /min Rachael Bruce MD Work Phone: [facility] 01-04-2022 14:22-0400 Respiratory rate 18 /min Rachael Bruce MD Work Phone: [facility] 01-04-2022 14:22-0400 SaO2% (BldA) [Mass fraction] 96 % Rachael Bruce MD Work Phone: [facility] 01-04-2022 14:22-0400 Systolic blood pressure 152 mm[Hg] Rachael Bruce MD Work Phone: [facility] 07-06-2021 14:17-0400 Body height 157.5 cm Rachael Bruce MD Work Phone: [facility] 07-06-2021 14:17-0400 Body temperature 98.29 [degF] Rachael Bruce MD Work Phone: [facility] 07-06-2021 14:17-0400 Body weight 112.95 kg Rachael Bruce MD Work Phone: [facility] 07-06-2021 14:17-0400 Diastolic blood pressure 78 mm[Hg] Rachael Bruce MD Work Phone: [facility] 07-06-2021 14:17-0400 Heart rate 78 /min Rachael Bruce MD Work Phone: [facility] 07-06-2021 14:17-0400 Respiratory rate 18 /min Rachael Bruce MD Work Phone: [facility] 07-06-2021 14:17-0400 SaO2% (BldA) [Mass fraction] 99 % Rachael Bruce MD Work Phone: [facility] 07-06-2021 14:17-0400 Systolic blood pressure 157 mm[Hg] Rachael Bruce MD Work Phone: [facility] Encounters Encounter Date Encounter Type Care Provider Facility Start: 10-02-2023 End: 10-02-2023 ambulatory [facility] Work Phone: Start: 10-02-2023 End: 10-02-2023 Patient encounter procedure [facility] Work Phone: Start: 07-25-2023 Non-patient / Non-visit [facility] Work Phone: Start: 04-05-2023 End: 04-05-2023 ambulatory Bg Kramer Other [facility] Other Start: 04-05-2023 FQ visit new patient Bg Ibarra tirsoadrian [facility] Vascular Surgery Start: 04-01-2023 End: 04-01-2023 ambulatory Roby Dumont Other [facility] Other Start: 04-01-2023 Telephone encounter Roby Dumont [facility] Start: 03-30-2023 End: 03-30-2023 ambulatory Roby Dumont Other [facility] Other Start: 03-30-2023 Office outpatient vi sit 25 minutes Roby Ball [facility] Start: 12-05-2022 End: 12-05-2022 ambulatory Roby Natan Other [facility] Other Start: 12-05-2022 Telephone encounter Roby Dumont [facility] Start: 11-28-2022 End: 11-28-2022 ambulatory Roby Ball Other [facility] Other Start: 11-28-2022 Office outpatient vi sit 25 minutes Roby Ball [facility] Start: 09-13-2022 End: 09-13-2022 ambulatory Roby Ball Other [facility] Other Start: 09-13-2022 Office outpatient vi sit 15 minutes Roby Ball [facility] Start: 09-13-2022 Telephone encounter Roby Ball [facility] Start: 07-28-2022 End: 07-28-2022 ambulatory Roby Ball Other [facility] Other Start: 07-28-2022 Patient encounter procedure Roby Ball [facility] Start: 07-05-2022 End: 07-05-2022 ambulatory ROBY DUMONT Facility:[facility] Start: 07-05-2022 End: 07-05-2022 ambulatory Rachael [...] 05-05-2022 End: 05-05-2022 ambulatory Roby Dumont Other [facility] Other Start: 05-05-2022 Office outpatient vi sit 25 minutes Roby Dumont [facility] Start: 01-13-2022 End: 01-14-[address] ROBY DUMONT Facility:[facility] Start: 01-05-2022 Telephone encounter Josué Garcia Hematology/Oncology Comment on above: Results Start: 01-04-2022 End: 01-04-2022 ambulatory ROBY DUMONT Facility:[facility] Start: 01-04-2022 End: 01-04-2022 ambulatory Rachael Bruce MD Work Phone: Hematology/Oncology Comment on above: Malignant neoplasm o f colon, unspecified part of colon (HCC) (Primary Dx); Neuropathy Start: 01-04-2022 End: 01-04-2022 Patient encounter procedure Rachael Bruce MD Work Phone: [facility] Start: 12-21-2021 End: 12-21-2021 ambulatory ROBY DUMONT Facility:[facility] Start: 08-12-2021 End: 11-19-[address] [...] encounter Rachael bishop MD [facility] Comment on above: Referral Information (GI) Start: 06-29-2021 Telephone encounter Susanna Chavez RN Hematology/Oncology Comment on above: Results Start: 06-28-2021 Telephone encounter Rachael bishop MD Work Phone: Hematology/Oncology Comment on above: Lab Orders Start: 01-24-2017 End: 01-25-2017 Ambulatory JASIELM Ni BERNSTEIN Facility:[facility] Start: 12-14-2016 End: 12-15-2016 Ambulatory DEFAULT PHYSICIAN Facility:[facility] Procedures Date Procedure Procedure Detail Performing Clinician Start: 07-06-2021 Adult depression screening assessment Rachael Bruce MD Work Phone: Start: 01-05-2021 Adult depression screening assessment Susanna Chavez RN Plan of Treatment Date Care Activity Detail Author Start: 07-06-2022 Adult depression screening assessment DEPRESSION SCREENING [facility] Start: 07-05-2022 End: 09-04-2022 Carcinoembryonic Ag [Mass/volume] in Serum or Plasma CEA BLD Lab Routine Malignant neoplasm of colon, unspecified part of colon (HCC) Expected: 07/05/2022 (Approximate), Expires: 09/04/2022 [facility] Work Phone: Comment on above: Expected: 07/05/2022 (Approximate), Expires: 09/04/2022 Start: 07-05-2022 End: 09-04-2022 CBC W Auto Differential panel - Blood CBC + DIFF Lab Routine Malignant neoplasm of colon, unspecified part of colon (HCC) Expected: 07/05/2022 (Approximate), Expires: 09/04/2022 [facility] Work Phone: Comment on above: Expected: 07/05/2022 (Approximate), Expires: 09/04/2022 Start: 07-05-2022 End: 09-04-2022 Comprehensive metabolic 2000 panel - Serum or Plasma COMP METABOLIC PANEL Lab Routine Malignant neoplasm of colon, unspecified part of colon (HCC) Expected: 07/05/2022 (Approximate), Expires: 09/04/2022 [facility] Work Phone: Comment on above: Expected: 07/05/2022 (Approximate), Expires: 09/04/2022 Start: 03-12-2022 ADVANCE DIRECTIVE DISCUSSION ADVANCE DIRECTIVE DISCUSSION [facility] Start: 03-12-2022 DEPRESSION ASSESSMENT DEPRESSION ASS ESSMENT [facility] Start: 01-05-2022 Adult depression screening assessment DEPRESSION SCREENING [facility] Start: 01-05-2022 End: 03-07-2022 Carcinoembryonic Ag [Mass/volume] in Serum or Plasma CEA BLD Lab Routine Malignant neoplasm of colon, unspecified part of colon (HCC) Expected: 01/05/2022 (Approximate), Expires: 03/07/2022 [facility] Work Phone: Comment on above: Expected: 01/05/2022 (Approximate), Expires: 03/07/2022 Start: 01-05-2022 End: 03-07-2022 CBC W Auto Differential panel - Blood CBC + DIFF Lab Routine Malignant neoplasm of colon, unspecified part of colon (HCC) Expected: 01/05/2022 (Approximate), Expires: 03/07/2022 [facility] Work Phone: Comment on above: Expected: 01/05/2022 (Approximate), Expires: 03/07/2022 Start: 01-05-2022 End: 03-07-2022 Comprehensive metabolic 2000 panel - Serum or Plasma COMP METABOLIC PANEL Lab Routine Malignant neoplasm of colon, unspecified part of colon (HCC) Expected: 01/05/2022 (Approximate), Expires: 03/07/2022 [facility] Work Phone: Comment on above: Expected: 01/05/2022 (Approximate), Expires: 03/07/2022 Start: 01-05-2022 End: 03-07-2022 MISC SEND OUT TST 1 MISC SEND OUT TST 1 Lab Routine Malignant neoplasm of colon, unspecified part of colon (HCC) Expected: 01/05/2022 (Approximate), Expires: 03/07/2022 [facility] Work Phone: Comment on above: Expected: 01/05/2022 (Approximate), Expires: 03/07/2022 Start: 01-05-2022 End: 03-07-2022 MONOCLONAL PROTEIN, SERUM (BLOOD) MONOCLONAL PROTEIN, SERUM (BLOOD) Lab Routine Neuropathy Expected: 01/05/2022 (Approximate), Expires: 03/07/2022 [facility] Work Phone: Comment on above: Expected: 01/05/2022 (Approximate), Expires: 03/07/2022 Start: 01-05-2022 End: 03-07-2022 PROTEIN ELECTROPHORESIS SERUM W/INTERP PROTEIN ELECTROPHORESIS SERUM W/INTERP Lab Routine Neuropathy Expected: 01/05/2022 (Approximate), Expires: 03/07/2022 [facility] Work Phone: Comment on above: Expected: 01/05/2022 (Approximate), Expires: 03/07/2022 Start: 12-29-2021 Hemoglobin A1c/Hemoglobin.total in Blood HBA1C [facility] Start: 06-29-2021 End: 08-29-2021 Hemoglobin A1c/Hemoglobin.total in Blood [facility] Work Phone: Comment on above: Expected: 06/29/2021 , Expires: 08/29/2021 Start: 03-12-2021 ADVANCE DIRECTIVE DISCUSSION ADVANCE DIRECTIVE DISCUSSION [facility] Start: 03-12-2021 DEPRESSION ASSESSMENT DEPRESSION ASS ESSMENT [facility] Start: 02-22-2021 COVID-19 VACCINE (4 - Booster for Pfizer series) COVID-19 VACCINE (4 - Booster for Pfizer series) [facility] Start: 01-10-2018 Hemoglobin A1c/Hemoglobin.total in Blood HBA1C [facility] Start: 12-19-2015 BONE DENSITY BONE DENSITY [facility] Start: 12-19-1995 COLOGUARD (FIT-DNA) COLOGUARD (FIT-D NA) [facility] Start: 12-19-1995 Colonoscopy COLONOSCOPY [facility] Start: 12-19-1995 COLORECTAL CANCER SCREENING COLORECTAL CANCER SCREENING [facility] Start: 12-19-[address] COLONOGRAPHY [facility] Start: 12-19-1995 FECAL OCCULT BLOOD FECAL OCCULT BLOO D [facility] Start: 12-19-1995 SIGMOIDOSCOPY SIGMOIDOSCOPY [facility] Start: 1990 Mammography MAMMOGRAM [facility] Start: 1969 Urine microalbumin profile DTAP,TDAP,TD (1 - Tdap) [facility] Start: 1968 ANNUAL PCP TEAM MOLDING FITTER JOSE LUIS DISEASE VISIT ANNUAL PCP TEAM CHRONIC DISEASE VISIT [facility] Start: 1968 BP CONTROLLED (<130/80) BP CONTROLLE D (<130/80) [facility] Start: 1968 Hepatitis B surface antibody level LDL CHOLESTEROL [facility] Start: 1968 HEPATITIS C SCREENING HEPATITIS C SC REENING [facility] Start: 1960 3 comp foot exam completed DIABETIC FOOT EXAM [facility] Start: 1960 Hepatitis B screening URINE AL BUMIN:CREATININE RATIO [facility] Start: 1960 Hepatitis C antibody , confirmatory test DILATED RETINAL EXAM [facility] Comprehensive metabo lic 2000 panel - Serum or Plasma [facility] MG Breast - bilatera l Screening [facility] Microalbumin [Mass/volume] in Urine [facility] Immunizations Immunization Date Immunization Notes Care Provider Gareth hendrix 07-24-2022 COVID-19 Pfizer (bivalent) Roby Dumont Other [facility] 12-02-2021 COVID-19 Pfizer (bivalent) Roby Dumont Other [facility] 12-02-2021 influenza, high-dose , quadrivalent vaccine (FLUZONE HIGH DOSE QUADRIVALENT) Rachael Bruce MD Work Phone: [facility] 12-01-2021 influenza, high dose seasonal, preservative-free Roby Dumont Other [facility] Other 12-01-2021 influenza virus vaccine, unspecified formulation [facility] 05-26-2021 COVID-19 mRNA, Comirnaty (Pfizer) [facility] 12-13-2020 influenza virus vaccine, split virus (incl. purified surface antigen) Roby Dumont Other [facility] Other 12-13-2020 influenza virus vaccine, unspecified formulation [facility] 11-23-2020 COVID-19 Vaccine Pfi zer - Documentation Purposes Only Roby Dumont Other [facility] 11-15-2020 influenza virus vaccine, split virus (incl. purified surface antigen) Roby Dumont Other [facility] Other 11-15-2020 influenza virus vaccine, unspecified formulation [facility] 11-12-2020 influenza virus vaccine, unspecified formulation Susanna Chavez [facility] 05-01-2020 COVID-19 vaccine, ag e 12+ yr (PFIZER-BIONTECH - PURPLE TOP) Susanna Chavez RN [facility] 04-10-2020 COVID-19 vaccine, ag e 12+ yr (PFIZER-BIONTECH - PURPLE TOP) Susanna Chavez RN [facility] 12-05-2019 influenza virus vaccine, split virus (incl. purified surface antigen) Roby Dumont Other [facility] Other 12-05-2019 influenza virus vaccine, unspecified formulation [facility] 12-05-2019 influenza, high-dose , quadrivalent vaccine (FLUZONE HIGH DOSE QUADRIVALENT) Susanna Chavez RN [facility] 11-28-2019 zoster vaccine recombinant Roby Dumont Other [facility] 11-24-2019 COVID-19 mRNA, Comirnaty (Pfizer) [facility] 11-23-2019 zoster vaccine recombinant Susanna Chavez [facility] 09-20-2019 zoster vaccine recombinant Susanna Chavez [facility] 12-23-2018 influenza, seasonal, injectable Susanna Chavez [facility] 12-16-2018 influenza, high dose seasonal, preservative-free Susanna Chavez [facility] 02-04-2018 pneumococcal polysaccharide vaccine, 23 valent Susanna Chavez [facility] 12-10-2017 influenza virus vaccine, split virus (incl. purified surface antigen) Roby Dumont Other [facility] Other 12-10-2017 influenza virus vaccine, unspecified formulation [facility] 12-10-2017 Seasonal trivalent influenza vaccine, adjuvanted, preservative free Susanna Chavez [facility] 01-01-2017 influenza virus vaccine, split virus (incl. purified surface antigen) Roby Dumont Other [facility] Other 01-01-2017 influenza virus vaccine, unspecified formulation [facility] 01-01-2017 influenza, high dose seasonal, preservative-free Susanna Chavez [facility] 03-22-2016 pneumococcal conjuga te vaccine, 13 valent Susanna Chavez [facility] 01-25-2016 influenza, high dose seasonal, preservative-free Susanna Chavez [facility] 12-01-2014 tetanus and diphther ia toxoids, adsorbed, preservative free, for adult use (5 Lf of tetanus toxoid and 2 Lf of diphtheria toxoid) Roby Dumont Other [facility] 11-20-2012 tetanus and diphther ia toxoids, adsorbed, preservative free, for adult use (5 Lf of tetanus toxoid and 2 Lf of diphtheria toxoid) Roby Dumont Other [facility] 12-13-2005 diphtheria, tetanus toxoids and acellular pertussis vaccine, unspecified formulation Roby Dumont Other [facility] Payers Date Payer Category Payer Unknown 2019 Unknown MMO MMO MEDICARE SUPPLEMENT [id number] 2019-Present [phone] [address] [place] [address] Indemnity [id number] 2015 Medicare MEDICARE MEDICAR E A AND B [id number] 2015-Present [phone] [address] [address] [place] [address] Medicare [id number] 2015 Medicare MEDICARE MEDICAR E A AND B [id number] 2015-Present [phone] [place] [address] Medicare [id number] 1959 Medicare [id number] 1959 Unknown [id number] 1950 Unknown [id number] 1950 Unknown [id number] 1950 Unknown [id number] 1950 Unknown [id number] 1950 Unknown [id number] 1950 Unknown [id number] Medicare [id number] Self-pay Self Pay [id number] Unknown [id number] Social History Date Type Detail Facility Start: 07-21-2013 End: 03-30-2023 Tobacco smoking status NHIS Ex-smoker [facility] End: 03-12-1990 History of tobacco use Current smoker [facility] End: 03-12-1990 History of tobacco use Cigarette Smoker [facility] Start: 07-21-2013 End: 01-04-2022 Cigarettes smoked current (pack per day) - Reported 2 [facility] Start: 07-21-2013 End: 01-04-2022 Tobacco use and exposure Smokeless tobacco non-user [facility] Start: 01-05-2021 End: 07-05-2022 Alcohol intake Current drinker of alcohol (finding) [facility] Start: 07-21-2013 History SDOH Alcohol Comment occasionally [facility] Start: 06-15-2017 End: 01-04-2022 Tobacco Comment Quit 05/01/1990 [facility] Start: 1950 Sex Assigned At Not on file [facility] Start: 06-19-2021 End: 01-04-2022 Exposure to SARS-CoV-2 (event) Not sure [facility] History of tobacco use Passive smoker [facility] Sex Assigned At Sex Assigned At [facility] Other Start: 1950 Sex Assigned At Female [facility] Medical Equipment Procedure Code Equipment Code [...] result of any breach, fraud, or malicious third-constitution party actors and no personal patient information was compromised. [facility] Other 01-19-2024 Evaluation note* Encounter Date Diagnosis [...] use, the patient reduces the risk for [place], CVA, HTN, cardiac dysrhythmias and sudden cardiac [...] as well as melena or hematochezia Mar, FDC (current) use of insulin (ICD-10 - Z79.4) Mar, Hx of transient ischemic attack (TIA) (ICD-10 - Z86.73) Mar, Stenosis of right carotid artery (ICD-10 - I65.21) Soft bruit right carotid w/ strong pulsation. Continue secondary prevention measures. Recent carotid US w/ 78% proximal right ICA stenosis - velocities < 125 and ICA/CCA < 2 [facility] Other 09-19-2023 Evaluation note* Encounter Date Diagnosis [...] use, the patient reduces the risk for [place], CVA, HTN, cardiac dysrhythmias and sudden cardiac [...] melena or hematochezia No s/s recurrence Nov, FDC (current) use of insulin (ICD-10 - Z79.4) Reviewed dose and adverse effects. [facility] Other 07-05-2023 Evaluation note* Encounter Date Diagnosis [...] Microalbumin, Dilated eye exam and Foot exam [facility] Other 05-19-2023 Evaluation note* Encounter Date Diagnosis [...] use, the patient reduces the risk for [place], CVA, HTN, cardiac dysrhythmias and sudden cardiac [...] mammogram, encounter for (ICD-10 - Z12.31) July, FDC (current) use of insulin (ICD-10 - Z79.4) [facility] Other 04-26-2023 NoteHNO ID: [id number] Author: Rachael Bruce MD Service: ? Author Type: Physician Type: Progress Notes Filed: 07/05/2022 4:47 PM Note Text: PATIENT NAME: Billie Liriano CLINIC NO.: [id number] ATTENDING PHYSICIAN: Rachael Bruce MD DATE OF [...] Treatment History: 1. While on vacation in [place] developed severe abdominal pain in April 2017. CT at that point noted a large bowel obstruction with colonic mass at the splenic flexure. No metastatic disease was identified and patient had a CEA of 20. At that point underwent resection. 2. Started adjuvant FOLFOX May 2017 while in [place]. Oxaliplatin dose reduced due to toxicity. In [...] Diagnosis Date Colon cancer (HCC) Stage IIB ([id number] COPD (chronic obstructive pulmonary disease) (HCC) Esophagitis GERD (gastroesophageal reflux disease) Hyperlipidemia Lower extremity edema Lumbar spondylosis Menopause Nephrolithiasis OA (osteoarthritis) Obesity PMR (polymyalgia rheumatica) ([facility]) Portacath in place T2DM (type 2 diabetes mellitus) ([facility]) Thyroid disease Social History Tobacco Use [...] of Onset Diabetes Mother Heart Mother 52 [place]. S/P CABG. at 69 from [place] other (Parkinson's [Other]) Mother COPD Mother Coronary [...] intact. Sensation grossly intact. (more content not included)...[facility]04-26-2023 History of Present illness Narrative* Rachael Bruce MD - 07/05/2022 2:55 PM EDT Images from the original note were not included. [id number] ATTENDING PHYSICIAN: Rachael Bruce MD DATE OF [...] Treatment History: 1. While on vacation in [place] developed severe abdominal pain in April 2017. CT at thatpoint noted a large bowel obstruction with colonic mass at the splenic flexure. No metastatic disease was identified and patient had a CEA of 20. At that point underwent resection. 2. Started adjuvant FOLFOX May 2017 while in [place]. Oxaliplatin dose reduced due to toxicity. In [...] Diagnosis Date Colon cancer (HCC) Stage IIB ([id number] COPD (chronic obstructive pulmonary disease) ([facility]) Esophagitis GERD (gastroesophageal reflux disease) Hyperlipidemia Lower extremity edema Lumbar spondylosis Menopause Nephrolithiasis OA (osteoarthritis) Obesity PMR (polymyalgia rheumatica) ([facility]) Portacath in place T2DM (type 2 diabetes mellitus) ([facility]) Thyroid disease Social History Tobacco Use [...] of Onset Diabetes Mother Heart Mother 52 [place]. S/P CABG. at 69 from [place] other (Parkinson's [Other]) Mother COPD Mother Coronary [...] Range Status 07/05/2022 9.5 % Final Abs [place] Date Value Ref Range Status 07/05/2022 0.70 [...] Neuropathy- Unchanged referred to functional medicine at [facility], but she decided that it was difficultto [...] do not hesitate to contact me at [phone]. Rachael Bruce MD Hematology/Medical Oncology [facility] CC: Roby Dumont MD I spent a total of 30 minutes on the date of the service which included preparing to see the patient, [id number] patient care, completing clinical documentation, obtaining and/or reviewing separately obtained history, performing a medically appropriate examination, counseling and educating the pat ient/family/caregiver and ordering medications, tests, or procedures. documented in this encounterC[facility] Evaluation note* Encounter Date Diagnosis Assessment [...] use, the patient reduces the risk for [place], CVA, HTN, cardiac dysrhythmias and sudden cardiac [...] [ ] Foot exam: [ ] Apr, FDC (current) use of insulin (ICD-10 - Z79.4) [...] secondary prevention measures. Antiplatelet therapy and statin [facility] Other 10-27-2022 Miscellaneous Notes* Telephone Encounter - Joséu Hampton RN - 01/05/2022 9:16 AM EDT Pt aware of negative Signatera results. She denies any questions or concerns at this time. Josué Hampton RN documented in this encounterC[facility]10-26-2022 NoteHNO ID: [id number] Author: Rachael Bruce MD Service: ? Author Type: Physician Type: Progress Notes Filed: 01/04/2022 3:16 PM Note Text: PATIENT NAME: Billie Liriano CLINIC NO.: [id number] ATTENDING PHYSICIAN: Rachael Bruce MD DATE OF [...] Treatment History: 1. While on vacation in [place] developed severe abdominal pain in April 2017. CT at that point noted a large bowel obstruction with colonic mass at the splenic flexure. No metastatic disease was identified and patient had a CEA of 20. At that point underwent resection. 2. Started adjuvant FOLFOX May 2017 while in [place]. Oxaliplatin dose reduced due to toxicity. In [...] Diagnosis Date Colon cancer (HCC) Stage IIB ([id number] COPD (chronic obstructive pulmonary disease) (HCC) Esophagitis [...] of Onset Diabetes Mother Heart Mother 52 [place]. S/P CABG. at 69 from [place] other (Parkinson's [Other]) Mother COPD Mother Coronary [...] Date Value 12/21/2021 171 (more content not included)...[facility]10-26-2022 Miscellaneous Notes* Addendum Note - Rachael Bruce MD - 01/04/2022 3:17 PM EDTAddended by: RACHAEL BRUCE on: 01/04/2022 03:17 PM Modules accepted: Orders documented in this encounterC[facility]10-26-2022 History of Present illness Narrative* Rachael Bruce MD - 01/04/2022 2:57 PM EDT Images from the original note were not included. PATIENT NAME: Billie Liriano [facility] NO.: [id number] ATTENDING PHYSICIAN: Rachael Bruce MD DATE OF [...] Treatment History: 1. While on vacation in [place] developed severe abdominal pain in April 2017. CT at thatpoint noted a large bowel obstruction with colonic mass at the splenic flexure. No metastatic disease was identified and patient had a CEA of 20. At that point underwent resection. 2. Started adjuvant FOLFOX May 2017 while in [place]. Oxaliplatin dose reduced due to toxicity. In [...] Diagnosis Date Colon cancer (HCC) Stage IIB ([id number] COPD (chronic obstructive pulmonary disease) (HCC) Esophagitis [...] of Onset Diabetes Mother Heart Mother 52 [place]. S/P CABG. at 69 from [place] other (Parkinson's [Other]) Mother COPD Mother Coronary [...] 12/21/2021 1.70 1.00 - 4.00 k/uL Final [place]% Date Value Ref Range Status 12/21/2021 8.9 % Final Abs [place] Date Value Ref Range Status 12/21/2021 0.68 [...] Unchanged will refer to functional medicine at [facility] and she does not want to see neurology. Pharmacologic treatments have not helped. No evidence on M spike DM- Follow up with Dr. Dumont HTN- Per Dr. Dumont Thank you for the kind referral. If there are any questions and or concerns please do not hesitate to contact me at [phone]. Rachael Bruce MD Hematology/Medical Oncology [facility] CC: Roby Dumont MD I spent a total of 25 minutes on the date of the service which included preparing to see the patient, [id number] patient care, completing clinical documentation, obtaining and/or reviewing separately obtained history, performing a medically appropriate examination, counseling and educating the pat ient/family/caregiver and ordering medications, tests, or procedures. documented in this encounterC[facility]05-20-2022 NotePROCEDURE: XR KNEE RT 3V HISTORY: [...] Electronically authenticated by: JIMY LAMB Date: 2021-07-29 17:38[facility]05-02-2022 Miscellaneous Notes* Telephone Encounter - Bibiana Garay [facility] - 07/11/2021 9:29 AM EDT Meagan Correa spoke with Sherie. She states they have received patient referral/records and have patient scheduled to see Dr Holbrook for colonoscopy on 08/23. Bibiana Walters * Telephone Encounter - Estrella Barillas [facility] - 07/07/2021 8:02 AM EDT Records faxed to Dr. Holbrook * Telephone Encounter - Bibiana Garay [facility] - 07/07/2021 7:27 AM EDT Theodora: Information ready for you. Bibiana Walters * Telephone Encounter - Sangeeta Keane - 07/06/2021 3:18 PM EDT Patient to be referred to Dr. Holbrook for surveillance colonoscopy. Previous patient of Dr. Licona from 2018 per patient. Theodora/Calvin: Can you please send referral information and follow up? Thanks! Sangeeta Keane documented in this encounterC[facility]04-27-2022 History of Present illness Narrative* Rachael Bruce MD - 07/06/2021 3:00 PM EDT PATIENT NAME: Billie Liriano [facility] NO.: [id number] ATTENDING PHYSICIAN: Rachael Bruce MD DATE OF [...] Treatment History: 1. While on vacation in [place] developed severe abdominal pain in April 2017. CT at thatpoint noted a large bowel obstruction with colonic mass at the splenic flexure. No metastatic disease was identified and patient had a CEA of 20. At that point underwent resection. 2. Started adjuvant FOLFOX May 2017 while in [place]. Oxaliplatin dose reduced due to toxicity. In [...] Did not have a great time in [place] and continues to have difficulty with her neuropathy and she is seeing neurology in am and also joint stiffness and will reconnect with rhem as well. Denies any bowel changes and or abdominal pain PAST MEDICAL HISTORY Diagnosis Date Colon cancer (HCC) Stage IIB ([id number] COPD (chronic obstructive pulmonary disease) (HCC) Esophagitis [...] of Onset Diabetes Mother Heart Mother 52 [place]. S/P CABG. at 69 from [place] other (Parkinson's [Other]) Mother COPD Mother Coronary [...] 06/29/2021 1.69 1.00 - 4.00 k/uL Final [place]% Date Value Ref Range Status 06/29/2021 10.2 % Final Abs [place] Date Value Ref Range Status 06/29/2021 0.77 [...] do not hesitate to contact me at [phone]. Rachael Bruce MD Hematology/Medical Oncology [facility] CC: Roby Dumont MD I spent a total of 25 minutes on the date of the service which included preparing to see the patient, [id number] patient care, completing clinical documentation, obtaining and/or reviewing separately obtained history, performing a medically appropriate examination, counseling and educating the pat ient/family/caregiver and ordering medications, tests, or procedures. documented in this encounterC[facility]04-20-2022 Miscellaneous Notes* Telephone Encounter - Susanna Chavez RN - 06/29/2021 12:01 PM EDT Informed pt of Signatera results. Pt verbalized understanding. RONEL: Pt would like to know if she can have her A1C checked today with her other labs. Order pending, if agreeable to review and sign. Susanna Chavez RN documented in this encounterCleveland Clinic [facility]04-01-2022 Miscellaneous Notes* Telephone Encounter - Zuly Denton - 06/28/2021 11:00 AM EDT Please sign pending new cbc order. Thanks, Zuly Denton mA [facility]* Diagnosis Type 2 diabetes mellitus without complication, without long-term current use of insulin (HCC)- Primary documented in this encounter [facility] note* Diagnosis Malignant neoplasm of colon, unspecified part of colon (HCC)- Primary documented in this encounter [facility] note* Diagnosis Malignant neoplasm of colon, unspecified part of colon (HCC)- Primary Type 2 diabetes mellitus without complication, without long-term current use of insulin (HCC) Neuropathy Mononeuritis of unspecified site documented in this encounter [facility] note* Diagnosis Malignant neoplasm of colon, unspecified part of colon (HCC)- Primary Neuropathy Mononeuritis of unspecified site documented in this encounter [facility] note* Diagnosis Idiopathic peripheral autonomic neuropathy- Primary Idiopathic peripheral autonomic neuropathy, unspecified Type 2 diabetes mellitus with hyperglycemia, without long-term current use of insulin (HCC) documented in this encounter [facility] noteNo [facility] Other Evaluation note* Diagnosis Onset Date Resolution Status Asthma acute GERD (gastroesophageal reflux disease) acute History of colon cancer acut e Hypercholesterolemia acute Hypertension acute MARCELINA (obstructive sleep apnea) acute Type 2 diabetes mellitus with hyperglycemia acute Medicare annual wellness visit, subsequent noneactive Screening mammogram for breast cancer noneactive [facility] Work Phone: History general Narrative - Reported* [...] di abetes mellitus with hyperglycemia, unspecified whether fci insulin use Medical History Weakness of both [...] OF COLOSTOMY 03/2018 Hospitalization History SEE ABOVE [facility] Other History general Narrative - Reported* Type [...] di abetes mellitus with hyperglycemia, unspecified whether fci insulin use Medical History Weakness of both [...] years) 20 22 Hospitalization History SEE ABOVE [facility] Other Summary Purpose Family History Relationship Condition [...] colon (HCC) Procedures CONSULT TO GASTROENTEROLOGY OFFICE/OUTPATIENT [facility] 60-74 MINUTES Rachael Bruce MD [address] [place] [id number] Referral ID Status Reason Start Date Expiration Date Visits Requested Visits Authorized [id number] Authorized PCP Requested Referral 07/06/2021 07/06/2022 1 1 Specialty Diagnoses / Procedures Referred By Contac t Referred To Contact Diagnoses Malignant neoplasm of colon, unspecified part of colon (HCC) Neuropathy Procedures CONSULT TO FUNCTIONAL MEDICINE OFFICE/OUTPATIENT [facility] 60-74 MINUTES Rachael Bruce MD [address] [place] [phone] Referral ID Status Reason Start Date Expiration Date Visits Requested Visits Authorized [id number] Authorized PCP Requested Referral 01/04/2023 1 1 Specialty Diagnoses / Procedures Referred By Contac t Referred To Contact Diagnoses Malignant neoplasm of colon, unspecified part of colon (HCC) Neuropathy Procedures CONSULT TO WELLNESS PHYSICIAN OFFICE/OUTPATIENT [facility] 60-74 MINUTES Rachael Bruce MD [address] [place] [id number] Referral ID Status Reason Start Date Expiration Date Visits Requested Visits Authorized [id number] Authorized PCP Requested Referral 01/04/2023 1 1 Specialty Diagnoses / Procedures Referred By Contac t Referred To Contact Diagnoses Idiopathic peripheral autonomic neuropathy Procedures CONSULT TO PALLIATIVE CARE OFFICE/OUTPATIENT [facility] MDM 60-74 MINUTES Rachael Bruce MD [address] [place] [address] Referral ID Status Reason Start Date Expiration Date Visits Requested Visits Authorized [id number] Authorized PCP Requested Referral 07/05/2022 07/05/2023 1 [...] section and content) DATE CREATED AUTHOR 09/04/2017 [facility] DATE CREATED AUTHOR AUTHOR'S ORGANIZ ATION 10/09/2019 [facility] DATE CREATED AUTHOR AUTHOR'S ORGANIZ ATION 08/29/2021 [facility] DATE CREATED AUTHOR AUTHOR'S ORGANIZ ATION 07/04/2022 [facility] DATE CREATED AUTHOR AUTHOR'S ORGANIZ ATION 07/07/2022 [facility] Source Comments (unrecognize d section and content) In the event this informatio n is protected by the Federal Confidentiality of Alcohol and Drug Abuse Patient Records regulations: The Federal rules restrict any use of the information to criminally investigate or prosecute any alcohol or drug abuse patient.[facility] the event this information is protected by the Federal Confidentiality of Alcohol and Drug Abuse Patient Records regulations: The Federal rules restrict any use of the information to criminally investigate or prosecute any alcohol or drug abuse patient.[facility] the event this information is protected by the Federal Confidentiality of Alcohol and Drug Abuse Patient Records regulations: The Federal rules restrict any use of the information to criminally investigate or prosecute any alcohol or drug abuse patient.[facility] the event this information is protected by the Federal Confidentiality of Alcohol and Drug Abuse Patient Records regulations: The Federal rules restrict any use of the information to criminally investigate or prosecute any alcohol or drug abuse patient.[facility] the event this information is protected by the Federal Confidentiality of Alcohol and Drug Abuse Patient Records regulations: The Federal rules restrict any use of the information to criminally investigate or prosecute any alcohol or drug abuse patient.[facility] Hospital[facility] the event this information is protected by the Federal Confidentiality of Alcohol and Drug Abuse Patient Records regulations: The Federal rules restrict any use of the information to criminally investigate or prosecute any alcohol or drug abuse patient.[facility] Hospital[facility] the event this information is protected by the Federal Confidentiality of Alcohol and Drug Abuse Patient Records regulations: The Federal rules restrict any use of the information to criminally investigate or prosecute any alcohol or drug abuse patient.[facility] Reason for Visit (unrecogniz ed section and content) Reason Comments Results Reason Comments Lab Orders Reason Comments Colon Cancer follow up Reason Comments Referral Information GI Reason Comments Colon Cancer Follow up Reason Comments Colon Cancer Follow up Care Teams (unrecognized sec tion and content) Solution Professional Relationship Specialty Start Date End Date Roby Dumont DO PCP - General Internal Medicine 07/15/13 Maryam Pack RN [facility] [place] [address] Specialty Gameroom Technician Hematology/Oncology 06/19/17 Germania Ozuna PA-C [facility] [place] [address] Physician Mobile Qa Tester Hematology/Oncology 06/19/17 Rachael Bruce MD [facility] [employer] [facility] [place] [address] Physician Hematology/Oncology 03/20/19 Solution Professional Relationship Specialty Start Date End Date Roby Dumont, DO PCP - General Internal Medicine 07/15/13 Maryam Pack, RN [address] [facility] [place] [address] Specialty Gameroom Technician Hematology/Oncology 06/19/17 Germania Ozuna, PAGutierrezC [address] [facility] [place] [address] Physician Mobile Qa Tester Hematology/Oncology 06/19/17 Rachael Bruce MD [address] [facility] [place] [address] Physician Hematology/Oncology 03/20/19 Solution Professional Relationship Specialty Start Date End Date Roby Dumont, DO PCP - General Internal Medicine 07/15/13 Maryam Pack RN [address] [facility] [place] [address] Specialty Gameroom Technician Hematology/Oncology 06/19/17 Geramnia Ozuna PAGutierrezC [address] [facility] [place] [address] Physician Mobile Qa Tester Hematology/Oncology 06/19/17 Rachael Bruce MD [address] [place] [address] Physician Hematology/Oncology 03/20/19 Solution Professional Relationship Specialty Start Date End Date Roby Dumont, DO PCP - General Internal Medicine 07/15/13 Maryam Pack RN [address] [facility] [place] [address] Specialty Gameroom Technician Hematology/Oncology 06/19/17 Germania Ozuna PAGutierrezC [address] [facility] [place] [address] Physician Mobile Qa Tester Hematology/Oncology 06/19/17 Rachael Bruce MD [address] [place] [address] Physician Hematology/Oncology 03/20/19 Solution Professional Relationship Specialty Start Date End Date Roby Dumont, DO PCP - General Internal Medicine 07/15/13 Maryam Pack, ADENIKE [address] [facility] [place] [address] Specialty Gameroom Technician Hematology/Oncology 06/19/17 Germania Ozuna, PAGutierrezC [address] [facility] [facility] [place] [address] Physician Mobile Qa Tester Hematology/Oncology 06/19/17 Rachael Bruce MD [address] [place] [address] Physician Hematology/Oncology 03/20/19 Solution Professional Relationship Specialty Start Date End Date Roby Dumont, DO PCP - General Internal Medicine 07/15/13 Maryam Pack RN [address] [facility] [facility] [place] [address] Specialty Gameroom Technician Hematology/Oncology 06/19/17 Germania Ozuna PAGutierrezC [address] [facility] [facility] [place] [address] Physician Mobile Qa Tester Hematology/Oncology 06/19/17 Rachael Bruce MD [address] [place] [address] Physician Hematology/Oncology 03/20/19 Solution Professional Relationship Specialty Start Date End Date Roby Dumont, DO PCP - General Internal Medicine 07/15/13 Maryam Pack RN [address] [facility] [facility] [place] [address] Specialty Gameroom Technician Hematology/Oncology 06/19/17 Germania Ozuna PA-C [address] [facility] [place] [address] Physician Mobile Qa Tester Hematology/Oncology 06/19/17 Rachael Bruce MD [address] [facility] [place] [address] Physician Hematology/Oncology 03/20/19 Team Status: [...] BE BASED ON THE PRIMARY CLINICAL RECORDS. [employer] provides no warranty or guarantee of the accuracy or completeness of information in this document.
[2023-10-15 10:46] LABS: Basophils Absolute Auto 0.1 10^3/uL (0.0-0.1); Basophils Percent Auto 1.2 % (0.2-2.0); Eosinophils Absolute Auto 0.5 10^3/uL (0.0-0.7); Eosinophils Percent Auto 8.1 % (0.9-7.0); Hematocrit 43.4 % (36.0-48.0); Hemoglobin 14.3 g/dL (12.0-16.0); Immature Granulocytes Abs Auto 0.04 10^3/uL (0.00-0.03); Immature Granulocytes Pct Auto 0.7 % (0.0-0.5); Lymphocytes Absolute Auto 1.6 10^3/uL (1.2-3.8); Lymphocytes Percent Auto 26.2 % (20.5-60.0); Mean Corpuscular HGB Conc 32.9 g/dL (29.9-35.2); Mean Corpuscular Volume 93.9 fL (81.0-99.0); Monocytes Absolute Auto 0.5 10^3/uL (0.3-0.8); Neutrophils Absolute Auto 3.3 10^3/uL (1.4-6.5); Neutrophils Percent Auto 54.8 % (43.0-75.0); Platelet Count 191 10^3/uL (150-450); Red Blood Count 4.62 10^6/uL (4.20-5.40); Red Cell Distribution Width 14.4 % (11.0-15.0)
[2023-10-15 11:18] LABS: Microalbumin Urine Random 1.3 mg/dL (<=30.0)
[2023-10-15 11:28] LABS: Estimated Average Glucose 117 mg/dL; Glycohemoglobin A1C 5.7 % (4.5-6.2)
[2023-10-15 12:12] LABS: Alanine Aminotransferase 25 U/L (14-59); Albumin Globulin Ratio 1.2; Albumin Level 3.8 g/dL (3.4-5.0); Alkaline Phosphatase 75 U/L (46-116); Anion Gap 11.7; Aspartate Amino Transferase 20 U/L (15-37); BUN Creatinine Ratio 12.5; Bilirubin Total 1.1 mg/dL (0.2-1.0); Calcium 9.2 mg/dL (8.5-10.1); Carbon Dioxide 29.9 mmol/L (21.0-32.0); Chloride 102 mmol/L (98-107); Chol HDL Ratio 2.3; Cholesterol 111 mg/dL (<=200); Estimated GFR (African America >60 (>=60); Estimated GFR (Non-African Ame >60 (>=60); Globulin 3.1 g/dL; Glucose 125 mg/dL (74-106); HDL Cholesterol 48 mg/dL (40-60); LDL Cholesterol Calculated 47.4 mg/dL; Potassium 3.6 mmol/L (3.5-5.1); Sodium 140 mmol/L (136-145); Total Protein 6.9 g/dL (6.4-8.2); Triglycerides 78 mg/dL (<=150); VLDL CHOLESTEROL 15.6 mg/dL
[2023-10-15 16:29] LABS: Thyroid Stimulating Hormone 2.827 uIU/mL (0.358-3.740)
== END 2023-10-15 10:00 | disposition home or self-care (01) ==
LOC: LAB 10:00
PROVIDERS: PCP Internal Medicine; Visit Provider Internal Medicine
DX: E78.00 Pure hypercholesterolemia, unspecified (principal); I10 Essential (primary) hypertension; E11.65 Type 2 diabetes mellitus with hyperglycemia; Z85.038 Personal history of other malignant neoplasm of large intestine
CPT/HCPCS: 36415; 80053; 80061; 82043; 83036; 84443; 85025

== ENCOUNTER 2024-04-22 11:54 | Emergency (ER) | payer MEDICARE, OTHER, SELFPAY ==
[2024-04-22 12:03] VITALS: BP 208/75; PULSE 76; TEMP 36.7; O2SAT 100; BMI 43.9
--- OUTSIDE RECORDS SUMMARY | 2024-04-22 12:03 | XMS_ITS | CCD ---
Author Organization [facility] Team Providers Care Supervisor Intelligence Analyst Name Role Phone PHYSICIAN, DEFAULT Unavailable Unavailable PHYSICIAN, DEFAULT Unavailable Unavailable ALTOROK, NEZAM I Unavailable Unavailable ALTOROK, NEZAM I Unavailable Unavailable UNKNOWN, PHYSICIAN Unavailable Unavailable UNKNOWN, PHYSICIAN Unavailable Unavailable Roby Dumont DO Primary Care Provider Ramone JEONG, Maryam Koehler Unavailable Germania Ozuna PA-C M Unavailable [phone] Janis PATTEN, Rachael Unavailable Roby Dumont DO Primary Care Provider [...] Primary Care Provider Maryam Pack RN Unavailable Laith SCHOFIELD, Germania Maia Unavailable Rachael Bruce MD Unavailable [phone] ROBY DUMONT Primary Care Unavailable KARAMLOAngella, RACHAEL Referring Unavailable JANIS, RACHAEL Attending Unavailable ROBY DUMONT E Primary Care Unavailable BALL, ROBY E Primary Care Unavailable KARAMLOU, RACHAEL Referring Unavailable HERMILALOU, RACHAEL Attending Unavailable ROBY DUMONT Primary Care Unavailable KARAMLOU, RACHAEL Referring Unavailable Bg Kramer Unavailable [phone] Allergies Allergy Classification Reported Allergen(s) Allergy Type Date of Onset Reaction(s) Facility (9 sources) Aspirin; Translations: [ASPIRIN] Drug Allergy 07-22-19 14 Other: See Comments [facility] Work Phone: (5 sources) Non-steroidal anti-inflammatory agent; Translations: [NSAIDS (NON-STEROIDAL ANTI-INFLAMMATORY DRUG)] Drug Allergy 07-22-19 14 Other: See Comments [facility] Work Phone: (8 sources) Ondansetron; Translations: [ONDANSETRON HCL (PF)] Drug Allergy 06-16-19 18 Vomiting [facility] (8 sources) Nut - Unspecified; Translations: [NUT - UNSPECIFIED] Drug Allergy 07-22-19 14 Unknown [facility] (8 sources) Non-steroidal anti-inflammatory agent Drug Allergy 07-22-19 14 Other: See Comments [facility] Work Phone: (6 sources) NSAIDs Propensity to adverse reactions shortness of breath Freebeepay [facility] [employer] Other (5 sources) Ondansetron; Translations: [Zofran] Drug Allergy vomiting [facility] (9 sources) tree nut, unspecified Propensity to adverse reactions anaphylaxis Freebeepay [facility] [employer] Other (1 source) Aspirin Drug Allergy 07-15-19 14 [facility] (1 source) NSAIDs Drug allergy (disorder) 07-29-19 15 [facility] (2 sources) tree nut, unspecified Drug allergy (disorder) 03-12-18 70 Anaphylaxis [facility] (6 sources) DULoxetine Drug Allergy 10-02-19 24 Comment:diarrh ea [facility] (5 sources) Toradol *ANALGESICS - ANTI-INFLAMMATORY* Propensity to adverse reactions Unknown [facility] [employer] Other (5 sources) aspirin contraindicated Propensity to adverse reactions 10-21-19 15 Comment:advers e rxn/side effects [facility]os[facility]og[facility] Other (5 sources) Zofran *ANTIEMETICS* Propensity to adverse reactions Unknown [facility] [employer] Other (1 source) Ibuprofen Drug Allergy 10-02-19 24 Unknown Reaction [facility] (1 source) Ondansetron Drug Allergy 10-02-19 Nausea [facility] (1 source) NSAIDS (Non-Steroidal Anti-Inflamma Allergy to substance 10-02-19 Unknown Reaction, NSAIDS [facility] (1 source) Toradol *ANALGESICS - ANTI-INF Allergy to substance 10-02-19 Unknown Reaction [facility] Medications Current Medications Medication Drug Class(es) Dates [...] Comment on above: Take [address] [facility] once daily. cholecalciferol 0.125 mg oral [...] 22, 2021 1:27pm [facility] 1 capsule [facility] Cholecalciferol, Vitamin D3, 50 mcg [...] 12:00am take 1 tablet by mouth once mrailia y Levothyroxine Sodium 112 MCG TAKE 1 [...] e 200 MG as directed Orally Active Spring 3,6,9 Combination No.7 (1 source) Start: 03-01-2018 take 1 tablet by mouth once daily Spring 3,6,9 Combination No.7 Active 1 TAB PO [...] Comment on above: Take 1 capsule [facility] needed. promethazine hydrochloride 12.5 mg oral [...] sources) Long-term current use of insulin; Translations: [shelter (current) use of insulin] Episodic Other aftercare (4 sources) shelter (current) use of insulin Episodic Other and [...] Basophils (Bld) [#/Vol] 0.07 10*3/uL Normal <0.11 [facility] Comment on above: Order Comment: Speci men Type: BLOOD SPECIMENOrdering Facility: [facility] Address: [address] [place] [address] Performed By: #### 5 7021-8 ####[facility] LABCLIA [id number] [place] [address] Basophils/100 WBC (Bld) 1.0 % Normal [facility] Comment on above: Order Comment: Speci men Type: BLOOD SPECIMENOrdering Facility: [facility] Address: [address] [place] [address] Performed By: #### 5 7021-8 ####[facility] LABCLIA [id number] [place] [address] Differential cell count method Nom (Bld) Auto Normal [facility] Comment on above: Order Comment: Speci men Type: BLOOD SPECIMENOrdering Facility: [facility] Address: [address] [place] [address] Performed By: #### 5 7021-8 ####[facility] LABCLIA [id number] [place] [address] Eosinophils (Bld) [#/Vol] 0.49 10*3/uL High <0.46 [facility] Comment on above: Order Comment: Speci men Type: BLOOD SPECIMENOrdering Facility: [facility] Address: [address] [place] [address] Performed By: #### 5 7021-8 ####[facility] LABCLIA [id number] [place] [address] Eosinophils/100 WBC (Bld) 6.7 % Normal [facility] Comment on above: Order Comment: Speci men Type: BLOOD SPECIMENOrdering Facility: [facility] Address: [address] [place] [address] Performed By: #### 5 7021-8 ####[facility] LABCLIA [id number] [place] [address] Erythrocyte distribution width (RBC) [Ratio] 14.6 % Normal 11.5-15.0 [facility] Comment on above: Order Comment: Speci men Type: BLOOD SPECIMENOrdering Facility: [facility] Address: [address] [place] [address] Performed By: #### 5 7021-8 ####[facility] LABCLIA [id number] [place] [address] Hematocrit (Bld) [Volume fraction] 42.3 % Normal 36.0-46.0 [facility] Comment on above: Order Comment: Speci men Type: BLOOD SPECIMENOrdering Facility: [facility] Address: [address] [place] [address] Performed By: #### 5 7021-8 ####[facility] LABCLIA [id number] [place] [address] Hemoglobin (Bld) [Mass/Vol] 14.2 g/dL Normal 11.5-15.5 [facility] Comment on above: Order Comment: Speci men Type: BLOOD SPECIMENOrdering Facility: [facility] Address: [address] [place] [address] Performed By: #### 5 7021-8 ####[facility] LABCLIA [id number] [place] [address] Immature granulocytes (Bld) [#/Vol] 0.04 10*3/uL Normal <0.10 [facility] Comment on above: Order Comment: Speci men Type: BLOOD SPECIMENOrdering Facility: [facility] Address: [address] [place] [address] Performed By: #### 5 7021-8 ####[facility] LABCLIA [id number] [place] [address] Immature granulocytes/100 WBC (Bld) 0.5 % Normal [facility] Comment on above: Order Comment: Speci men Type: BLOOD SPECIMENOrdering Facility: [facility] Address: [address] [place] [address] Performed By: #### 5 7021-8 ####[facility] LABCLIA [id number] [place] [address] Lymphocytes (Bld) [#/Vol] 1.84 10*3/uL Normal 1.00-4.00 [facility] Comment on above: Order Comment: Speci men Type: BLOOD SPECIMENOrdering Facility: [facility] Address: [address] [place] [address] Performed By: #### 5 7021-8 ####[facility] LABCLIA [id number] [place] [address] Lymphocytes/100 WBC (Bld) 25.1 % Normal [facility] Comment on above: Order Comment: Speci men Type: BLOOD SPECIMENOrdering Facility: [facility] Address: [address] [place] [address] Performed By: #### 5 7021-8 ####[facility] LABCLIA [id number] [place] [address] MCH (RBC) [Entitic mass] 31.5 pg Normal 26.0-34.0 [facility] Comment on above: Order Comment: Speci men Type: BLOOD SPECIMENOrdering Facility: [facility] Address: [address] [place] [address] Performed By: #### 5 7021-8 ####[facility] LABCLIA [id number] [place] [address] MCHC (RBC) [Mass/Vol] 33.6 g/dL Normal 30.5-36.0 [facility] Comment on above: Order Comment: Speci men Type: BLOOD SPECIMENOrdering Facility: [facility] Address: [address] [address] Performed By: #### 5 7021-8 ####[facility] LABCLIA [id number] [place] [address] MCV (RBC) [Entitic vol] 93.8 fL Normal 80.0-100.0 [facility] Comment on above: Order Comment: Speci men Type: BLOOD SPECIMENOrdering Facility: [facility] Address: [address] [address] Performed By: #### 5 7021-8 ####[facility] LABCLIA [id number] [place] [address] Monocytes (Bld) [#/Vol] 0.70 10*3/uL Normal <0.87 [facility] Comment on above: Order Comment: Speci men Type: BLOOD SPECIMENOrdering Facility: [facility] Address: [address] [place] [address] Performed By: #### 5 7021-8 ####[facility] LABCLIA [id number] [place] [address] Monocytes/100 WBC (Bld) 9.5 % Normal [facility] Comment on above: Order Comment: Speci men Type: BLOOD SPECIMENOrdering Facility: [facility] Address: [address] [place] [address] Performed By: #### 5 7021-8 ####[facility] LABCLIA [id number] [place] [address] Neutrophils (Bld) [#/Vol] 4.20 10*3/uL Normal 1.45-7.50 [facility] Comment on above: Order Comment: Speci men Type: BLOOD SPECIMENOrdering Facility: [facility] Address: [address] [place] [address] Performed By: #### 5 7021-8 ####[facility] LABCLIA [id number] [place] [address] Neutrophils/100 WBC (Bld) 57.2 % Normal [facility] Comment on above: Order Comment: Speci men Type: BLOOD SPECIMENOrdering Facility: [facility] Address: [address] [place] [address] Performed By: #### 5 7021-8 ####[facility] LABCLIA [id number] [place] [address] Nucleated RBC (Bld) [#/Vol] 10*3/uL Normal <0.01 [facility] Comment on above: Order Comment: Speci men Type: BLOOD SPECIMENOrdering Facility: [facility] Address: [address] [place] [address] Performed By: #### 5 7021-8 ####[facility] LABCLIA [id number] [place] [address] Nucleated RBC/100 WBC (Bld) [Ratio] 0.0 /100 WBC Normal [facility] Comment on above: Order Comment: Speci men Type: BLOOD SPECIMENOrdering Facility: [facility] Address: [address] [place] [address] Performed By: #### 5 7021-8 ####[facility] LABCLIA [id number] [place] [address] Platelet mean volume (Bld) [Entitic vol] 8.9 fL Low 9.0-12.7 [facility] Comment on above: Order Comment: Speci men Type: BLOOD SPECIMENOrdering Facility: [facility] Address: [address] [place] [address] Performed By: #### 5 7021-8 ####[facility] LABCLIA [id number] [place] [address] Platelets (Bld) [#/Vol] 188 10*3/uL Normal 150-400 [facility] Comment on above: Order Comment: Speci men Type: BLOOD SPECIMENOrdering Facility: [facility] Address: [address] [place] [address] Performed By: #### 5 7021-8 ####[facility] LABCLIA [id number] [place] [address] RBC (Bld) [#/Vol] 4.51 10*6/uL Normal 3.90-5.20 [facility] Comment on above: Order Comment: Speci men Type: BLOOD SPECIMENOrdering Facility: [facility] Address: [address] [place] [address] Performed By: #### 5 7021-8 ####[facility] LABCLIA [id number] [place] [address] WBC (Bld) [#/Vol] 7.34 10*3/uL Normal 3.70-11.00 [facility] Comment on above: Order Comment: Speci men Type: BLOOD SPECIMENOrdering Facility: [facility] Address: [address] [place] [address] Performed By: #### 5 7021-8 ####[facility] LABCLIA [id number] [place] [address] CEA SerPl-mCncon 07-05-2022 Carcinoembryonic Ag [Mass/Vol] 3.4 ng/mL High <=2.9 [facility] Comment on above: Order Comment: Speci men Type: BLOOD SPECIMEN Ordering Facility: [facility] Address: [address] [place] [address] Result Comment: Carc inoembryonic antigen test is used as an aid in monitoring response to treatment or recurrence in patients with established colorectal, breast, lung, prostatic, pancreatic, and ovarian carcinomas. Clinical correlation is required. The Carcinoembryonic antigen test was performed using the Junito Wanovael DXI paramagnetic particle chemiluminescent immunoassay method. Results obtained with different assay methods or kits cannot be used interchangeably. Performed By: #### 2 039-6 #### [facility] CLIA [id number] [address] [place] CNOVSPon 07-05-2022 CNOVSP Visit (SP) Office (HEMAS[place]) CARLITOSBILLIE ([id number]) 1950 F Date Time Provider Department 07/05/22 2:30 PM RACHAEL BRUCE During your visit today, we recorded the following information about you: Temperature Pulse Respiration Blood pressure 97 degrees 73/minute 18/minute 184/59 Weight Height 114.1 kg 1.575 m Rachael Bruce MD 07/05/2022 4:47 PM Signed PATIENT NAME: Billie Liriano CLINIC NO.: [id number] ATTENDING PHYSICIAN: Rachael Bruce MD DATE OF SERVICE: July 05, 2022 Some of the elements of this note have been copied from my previous progress note dated 01/04/2022. All the information has been reviewed carefully. Here is an update on a follow up visit on female Blilie Liriano at the clinic July 05, 2022 Diagnosis: 1. Original diagnosis of pathologically staged at T3a,N2a,M0 colon cancer April 2017. Tumor was microsatellite stable Treatment History: 1. While on vacation in [place] developed severe abdominal pain in April 2017. CT at that point noted a large bowel obstruction with colonic mass at the splenic flexure. No metastatic disease was identified and patient had a CEA of 20. At that point underwent resection. 2. Started adjuvant FOLFOX May 2017 while in [place]. Oxaliplatin dose reduced due to toxicity. In [...] Diagnosis Date Colon cancer (HCC) Stage IIB ([id number] COPD (chronic obstructive pulmonary disease) (HCC) Esophagitis [...] of Onset Diabetes Mother Heart Mother 52 [place]. S/P CABG. at 69 from [place] other (Parkinson's [Other]) Mother COPD Mother Coronary [...] SLR te (more content not included)... Normal [facility] Comprehensive metabolic 2000 panelon 07-05-2022 Albumin [Mass/Vol] 4.6 g/dL Normal 3.9-4.9 [facility] Comment on above: Order Comment: Speci men Type: BLOOD SPECIMENOrdering Facility: [facility] Address: [address] [address] Performed By: #### 2 4323-8 ####[facility] LABCLIA [id number] [place] [address] ALP [Catalytic activity/Vol] 116 U/L Normal 34-123 [facility] Comment on above: Order Comment: Speci men Type: BLOOD SPECIMENOrdering Facility: [facility] Address: [address] [address] Performed By: #### 2 4323-8 ####[facility] LABCLIA [id number] [place] [address] ALT [Catalytic activity/Vol] 17 U/L Normal 7-38 [facility] Comment on above: Order Comment: Speci men Type: BLOOD SPECIMENOrdering Facility: [facility] Address: [address] [address] Performed By: #### 2 4323-8 ####[facility] LABCLIA [id number] [place] [address] Anion gap [Moles/Vol] 9 mmol/L Normal 9-18 [facility] Comment on above: Order Comment: Speci men Type: BLOOD SPECIMENOrdering Facility: [facility] Address: [address] [address] Performed By: #### 2 4323-8 ####[facility] LABCLIA [id number] [place] [address] AST [Catalytic activity/Vol] 19 U/L Normal 13-35 [facility] Comment on above: Order Comment: Speci men Type: BLOOD SPECIMENOrdering Facility: [facility] Address: [address] [place] [address] Performed By: #### 2 4323-8 ####[facility] LABCLIA [id number] [place] [address] Bilirubin [Mass/Vol] 0.9 mg/dL Normal 0.2-1.3 [facility] Comment on above: Order Comment: Speci men Type: BLOOD SPECIMENOrdering Facility: [facility] Address: [address] [address] Performed By: #### 2 4323-8 ####[facility] LABCLIA [id number] [place] [address] Calcium [Mass/Vol] 9.9 mg/dL Normal 8.5-10.2 [facility] Comment on above: Order Comment: Speci men Type: BLOOD SPECIMENOrdering Facility: [facility] Address: [address] [address] Performed By: #### 2 4323-8 ####[facility] LABCLIA [id number] [place] [address] Chloride [Moles/Vol] 101 mmol/L Normal 97-105 [facility] Comment on above: Order Comment: Speci men Type: BLOOD SPECIMENOrdering Facility: [facility] Address: [address] [address] Performed By: #### 2 4323-8 ####[facility] LABCLIA [id number] [place] [address] CO2 [Moles/Vol] 29 mmol/L Normal 22-30 [facility] Comment on above: Order Comment: Speci men Type: BLOOD SPECIMENOrdering Facility: [facility] Address: [address] [address] Performed By: #### 2 4323-8 ####[facility] LABCLIA [id number] [place] [address] Creatinine [Mass/Vol] 0.87 mg/dL Normal 0.58-0.96 [facility] Comment on above: Order Comment: Speci men Type: BLOOD SPECIMENOrdering Facility: [facility] Address: [address] [address] Performed By: #### 2 4323-8 ####[facility] LABCLIA [id number] [place] [address] ESTIMATED GLOMERULAR FILTRATION RATE 71 mL/min/1.73m??? Normal >=60 [facility] Comment on above: Order Comment: Landy riojas Type: BLOOD SPECIMENOrdering Facility: [facility] Address: [address] [place] [address] Result Comment: Christi mated Glomerular Filtration Rate [...] actual GFR. Performed By: #### 2 4323-8 ####[facility] LABCLIA [id number] [place] [address] Glucose [Mass/Vol] 162 mg/dL High 74-99 [facility] Comment on above: Order Comment: Speci men Type: BLOOD SPECIMENOrdering Facility: [facility] Address: [address] [place] [address] Result Comment: The [place] [employer] Association (ADA) provides guidance for cutoff [...] Standards of Medical Care in Diabetes 2016, [place] [employer]. Diabetes Care. 2016.39(Suppl 1). Performed By: #### 2 4323-8 ####[facility] LABCLIA [id number] [place] [address] Potassium [Moles/Vol] 4.2 mmol/L Normal 3.7-5.1 [facility] Comment on above: Order Comment: Speci men Type: BLOOD SPECIMENOrdering Facility: [facility] Address: [address] [place] [address] Performed By: #### 2 4323-8 ####[facility] LABCLIA [id number] [place] [address] Protein [Mass/Vol] 7.0 g/dL Normal 6.3-8.0 [facility] Comment on above: Order Comment: Speci men Type: BLOOD SPECIMENOrdering Facility: [facility] Address: [address] [place] [address] Performed By: #### 2 4323-8 ####[facility] LABCLIA [id number] [place] [address] Sodium [Moles/Vol] 139 mmol/L Normal 136-144 [facility] Comment on above: Order Comment: Speci men Type: BLOOD SPECIMENOrdering Facility: [facility] Address: [address] [address] Performed By: #### 2 4323-8 ####[facility] LABCLIA [id number] [place] [address] Urea nitrogen [Mass/Vol] 10 mg/dL Normal 7-21 [facility] Comment on above: Order Comment: Speci men Type: BLOOD SPECIMENOrdering Facility: [facility] Address: [address] [address] Performed By: #### 2 4323-8 ####[facility] LABCLIA [id number] [place] [address] GLYCOHEMOGLOBIN A1Con 2022 ADA RECOMMENDATION SEE BELOW Normal [facility] Comment on above: Result Comment: ADA RECOMMENDED LIMIT 4.0 - 6.0 ADA THERAPEUTIC TARGET < 7.0 ACTION SUGGESTED > 7.0 Performed By: #### A 1C #### [facility] [address] [place] [address] [address] Linn Leone Glucose [Mass/Vol] 123 mg/dL Normal [facility] Comment on above: Performed By: #### A 1C #### [facility] [address] [place] [address] Dr. Linn Leone HbA1c (Bld) [Mass fraction] 5.9 % Normal 4.5-6.2 [facility] Comment on above: Performed By: #### A 1C #### [facility] [address] [address] [address] Linn Leone GLYCOHEMOGLOBIN A1Con 2021 ADA RECOMMENDATION SEE BELOW Normal [facility] Comment on above: Result Comment: ADA RECOMMENDED LIMIT 4.0 - 6.0 ADA THERAPEUTIC TARGET < 7.0 ACTION SUGGESTED > 7.0 Performed By: #### A 1C #### [facility] [address] [place] [address] Dr. Linn Leone Glucose [Mass/Vol] 134 mg/dL Normal [facility] Comment on above: Performed By: #### A 1C #### [facility] [address] [address] [address] Linn Leone HbA1c (Bld) [Mass fraction] 6.3 % Critically high 4.5-6.2 [facility] Comment on above: Performed By: #### A 1C #### [facility] [address] [place] [address] Dr. Linn Delgado 01-05-2022 HEIDI Telephone (HEMTSA) BILLIE LIRIANO ([id number]) 1950 F Date Time Provider Department 01/05/22 [...] Encounter Status:Closed by JOSUÉ HAMPTON on 01/05/22 [facility] CNOVSPon 01-04-2022 CNOVSP Visit (SP) Office ([place]) BILLIE LIRIANO ([id number]) 1950 F Date Time Provider Department 01/04/22 2:30 PM RACHAEL BRUCE During your visit today, we recorded the following information about you: Temperature Pulse Respiration Blood pressure 97.2 degrees 89/minute 18/minute 152/78 Weight Height 113.9 kg 1.575 m Rachael Bruce MD 01/04/2022 3:16 PM Signed PATIENT NAME: Billie Liriano CLINIC NO.: [id number] ATTENDING PHYSICIAN: Rachael Bruce MD DATE OF [...] Treatment History: 1. While on vacation in [place] developed severe abdominal pain in April 2017. CT at that point noted a large bowel obstruction with colonic mass at the splenic flexure. No metastatic disease was identified and patient had a CEA of 20. At that point underwent resection. 2. Started adjuvant FOLFOX May 2017 while in [place]. Oxaliplatin dose reduced due to toxicity. In [...] Diagnosis Date Colon cancer (HCC) Stage IIB ([id number] COPD (chronic obstructive pulmonary disease) ([facility]) Esophagitis GERD (gastroesophageal reflux disease) Hyperlipidemia Lower extremity edema Lumbar spondylosis Menopause Nephrolithiasis OA (osteoarthritis) Obesity PMR (polymyalgia rheumatica) ([facility]) Portacath in place T2DM (type 2 diabetes mellitus) ([facility]) Thyroid disease Social History Tobacco Use Smoking status: Former Packs/day: 2.00 Years: 25.00 Pack years: 50.00 Types: Cigarettes Quit date: 03/12/1990 Years since quittin.8 Passive exposure: Past Smokeless tobacco: Never Tobacco comments: Quit 05/01/1990 Vaping Use Vaping Use: Never used Substance Use Topics Alcohol use: Yes Comment: occasionally Drug use: No FAMILY HISTORY Problem Relation Age of Onset Diabetes Mother Heart Mother 52 [place]. S/P CABG. at 69 from [place] other (Parkinson's [Other]) Mother COPD Mother Coronary [...] murmur, g (more content not included)... Normal [facility] CBC W Auto Differential pane l (Bld)on 12-21-2021 Basophils (Bld) [#/Vol] 0.06 10*3/uL Normal <0.11 [facility] Comment on above: Order Comment: Speci men Type: BLOOD SPECIMEN Ordering Facility: [facility] Address: [address] [phone] Performed By: #### 5 7021-8 #### [facility] CLIA [id number] [address] [place] [address] 23712 Basophils/100 WBC (Bld) 0.8 % Normal [facility] Comment on above: Order Comment: Speci men Type: BLOOD SPECIMEN Ordering Facility: [facility] Address: [address] [phone] Performed By: #### 5 7021-8 #### [facility] CLIA [id number] [address] [place] [address] Differential cell count method Nom (Bld) Auto Normal [facility] Comment on above: Order Comment: Speci men Type: BLOOD SPECIMEN Ordering Facility: [facility] Address: [address] [place] [address] Performed By: #### 5 7021-8 #### [facility] CLIA [id number] [address] [place] [address] 86203 Eosinophils (Bld) [#/Vol] 0.48 10*3/uL High <0.46 [facility] Comment on above: Order Comment: Speci men Type: BLOOD SPECIMEN Ordering Facility: [facility] Address: [address] [place] [address] Performed By: #### 5 7021-8 #### [facility] CLIA [id number] [address] [place] [address] 67025 Eosinophils/100 WBC (Bld) 6.3 % Normal [facility] Comment on above: Order Comment: Speci men Type: BLOOD SPECIMEN Ordering Facility: [facility] Address: [address] [place] [address] Performed By: #### 5 7021-8 #### [facility] CLIA [id number] [address] [place] [address] 29638 Erythrocyte distribution width (RBC) [Ratio] 14.4 % Normal 11.5-15.0 [facility] Comment on above: Order Comment: Speci men Type: BLOOD SPECIMEN Ordering Facility: [facility] Address: [address] [place] [address] Performed By: #### 5 7021-8 #### [facility] CLIA [id number] [address] [place] [address] 94515 Hematocrit (Bld) [Volume fraction] 40.7 % Normal 36.0-46.0 [facility] Comment on above: Order Comment: Speci men Type: BLOOD SPECIMEN Ordering Facility: [facility] Address: [address] [place] [address] Performed By: #### 5 7021-8 #### [facility] CLIA [id number] [address] [place] [address] 38937 Hemoglobin (Bld) [Mass/Vol] 13.6 g/dL Normal 11.5-15.5 [facility] Comment on above: Order Comment: Speci men Type: BLOOD SPECIMEN Ordering Facility: [facility] Address: [address] [place] [address] Performed By: #### 5 7021-8 #### [facility] CLIA [id number] [address] [place] [address] 52856 IMMATURE GRAN % 0.5 % Normal [facility] Comment on above: Order Comment: Speci men Type: BLOOD SPECIMEN Ordering Facility: [facility] Address: [address] [place] [address] Performed By: #### 5 7021-8 #### [facility] CLIA [id number] [address] [place] [address] 03758 IMMATURE GRAN ABS 0.04 k/uL Normal <0.10 [place] Comment on above: Order Comment: Speci men Type: BLOOD SPECIMEN Ordering Facility: [facility] Address: [address] [place] [address] Performed By: #### 5 7021-8 #### [facility] CLIA [id number] [address] [place] [address] 79455 Lymphocytes (Bld) [#/Vol] 1.70 10*3/uL Normal 1.00-4.00 [facility] Comment on above: Order Comment: Speci men Type: BLOOD SPECIMEN Ordering Facility: [facility] Address: [address] [place] [address] Performed By: #### 5 7021-8 #### [facility] CLIA [id number] [address] [place] [address] 28041 Lymphocytes/100 WBC (Bld) 22.1 % Normal [facility] Comment on above: Order Comment: Speci men Type: BLOOD SPECIMEN Ordering Facility: [facility] Address: [address] [place], [place] [id number] Performed By: #### 5 7021-8 #### [facility] CLIA [id number] [address] [place] [address] 61901 MCH (RBC) [Entitic mass] 31.3 pg Normal 26.0-34.0 [facility] Comment on above: Order Comment: Speci men Type: BLOOD SPECIMEN Ordering Facility: [facility] Address: [address] [place] [address] Performed By: #### 5 7021-8 #### [facility] CLIA [id number] [address] [place] [address] 51805 MCHC (RBC) [Mass/Vol] 33.4 g/dL Normal 30.5-36.0 [facility] Comment on above: Order Comment: Speci men Type: BLOOD SPECIMEN Ordering Facility: [facility] Address: [address] [place] [address] Performed By: #### 5 7021-8 #### [facility] CLIA [id number] [address] [place] [address] 88262 MCV (RBC) [Entitic vol] 93.6 fL Normal 80.0-100.0 [facility] Comment on above: Order Comment: Speci men Type: BLOOD SPECIMEN Ordering Facility: [facility] Address: [address] [place], [place] [address] Performed By: #### 5 7021-8 #### [facility] CLIA [id number] [address] [place] [address] 75202 Monocytes (Bld) [#/Vol] 0.68 10*3/uL Normal <0.87 [facility] Comment on above: Order Comment: Speci men Type: BLOOD SPECIMEN Ordering Facility: [facility] Address: [address] [place], [place] [address] Performed By: #### 5 7021-8 #### [facility] CLIA [id number] [address] [place] [address] Monocytes/100 WBC (Bld) 8.9 % Normal [facility] Comment on above: Order Comment: Speci men Type: BLOOD SPECIMEN Ordering Facility: [facility] Address: [address] [place] [address] Performed By: #### 5 7021-8 #### [facility] CLIA [id number] [address] [place] [address] 66971 Neutrophils (Bld) [#/Vol] 4.72 10*3/uL Normal 1.45-7.50 [facility] Comment on above: Order Comment: Speci men Type: BLOOD SPECIMEN Ordering Facility: [facility] Address: [address] [place] [address] Performed By: #### 5 7021-8 #### [facility] CLIA [id number] [address] [place] [address] 80094 Neutrophils/100 WBC (Bld) 61.4 % Normal [facility] Comment on above: Order Comment: Speci men Type: BLOOD SPECIMEN Ordering Facility: [facility] Address: [address] [place] [address] Performed By: #### 5 7021-8 #### [facility] CLIA [id number] [address] [place] [address] 98996 Nucleated RBC (Bld) [#/Vol] 10*3/uL Normal <0.01 [facility] Comment on above: Order Comment: Speci men Type: BLOOD SPECIMEN Ordering Facility: [facility] Address: [address] [place] [address] Performed By: #### 5 7021-8 #### [facility] CLIA [id number] [address] [place] [address] 70804 Nucleated RBC/100 WBC (Bld) [Ratio] 0.0 /100 WBC Normal [facility] Comment on above: Order Comment: Speci men Type: BLOOD SPECIMEN Ordering Facility: [facility] Address: [address] [place], [place] [id number] Performed By: #### 5 7021-8 #### [facility] CLIA [id number] [address] [place] [address] 93361 Platelet mean volume (Bld) [Entitic vol] 9.1 fL Normal 9.0-12.7 [facility] Comment on above: Order Comment: Speci men Type: BLOOD SPECIMEN Ordering Facility: [facility] Address: [address] [place], [place] [id number] Performed By: #### 5 7021-8 #### [facility] CLIA [id number] [address] [place] [address] 09269 Platelets (Bld) [#/Vol] 190 10*3/uL Normal 150-400 [facility] Comment on above: Order Comment: Speci men Type: BLOOD SPECIMEN Ordering Facility: [facility] Address: [address] [place] [address] Performed By: #### 5 7021-8 #### [facility] CLIA [id number] [address] [place] [address] 31951 RBC (Bld) [#/Vol] 4.35 10*6/uL Normal 3.90-5.20 [facility] Comment on above: Order Comment: Speci men Type: BLOOD SPECIMEN Ordering Facility: [facility] Address: [address] [place], [place] [phone] Performed By: #### 5 7021-8 #### [facility] CLIA [id number] [address] [place] [address] 69632 WBC (Bld) [#/Vol] 7.68 10*3/uL Normal 3.70-11.00 [facility] Comment on above: Order Comment: Speci men Type: BLOOD SPECIMEN Ordering Facility: [facility] Address: [address] [place], [place] [address] Performed By: #### 5 7021-8 #### [facility] CLIA [id number] [address] [place], [place] [address] CEA SerPl-ncon 12-21-2021 Carcinoembryonic Ag [Mass/Vol] 3.8 ng/mL High <=2.9 [facility] Comment on above: Order Comment: Speci men Type: BLOOD SPECIMEN Ordering Facility: [facility] Address: [address] [place] [address] Result Comment: Carc inoembryonic antigen test is used as an aid in monitoring response to treatment or recurrence in patients with established colorectal, breast, lung, prostatic, pancreatic, and ovarian carcinomas. Clinical correlation is required. The Carcinoembryonic antigen test was performed using the [employer] DXI paramagnetic particle chemiluminescent immunoassay method. Results obtained with different assay methods or kits cannot be used interchangeably. Performed By: #### 2 039-6 #### [facility] CLIA [id number] [address] [place] [address] OF [facility] Comprehensive metabolic 2000 panelon 12-21-2021 Albumin [Mass/Vol] 4.2 g/dL Normal 3.9-4.9 [facility] Comment on above: Order Comment: Speci men Type: BLOOD SPECIMEN Ordering Facility: [facility] Address: [address] [place] [address] Performed By: #### 2 4323-8 #### [facility] CLIA [id number] [address] [place] [address] 82055 ALP [Catalytic activity/Vol] 86 U/L Normal 34-123 [facility] Comment on above: Order Comment: Speci men Type: BLOOD SPECIMEN Ordering Facility: [facility] Address: [address] [place] [address] Performed By: #### 2 4323-8 #### [facility] CLIA [id number] [address] [place] [address] 11604 ALT [Catalytic activity/Vol] 15 U/L Normal 7-38 [facility] Comment on above: Order Comment: Speci men Type: BLOOD SPECIMEN Ordering Facility: [facility] Address: [address] [place] [address] Performed By: #### 2 4323-8 #### [facility] CLIA [id number] [address] [place] [address] Anion gap [Moles/Vol] 7 mmol/L Low 9-18 [facility] Comment on above: Order Comment: Speci men Type: BLOOD SPECIMEN Ordering Facility: [facility] Address: [address] [place] [address] Performed By: #### 2 4323-8 #### [facility] CLIA [id number] [address] [place] [address] 65293 AST [Catalytic activity/Vol] 18 U/L Normal 13-35 [facility] Comment on above: Order Comment: Speci men Type: BLOOD SPECIMEN Ordering Facility: [facility] Address: [address] [place] [address] Performed By: #### 2 4323-8 #### [facility] CLIA [id number] [address] [place] [address] 89393 Bilirubin [Mass/Vol] 1.0 mg/dL Normal 0.2-1.3 [facility] Comment on above: Order Comment: Speci men Type: BLOOD SPECIMEN Ordering Facility: [facility] Address: [address] [place] [address] Performed By: #### 2 4323-8 #### [facility] CLIA [id number] [address] [place] [address] 88666 Calcium [Mass/Vol] 9.6 mg/dL Normal 8.5-10.2 [facility] Comment on above: Order Comment: Speci men Type: BLOOD SPECIMEN Ordering Facility: [facility] Address: [address] [place] [id number] Performed By: #### 2 4323-8 #### [facility] CLIA [id number] [address] [place] [address] 19236 Chloride [Moles/Vol] 103 mmol/L Normal 97-105 [facility] Comment on above: Order Comment: Speci men Type: BLOOD SPECIMEN Ordering Facility: [facility] Address: [address] [place] [address] Performed By: #### 2 4323-8 #### [facility] CLIA [id number] [address] [place] [address] CO2 [Moles/Vol] 30 mmol/L Normal 22-30 [facility] Comment on above: Order Comment: Speci men Type: BLOOD SPECIMEN Ordering Facility: [facility] Address: [address] [place] [address] Performed By: #### 2 4323-8 #### [facility] CLIA [id number] [address] [place] [address] 44268 Creatinine [Mass/Vol] 0.79 mg/dL Normal 0.58-0.96 [facility] Comment on above: Order Comment: Speci men Type: BLOOD SPECIMEN Ordering Facility: [facility] Address: [address] [place] [address] Performed By: #### 2 4323-8 #### [facility] CLIA [id number] [address] [place] [address] 86654 ESTIMATED GLOMERULAR FILTRATION RATE 80 mL/min/1.73m??? Normal >=60 [facility] Comment on above: Order Comment: Speci men Type: BLOOD SPECIMEN Ordering Facility: [facility] Address: [address] [place] [address] Result Comment: Christi mated Glomerular Filtration Rate [...] GFR. Performed By: #### 2 4323-8 #### [facility] CLIA [id number] [address] [place] [address] 32400 Glucose [Mass/Vol] 171 mg/dL High 74-99 [facility] Comment on above: Order Comment: Landy riojas Type: BLOOD SPECIMEN Ordering Facility: [facility] Address: [address] [place], [place] [phone] Result Comment: The [place] Diabetes Association (ADA) provides guidance for cutoff [...] Standards of Medical Care in Diabetes 2016, [place] [employer]. Diabetes Care. 2016.39(Suppl 1). Performed By: #### 2 4323-8 #### [facility] CLIA [id number] [address] [place] [address] 54516 Potassium [Moles/Vol] 3.8 mmol/L Normal 3.7-5.1 [facility] Comment on above: Order Comment: Landy riojas Type: BLOOD SPECIMEN Ordering Facility: [facility] Address: [address] [place], [place] [address] Performed By: #### 2 4323-8 #### [facility] CLIA [id number] [address] [place] [address] 45694 Sodium [Moles/Vol] 140 mmol/L Normal 136-144 [facility] Comment on above: Order Comment: Landy riojas Type: BLOOD SPECIMEN Ordering Facility: [facility] Address: [address] [phone] Performed By: #### 2 4323-8 #### [facility] CLIA [id number] [address] [place] [address] 54367 Urea nitrogen [Mass/Vol] 10 mg/dL Normal 7-21 [facility] Comment on above: Order Comment: Landy riojas Type: BLOOD SPECIMEN Ordering Facility: [facility] Address: [address] [place], [place] [address] Performed By: #### 2 4323-8 #### [facility] CLIA [id number] [address] [place] [address]5988 IMMUNOFIXATION SCREEN, SERUM on 12-21-2021 MPA RESULT No M protein is identified. Normal No M protein is identified. [facility] Comment on above: Order Comment: Speci men Type: BLOOD SPECIMENOrdering Facility: [facility] Address: [address] [place], [place] [id number] Performed By: #### I FESC ####[facility] [id number] [place] [address] [place] STAFF REVIEW (MPA) Reviewed by Juli Wagner MD [facility] Comment on above: Order Comment: Speci men Type: BLOOD SPECIMENOrdering Facility: [facility] Address: [address] [place], [place] [id number] Performed By: #### I FES ####[facility] [id number] [place] [address] [place] IMMUNOGLOBULINS GAMon 2021 IgA [Mass/Vol] 234 mg/dL Normal 70-400 [facility] Comment on above: Order Comment: Speci men Type: BLOOD SPECIMEN Ordering Facility: [facility] Address: [address] [place], [place] [id number] Performed By: #### S ERIMM #### [facility] CLIA [id number] [address] [place] [address] [place] IgG [Mass/Vol] 685 mg/dL Low 700-1600 [facility] Comment on above: Order Comment: Speci men Type: BLOOD SPECIMEN Ordering Facility: [facility] Address: [address] [place] [address] Performed By: #### S ERIMM #### [facility] CLIA [id number] [place] IgM [Mass/Vol] 32 mg/dL Low 40-230 [facility] Comment on above: Order Comment: Landy riojas Type: BLOOD SPECIMEN Ordering Facility: [facility] Address: [address] [place] [address] Performed By: #### S LATRELLM #### [facility] CLIA [id number] [address] [place] [address] [place] KAPPA/BAILEY,FREE,SERon 2021 Immunoglobulin light chains.kappa.free (S) [Mass/Vol] 20.8 mg/L High 3.3-19.4 [facility] Comment on above: Order Comment: Landy riojas Type: BLOOD SPECIMENOrdering Facility: [facility] Address: [address] [place] [address] Result Comment: Rare ly, increased serum free light chains levels may not be detected or accurately quantified due to prozone phenomenon or in high viscosity samples using this immunoturbidimetric assay. Correlation with other laboratory results and clinical findings is recommended. The [place] Free Light Chain was performed using the [employer] immunoturbidimetric method. Result obtained with different assay methods or kits cannot be used interchangeably. Performed By: #### K LFRS ####[facility] [id number] [place] [address] [place] Immunoglobulin light chains.kappa/Immunog lobulin light chains.lambda (S) [Mass ratio] 0.99 Normal 0.26-1.65 [facility] Comment on above: Order Comment: Landy riojas Type: BLOOD SPECIMENOrdering Facility: [facility] Address: [address] [place] [address] Performed By: #### K LFRS ####[facility] [id number] [place] [address] [place] Immunoglobulin light chains.lambda.free [Mass/Vol] 21.1 mg/L Normal 5.7-26.3 [facility] Comment on above: Order Comment: Speci men Type: BLOOD SPECIMENOrdering Facility: [facility] Address: [address] [place] [address] Result Comment: Rare ly, increased serum free [...] used interchangeably. Performed By: #### K LFRS ####[facility] [id number] [address] [place] PROTEIN ELECTROPHORESIS SERU M (P)on 12-21-2021 Albumin [Mass/Vol] 3.79 g/dL Normal 3.37-4.23 [facility] Comment on above: Order Comment: Speci men Type: BLOOD SPECIMENOrdering Facility: [facility] Address: [address] [place] [address] Performed By: #### L [id number] ####[facility] [id number] [address] [place] Alpha 1 globulin Elph [Mass/Vol] 0.25 g/dL Normal 0.18-0.31 [facility] Comment on above: Order Comment: Speci men Type: BLOOD SPECIMENOrdering Facility: [facility] Address: [address] [place] [address] Performed By: #### L [id number] ####[facility] [id number] [address] [place] Alpha 2 globulin Elph [Mass/Vol] 0.74 g/dL Normal 0.52-0.97 [facility] Comment on above: Order Comment: Speci men Type: BLOOD SPECIMENOrdering Facility: [facility] Address: [address] [place] [address] Performed By: #### L [id number] ####[facility] [id number] [place] [address] [place] Beta globulin Elph [Mass/Vol] 0.91 g/dL Normal 0.84-1.36 [facility] Comment on above: Order Comment: Speci men Type: BLOOD SPECIMENOrdering Facility: [facility] Address: [address] [place] [address] Performed By: #### L [id number] ####[facility] [id number] [place] [address] [place] Gamma globulin Elph (Body fld) [Mass fraction] 0.72 g/dL Normal 0.70-1.44 [facility] Comment on above: Order Comment: Speci men Type: BLOOD SPECIMENOrdering Facility: [facility] Address: [address] [place] [address] Performed By: #### L [id number] ####[facility] [id number] [address] [place] M-PROTEIN LOCATION Normal [facility] Comment on above: Order Comment: Speci men Type: BLOOD SPECIMENOrdering Facility: [facility] Address: [address] [place] [address] Result Comment: Not Applicable. Performed By: #### L [id number] ####[facility] [id number] [place] [address] [place] Protein Fractions [Interp] No definitive M protein is identified on protein electrophoresis. Normal No definitive M protein is identified on protein electrophoresi s. [facility] Comment on above: Order Comment: Speci men Type: BLOOD SPECIMENOrdering Facility: [facility] [facility] Address: [address] [place] [address] Performed By: #### L [id number] ####[facility] LABIA [id number] [place] [address] [place] Protein.monoclonal Elph [Mass/Vol] 0.00 g/dL Normal <=0.00 [facility] Comment on above: Order Comment: Speci men Type: BLOOD SPECIMENOrdering Facility: [facility] Address: [address] [place] [address] Performed By: #### L [id number] ####[facility] LABCLIA [id number] [place] [address] [place] SPE STAFF REVIEW Reviewed by Juli Wagner MD [facility] Comment on above: Order Comment: Speci men Type: BLOOD SPECIMENOrdering Facility: [facility] Address: [address] [place] [address] Performed By: #### L [id number] ####[facility] LABCLIA [id number] [place] [address] [place] Prot SerPl-mCncon 12-21-2021 Protein [Mass/Vol] 6.4 g/dL Normal 6.3-8.0 [facility] Comment on above: Order Comment: Speci men Type: BLOOD SPECIMEN Ordering Facility: [facility] Address: [address] [place] [address] Performed By: #### 2 885-2 #### [facility] CLIA [id number] [address] [place] [address] [place] Performed By: #### 2 4323-8 #### [facility] CLIA [id number] [address] [place] [address] Glucose Poct Glucometerson 0 08-23-2021 Commemt1 Glu2: Cleaned Meter Normal [facility] Comment on above: Result Comment: PERF ORMED BY: [facility] [address] [place] [address] PATHOLOGIST TOOL DRAWING CHECKER CHEN RIVER M.D. Performed By: #### G LULS #### Point of Care testing , Glucose [Mass/Vol] 136 mg/dL Normal [facility] Comment on above: Result Comment: [place] om Glucose Reference Range is dependent on [...] developed and its performance characteristic determined by [employer] and validated at [facility]. This test has not been [...] for SARS Antigen by MAXIMILIANO PERFORMED BY: [facility] [place] [address] PATHOLOGIST TOOL DRAWING CHECKER CHEN RVIER M.D. [facility] Comment on above: Performed By: #### S OFMEL, COVID-19 JODIE #### [facility] [id number] [facility] Jodie Ag Negativeon 08-20-19 Jodie Ag Negative Negative Normal Negative [facility] Comment on above: Result Comment: This is a duplicate Jodie SARS Antigen (MAXIMILIANO) result to be used for statistical tracking purpose only. PERFORMED BY: [facility] [address] [facility] [place] [address] PATHOLOGIST TOOL DRAWING CHECKER CHEN RIVER M.D. Performed By: #### S OFIANEG, COVID-19 JODIE #### [facility] [address] MRI CSPINE WO CONon 08-05-19 MRI [...] SID GALDAMEZ Date: 2021-08-04 14:38 Normal [facility] MICROALBUMIN, RAND URon 05-2 mALB 1.3 mg/L Normal <=30.0 [facility] Comment on above: Performed By: #### M ALBR #### [facility] Laboratory [address] [address] [address] Linn Leone TSHon 07-29-2021 TSH 2.670 uIU/mL Normal 0.358-3.740 [facility] Comment on above: Performed By: #### T SH #### [facility] Laboratory [address] [address] [address] Linn Leone TSH RANGE SEE BELOW Normal [facility] Comment on above: Result Comment: <0.3 4 UIU/ml HYPERTHYROID 0.34-5.60 UIU/ml EUTHYROID >5.60 UIU/ml HYPOTHYROID Performed By: #### T SH #### [facility] Laboratory [address] [place] [address] Dr. Linn Leone XR CSPINE 2_3 VIEWSon [...] JIMY LAMB Date: 2021-07-29 17:40 Normal [facility] CBC W Auto Differential pane l (Bld)on 06-29-2021 Abs Immature Gran 0.06 k/uL <0.10 k/uL [facility] Basophils (Bld) [#/Vol] 0.04 10*3/uL <0.11 k/uL [facility] Basophils/100 WBC (Bld) 0.5 % [facility] Differential cell count method Nom (Bld) Auto [facility] Eosinophils (Bld) [#/Vol] 0.44 10*3/uL <0.46 k/uL [facility] Eosinophils/100 WBC (Bld) 5.8 % [facility] Erythrocyte distribution width (RBC) [Ratio] 14.7 % 11.5 - 15.0 % [facility] Hematocrit (Bld) [Volume fraction] 42.2 % 36.0 - 46.0 % [facility] Hemoglobin (Bld) [Mass/Vol] 13.9 g/dL 11.5 - 15.5 g/dL [facility] Immature Gran % 0.8 % [facility] Lymphocytes (Bld) [#/Vol] 1.69 10*3/uL 1.00 - 4.00 k/uL [facility] Lymphocytes/100 WBC (Bld) 22.3 % [facility] MCH (RBC) [Entitic mass] 30.8 pg 26.0 - 34.0 pg [facility] MCHC (RBC) [Mass/Vol] 32.9 g/dL 30.5 - 36.0 g/dL [facility] MCV (RBC) [Entitic vol] 93.4 fL 80.0 - 100.0 fL [facility] Monocytes (Bld) [#/Vol] 0.77 10*3/uL <0.87 k/uL [facility] Monocytes/100 WBC (Bld) 10.2 % [facility] Neutrophils (Bld) [#/Vol] 4.58 10*3/uL 1.45 - 7.50 k/uL [facility] Neutrophils/100 WBC (Bld) 60.4 % [facility] Nucleated RBC (Bld) [#/Vol] 10*3/uL <0.01 k/uL [facility] Nucleated RBC/100 WBC (Bld) [Ratio] 0.0 /100 WBC [facility] Platelet mean volume (Bld) [Entitic vol] 8.9 fL Low 9.0 - 12.7 fL [facility] Platelets (Bld) [#/Vol] 200 10*3/uL 150 - 400 k/uL [facility] RBC (Bld) [#/Vol] 4.52 10*6/uL 3.90 - 5.2 0 m/uL [facility] WBC (Bld) [#/Vol] 7.58 10*3/uL 3.70 - 11. 00 k/uL [facility] Ambulatory Clinical Summaryo n 10-08-2019 Ambulatory Clinical Summary {[id number]}CD:[id number] Normal [facility] General Surgery Office/Clini c Noteon 10-08-2019 [...] Family History Cardiac arrest: Mother and Father. [facility] Comment on above: Result Comment: Elec tronically Signed By: SUMAYA PATTEN, Victor Hugo Flores\Date and Time Signed: 10/08/19 16:33 EDT Operative Reporton 0 Operative Report [id number] 0CD:127 [facility] Lab Reportson 09-30-2019 Lab Reports [id number]#[id number] 0CD:127 [facility] ECG 12-Leadon 09-26-2019 ECG 12-Lead [id number]. [id number]#1.0 0CD:127 [facility] Consenton 09-22-2019 Consent [id number]#[id number] 0CD:127 [facility] Facesheeton 09-18-2019 Facesheet [id number] 0CD:127 Normal [facility] Ambulatory Clinical Summaryo n 09-16-2019 Ambulatory Clinical Summary {[id number]}CD:[id number] Normal [facility] Physician Referralon 020 Physician Referral [id number] CD:127 Normal [facility] C REACTIVE PROTEINon 017 C reactive protein (CRP) 16.4 mg/L High 0.0-7.0 [facility] Comment on above: Performed By: #### 6 1405, 66657 ####[facility] CPKon 01-24-2017 Creatine kinase (CK) 54 U/L Normal 30-223 [facility] Comment on above: Performed By: #### 2 5508, 11826, 72341 ####[facility] CYCLIC CITRULLINATED PEPTIDE [place] [id number] 01-24-2017 CYCLIC CIT PEP 2 Units Normal 0-19 [facility] Comment on above: Result Comment: INTE RPRETIVE [...] results should bemonitored and testing repeated.Performed by [facility],[address] [place] [address],[place] [address] pkp.[employer], Stewart Rollins MD - Lab. Director HAND LEFT 3 VWSon 01-24-2017 HAND LEFT 3 VWS [facility] [address]pwujql[address] [place] [address] ========Patient Name: BILLIE LIRIANO : 1950ex: FAge: Race: WhiteMRN: [id number]. Location: 264Patient Status: DVisit #: [id number] Date: 01/24/2017 4:50:00 PMCompleted Date: 01/24/2017 05:00 PMRequesting Provider: DALLAS BERNSTEIN I Attending Provider: DALLAS BERNSTEIN I Report Copy To: UNKNOWN, PHYSICIAN Signs & Symptoms: M06.9 Rheumatoid arthritis, unspecified [id number]: AthenaComments: , , Please evaluate for erosions , , , Ordering Provider - DALLAS BERNSTEIN MD , Rendering Provider - DALLAS BERNSTEIN MD , Supervising Provider - DALLAS BERNSTEIN MD , Exam: HAND LEFT 3 VWSAccession #: [id number] HAND RIGHT 3 VWS, HAND LEFT 3 [...] osteoarthritis Electronically signed by:Tae Molina. Transcribed by: [email or web address], User Resident: Electronically Signed by: TAE MOLINA @ 01/25/2017 07:56 AM Normal [facility] Comment on above: Order Comment: , , P lease evaluate for erosions , , , Ordering Provider Gutierrez BERNSTEIN MD , Rendering Provider Gutierrez BERNSTEIN MD , Supervising Provider Gutierrez BERNSTEIN MD , HAND RIGHT 3 [facility] 7 HAND RIGHT 3 [facility] Somvnby[address] [place] [address] ========Patient Name: BILLIE LIRIANO : 1950ex: FAge: Race: WhiteMRN: [id number]. Location: 264Patient Status: DVisit #: [id number] Date: 01/24/2017 4:50:00 PMCompleted Date: 01/24/2017 05:00 PMRequesting Provider: DALLAS BERNSTEIN I Attending Provider: DALLAS BERNSTEIN I Report Copy To: UNKNOWN, PHYSICIAN Signs & Symptoms: M06.9 Rheumatoid arthritis, unspecified A58Wgtrqot: AthenaComments: , , Please evaluate for erosions , , , Ordering Provider Gutierrez BERNSTEIN MD , Rendering Provider Gutierrez BERNSTEIN MD , Supervising Provider Gutierrez BERNSTEIN MD , Exam: HAND RIGHT 3 VWSAccession #: [id number] HAND RIGHT 3 VWS, HAND LEFT 3 [...] osteoarthritis Electronically signed by:Tae Molina. Transcribed by: [email or web address], User Resident: Electronically Signed by: TAE MOLINA @ 01/25/2017 07:56 AM Normal [facility] Comment on above: Order Comment: , , P lease evaluate for erosions , , , Ordering Ariel BERNSTEIN MD , Rendering Ariel BERNSTEIN MD , Supervising Ariel BERNSTEIN MD , HEPATITIS C ANTIBODYon 01-24 ANTI-HCV NONREACTIVE Normal NONREACTIVE [facility] Comment on above: Performed By: #### 4 1661, 48335 ####[facility] [place] [address], [facility] PROTEIN ELECT Rudi 01-24-2017 Protein 6.6 g/dL Normal 6.0-8.3 [facility] Comment on above: Performed By: #### 4 1661, 84714 ####[facility] PROTEIN ELECT fractions of alpha 1 , alpha 2, beta and gamma globulins. Normal [facility] Comment on above: Performed By: #### 4 1661, 66770 ####[facility] RHEUMATOID FACTOR SERUMon RA <20 Normal 0-20 [facility] Comment on above: Performed By: #### 6 1405, 41510 ####[facility] SEDIMENTATION RATEon 017 SED RATE 42 mm/hr High 0-20 [facility] Comment on above: Performed By: #### 5 6506 ####[facility] TSHon 01-24-2017 Thyroid stimulating hormone (TSH) 2.61 MICRO-IU/ML Normal 0.34-5.60 [facility] Comment on above: Performed By: #### 2 5508, 72854, 41716 ####[facility] VITAMIN D 25-HYDROXYon 01-24 VITAMIN D 25-OH 50.6 ng/mL Normal 30.0-80.0 [facility] Comment on above: Result Comment: >80. 0 Toxicity possible Performed By: #### 2 3048, 35340, 88146 ####[facility] Vital Signs Date Time Vital Sign Value Performing Clinician Facility 10-02-2023 15:32-0400 Body height 157.48 cm [facility] 10-02-2023 15:32-0400 Body mass index (BMI) [Ratio] 44 kg/m2 [facility] 10-02-2023 15:32-0400 Body weight 109.31 kg [facility] 10-02-2023 15:32-0400 Diastolic blood pressure 50 mm[Hg] [facility] 10-02-2023 15:32-0400 Heart rate 66 /min [facility] 10-02-2023 15:32-0400 Respiratory rate 12 /min [facility] 10-02-2023 15:32-0400 Systolic blood pressure 118 mm[Hg] [facility] 04-05-2023 10:00-0500 Body height 157.48 cm Bg Kramer Other [facility] [employer] Other 04-05-2023 10:00-0500 Body mass index (BMI) [Ratio] 44.44 kg/m2 Bg Kramer Other [employer] [facility] [employer] Other 04-05-2023 10:00-0500 Body temperature 97.8 [degF] Bg Kramer Other [employer] Other 04-05-2023 10:00-0500 Body weight 110.22 kg Bg Kramer Other [employer] Other 04-05-2023 10:00-0500 Diastolic blood pressure 86 mm[Hg] Bg Kramer Other [employer] Other 04-05-2023 10:00-0500 SaO2% (BldA) [Mass fraction] 99 % Bg Kramer Other [employer] Other 04-05-2023 10:00-0500 Systolic blood pressure 152 mm[Hg] Bg Kramer Other [employer] Other 03-30-2023 13:30-0500 Body height 157.48 cm Roby Ball Other [employer] Other 03-30-2023 13:30-0500 Body mass index (BMI) [Ratio] 44.44 kg/m2 Roby Ball Other [employer] Other 03-30-2023 13:30-0500 Body weight 110.22 kg Roby Ball Other [employer] Other 03-30-2023 13:30-0500 Diastolic blood pressure 85 mm[Hg] Roby Ball Other [employer] Other 03-30-2023 13:30-0500 Respiratory rate 12 /min Roby Ball Other [employer] Other 03-30-2023 13:30-0500 Systolic blood pressure 135 mm[Hg] Roby Ball Other [employer] Other 11-28-2022 15:00-0400 Body height 157.48 cm Roby Ball Other [employer] Other 11-28-2022 15:00-0400 Body mass index (BMI) [Ratio] 43.93 kg/m2 Roby Ball Other [employer] Other 11-28-2022 15:00-0400 Body weight 108.95 kg Roby Ball Other [employer] Other 11-28-2022 15:00-0400 Diastolic blood pressure 70 mm[Hg] Roby Ball Other [employer] Other 11-28-2022 15:00-0400 Respiratory rate 12 /min Roby Ball Other [employer] Other 11-28-2022 15:00-0400 Systolic blood pressure 130 mm[Hg] Roby Ball Other [employer] Other 09-13-2022 15:45-0400 Body height 157.48 cm Roby Ball Other [employer] Other 09-13-2022 15:45-0400 Body mass index (BMI) [Ratio] 45.5 kg/m2 Roby Ball Other [employer] Other 09-13-2022 15:45-0400 Body weight 112.86 kg Roby Ball Other [employer] Other 09-13-2022 15:45-0400 Diastolic blood pressure 76 mm[Hg] Roby Ball Other [employer] Other 09-13-2022 15:45-0400 Respiratory rate 16 /min Roby Ball Other [employer] Other 09-13-2022 15:45-0400 Systolic blood pressure 124 mm[Hg] Roby Ball Other [employer] Other 07-28-2022 14:00-0400 Body height 157.48 cm Roby Ball Other [employer] Other 07-28-2022 14:00-0400 Body mass index (BMI) [Ratio] 45.9 kg/m2 Roby Ball Other [employer] Other 07-28-2022 14:00-0400 Body weight 113.85 kg Roby Ball Other [employer] Other 07-28-2022 14:00-0400 Diastolic blood pressure 68 mm[Hg] Roby Ball Other [employer] Other 07-28-2022 14:00-0400 Respiratory rate 12 /min Roby Ball Other [employer] Other 07-28-2022 14:00-0400 Systolic blood pressure 142 mm[Hg] Roby Ball Other [employer] Other 07-05-2022 14:30-0400 Body height 157.5 cm aRchael Bruce MD Work Phone: [facility] 07-05-2022 14:30-0400 Body temperature 97 [degF] Rachael Bruce MD Work Phone: [facility] 07-05-2022 14:30-0400 Body weight 114.13 kg Rachael Bruce MD Work Phone: [facility] 07-05-2022 14:30-0400 Diastolic blood pressure 59 mm[Hg] Rachael Bruce MD Work Phone: [facility] 07-05-2022 14:30-0400 Heart rate 73 /min Rachael Bruce MD Work Phone: [facility] 07-05-2022 14:30-0400 Respiratory rate 18 /min Rachael Bruce MD Work Phone: [facility] 07-05-2022 14:30-0400 SaO2% (BldA) [Mass fraction] 100 % Rachael Bruce MD Work Phone: [facility] 07-05-2022 14:30-0400 Systolic blood pressure 184 mm[Hg] Rachael Bruce MD Work Phone: [facility] 05-05-2022 14:00-0500 Body height 157.48 cm Roby Ball Other [employer] Other 05-05-2022 14:00-0500 Body mass index (BMI) [Ratio] 46.12 kg/m2 Roby Ball Other [employer] Other 05-05-2022 14:00-0500 Body weight 114.4 kg Roby Ball Other [employer] Other 05-05-2022 14:00-0500 Diastolic blood pressure 70 mm[Hg] Roby Ball Other [employer] Other 05-05-2022 14:00-0500 Respiratory rate 16 /min Roby Ball Other [employer] Other 05-05-2022 14:00-0500 Systolic blood pressure 122 mm[Hg] Roby Ball Other [employer] Other 01-04-2022 14:22-0400 Body height 157.5 cm Rachael Bruce MD Work Phone: [facility] 01-04-2022 14:22-0400 Body temperature 97.2 [degF] Rachael Bruce MD Work Phone: [facility] 01-04-2022 14:22-0400 Body weight 113.94 kg Rachael Bruce MD Work Phone: [facility] 01-04-2022 14:22-0400 Diastolic blood pressure 78 mm[Hg] Rachael Bruce MD Work Phone: [facility] 01-04-2022 14:22-0400 Heart rate 89 /min Rachael Bruce MD Work Phone: [facility] 01-04-2022 14:22-0400 Respiratory rate 18 /min Rachael Bruce MD Work Phone: [facility] 01-04-2022 14:22-0400 SaO2% (BldA) [Mass fraction] 96 % Rachael Bruce MD Work Phone: [facility] 01-04-2022 14:22-0400 Systolic blood pressure 152 mm[Hg] Rachael Bruce MD Work Phone: [facility] 07-06-2021 14:17-0400 Body height 157.5 cm Rachael Bruce MD Work Phone: [facility] 07-06-2021 14:17-0400 Body temperature 98.29 [degF] Rachael Bruce MD Work Phone: [facility] 07-06-2021 14:17-0400 Body weight 112.95 kg Rachael Bruce MD Work Phone: [facility] 07-06-2021 14:17-0400 Diastolic blood pressure 78 mm[Hg] Rachael Bruce MD Work Phone: [facility] 07-06-2021 14:17-0400 Heart rate 78 /min Rachael Bruce MD Work Phone: [facility] 07-06-2021 14:17-0400 Respiratory rate 18 /min Rachael Bruce MD Work Phone: [facility] 07-06-2021 14:17-0400 SaO2% (BldA) [Mass fraction] 99 % Rachael Bruce MD Work Phone: [facility] 07-06-2021 14:17-0400 Systolic blood pressure 157 mm[Hg] Rachael Bruce MD Work Phone: [facility] Encounters Encounter Date Encounter Type Care Provider Facility Start: 10-02-2023 End: 10-02-2023 ambulatory [facility] Work Phone: Start: 10-02-2023 End: 10-02-2023 Patient encounter procedure [facility] Work Phone: Start: 07-25-2023 Non-patient / Non-visit [facility] Work Phone: Start: 04-05-2023 End: 04-05-2023 ambulatory Bg Kramer Other [employer] Other Start: 04-05-2023 FQ visit new patient Bg Ibarra tirsoadrian [facility] Vascular Surgery Start: 04-01-2023 End: 04-01-2023 ambulatory Roby Dumont Other [employer] Other Start: 04-01-2023 Telephone encounter Roby Dumont [facility] Start: 03-30-2023 End: 03-30-2023 ambulatory Roby Dumont Other [employer] Other Start: 03-30-2023 Office outpatient vi sit 25 minutes Roby Ball [facility] Start: 12-05-2022 End: 12-05-2022 ambulatory Roby Natan Other [employer] Other Start: 12-05-2022 Telephone encounter Roby Dumont [facility] Start: 11-28-2022 End: 11-28-2022 ambulatory Roby Ball Other [employer] Other Start: 11-28-2022 Office outpatient vi sit 25 minutes Roby Ball [facility] Start: 09-13-2022 End: 09-13-2022 ambulatory Roby Ball Other [employer] Other Start: 09-13-2022 Office outpatient vi sit 15 minutes Roby Ball [facility] Start: 09-13-2022 Telephone encounter Roby Ball [facility] Start: 07-28-2022 End: 07-28-2022 ambulatory Roby Ball Other [employer] Other Start: 07-28-2022 Patient encounter procedure Roby Ball [facility] Start: 07-05-2022 End: 07-05-2022 ambulatory ROBY DUMONT Facility:[facility] Start: 07-05-2022 End: 07-05-2022 ambulatory Rachael [...] 05-05-2022 End: 05-05-2022 ambulatory Roby Dumont Other [employer] Other Start: 05-05-2022 Office outpatient vi sit 25 minutes Roby Dumont [facility] Start: 01-13-2022 End: 01-14-[address] ROBY DUMONT Facility:[facility] Start: 01-05-2022 Telephone encounter Josué Garcia Hematology/Oncology Comment on above: Results Start: 01-04-2022 End: 01-04-2022 ambulatory ROBY DUMONT Facility:[facility] Start: 01-04-2022 End: 01-04-2022 ambulatory Rachael Bruce MD Work Phone: Hematology/Oncology Comment on above: Malignant neoplasm o f colon, unspecified part of colon (HCC) (Primary Dx); Neuropathy Start: 01-04-2022 End: 01-04-2022 Patient encounter procedure Rachael Bruce MD Work Phone: [facility] Start: 12-21-2021 End: 12-21-2021 ambulatory ROBY DUMONT Facility:[facility] Start: 08-12-2021 End: 11-19-[address] [...] bishop MD [facility] Comment on above: Referral Information (GI) Start: 06-29-2021 Telephone encounter Susanna Chavez RN Hematology/Oncology Comment on above: Results Start: 06-28-2021 Telephone encounter Rachael bishop MD Work Phone: Hematology/Oncology Comment on above: Lab Orders Start: 01-24-2017 End: 01-25-2017 Ambulatory JASIELM Ni BERNSTEIN Facility:[facility] Start: 12-14-2016 End: 12-15-2016 Ambulatory DEFAULT PHYSICIAN Facility:[facility] Procedures Date Procedure Procedure Detail Performing Clinician Start: 07-06-2021 Adult depression screening assessment Rachael Bruce MD Work Phone: Start: 01-05-2021 Adult depression screening assessment Susanna Chavez RN Plan of Treatment Date Care Activity Detail Author Start: 07-06-2022 Adult depression screening assessment DEPRESSION SCREENING [facility] Start: 07-05-2022 End: 09-04-2022 Carcinoembryonic Ag [Mass/volume] in Serum or Plasma CEA BLD Lab Routine Malignant neoplasm of colon, unspecified part of colon (HCC) Expected: 07/05/2022 (Approximate), Expires: 09/04/2022 [facility] Work Phone: Comment on above: Expected: 07/05/2022 (Approximate), Expires: 09/04/2022 Start: 07-05-2022 End: 09-04-2022 CBC W Auto Differential panel - Blood CBC + DIFF Lab Routine Malignant neoplasm of colon, unspecified part of colon (HCC) Expected: 07/05/2022 (Approximate), Expires: 09/04/2022 [facility] Work Phone: Comment on above: Expected: 07/05/2022 (Approximate), Expires: 09/04/2022 Start: 07-05-2022 End: 09-04-2022 Comprehensive metabolic 2000 panel - Serum or Plasma COMP METABOLIC PANEL Lab Routine Malignant neoplasm of colon, unspecified part of colon (HCC) Expected: 07/05/2022 (Approximate), Expires: 09/04/2022 [facility] Work Phone: Comment on above: Expected: 07/05/2022 (Approximate), Expires: 09/04/2022 Start: 03-12-2022 ADVANCE DIRECTIVE DISCUSSION ADVANCE DIRECTIVE DISCUSSION [facility] Start: 03-12-2022 DEPRESSION ASSESSMENT DEPRESSION ASS ESSMENT [facility] [facility] Start: 01-05-2022 Adult depression screening assessment DEPRESSION SCREENING [facility] Start: 01-05-2022 End: 03-07-2022 Carcinoembryonic Ag [Mass/volume] in Serum or Plasma CEA BLD Lab Routine Malignant neoplasm of colon, unspecified part of colon (HCC) Expected: 01/05/2022 (Approximate), Expires: 03/07/2022 [facility] Work Phone: Comment on above: Expected: 01/05/2022 (Approximate), Expires: 03/07/2022 Start: 01-05-2022 End: 03-07-2022 CBC W Auto Differential panel - Blood CBC + DIFF Lab Routine Malignant neoplasm of colon, unspecified part of colon (HCC) Expected: 01/05/2022 (Approximate), Expires: 03/07/2022 [facility] Work Phone: Comment on above: Expected: 01/05/2022 (Approximate), Expires: 03/07/2022 Start: 01-05-2022 End: 03-07-2022 Comprehensive metabolic 2000 panel - Serum or Plasma COMP METABOLIC PANEL Lab Routine Malignant neoplasm of colon, unspecified part of colon (HCC) Expected: 01/05/2022 (Approximate), Expires: 03/07/2022 [facility] Work Phone: Comment on above: Expected: 01/05/2022 (Approximate), Expires: 03/07/2022 Start: 01-05-2022 End: 03-07-2022 MISC SEND OUT TST 1 MISC SEND OUT TST 1 Lab Routine Malignant neoplasm of colon, unspecified part of colon (HCC) Expected: 01/05/2022 (Approximate), Expires: 03/07/2022 [facility] Work Phone: Comment on above: Expected: 01/05/2022 (Approximate), Expires: 03/07/2022 Start: 01-05-2022 End: 03-07-2022 MONOCLONAL PROTEIN, SERUM (BLOOD) MONOCLONAL PROTEIN, SERUM (BLOOD) Lab Routine Neuropathy Expected: 01/05/2022 (Approximate), Expires: 03/07/2022 [facility] Work Phone: Comment on above: Expected: 01/05/2022 (Approximate), Expires: 03/07/2022 Start: 01-05-2022 End: 03-07-2022 PROTEIN ELECTROPHORESIS SERUM W/INTERP PROTEIN ELECTROPHORESIS SERUM W/INTERP Lab Routine Neuropathy Expected: 01/05/2022 (Approximate), Expires: 03/07/2022 [facility] Work Phone: Comment on above: Expected: 01/05/2022 (Approximate), Expires: 03/07/2022 Start: 12-29-2021 Hemoglobin A1c/Hemoglobin.total in Blood HBA1C [facility] Start: 06-29-2021 End: 08-29-2021 Hemoglobin A1c/Hemoglobin.total in Blood [facility] Work Phone: Comment on above: Expected: 06/29/2021 , Expires: 08/29/2021 Start: 03-12-2021 ADVANCE DIRECTIVE DISCUSSION ADVANCE DIRECTIVE DISCUSSION [facility] Start: 03-12-2021 DEPRESSION ASSESSMENT DEPRESSION ASS ESSMENT [facility] Start: 02-22-2021 COVID-19 VACCINE (4 - Booster for Pfizer series) COVID-19 VACCINE (4 - Booster for Pfizer series) [facility] Start: 01-10-2018 Hemoglobin A1c/Hemoglobin.total in Blood HBA1C [facility] Start: 12-19-2015 BONE DENSITY BONE DENSITY [facility] Start: 12-19-1995 COLOGUARD (FIT-DNA) COLOGUARD (FIT-D NA) [facility] Start: 12-19-1995 Colonoscopy COLONOSCOPY [facility] Start: 12-19-1995 COLORECTAL CANCER SCREENING COLORECTAL CANCER SCREENING [facility] Start: 12-19-[address] [facility] Start: 12-19-1995 FECAL OCCULT BLOOD FECAL OCCULT BLOO D [facility] Start: 12-19-1995 SIGMOIDOSCOPY SIGMOIDOSCOPY [facility] Start: 1990 Mammography MAMMOGRAM [facility] Start: 1969 Urine microalbumin profile DTAP,TDAP,TD (1 - Tdap) [facility] Start: 1968 ANNUAL PCP TEAM THUMB SEWER JOSE LUIS DISEASE VISIT ANNUAL PCP TEAM CHRONIC DISEASE VISIT [facility] Start: 1968 BP CONTROLLED (<130/80) BP CONTROLLE D (<130/80) [facility] Start: 1968 Hepatitis B surface antibody level LDL CHOLESTEROL [facility] Start: 1968 HEPATITIS C SCREENING HEPATITIS C SC REENING [facility] Start: 1960 3 comp foot exam completed DIABETIC FOOT EXAM [facility] Start: 1960 Hepatitis B screening URINE AL BUMIN:CREATININE RATIO [facility] Start: 1960 Hepatitis C antibody , confirmatory test DILATED RETINAL EXAM [facility] Comprehensive metabo lic 2000 panel - Serum or Plasma [facility] MG Breast - bilatera l Screening [facility] Microalbumin [Mass/volume] in Urine [facility] Immunizations Immunization Date Immunization Notes Care Provider Gareth hendrix 07-24-2022 COVID-19 Pfizer (bivalent) Roby Dumont Other [facility] 12-02-2021 COVID-19 Pfizer (bivalent) Roby Dumont Other [facility] 12-02-2021 influenza, high-dose , quadrivalent vaccine (FLUZONE HIGH DOSE QUADRIVALENT) Rachael Bruce MD Work Phone: [facility] 12-01-2021 influenza, high dose seasonal, preservative-free Roby Dumont Other [facility] [employer] Other 12-01-2021 influenza virus vaccine, unspecified formulation [facility] 05-26-2021 COVID-19 mRNA, Comirnaty (Pfizer) [facility] 12-13-2020 influenza virus vaccine, split virus (incl. purified surface antigen) Roby Dumont Other [facility] [employer] Other 12-13-2020 influenza virus vaccine, unspecified formulation [facility] 11-23-2020 COVID-19 Vaccine Pfi zer - Documentation Purposes Only Roby Dumont Other [facility] 11-15-2020 influenza virus vaccine, split virus (incl. purified surface antigen) Roby Dumont Other [facility] [employer] Other 11-15-2020 influenza virus vaccine, unspecified formulation [facility] 11-12-2020 influenza virus vaccine, unspecified formulation Susanna Chavez [facility] 05-01-2020 COVID-19 vaccine, ag e 12+ yr (PFIZER-BIONTECH - PURPLE TOP) Susanna Chavez RN [facility] 04-10-2020 COVID-19 vaccine, ag e 12+ yr (PFIZER-BIONTECH - PURPLE TOP) Susanna Chavez RN [facility] 12-05-2019 influenza virus vaccine, split virus (incl. purified surface antigen) Roby Dumont Other [facility] [employer] [facility] Other 12-05-2019 influenza virus vaccine, unspecified formulation [facility] 12-05-2019 influenza, high-dose , quadrivalent vaccine (FLUZONE HIGH DOSE QUADRIVALENT) Susanna Chavez RN [facility] 11-28-2019 zoster vaccine recombinant Roby Dumont Other [facility] 11-24-2019 COVID-19 mRNA, Comirnaty (Pfizer) [facility] 11-23-2019 zoster vaccine recombinant Susanna Chavez [facility] 09-20-2019 zoster vaccine recombinant Susanna Chavez [facility] 12-23-2018 influenza, seasonal, injectable Susanna Chavez [facility] 12-16-2018 influenza, high dose seasonal, preservative-free Susanna Chavez [facility] 02-04-2018 pneumococcal polysaccharide vaccine, 23 valent Susanna Chavez [facility] 12-10-2017 influenza virus vaccine, split virus (incl. purified surface antigen) Roby Dumont Other [facility] [employer] Other 12-10-2017 influenza virus vaccine, unspecified formulation [facility] 12-10-2017 Seasonal trivalent influenza vaccine, adjuvanted, preservative free Susanna Chavez [facility] 01-01-2017 influenza virus vaccine, split virus (incl. purified surface antigen) Roby Dumont Other [facility] [employer] Other 01-01-2017 influenza virus vaccine, unspecified formulation [facility] 01-01-2017 influenza, high dose seasonal, preservative-free Susanna Chavez [facility] 03-22-2016 pneumococcal conjuga te vaccine, 13 valent Susanna Chavez [facility] 01-25-2016 influenza, high dose seasonal, preservative-free Susanna Chavez [facility] 12-01-2014 tetanus and diphther ia toxoids, adsorbed, preservative free, for adult use (5 Lf of tetanus toxoid and 2 Lf of diphtheria toxoid) Roby Dumont Other [facility] 11-20-2012 tetanus and diphther ia toxoids, adsorbed, preservative free, for adult use (5 Lf of tetanus toxoid and 2 Lf of diphtheria toxoid) Roby Dumont Other [facility] 12-13-2005 diphtheria, tetanus toxoids and acellular pertussis vaccine, unspecified formulation Roby Dumont Other [facility] Payers Date Payer Category Payer Unknown 2019 Unknown MMO MMO MEDICARE SUPPLEMENT [id number] 2019-Present [phone] [address] [place] [address] Indemnity [id number] 2015 Medicare MEDICARE MEDICAR E A AND B [id number] 2015-Present [phone] [address] [address] [place] [address] Medicare [id number] 2015 Medicare MEDICARE MEDICAR E A AND B [id number] 2015-Present [phone] [place] [address] Medicare [id number] 1959 Medicare [id number] 1959 Unknown [id number] 1950 Unknown [id number] 1950 Unknown [id number] 1950 Unknown [id number] 1950 Unknown [id number] 1950 Unknown [id number] 1950 Unknown [id number] Medicare [id number] Self-pay Self Pay [id number] Unknown [id number] Social History Date Type Detail Facility Start: 07-21-2013 End: 03-30-2023 Tobacco smoking status NHIS Ex-smoker [facility] End: 03-12-1990 History of tobacco use Current smoker [facility] End: 03-12-1990 History of tobacco use Cigarette Smoker [facility] Start: 07-21-2013 End: 01-04-2022 Cigarettes smoked current (pack per day) - Reported 2 [facility] Start: 07-21-2013 End: 01-04-2022 Tobacco use and exposure Smokeless tobacco non-user [facility] Start: 01-05-2021 End: 07-05-2022 Alcohol intake Current drinker of alcohol (finding) [facility] Start: 07-21-2013 History SDOH Alcohol Comment occasionally [facility] Start: 06-15-2017 End: 01-04-2022 Tobacco Comment Quit 05/01/1990 [facility] Start: 1950 Sex Assigned At Not on file [facility] Start: 06-19-2021 End: 01-04-2022 Exposure to SARS-CoV-2 (event) Not sure [facility] History of tobacco use Passive smoker [facility] Sex Assigned At Sex Assigned At [facility] [employer] Other Start: 1950 Sex Assigned At Female [facility] Medical Equipment Procedure Code Equipment Code Equipment [...] result of any breach, fraud, or malicious third-republican actors and no personal patient information was compromised. [employer] Other 01-19-2024 Evaluation note* Encounter Date Diagnosis [...] use, the patient reduces the risk for [place], CVA, HTN, cardiac dysrhythmias and sudden cardiac [...] as well as melena or hematochezia Mar, shelter (current) use of insulin (ICD-10 - Z79.4) Mar, Hx of transient ischemic attack (TIA) (ICD-10 - Z86.73) Mar, Stenosis of right carotid artery (ICD-10 - I65.21) Soft bruit right carotid w/ strong pulsation. Continue secondary prevention measures. Recent carotid US w/ 78% proximal right ICA stenosis - velocities < 125 and ICA/CCA < 2 [employer] Other 09-19-2023 Evaluation note* Encounter Date Diagnosis [...] use, the patient reduces the risk for [place], CVA, HTN, cardiac dysrhythmias and sudden cardiac [...] melena or hematochezia No s/s recurrence Nov, shelter (current) use of insulin (ICD-10 - Z79.4) Reviewed dose and adverse effects. [employer] Other 07-05-2023 Evaluation note* Encounter Date Diagnosis [...] Microalbumin, Dilated eye exam and Foot exam [employer] Other 05-19-2023 Evaluation note* Encounter Date Diagnosis [...] use, the patient reduces the risk for [place], CVA, HTN, cardiac dysrhythmias and sudden cardiac [...] mammogram, encounter for (ICD-10 - Z12.31) July, shelter (current) use of insulin (ICD-10 - Z79.4) [employer] Other 04-26-2023 NoteHNO ID: [id number] Author: Rachael Bruce MD Service: ? Author Type: Physician Type: Progress Notes Filed: 07/05/2022 4:47 PM Note Text: PATIENT NAME: Billie Liriano CLINIC NO.: [id number] ATTENDING PHYSICIAN: Rachael Bruce MD DATE OF [...] Treatment History: 1. While on vacation in [place] developed severe abdominal pain in April 2017. CT at that point noted a large bowel obstruction with colonic mass at the splenic flexure. No metastatic disease was identified and patient had a CEA of 20. At that point underwent resection. 2. Started adjuvant FOLFOX May 2017 while in [place]. Oxaliplatin dose reduced due to toxicity. In [...] Diagnosis Date Colon cancer (HCC) Stage IIB ([id number] COPD (chronic obstructive pulmonary disease) (HCC) Esophagitis GERD (gastroesophageal reflux disease) Hyperlipidemia Lower extremity edema Lumbar spondylosis Menopause Nephrolithiasis OA (osteoarthritis) Obesity PMR (polymyalgia rheumatica) ([facility]) Portacath in place T2DM (type 2 diabetes mellitus) ([facility]) Thyroid disease Social History Tobacco Use Smoking status: Former Packs/day: 2.00 Years: 25.00 Pack years: 50.00 Types: Cigarettes Quit date: 03/12/1990 Years since quittin.3 Passive exposure: Past Smokeless tobacco: Never Tobacco comments: Quit 05/01/1990 Vaping Use Vaping Use: Never used Substance Use Topics Alcohol use: Yes Comment: occasionally Drug use: No FAMILY HISTORY Problem Relation Age of Onset Diabetes Mother Heart Mother 52 [place]. S/P CABG. at 69 from [place] other (Parkinson's [Other]) Mother COPD Mother Coronary [...] intact. Sensation grossly intact. (more content not included)...[facility]04-26-2023 History of Present illness Narrative* Rachael Bruce MD - 07/05/2022 2:55 PM EDT Images from the original note were not included. [id number] ATTENDING PHYSICIAN: Rachael Bruce MD DATE OF [...] Treatment History: 1. While on vacation in [place] developed severe abdominal pain in April 2017. CT at thatpoint noted a large bowel obstruction with colonic mass at the splenic flexure. No metastatic disease was identified and patient had a CEA of 20. At that point underwent resection. 2. Started adjuvant FOLFOX May 2017 while in [place]. Oxaliplatin dose reduced due to toxicity. In [...] Diagnosis Date Colon cancer (HCC) Stage IIB ([id number] COPD (chronic obstructive pulmonary disease) ([facility]) Esophagitis GERD (gastroesophageal reflux disease) Hyperlipidemia Lower extremity edema Lumbar spondylosis Menopause Nephrolithiasis OA (osteoarthritis) Obesity PMR (polymyalgia rheumatica) ([facility]) Portacath in place T2DM (type 2 diabetes mellitus) ([facility]) Thyroid disease Social History Tobacco Use Smoking status: Former Packs/day: 2.00 Years: 25.00 Pack years: 50.00 Types: Cigarettes Quit date: 03/12/1990 Years since quittin.3 Passive exposure: Past Smokeless tobacco: Never Tobacco comments: Quit 05/01/1990 Vaping Use Vaping Use: Never used Substance Use Topics Alcohol use: Yes Comment: occasionally Drug use: No FAMILY HISTORY Problem Relation Age of Onset Diabetes Mother Heart Mother 52 [place]. S/P CABG. at 69 from [place] other (Parkinson's [Other]) Mother COPD Mother Coronary [...] Range Status 07/05/2022 9.5 % Final Abs Craig Date Value Ref Range Status 07/05/2022 0.70 [...] Neuropathy- Unchanged referred to functional medicine at [facility], but she decided that it was difficultto [...] do not hesitate to contact me at [phone]. Rachael Bruce MD Hematology/Medical Oncology [facility] CC: Roby Dumont MD I spent a total of 30 minutes on the date of the service which included preparing to see the patient, [id number] patient care, completing clinical documentation, obtaining and/or reviewing separately obtained history, performing a medically appropriate examination, counseling and educating the pat ient/family/caregiver and ordering medications, tests, or procedures. documented in [facility] Evaluation note* Encounter Date Diagnosis Assessment [...] use, the patient reduces the risk for [place], CVA, HTN, cardiac dysrhythmias and sudden cardiac [...] [ ] Foot exam: [ ] Apr, shelter (current) use of insulin (ICD-10 - Z79.4) [...] secondary prevention measures. Antiplatelet therapy and statin [employer] Other 10-27-2022 Miscellaneous Notes* Telephone Encounter - Josué Hampton RN - 01/05/2022 9:16 AM EDT Pt aware of negative [employer]atera results. She denies any questions or concerns at this time. Josué Hampton RN documented in this encounterMer[facility]10-26-2022 NoteHNO ID: [id number] Author: Rachael Bruce MD Service: ? Author Type: Physician Type: Progress Notes Filed: 01/04/2022 3:16 PM Note Text: PATIENT NAME: Billie Liriano CLINIC NO.: [id number] ATTENDING PHYSICIAN: Rachael Bruce MD DATE OF [...] Treatment History: 1. While on vacation in [place] developed severe abdominal pain in April 2017. CT at that point noted a large bowel obstruction with colonic mass at the splenic flexure. No metastatic disease was identified and patient had a CEA of 20. At that point underwent resection. 2. Started adjuvant FOLFOX May 2017 while in [place]. Oxaliplatin dose reduced due to toxicity. In [...] Diagnosis Date Colon cancer (HCC) Stage IIB ([id number] COPD (chronic obstructive pulmonary disease) (HCC) Esophagitis [...] of Onset Diabetes Mother Heart Mother 52 [place]. S/P CABG. at 69 from [place] other (Parkinson's [Other]) Mother COPD Mother Coronary [...] Date Value 12/21/2021 171 (more content not included)...[facility]10-26-2022 Miscellaneous Notes* Addendum Note - Rachael Bruce MD - 01/04/2022 3:17 PM EDTAddended by: RACHAEL BRUCE on: 01/04/2022 03:17 PM Modules accepted: Orders documented in this encounterMer[facility] History of Present illness Narrative* Rachael Bruce MD - 01/04/2022 2:57 PM EDT Images from the original note were not included. PATIENT NAME: Billie Liriano [facility] NO.: [id number] ATTENDING PHYSICIAN: Rachael Bruce MD DATE OF [...] Treatment History: 1. While on vacation in [place] developed severe abdominal pain in April 2017. CT at thatpoint noted a large bowel obstruction with colonic mass at the splenic flexure. No metastatic disease was identified and patient had a CEA of 20. At that point underwent resection. 2. Started adjuvant FOLFOX May 2017 while in [place]. Oxaliplatin dose reduced due to toxicity. In [...] Diagnosis Date Colon cancer (HCC) Stage IIB ([id number] COPD (chronic obstructive pulmonary disease) (HCC) Esophagitis [...] of Onset Diabetes Mother Heart Mother 52 [place]. S/P CABG. at 69 from [place] other (Parkinson's [Other]) Mother COPD Mother Coronary [...] 12/21/2021 1.70 1.00 - 4.00 k/uL Final Craig% Date Value Ref Range Status 12/21/2021 8.9 % Final Abs Craig Date Value Ref Range Status 12/21/2021 0.68 [...] Unchanged will refer to functional medicine at [facility] and she does not want to see neurology. Pharmacologic treatments have not helped. No evidence on M spike DM- Follow up with Dr. Dumont HTN- Per Dr. Dumont Thank you for the kind referral. If there are any questions and or concerns please do not hesitate to contact me at [phone]. Rachael Bruce MD Hematology/Medical Oncology [facility] CC: Roby Dumont MD I spent a total of 25 minutes on the date of the service which included preparing to see the patient, [id number] patient care, completing clinical documentation, obtaining and/or reviewing separately obtained history, performing a medically appropriate examination, counseling and educating the pat ient/family/caregiver and ordering medications, tests, or procedures. documented in this encounterMer[facility]05-20-2022 NotePROCEDURE: XR KNEE RT 3V HISTORY: [...] Electronically authenticated by: JIMY LAMB Date: 2021-07-29 17:38[facility]05-02-2022 Miscellaneous Notes* Telephone Encounter - Bibiana Garay [facility] - 07/11/2021 9:29 AM EDT Meagan Correa spoke with Sherie. She states they have received patient referral/records and have patient scheduled to see Dr Holbrook for colonoscopy on 08/23. Bibiana Walters * Telephone Encounter - Estrella Barillas [facility] - 07/07/2021 8:02 AM EDT Records faxed to Dr. Holbrook Electronically signed by Estrella Barillas [facility] at 07/07/2021 8:03 AM EDT * Telephone Encounter - Bibiana Garay [facility] - 07/07/2021 7:27 AM EDT Theodora: Information ready for you. Bibiana Walters * Telephone Encounter - Sangeeta Keane - 07/06/2021 3:18 PM EDT Patient to be referred to Dr. Holbrook for surveillance colonoscopy. Previous patient of Dr. Licona from 2018 per patient. Theodora/Calvin: Can you please send referral information and follow up? Thanks! Sangeeta Keane documented in this encounterMer[facility]04-27-2022 History of Present illness Narrative* Rachael Bruce MD - 07/06/2021 3:00 PM EDT PATIENT NAME: Billie Liriano [facility] NO.: [id number] ATTENDING PHYSICIAN: Rachael Bruce MD DATE OF [...] Treatment History: 1. While on vacation in [place] developed severe abdominal pain in April 2017. CT at thatpoint noted a large bowel obstruction with colonic mass at the splenic flexure. No metastatic disease was identified and patient had a CEA of 20. At that point underwent resection. 2. Started adjuvant FOLFOX May 2017 while in [place]. Oxaliplatin dose reduced due to toxicity. In [...] Did not have a great time in [place] and continues to have difficulty with her neuropathy and she is seeing neurology in [place] and also joint stiffness and will reconnect with rhem as well. Denies any bowel changes and or abdominal pain PAST MEDICAL HISTORY Diagnosis Date Colon cancer (HCC) Stage IIB ([id number] COPD (chronic obstructive pulmonary disease) (HCC) Esophagitis [...] of Onset Diabetes Mother Heart Mother 52 [place]. S/P CABG. at 69 from [place] other (Parkinson's [Other]) Mother COPD Mother Coronary [...] 06/29/2021 1.69 1.00 - 4.00 k/uL Final Craig% Date Value Ref Range Status 06/29/2021 10.2 % Final Abs Craig Date Value Ref Range Status 06/29/2021 0.77 [...] do not hesitate to contact me at [phone]. Rachael Bruce MD Hematology/Medical Oncology [facility] CC: Roby Dumont MD I spent a total of 25 minutes on the date of the service which included preparing to see the patient, [id number] patient care, completing clinical documentation, obtaining and/or reviewing separately obtained history, performing a medically appropriate examination, counseling and educating the pat ient/family/caregiver and ordering medications, tests, or procedures. documented in this encounterMercy [facility]04-20-2022 Miscellaneous Notes* Telephone Encounter - Susanna Chavez RN - 06/29/2021 12:01 PM EDT Informed pt of Signatera results. Pt verbalized understanding. RONEL: Pt would like to know if she can have her A1C checked today with her other labs. Order pending, if agreeable to review and sign. Susanna Chavez RN documented in this encounterMercy [facility]04-01-2022 Miscellaneous Notes* Telephone Encounter - Zuly Denton - 06/28/2021 11:00 AM EDT Please sign pending new cbc order. Thanks, Zuly Denton [facility]A [facility] Diagnosis Type 2 diabetes mellitus without complication, without long-term current use of insulin (HCC)- Primary documented in this encounter [facility] note* Diagnosis Malignant neoplasm of colon, unspecified part of colon (HCC)- Primary documented in this encounter [facility] note* Diagnosis Malignant neoplasm of colon, unspecified part of colon (HCC)- Primary Type 2 diabetes mellitus without complication, without long-term current use of insulin (HCC) Neuropathy Mononeuritis of unspecified site documented in this encounter [facility] note* Diagnosis Malignant neoplasm of colon, unspecified part of colon (HCC)- Primary Neuropathy Mononeuritis of unspecified site documented in this encounter [facility] note* Diagnosis Idiopathic peripheral autonomic neuropathy- Primary Idiopathic peripheral autonomic neuropathy, unspecified Type 2 diabetes mellitus with hyperglycemia, without long-term current use of insulin (HCC) documented in this encounter [facility] noteNo [facility] [employer] Other Evaluation note* Diagnosis Onset Date Resolution Status Asthma acute GERD (gastroesophageal reflux disease) acute History of colon cancer acut e Hypercholesterolemia acute Hypertension acute MARCELINA (obstructive sleep apnea) acute Type 2 diabetes mellitus with hyperglycemia acute Medicare annual wellness visit, subsequent noneactive Screening mammogram for breast cancer noneactive [facility] Work Phone: History general Narrative - Reported* [...] di abetes mellitus with hyperglycemia, unspecified whether group home insulin use Medical History Weakness of both [...] OF COLOSTOMY 03/2018 Hospitalization History SEE ABOVE [employer] Other History general Narrative - Reported* Type [...] di abetes mellitus with hyperglycemia, unspecified whether group home insulin use Medical History Weakness of both [...] years) 20 22 Hospitalization History SEE ABOVE [employer] Other Summary Purpose Family History Relationship Condition [...] colon (HCC) Procedures CONSULT TO GASTROENTEROLOGY OFFICE/OUTPATIENT [facility] 60-74 MINUTES Rachael Bruce MD [address] [place] [phone] Referral ID Status Reason Start Date Expiration Date Visits Requested Visits Authorized [id number] Authorized PCP Requested Referral 07/06/2021 07/06/2022 1 1 Specialty Diagnoses / Procedures Referred By Contac t Referred To Contact Diagnoses Malignant neoplasm of colon, unspecified part of colon (HCC) Neuropathy Procedures CONSULT TO FUNCTIONAL MEDICINE OFFICE/OUTPATIENT [facility] 60-74 MINUTES Rachael Bruce MD [address] [place] [phone] Referral ID Status Reason Start Date Expiration Date Visits Requested Visits Authorized [id number] Authorized PCP Requested Referral 01/04/2023 1 1 Specialty Diagnoses / Procedures Referred By Contac t Referred To Contact Diagnoses Malignant neoplasm of colon, unspecified part of colon (HCC) Neuropathy Procedures CONSULT TO WELLNESS PHYSICIAN OFFICE/OUTPATIENT [facility] 60-74 MINUTES Rachael Bruce MD [address] [place] [phone] Referral ID Status Reason Start Date Expiration Date Visits Requested Visits Authorized [id number] Authorized PCP Requested Referral 01/04/2023 1 1 Specialty Diagnoses / Procedures Referred By Contac t Referred To Contact Diagnoses Idiopathic peripheral autonomic neuropathy Procedures CONSULT TO PALLIATIVE CARE OFFICE/OUTPATIENT [facility] MDM 60-74 MINUTES Rachael Bruce MD [address] [place] [address] Referral ID Status Reason Start Date Expiration Date Visits Requested Visits Authorized [id number] Authorized PCP Requested Referral 07/05/2022 07/05/2023 1 [...] section and content) DATE CREATED AUTHOR 09/04/2017 [facility] DATE CREATED AUTHOR AUTHOR'S ORGANIZ ATION 10/09/2019 [facility] DATE CREATED AUTHOR AUTHOR'S ORGANIZ ATION 08/29/2021 [facility] DATE CREATED AUTHOR AUTHOR'S ORGANIZ ATION 07/04/2022 [facility] DATE CREATED AUTHOR AUTHOR'S ORGANIZ ATION 07/07/2022 [facility] Source Comments (unrecognize d section and content) In the event this informatio n is protected by the Federal Confidentiality of Alcohol and Drug Abuse Patient Records regulations: The Federal rules restrict any use of the information to criminally investigate or prosecute any alcohol or drug abuse patient.[facility] the event this information is protected by the Federal Confidentiality of Alcohol and Drug Abuse Patient Records regulations: The Federal rules restrict any use of the information to criminally investigate or prosecute any alcohol or drug abuse patient.[facility] the event this information is protected by the Federal Confidentiality of Alcohol and Drug Abuse Patient Records regulations: The Federal rules restrict any use of the information to criminally investigate or prosecute any alcohol or drug abuse patient.[facility] the event this information is protected by the Federal Confidentiality of Alcohol and Drug Abuse Patient Records regulations: The Federal rules restrict any use of the information to criminally investigate or prosecute any alcohol or drug abuse patient.[facility] the event this information is protected by the Federal Confidentiality of Alcohol and Drug Abuse Patient Records regulations: The Federal rules restrict any use of the information to criminally investigate or prosecute any alcohol or drug abuse patient.[facility] the event this information is protected by the Federal Confidentiality of Alcohol and Drug Abuse Patient Records regulations: The Federal rules restrict any use of the information to criminally investigate or prosecute any alcohol or drug abuse patient.[facility] the event this information is protected by the Federal Confidentiality of Alcohol and Drug Abuse Patient Records regulations: The Federal rules restrict any use of the information to criminally investigate or prosecute any alcohol or drug abuse patient.[facility] Reason for Visit (unrecogniz ed section and content) Reason Comments Results Reason Comments Lab Orders Reason Comments Colon Cancer follow up Reason Comments Referral Information GI Reason Comments Colon Cancer Follow up Reason Comments Colon Cancer Follow up Care Teams (unrecognized sec tion and content) Supervisor Intelligence Analyst Relationship Specialty Start Date End Date Roby Dumont DO PCP - General Internal Medicine 07/15/13 Maryam Pack RN [facility] [place] [address] Specialty Statistical Programmer Hematology/Oncology 06/19/17 Germania Ozuna PA-C [facility] [place] [address] Physician Rail Car Rep[employer] Carman Hematology/Oncology 06/19/17 Rachael Bruce MD [facility] [place] [address] Physician Hematology/Oncology 03/20/19 Supervisor Intelligence Analyst Relationship Specialty Start Date End Date Roby Dumont, DO PCP - General Internal Medicine 07/15/13 Maryam Pack, RN [address] [facility] [place] [address] Specialty Statistical Programmer Hematology/Oncology 06/19/17 Germania Ozuna, PAGutierrezC [address] [facility] [place] [address] Physician Rail Car Repair Carman Hematology/Oncology 06/19/17 Rachael Bruce MD [address] [facility] [place] [address] Physician Hematology/Oncology 03/20/19 Supervisor Intelligence Analyst Relationship Specialty Start Date End Date Roby Dumont, DO PCP - General Internal Medicine 07/15/13 Maryam Pack RN [address] [place] [address] Specialty Statistical Programmer Hematology/Oncology 06/19/17 Germania Ozuna PAGutierrezC [address] [facility] [place] [address] Physician Rail Car Rep[employer] Carman Hematology/Oncology 06/19/17 Rachael rBuce MD [address] [place] [address] Physician Hematology/Oncology 03/20/19 Supervisor Intelligence Analyst Relationship Specialty Start Date End Date Roby Dumont, DO PCP - General Internal Medicine 07/15/13 Maryam Pack RN [address] [facility] [place] [address] Specialty Statistical Programmer Hematology/Oncology 06/19/17 Germania Ozuna PAGutierrezC [address] [facility] [place] [address] Physician Rail Car Rep[employer] Carman Hematology/Oncology 06/19/17 Rachael Bruce MD [address] [place] [address] Physician Hematology/Oncology 03/20/19 Supervisor Intelligence Analyst Relationship Specialty Start Date End Date Roby Dumont, DO PCP - General Internal Medicine 07/15/13 Maryam Pack, ADENIKE [address] [place] [address] Specialty Statistical Programmer Hematology/Oncology 06/19/17 Germania Ozuna, PAGutierrezC [address] [place] [address] Physician Rail Car Rep[employer] Carman Hematology/Oncology 06/19/17 Rachael Bruce MD [address] [place] [address] Physician Hematology/Oncology 03/20/19 Supervisor Intelligence Analyst Relationship Specialty Start Date End Date Roby Dumont, DO PCP - General Internal Medicine 07/15/13 Maryam Pack RN [address] [place] [address] Specialty Statistical Programmer Hematology/Oncology 06/19/17 Germania Ozuna PAGutierrezC [address] [place] [address] Physician Rail Car [employer] Carman Hematology/Oncology 06/19/17 Rachael Bruce MD [address] [facility] [place] [address] Physician Hematology/Oncology 03/20/19 Supervisor Intelligence Analyst Relationship Specialty Start Date End Date Royb Dumont, DO PCP - General Internal Medicine 07/15/13 Maryam Pack RN [address] [address] Specialty Statistical Programmer Hematology/Oncology 06/19/17 Germania Ozuna PA-C [address] [place] [address] Physician Rail Car Repair Carman Hematology/Oncology 06/19/17 Rachael Bruce MD [address] [facility] [place] [address] Physician Hematology/Oncology 03/20/19 Team Status: [...] BE BASED ON THE PRIMARY CLINICAL RECORDS. [employer] provides no warranty or guarantee of the accuracy or completeness of information in this document.
--- NOTE | 2024-04-22 12:36 | ED.GENADUL1 ---
HPI HPI - General Adult General Chief complaint: Extremity Injury, Lower Stated complaint: HIP PAIN Time Seen by Provider: 04/22/24 12:28 Source: patient Mode of arrival: Wheelchair Limitations: no limitations History of Present Illness HPI narrative: Patient states about 5 or 6 days ago she was going to step on a footstool when she felt sharp pain over the proximal right thigh posteriorly. She states when she is sitting down there is no pain but as soon as she puts weight on the right leg she experiences pain. Patient has had 2 back surgeries in the past. She has a history of colon cancer for which she has undergone surgery and chemotherapy. Related Data Home Medications ?Medication ?Instructions ?Recorded ?Confirmed atorvastatin 20 mg tablet 20 mg PO DAILY 04/22/24 04/22/24 clopidogrel 75 mg tablet 75 mg PO DAILY 04/22/24 04/22/24 famotidine 20 mg tablet 20 mg PO BID 04/22/24 04/22/24 hydrochlorothiazide 12.5 mg capsule 12.5 mg PO DAILY 04/22/24 04/22/24 hydroxychloroquine 200 mg tablet 200 mg PO BID 04/22/24 04/22/24 insulin NPH isoph U-100 human 100 30 unit subcut .morning 04/22/24 04/22/24 unit/mL subcutaneous suspension (Novolin N NPH U-100 Insulin isophane) insulin regular human 100 unit/mL 1 sliding scale dose subcut 04/22/24 injection solution (Novolin R Regular U-100 Insulin) levothyroxine 112 mcg tablet 112 mcg PO DAILY 04/22/24 04/22/24 loratadine 10 mg tablet (Claritin) 10 mg PO DAILY 04/22/24 04/22/24 Previous Rx's ?Medication ?Instructions ?Recorded hydrocodone 5 mg-acetaminophen 325 1 tab PO TID PRN pain #15 tabs 04/22/24 mg tablet methocarbamol 750 mg tablet 750 mg PO TID PRN pain #30 tabs 04/22/24 Allergies Allergy/AdvReac Type Severity Reaction Status Date / Time aspirin Allergy Severe asthma Verified 04/22/24 12:02 NSAIDS (Non-Steroidal Allergy Severe asthma Verified 04/22/24 12:02 Anti-Inflamma ondansetron (From Zofran) AdvReac Severe Vomiting Verified 04/22/24 12:02 Opioid HPI Opioid Management Most Recent Opioid Data: No Data to Display Review of Systems ROS Status of ROS 10 or more systems reviewed and unremarkable except as noted in history and below [facility] Social History Little interest or pleasure in doing things: not at all Feeling down, depressed, or hopeless: not at all Exam Narrative Exam Narrative: Obese in appearance and laying in a semi-Davis position with the right leg partially flexed which seems to be her position of comfort. HEENT exam is normal to inspection. Neck is supple. Lung sounds are clear to auscultation bilaterally. Heart has regular rate and rhythm. Abdomen is protuberant, soft nontender. Examination of the lower extremities reveals tenderness at the base of the right buttock posteriorly over lying the hamstring muscle mass proximally. She is able to move the right leg actively. Neurovascular function is intact distally. Bony survey of her other extremities is negative. Constitutional Vital Signs, click to edit/add: Last Vital Signs Temp 98.1 F 04/22/24 12:03 Pulse 78 04/22/24 14:29 Resp 18 04/22/24 14:29 BP 213/93 H 04/22/24 14:33 Pulse Ox 99 04/22/24 14:29 O2 Del Method Room Air 04/22/24 12:03 Course Vital Signs Vital signs: Vital Signs Temperature 98.1 F 04/22/24 12:03 Pulse Rate 76 04/22/24 12:03 Respiratory Rate 20 04/22/24 12:03 Blood Pressure 208/75 H 04/22/24 12:03 Pulse Oximetry 100 04/22/24 12:03 Oxygen Delivery Method Room Air 04/22/24 12:03 Temperature 98.1 F 04/22/24 12:03 Pulse Rate 78 04/22/24 14:29 Respiratory Rate 18 04/22/24 14:29 Blood Pressure 213/93 H 04/22/24 14:33 Pulse Oximetry 99 04/22/24 14:29 Oxygen Delivery Method Room Air 04/22/24 12:03 Medical Decision Making [facility] Narrative Medical decision making narrative: Pelvis x-ray is negative. Patient's pain is localized over the proximal hamstring on the right side likely muscle strain. She is placed on Robaxin and [place] and is referred to outpatient primary care follow-up. Discharge Plan Discharge Chief Complaint: Extremity Injury, Lower Clinical Impression: Asymptomatic hypertension Right hamstring muscle strain Qualifiers: Encounter type: initial encounter Qualified Code(s): S76.311A - Strain of muscle, fascia and tendon of the posterior muscle group at thigh level, right thigh, initial encounter Patient Disposition: Home, Self-Care Time of Disposition Decision: 14:47 Condition: Good Mode of Transportation: Private Vehicle Prescriptions / Home Meds: New methocarbamol 750 mg tablet 750 mg PO TID PRN (Reason: pain) Qty: 30 0RF hydrocodone-acetaminophen 5-325 mg tablet 1 tab PO TID PRN (Reason: pain) Qty: 15 0RF No Action Novolin R Regular U100 Insulin 100 unit/mL solution 1 sliding scale dose subcut Novolin N NPH U-100 Insulin 100 unit/mL suspension 30 unit SUBCUT .morning clopidogrel 75 mg tablet 75 mg PO DAILY famotidine 20 mg tablet 20 mg PO BID levothyroxine 112 mcg tablet 112 mcg PO DAILY atorvastatin 20 mg tablet 20 mg PO DAILY hydrochlorothiazide 12.5 mg capsule 12.5 mg PO DAILY hydroxychloroquine 200 mg tablet 200 mg PO BID loratadine [Claritin] 10 mg tablet 10 mg PO DAILY Print Language: Setswana Instructions: Hamstring Injury (ED), Hypertension (ED), Hamstring Exercises (ED) Additional Instructions: Pain medications as directed. Take a stool softener to prevent constipation caused by pain medications. Monitor your blood pressure and have it rechecked by her PCP to see if adjustments need to be made in your hypertension meds. Follow-up with your PCP within the next couple days to arrange outpatient physical therapy. Return for worsening symptoms. Referrals: Roby Dumont DO [Primary Care Provider] - 1 week Discharge Date/Time: 04/22/24 15:00
--- NOTE | 2024-04-22 13:04 | XR_ITS ---
[facility] [place] [id number] Patient Name: BILLIE URBINA MRN: [id number] date: 1950 Sex: F Assigned Patient Location: ER Current Patient Location: ER Accession/Order Number: [id number] Exam Date: 04/22/2024 12:55 Report Date: 04/22/2024 13:29 At the request of: ARLYN WOODALL Procedure: XR pelvis 1-2V PROCEDURE: XR pelvis 1-2V COMPARISON: None. HISTORY: pain FINDINGS: BONES:Moderate degenerative changes of the spine. Moderate bilateral hip osteoarthritis SOFT TISSUES:Negative. No visible soft tissue swelling. EFFUSION:None visible. OTHER: Pelvis calcifications, calcified fibroids are favored XR/XR pelvis 1-2V IMPRESSION: Moderate osteoarthritis. Electronically authenticated by: SID GALDAMEZ Date: 04/22/2024 13:29
[2024-04-22 14:29] VITALS: BP 215/71; PULSE 78; O2SAT 99
[2024-04-22 14:33] VITALS: BP 213/93
== END 2024-04-22 15:00 | disposition home or self-care (01) ==
PROVIDERS: Emergency Provider Emergency Medicine; PCP Internal Medicine
DX: S76.311A Strain of muscle, fascia and tendon of the posterior muscle group at thigh level, right thigh, initial encounter (principal); I10 Essential (primary) hypertension; C18.9 Malignant neoplasm of colon, unspecified; Z79.60 Long term (current) use of unspecified immunomodulators and immunosuppressants; X58.XXXA Exposure to other specified factors, initial encounter
CPT/HCPCS: 72170; 99283

== ENCOUNTER 2024-04-25 16:31 | Outpatient (RCR) | payer MEDICARE, OTHER, SELFPAY | END 2024-06-11 13:29 | disposition home or self-care (01) | LOC: PT 16:31 | PROVIDERS: PCP Internal Medicine; Visit Provider Internal Medicine | DX: M79.604 Pain in right leg (principal); S76.811D Strain of other specified muscles, fascia and tendons at thigh level, right thigh, subsequent encounter | CPT/HCPCS: 20561; 97035; 97110; 97140; 97161; G0283 ==

== ENCOUNTER 2024-06-11 13:04 | Inpatient (IN) | payer MEDICARE, OTHER, SELFPAY ==
[2024-06-11 13:08] VITALS: BP 172/70; PULSE 91; TEMP 36.7; O2SAT 98; BMI 43.9
--- NOTE | 2024-06-11 13:19 | ED_ITS ---
HPI HPI - General Adult General Chief complaint: Back Pain/Injury Stated complaint: BACK PAIN Time Seen by Provider: 06/11/24 13:05 Source: patient Mode of arrival: ambulance Limitations: no limitations History of Present Illness HPI narrative: Patient is a 73-year-old female brought to the emergency department by EMS for evaluation of worsening right posterior leg pain after an injury last month. She states she had an injury to the right hamstring while she was on a safety stool, she was seen in this emergency department 6 weeks ago, she had unremarkable x-rays and was discharged home on [place] and Robaxin. She states her primary care provider told her not to take these medications because he does not believe and muscle relaxants. She states she has continued to have pain, although she was doing well with physical therapy. She states 2 weeks ago she believes she reinjured the right posterior thigh stepping out of the shower. She states that her physical therapist has been working with her the last several days and is upset that she has lost her progress. She states today she had difficulty ambulating and functioning. Her is unable to help her transfer and could not get her out of the house so they called 911 to bring her to the hospital. Related Data Home Medications ?Medication ?Instructions ?Recorded ?Confirmed atorvastatin 20 mg tablet 20 mg PO DAILY 04/22/24 04/22/24 clopidogrel 75 mg tablet 75 mg PO DAILY 04/22/24 04/22/24 famotidine 20 mg tablet 20 mg PO BID 04/22/24 04/22/24 hydrochlorothiazide 12.5 mg capsule 12.5 mg PO DAILY 04/22/24 04/22/24 hydroxychloroquine 200 mg tablet 200 mg PO BID 04/22/24 04/22/24 insulin NPH isoph U-100 human 100 30 unit subcut .morning 04/22/24 04/22/24 unit/mL subcutaneous suspension (Novolin N NPH U-100 Insulin isophane) insulin regular human 100 unit/mL 1 sliding scale dose subcut 04/22/24 injection solution (Novolin R Regular U-100 Insulin) levothyroxine 112 mcg tablet 112 mcg PO DAILY 04/22/24 04/22/24 loratadine 10 mg tablet (Claritin) 10 mg PO DAILY 04/22/24 04/22/24 Previous Rx's ?Medication ?Instructions ?Recorded hydrocodone 5 mg-acetaminophen 325 1 tab PO TID PRN pain #15 tabs 04/22/24 mg tablet methocarbamol 750 mg tablet 750 mg PO TID PRN pain #30 tabs 04/22/24 Allergies Allergy/AdvReac Type Severity Reaction Status Date / Time aspirin Allergy Severe asthma Verified 04/22/24 12:02 NSAIDS (Non-Steroidal Allergy Severe asthma Verified 04/22/24 12:02 Anti-Inflamma ondansetron (From Zofran) AdvReac Severe Vomiting Verified 04/22/24 12:02 Opioid HPI Opioid Management Most Recent Opioid Data: Last Pain Scale 10 06/11/24 13:56 06/11/24 Last MAY Pain Assessment 06/11/24 13:42 Review of Systems ROS Constitutional Denies: fever or chills Ears, nose, mouth, and throat Denies: throat pain or nasal congestion Cardiovascular Denies: chest pain Respiratory Denies: shortness of breath or cough Gastrointestinal Denies: abdominal pain, nausea or vomiting Musculoskeletal Reports: extremity pain; Denies: back pain or neck pain Integumentary/Breast Denies: rash Neurological Reports: numbness in extremities Hematologic/Lymphatic Denies: easy bruising or easy bleeding PFSH PFSH Social History Little interest or pleasure in doing things: not at all Feeling down, depressed, or hopeless: not at all Exam Narrative Exam Narrative: Gen.: Awake, alert, in no distress, morbidly obese female lying with right hip flexed Head: Normocephalic, atraumatic ENT: Moist mucous membranes Respiratory: No respiratory distress Back: No bony tenderness of the T-spine or L-spine, right posterior hip is nontender, exam is limited by body habitus Extremities: Tenderness of the right lateral and posterior thigh, normal dorsiflexion and plantarflexion of the right foot. No bony tenderness of the right foot or ankle. Psych: Normal mood and affect Neuro: No focal neuro deficit Skin: Warm, dry, intact Constitutional Vital Signs, click to edit/add: Last Vital Signs Temp 98.1 F 06/11/24 13:08 Pulse 91 H 06/11/24 13:08 Resp 18 06/11/24 13:08 BP 172/70 H 06/11/24 13:08 Pulse Ox 99 06/11/24 14:03 O2 Del Method Room Air 06/11/24 14:03 Course Vital Signs Vital signs: Vital Signs Temperature 98.1 F 06/11/24 13:08 Pulse Rate 91 H 06/11/24 13:08 Respiratory Rate 18 06/11/24 13:08 Blood Pressure 172/70 H 06/11/24 13:08 Pulse Oximetry 98 06/11/24 13:08 Oxygen Delivery Method Room Air 06/11/24 13:08 Temperature 98.1 F 06/11/24 13:08 Pulse Rate 91 H 06/11/24 13:08 Respiratory Rate 18 06/11/24 13:08 Blood Pressure 172/70 H 06/11/24 13:08 Pulse Oximetry 99 06/11/24 14:03 Oxygen Delivery Method Room Air 06/11/24 14:03 Medical Decision Making MDM Narrative Medical decision making narrative: Patient has an exam consistent with musculoskeletal pain in the right hamstring, CT of the femur and CT of the pelvis with no evidence of acute process as expected as the patient likely has a soft tissue injury that will be better evaluated by an MRI. She was medicated with fentanyl, Norflex and Solu-Medrol in the ER. She reported that her 10/10 pain decreased to 8/10. Patient remedicated with Dilaudid. At this time, it is unlikely that she will be pain controlled and functional enough to safely go home as her is unable to help her with her ADLs. She will be admitted for intractable pain as well as evaluation by PT/OT to determine if she needs a rehab stay. Stable at time of admission. SUPERVISED APC VISIT, PHYSICIAN ATTESTATION: Based on the medical record the care appears appropriate. ? Medical Records Medical records reviewed: Yes I reviewed the patient's medical records Imaging Data CT pelvis: Attestation: I have reviewed the pertinent imaging results. Discharge Plan Discharge Chief Complaint: Back Pain/Injury Patient Disposition: Admitted as Observation Time of Disposition Decision: 14:39 Prescriptions / Home Meds: No Action Novolin R Regular U100 Insulin 100 unit/mL solution 1 sliding scale dose subcut Novolin N NPH U-100 Insulin 100 unit/mL suspension 30 unit SUBCUT .morning clopidogrel 75 mg tablet 75 mg PO DAILY famotidine 20 mg tablet 20 mg PO BID levothyroxine 112 mcg tablet 112 mcg PO DAILY atorvastatin 20 mg tablet 20 mg PO DAILY hydrochlorothiazide 12.5 mg capsule 12.5 mg PO DAILY hydroxychloroquine 200 mg tablet 200 mg PO BID loratadine [Claritin] 10 mg tablet 10 mg PO DAILY methocarbamol 750 mg tablet 750 mg PO TID PRN (Reason: pain) Qty: 30 0RF hydrocodone-acetaminophen 5-325 mg tablet 1 tab PO TID PRN (Reason: pain) Qty: 15 0RF Print Language: Mozambican Referrals: Roby Dumont DO [Primary Care Provider] - 1 week
[2024-06-11] MEDS: ORPHENADRINE 60 MG/2 ML VIAL IV ×2 (13:42→21:43)
[2024-06-11] MEDS: METHYLPREDNISOLONE SOD SUCC PF 125 MG/2 ML VIAL IVP (13:42)
[2024-06-11] MEDS: FENTANYL CITRATE/PF 100 MCG/2 ML VIAL 50 MCG IV (13:42)
[2024-06-11 14:03] VITALS: O2SAT 99
[2024-06-11] MEDS: HYDROMORPHONE HCL 0.5 MG/0.5 ML SYRINGE IV (14:44)
[2024-06-11 14:48] LABS: Basophils Absolute Auto 0.1 10^3/uL (0.0-0.1); Basophils Percent Auto 0.7 % (0.2-2.0); Eosinophils Absolute Auto 0.3 10^3/uL (0.0-0.7); Eosinophils Percent Auto 4.5 % (0.9-7.0); Hematocrit 42.6 % (36.0-48.0); Hemoglobin 14.8 g/dL (12.0-16.0); Immature Granulocytes Abs Auto 0.06 10^3/uL (0.00-0.03); Immature Granulocytes Pct Auto 0.8 % (0.0-0.5); Lymphocytes Absolute Auto 1.2 10^3/uL (1.2-3.8); Lymphocytes Percent Auto 15.7 % (20.5-60.0); Mean Corpuscular HGB Conc 34.7 g/dL (29.9-35.2); Mean Corpuscular Hemoglobin 31.9 pg (26.7-34.0); Mean Corpuscular Volume 91.8 fL (81.0-99.0); Mean Platelet Volume 9.1 fL (9.5-13.5); Monocytes Absolute Auto 0.7 10^3/uL (0.3-0.8); Monocytes Percent Auto 9.6 % (1.7-12.0); Neutrophils Absolute Auto 5.1 10^3/uL (1.4-6.5); Neutrophils Percent Auto 68.7 % (43.0-75.0); Platelet Count 164 10^3/uL (150-450); Red Blood Count 4.64 10^6/uL (4.20-5.40); Red Cell Distribution Width 15.5 % (11.0-15.0); White Blood Count 7.4 10^3/uL (4.0-11.0)
[2024-06-11 14:58] LABS: BUN Creatinine Ratio 10.9; Calcium 9.3 mg/dL (8.5-10.1); Carbon Dioxide 26.3 mmol/L (21.0-32.0); Chloride 101 mmol/L (98-107); Estimated GFR (African America >60 (>=60 mL/min/1.73m^2); Estimated GFR (Non-African Ame 60 (>=60 mL/min/1.73m^2); Glucose 153 mg/dL (74-106); Potassium 4.3 mmol/L (3.5-5.1); Sodium 138 mmol/L (136-145)
[2024-06-11 15:09] VITALS: BP 160/80
[2024-06-11 15:48] VITALS: BP 174/93; PULSE 81; TEMP 36.6; O2SAT 96; BMI 44.3
[2024-06-11 18:24] LABS: Glucometer 165 mg/dL (74-106)
[2024-06-11 19:59] VITALS: BP 163/85; PULSE 98; TEMP 36.9; O2SAT 95
[2024-06-11 21:42] LABS: Glucometer 328 mg/dL (74-106)
[2024-06-11] MEDS: ATORVASTATIN CALCIUM 20 MG TABLET PO (21:42)
[2024-06-11] MEDS: HYDROXYCHLOROQUINE SULFATE 200 MG TABLET PO (21:42)
[2024-06-11] MEDS: FAMOTIDINE 20 MG TABLET PO (21:42)
[2024-06-11] MEDS: INSULIN ASPART 300 UNIT/3 ML PEN SUBQ (21:43)
[2024-06-11] MEDS: METHYLPREDNISOLONE SOD SUCC PF 125 MG/2 ML VIAL 60 MG IVP (21:58)
[2024-06-11] MEDS: OXYCODONE HCL/ACETAMINOPHEN 5MG/325MG 1 TAB PO (23:50)
[2024-06-12] VITALS: BP 146/80; PULSE 92; TEMP 37.1; O2SAT 93
[2024-06-12] MEDS: METHYLPREDNISOLONE SOD SUCC PF 125 MG/2 ML VIAL 60 MG IVP ×4 (02:44→21:34)
[2024-06-12 02:50] LABS: Glucometer 241 mg/dL (74-106)
[2024-06-12 05:46] VITALS: BP 153/83; PULSE 84; TEMP 36.8; O2SAT 94
[2024-06-12] MEDS: LEVOTHYROXINE SODIUM 112 MCG TABLET PO (05:47)
[2024-06-12] MEDS: HYDROCHLOROTHIAZIDE 25 MG TABLET 12.5 MG PO (05:47)
[2024-06-12] MEDS: OXYCODONE HCL/ACETAMINOPHEN 5MG/325MG 1 TAB PO ×4 (05:52→21:36)
[2024-06-12 06:32] LABS: Basophils Percent Auto 0.1 % (0.2-2.0); Eosinophils Percent Auto 0.2 % (0.9-7.0); Hematocrit 44.7 % (36.0-48.0); Hemoglobin 15.7 g/dL (12.0-16.0); Immature Granulocytes Abs Auto 0.06 10^3/uL (0.00-0.03); Immature Granulocytes Pct Auto 0.5 % (0.0-0.5); Lymphocytes Absolute Auto 0.8 10^3/uL (1.2-3.8); Lymphocytes Percent Auto 7.1 % (20.5-60.0); Mean Corpuscular HGB Conc 35.1 g/dL (29.9-35.2); Mean Corpuscular Hemoglobin 31.8 pg (26.7-34.0); Mean Corpuscular Volume 90.7 fL (81.0-99.0); Mean Platelet Volume 8.7 fL (9.5-13.5); Monocytes Absolute Auto 0.2 10^3/uL (0.3-0.8); Monocytes Percent Auto 1.8 % (1.7-12.0); Neutrophils Absolute Auto 10.3 10^3/uL (1.4-6.5); Neutrophils Percent Auto 90.3 % (43.0-75.0); Platelet Count 185 10^3/uL (150-450); Red Blood Count 4.93 10^6/uL (4.20-5.40); Red Cell Distribution Width 14.8 % (11.0-15.0); White Blood Count 11.4 10^3/uL (4.0-11.0)
[2024-06-12 06:48] LABS: Anion Gap 17.9; BUN Creatinine Ratio 13.1; Calcium 9.5 mg/dL (8.5-10.1); Carbon Dioxide 22.3 mmol/L (21.0-32.0); Chloride 101 mmol/L (98-107); Estimated GFR (African America >60 (>=60 mL/min/1.73m^2); Estimated GFR (Non-African Ame 50 (>=60 mL/min/1.73m^2); Glucose 275 mg/dL (74-106); Potassium 4.2 mmol/L (3.5-5.1); Sodium 137 mmol/L (136-145)
[2024-06-12 07:20] LABS: Glucometer 266 mg/dL (74-106)
[2024-06-12 07:50] VITALS: BP 143/80; PULSE 90; O2SAT 95
[2024-06-12] MEDS: INSULIN ASPART 300 UNIT/3 ML PEN SUBQ ×4 (08:00→21:35)
[2024-06-12] MEDS: CETIRIZINE HCL 10 MG TABLET PO (08:18)
[2024-06-12] MEDS: CLOPIDOGREL BISULFATE 75 MG TABLET PO (08:18)
[2024-06-12] MEDS: FAMOTIDINE 20 MG TABLET PO ×2 (08:18→21:34)
[2024-06-12] MEDS: HYDROXYCHLOROQUINE SULFATE 200 MG TABLET PO ×2 (08:19→21:34)
[2024-06-12] MEDS: ORPHENADRINE 60 MG/2 ML VIAL IV ×2 (08:20→21:34)
[2024-06-12] MEDS: INSULIN NPH HUMAN ISOPHANE 100 UNIT/ML 10ML MDV 30 UNIT SQ (08:34)
--- NOTE | 2024-06-12 11:00 | CM.NOTE ---
Rounds made with Dr. Tomlinson, pt c/o pain 8 out of 10. Pt continues to have difficulty ambulating d/t intense pain. PT and OT will evaluate pt today. Pt will not discharge today. Pt will be changed to inpt status for pain control and have MRI today.
[2024-06-12 11:18] LABS: Glucometer 299 mg/dL (74-106)
[2024-06-12 11:21] VITALS: BP 169/79; PULSE 94; O2SAT 96
--- NOTE | 2024-06-12 12:10 | P.HP_ITS ---
HPI H&P: HPI History of Present Illness Chief complaint: Right Hamstring injury intractable pain Narrative: 73 y/o female to ER with right hamstring pain. 2/ stepping on footstool and felt pain in back leg near buttocks. Severe pain and hard to walk. Pain worsened and to ER 04/22. Told hamstring injury and given robaxin and norco. Seen by PCP and advised to stop norco and robaxin. Started steroid burst and PT. Initially making progress with PT but 2 weeks ago stepping out of shower and twisted foot. [place] severe pain in back thigh and getting worse since. Still in PT but losing progress. Pain worsened and not able to get up from sitting or stand. To ER by EMS. CT negative. Not able to stand and given fentanyl and dilaudid. Pain remained intractable and admitted. Started solu- medrol and norflex. Started oral percocet. Pain improved at rest but severe if attempt to stand. Up with OT and only able to take few steps before severe pain. Taking percocet and minimal relief. Opioid HPI Opioid Management Most Recent Pain and Opioid Data: Last Pain Scale 8 06/12/24 12:09 06/12/24 Last Pain Assessment 06/12/24 12:08 Last MAR Pain Assessment 06/12/24 12:09 Last ORT Total Score 0 06/11/24 15:48 06/11/24 Last ORT Risk Category Low Risk 06/11/24 15:48 06/11/24 Review of Systems ROS Constitutional Denies: fever, chills or fatigue Cardiovascular Denies: chest pain, palpitations or edema Respiratory Denies: shortness of breath, cough or wheezing Gastrointestinal Denies: abdominal pain, nausea, vomiting or diarrhea Genitourinary Denies: painful urination Musculoskeletal Reports: extremity pain [facility] Medical History (Updated 06/12/24 @ 10:02 by Yony Tomlinson MD) Right hamstring muscle strain ?S76.311A - Strain of muscle, fascia and tendon of the posterior muscle group at thigh level, right thigh, initial encounter (ICD-10) Asymptomatic hypertension ?I10 - Essential (primary) hypertension (ICD-10) History of colon cancer ?Z85.038 - Personal history of other malignant neoplasm of large intestine (ICD-10) Osteoarthritis ?M19.90 - Unspecified osteoarthritis, unspecified site (ICD-10) Hypothyroidism ?E03.9 - Hypothyroidism, unspecified (ICD-10) TIA (transient ischemic attack) ?G45.9 - Transient cerebral ischemic attack, unspecified (ICD-10) Hamstring injury ?S76.309A - Unspecified injury of muscle, fascia and tendon of the posterior muscle group at thigh level, unspecified thigh, initial encounter (ICD-10) Surgical History (Updated 06/11/24 @ 18:29 by Luzma Morel) History of back surgery ?Z98.890 - Other specified postprocedural states (ICD-10) History of colon resection ?Z90.49 - Acquired absence of other specified parts of digestive tract (ICD- 10) History of colostomy Social History Highest level of school completed/degree received: Associate degree: occupational, technical, vocational program Little interest or pleasure in doing things: nearly every day Feeling down, depressed, or hopeless: nearly every day Meds Home Medications and Allergies Home Medications ?Medication ?Instructions ?Recorded ?Confirmed ?Type atorvastatin 20 mg tablet 20 mg PO BEDTIME 04/22/24 06/11/24 History clopidogrel 75 mg tablet 75 mg PO DAILY 04/22/24 06/11/24 History famotidine 20 mg tablet 20 mg PO BID 04/22/24 06/11/24 History hydrochlorothiazide 12.5 mg capsule 12.5 mg PO DAILY 04/22/24 06/11/24 History hydrocodone 5 mg-acetaminophen 325 1 tab PO TID PRN pain #15 tabs 04/22/24 06/11/24 Rx mg tablet hydroxychloroquine 200 mg tablet 200 mg PO BID 04/22/24 06/11/24 History insulin NPH isoph U-100 human 100 30 unit subcut .After breakfast 04/22/24 06/12/24 History unit/mL subcutaneous suspension (Novolin N NPH U-100 Insulin isophane) insulin regular human 100 unit/mL 30 unit subcut .with meals 04/22/24 06/12/24 History injection solution (Novolin R Regular U-100 Insulin) levothyroxine 112 mcg tablet 112 mcg PO DAILY 04/22/24 06/11/24 History loratadine 10 mg tablet (Claritin) 10 mg PO DAILY 04/22/24 06/11/24 History methocarbamol 750 mg tablet 750 mg PO TID PRN pain #30 tabs 04/22/24 06/11/24 Rx Allergies Allergy/AdvReac Type Severity Reaction Status Date / Time aspirin Allergy Severe asthma Verified 04/22/24 12:02 NSAIDS (Non-Steroidal Allergy Severe asthma Verified 04/22/24 12:02 Anti-Inflamma ondansetron (From Zofran) AdvReac Severe Vomiting Verified 04/22/24 12:02 Exam Constitutional Vital Signs, click to edit/add: Last Vital Signs Temp 98.2 F 06/12/24 05:46 Pulse 94 H 06/12/24 11:21 Resp 20 06/12/24 11:21 BP 169/79 H 06/12/24 11:21 Pulse Ox 96 06/12/24 11:21 O2 Del Method Room Air 06/12/24 11:21 Documenting provider has reviewed patient's vital signs: yes Common normals: no apparent distress, oriented x3 and alert HENMT Common normals: normocephalic Eye Common normals: PERRL and EOMs intact bilaterally Respiratory Common normals: normal respiratory effort and clear to auscultation bilaterally Cardio Common normals: regular rate, regular rhythm, no gallops, no murmurs and no rub GI Common normals: Normal to inspection, nondistended, normoactive bowel sounds present and non-tender Extremity Common normals: no pedal edema Right lower extremity: upper leg (Tenderness over proximal right hamstring) Results Labs Labs: Short CBC 06/11/24 06/12/24 Range/Units 13:46 06:22 WBC 7.4 11.4 H (4.0-11.0) 10^3/uL Hgb 14.8 15.7 (12.0-16.0) g/dL Hct 42.6 44.7 (36.0-48.0) % Plt Count 164 185 (150-450) 10^3/uL BMP 06/11/24 06/12/24 13:46 06:22 Sodium 138 137 Potassium 4.3 4.2 Chloride 101 101 Carbon Dioxide 26.3 22.3 BUN 10.0 14.0 Creatinine 0.92 1.07 H Glucose 153 H 275 H Calcium 9.3 9.5 Assessment and Plan Assessment and Plan (1) Right hamstring injury: (2) Intractable pain: (3) Inability to walk: (4) Type 2 diabetes mellitus: (5) Essential hypertension: (6) Rheumatoid aortitis: Plan Continues to have intractable pain and not able to ambulate. Continue steroids and norflex. Use percocet PRN. Check MRI to assess for possible tear. Continue PT/OT. Resumed home medication. Monitor BS and elevated due to steroids. Plan on at least a 2 midnight stay for inpatient medically necessary services. Urinary Catheter Management Urinary Catheter Management Pure Wick: Cath placed during this visit: no
--- NOTE | 2024-06-12 15:49 | SWNOTE1 ---
SW met with pt to discuss dc needs. Pt lives at home with . Pt's on speaker phone during conversation. SW spoke with them about recommendations of pt going skilled for a short time. Pt in agreement as she does feel she needs it. SW explained the Medicare guidelines. Pt and voiced understanding. SW provided pt with list from Medicare.gov. Pt voiced she would like to stay in town if possible. She stated she would like to try [facility] first and then [facility] second. SW to see if [facility] has a bed open. Referral sent to [facility]. Referral included face sheet, ED note, H&P, provider notes, case management report, nursing notes, diagnostic imaging, med list, and PT/OT notes.
--- NOTE | 2024-06-12 15:51 | SWNOTE1 ---
CHINMAY did received email from Neo at [facility] and she will know more about bed availability later today. CHINMAY emailed back and asked if she would let CHINMAY know as soon as possible about bed status.
[2024-06-12 16:47] LABS: Glucometer 290 mg/dL (74-106)
[2024-06-12 16:54] VITALS: BP 176/88; PULSE 86; TEMP 36.4; O2SAT 98
[2024-06-12] MEDS: MORPHINE SULFATE 2 MG/ML SYRINGE IV (17:07)
[2024-06-12 20:00] VITALS: BP 147/64; PULSE 96; TEMP 36.8; O2SAT 94
[2024-06-12 20:40] LABS: Glucometer 372 mg/dL (74-106)
[2024-06-12] MEDS: ATORVASTATIN CALCIUM 20 MG TABLET PO (21:34)
[2024-06-12] MEDS: INSULIN NPH HUMAN ISOPHANE 100 UNIT/ML 10ML MDV 60 UNIT SQ (21:36)
[2024-06-13 00:53] VITALS: BP 149/82; PULSE 86; TEMP 36.6; O2SAT 94
[2024-06-13] MEDS: METHYLPREDNISOLONE SOD SUCC PF 125 MG/2 ML VIAL 60 MG IVP ×4 (02:18→21:15)
[2024-06-13 04:00] VITALS: BP 88/63; PULSE 85; TEMP 36.9; O2SAT 93
[2024-06-13] MEDS: MORPHINE SULFATE 2 MG/ML SYRINGE IV (06:05)
[2024-06-13 06:17] LABS: Basophils Percent Auto 0.2 % (0.2-2.0); Eosinophils Percent Auto 0.1 % (0.9-7.0); Hematocrit 45.2 % (36.0-48.0); Hemoglobin 15.7 g/dL (12.0-16.0); Immature Granulocytes Abs Auto 0.11 10^3/uL (0.00-0.03); Immature Granulocytes Pct Auto 0.6 % (0.0-0.5); Lymphocytes Percent Auto 5.4 % (20.5-60.0); Mean Corpuscular HGB Conc 34.7 g/dL (29.9-35.2); Mean Corpuscular Volume 92.1 fL (81.0-99.0); Mean Platelet Volume 8.6 fL (9.5-13.5); Monocytes Absolute Auto 0.7 10^3/uL (0.3-0.8); Monocytes Percent Auto 3.7 % (1.7-12.0); Platelet Count 201 10^3/uL (150-450); Red Blood Count 4.91 10^6/uL (4.20-5.40); White Blood Count 18.9 10^3/uL (4.0-11.0)
[2024-06-13] MEDS: HYDROCHLOROTHIAZIDE 25 MG TABLET 12.5 MG PO (06:19)
[2024-06-13] MEDS: LEVOTHYROXINE SODIUM 112 MCG TABLET PO (06:20)
[2024-06-13 06:34] LABS: Anion Gap 16.3; BUN Creatinine Ratio 21.9; Calcium 9.4 mg/dL (8.5-10.1); Carbon Dioxide 24.2 mmol/L (21.0-32.0); Chloride 102 mmol/L (98-107); Estimated GFR (African America >60 (>=60 mL/min/1.73m^2); Estimated GFR (Non-African Ame 51 (>=60 mL/min/1.73m^2); Glucose 292 mg/dL (74-106); Potassium 4.5 mmol/L (3.5-5.1); Sodium 138 mmol/L (136-145)
[2024-06-13 08:20] LABS: Glucometer 284 mg/dL (74-106)
[2024-06-13 08:23] VITALS: BP 150/92; PULSE 90; TEMP 36.7; O2SAT 95
[2024-06-13] MEDS: CLOPIDOGREL BISULFATE 75 MG TABLET PO (09:14)
[2024-06-13] MEDS: CETIRIZINE HCL 10 MG TABLET PO (09:15)
[2024-06-13] MEDS: FAMOTIDINE 20 MG TABLET PO ×2 (09:15→21:15)
[2024-06-13] MEDS: OXYCODONE HCL/ACETAMINOPHEN 5MG/325MG 1 TAB PO ×2 (09:15→14:41)
[2024-06-13] MEDS: HYDROXYCHLOROQUINE SULFATE 200 MG TABLET PO ×2 (09:15→21:15)
[2024-06-13] MEDS: INSULIN ASPART 300 UNIT/3 ML PEN SUBQ ×3 (09:18→21:07)
[2024-06-13] MEDS: INSULIN NPH HUMAN ISOPHANE 100 UNIT/ML 10ML MDV 30 UNIT SQ (09:20)
[2024-06-13] MEDS: ORPHENADRINE 60 MG/2 ML VIAL IV ×2 (10:04→21:15)
--- NOTE | 2024-06-13 10:42 | CM.NOTE ---
Rounds made with Dr. Tomlinson. Dr. Tomlinson reviews plan of care and medication adjustments with Susu. Understanding verbalized.
--- NOTE | 2024-06-13 10:58 | PT.DAILY ---
Physical Therapy Daily Note PT Daily Note/Assess Start: 06/12/24 10:43 Freq: Status: Active Protocol: Document 06/13/24 09:45 [id number] (Rec: 06/13/24 10:58 [id number]) Physical Therapy Daily Note/Assessment Time In/Time Out Time In 09:46 Time Out 10:30 Subjective Subjective Patient reports high pain with movement of R LE. Now with IV morphine and Percocet that seems to be helping. Nursing also administers muscle relaxer during RX. Patient does feel like leg is moving a little better than yesterday but is on increase of meds as well. Therapeutic Exercise Time Therapeutic Exercise 5 Minutes (minutes) Therapeutic Exercise 0 Units Therapeutic Exercise Treatment Therapeutic Exercise AP, QS, and passive knee to chest (gentle) Treatment Therapeutic Activity Time Therapeutic Activity 15 Minutes (minutes) Therapeutic Activity 1 Units Therapeutic Activity Treatment Bed Mobility Ability Moderate Assist,2 Person Assist Chair Transfer Minimum Assist Ability Therapeutic Activity Supine to sit: patient was able to bring LEs off bed, Comments however required mod assist with upper trunk to come up into unsupported sitting then required mod assist to position so feet were flat on floor. Sit to stand completed 2x from EOB at RW with min assist. Patient able to take 3-4 steps to L towards HOB with CGA. Sit to supine was SBA but once supine required mod-max assist to reposition due to R LE pain. Manual Therapy Time Manual Therapy 15 Minutes (minutes) Manual Therapy Units 1 Joint Mobilization Joint Mobilization MFR and trigger point releases along with gentle hip distraction to R LE Total Physical Therapy Time Total Therapy 35 Minutes Total Physical 2 Therapy Units Summary Daily Note Summary Patient presents with high pain levels in R LE today. Per POC exercise and manual therapy was performed to improved tolerance with hip/knee ROM. Patient does demonstrate some improvements with bed mobility and transfers but continues to require assistance due to high pain levels. Pain was more tolerable with RX today but does not significantly change post RX. Will benefit from SNF at [place] to work on functional ROM and strength to allow patient to return to prior level of function with decreased pain. Patient is supine in bed with rails up, all needs met and social insurance specialist in room to speak with patient.
--- NOTE | 2024-06-13 11:14 | SWNOTE1 ---
CHINMAY received a message from Laurie at [facility] can not guarantee they have a discharge on Sunday for a bed for patient. SW has to move on to second choice. SW spoke with Nicki at [facility] and she will have a bed, but it would be semi-private room. CHINMAY spoke with pt and explained the situation. Pt is in agreement with [facility] as she does not want to leave town. Pt is agreeable to semi-private room, but requests if private room opens to move in to that. SW to let Nicki at [facility] know. Referral sent to [facility]. Referral included face sheet, ED note, H&P, provider notes, case management report, nursing notes, diagnostic imaging, med list, and PT/OT notes. CHINMAY did let Nicki at [facility] know that if private room opens, pt would like that.
--- NOTE | 2024-06-13 11:37 | PM.PN ---
Progress Note: Subjective Subjective Interval history: Not much improvement overnight. Continues to have significant pain in right hamstring. Pain to walk, stand, or move. Working with PT and OT but increased pain. Taking norflex and percocet but not much relief. Added IV morphine PRN which helps. MRI normal. Exam Constitutional Vital Signs, click to edit/add: Last Vital Signs Temp 98.1 F 06/13/24 08:23 Pulse 90 06/13/24 08:23 Resp 18 06/13/24 08:23 BP 150/92 H 06/13/24 08:23 Pulse Ox 95 06/13/24 08:23 O2 Del Method Room Air 06/13/24 08:23 Documenting provider has reviewed patient's vital signs: yes Common normals: no apparent distress, oriented x3 and alert HENMT Common normals: normocephalic Eye Common normals: PERRL and EOMs intact bilaterally Respiratory Common normals: normal respiratory effort and clear to auscultation bilaterally Cardio Common normals: regular rate, regular rhythm, no gallops, no murmurs and no rub GI Common normals: Normal to inspection, nondistended, normoactive bowel sounds present and non-tender Extremity Common normals: no pedal edema Progress Note: Objective Labs Labs: Short CBC 06/13/24 Range/Units 06:01 WBC 18.9 H (4.0-11.0) 10^3/uL Hgb 15.7 (12.0-16.0) g/dL Hct 45.2 (36.0-48.0) % Plt Count 201 (150-450) 10^3/uL BMP 06/13/24 06:01 Sodium 138 Potassium 4.5 Chloride 102 Carbon Dioxide 24.2 BUN 23.0 H Creatinine 1.05 H Glucose 292 H Calcium 9.4 Progress Note: A&P Assessment and Plan (1) Right hamstring injury: (2) Intractable pain: (3) Inability to walk: (4) Type 2 diabetes mellitus: (5) Essential hypertension: (6) Rheumatoid aortitis: Plan Continues to have uncontrolled pain. Increase percocet to 2 PO for severe pain. Continue norflex and solu-medrol. Continue PT/OT. BS elevated and adjust sliding scale. Monitor labs and vitals. Urinary Catheter Management Urinary Catheter Management Pure Wick: Cath placed during this visit: no
--- NOTE | 2024-06-13 12:37 | SWNOTE1 ---
[facility] is able to accept and they do have a discharge Sunday. Pt will get a private room. SW let pt know.
--- NOTE | 2024-06-13 15:38 | SWNOTE1 ---
SW completed HENS online and took packet to floor for discharge over the weekend.
--- NOTE | 2024-06-13 16:21 | SWNOTE1 ---
SW took packet to the floor for possible discharge to [facility] over the weekend.
--- NOTE | 2024-06-13 16:44 | OT.DAILY ---
Occupational Therapy Daily Note OT Inpatient Daily Visit Note Start: 06/12/24 10:31 Freq: Status: Active Protocol: Document 06/13/24 16:39 [id number] (Rec: 06/13/24 16:44 [id number]) OT Visit Details Time In/Time Out Time In 16:20 Time Out 16:40 OT Treatment Plan Subjective Subjective Pt agreeable to participate, AAOx4. Talkative with normal thought process. Pt reports her performance walking this morning was poor and she would like additional attempts. Objective Objective Pt sitting up in bed, agreeable to transfer. Supine to sit on EOB CGA for LOB. Pt wanted to make all attempts with limited assist. 2-4 VCs completing [id number] to standard walker. Good standing balance. Pt ambulated to bathroom, minimal voiding. Reports constipation due to medications. Good sitting balance on standard commode. [place]yo-[id number] from commode with CGA with 1-3 VCs for placement to maintain ANDREEA. Assessment Assessment Pt tolerated treatment well. Agreeable and cooperative. Pt is pleased with performance at this time. Eager to gain more strength and endurance. Continue OT POC. OT Stranding Machine Operator Timed Codes Therapeutic activity 20 minutes (minutes) Therapeutic activity 1 units
[2024-06-13 16:47] LABS: Glucometer 378 mg/dL (74-106)
[2024-06-13 16:59] VITALS: BP 146/82; PULSE 95; TEMP 36.8; O2SAT 93
[2024-06-13 19:47] LABS: Glucometer 360 mg/dL (74-106)
[2024-06-13 20:00] VITALS: BP 142/81; PULSE 94; TEMP 36.8; O2SAT 97
[2024-06-13] MEDS: INSULIN NPH HUMAN ISOPHANE 100 UNIT/ML 10ML MDV 60 UNIT SQ (21:08)
[2024-06-13] MEDS: ATORVASTATIN CALCIUM 20 MG TABLET PO (21:15)
[2024-06-13] MEDS: OXYCODONE HCL/ACETAMINOPHEN 5MG/325MG 2 TAB PO (23:10)
[2024-06-14] VITALS (7 sets, daily range): BP systolic 138–157; BP diastolic 72–85; PULSE 84–96; TEMP 36.3–36.6; O2SAT 95–97
[2024-06-14] MEDS: METHYLPREDNISOLONE SOD SUCC PF 125 MG/2 ML VIAL 60 MG IVP ×4 (01:28→21:47)
[2024-06-14] MEDS: LEVOTHYROXINE SODIUM 112 MCG TABLET PO (05:49)
[2024-06-14] MEDS: HYDROCHLOROTHIAZIDE 25 MG TABLET 12.5 MG PO (05:49)
[2024-06-14 06:24] LABS: Basophils Percent Auto 0.1 % (0.2-2.0); Eosinophils Percent Auto 0.1 % (0.9-7.0); Hematocrit 44.1 % (36.0-48.0); Hemoglobin 15.3 g/dL (12.0-16.0); Immature Granulocytes Abs Auto 0.12 10^3/uL (0.00-0.03); Immature Granulocytes Pct Auto 0.7 % (0.0-0.5); Lymphocytes Absolute Auto 0.9 10^3/uL (1.2-3.8); Lymphocytes Percent Auto 5.6 % (20.5-60.0); Mean Corpuscular HGB Conc 34.7 g/dL (29.9-35.2); Mean Corpuscular Hemoglobin 32.2 pg (26.7-34.0); Mean Corpuscular Volume 92.8 fL (81.0-99.0); Mean Platelet Volume 8.6 fL (9.5-13.5); Monocytes Absolute Auto 0.7 10^3/uL (0.3-0.8); Monocytes Percent Auto 4.2 % (1.7-12.0); Neutrophils Percent Auto 89.3 % (43.0-75.0); Platelet Count 209 10^3/uL (150-450); Red Blood Count 4.75 10^6/uL (4.20-5.40); Red Cell Distribution Width 14.9 % (11.0-15.0); White Blood Count 16.7 10^3/uL (4.0-11.0)
[2024-06-14 06:47] LABS: Anion Gap 15.7; BUN Creatinine Ratio 27.3; Calcium 9.2 mg/dL (8.5-10.1); Carbon Dioxide 26.7 mmol/L (21.0-32.0); Chloride 102 mmol/L (98-107); Estimated GFR (African America 59 (>=60 mL/min/1.73m^2); Estimated GFR (Non-African Ame 49 (>=60 mL/min/1.73m^2); Glucose 253 mg/dL (74-106); Potassium 4.4 mmol/L (3.5-5.1); Sodium 140 mmol/L (136-145)
[2024-06-14 07:42] LABS: Glucometer 306 mg/dL (74-106)
[2024-06-14] MEDS: INSULIN ASPART 300 UNIT/3 ML PEN SUBQ ×3 (08:42→16:00)
[2024-06-14] MEDS: CETIRIZINE HCL 10 MG TABLET PO (08:42)
[2024-06-14] MEDS: HYDROXYCHLOROQUINE SULFATE 200 MG TABLET PO ×2 (08:42→21:48)
[2024-06-14] MEDS: CLOPIDOGREL BISULFATE 75 MG TABLET PO (08:42)
[2024-06-14] MEDS: FAMOTIDINE 20 MG TABLET PO (08:42)
[2024-06-14] MEDS: INSULIN NPH HUMAN ISOPHANE 100 UNIT/ML 10ML MDV 30 UNIT SQ (08:44)
[2024-06-14] MEDS: OXYCODONE HCL/ACETAMINOPHEN 5MG/325MG 1 TAB PO ×2 (08:45→16:00)
[2024-06-14] MEDS: ORPHENADRINE 60 MG/2 ML VIAL IV ×2 (08:53→21:47)
--- NOTE | 2024-06-14 09:15 | P.PN_ITS ---
Progress Note: Subjective Subjective Interval history: Patient reports improvement in her pain. We also had long discussion about her insulin regimen at home and she takes 30 units breakfast, 30 units lunch, 40 units dinner (short acting with meals) and Lantus 30 units in the morning and 60 units at night time. So our sliding scale is not high enough. I have spoke with pharmacist and this has been fixed. She has been up with PT and pain is much better today. Also is constipated and would like something for this. Exam Narrative Exam Narrative: General: Patient is alert, and oriented to person, place and time with normal affect, proper hygiene Skin: no visible rashes, or ulcers Head: atraumatic, acephalic Heart: Normal rate and rhythm, no murmurs/rubs/gallops Lungs: no audible wheezes, crackles and normal breath sounds all lung torres Abdomen: Normal audible bowel sounds, no distension, No palpable masses, no organomegaly, no rebound/guarding/ or rigidity Musculoskeletal: no swelling bilateral lower extremities, tight hamstring on the right Neuro: CN II-X grossly intact Constitutional Vital Signs, click to edit/add: Last Vital Signs Temp 97.6 F 06/14/24 07:48 Pulse 96 H 06/14/24 07:48 Resp 20 06/14/24 07:48 BP 153/72 H 06/14/24 07:48 Pulse Ox 96 06/14/24 07:48 O2 Del Method Room Air 06/14/24 07:48 Progress Note: Objective Labs Labs: Short CBC 06/14/24 Range/Units 06:04 WBC 16.7 H (4.0-11.0) 10^3/uL Hgb 15.3 (12.0-16.0) g/dL Hct 44.1 (36.0-48.0) % Plt Count 209 (150-450) 10^3/uL BMP 06/14/24 06:04 Sodium 140 Potassium 4.4 Chloride 102 Carbon Dioxide 26.7 BUN 30.0 H Creatinine 1.10 H Glucose 253 H Calcium 9.2 Progress Note: A&P Assessment and Plan (1) Right hamstring injury: Assessment and Plan: continue with Percocet, prednisone and Norflex. continue with PT and stretching; MRI negative for tear Qualifiers: Encounter type: subsequent encounter Qualified Code(s): S76.301D - Unspecified injury of muscle, fascia and tendon of the posterior muscle group at thigh level, right thigh, subsequent encounter (2) Intractable pain: Assessment and Plan: due to #1 (3) Inability to walk: Assessment and Plan: continue to work with PT/OT, plans for skilled rehab at discharge. (4) Type 2 diabetes mellitus: Assessment and Plan: adjusted insulin regimen today; has been higher also because of steroid Qualifiers: Diabetes mellitus complication status: without complication Diabetes mellitus intermediate accountant insulin use: with intermediate accountant use Qualified Code(s): E11.9 - Type 2 diabetes mellitus without complications; Z79.4 - FDC (current) use of insulin (5) Essential hypertension: Assessment and Plan: continue hctz, (6) Hypothyroidism: Assessment and Plan: continue levothyroxine Qualifiers: Hypothyroidism type: acquired Qualified Code(s): E03.9 - Hypothyroidism, unspecified (7) TIA (transient ischemic attack): Assessment and Plan: continue statin, plavix (8) Rheumatoid aortitis: Assessment and Plan: continue hydroxychloroquine Plan Patient is a full code continue plavix Patient is inpatient status and awaiting precert to [facility]. Urinary Catheter Management Urinary Catheter Management Pure Wick: Cath placed during this visit: yes Urethral indwelling: No Insertion date: 06/13/24 Insertion time: 17:30
--- NOTE | 2024-06-14 10:08 | PT.DAILY ---
Physical Therapy Daily Note PT Daily Note/Assess Start: 06/12/24 10:43 Freq: Status: Active Protocol: Document 06/14/24 09:56 [id number] (Rec: 06/14/24 10:08 [id number]) Physical Therapy Daily Note/Assessment Time In/Time Out Time In 08:00 Time Out 08:29 Pain In Pain Level 0 Pain Out Pain Level 1 Subjective Subjective States she is agreeable to participate with PT. Reports she had an 8 hour period of no pain, but also has not been moving. Therapeutic Exercise Time Therapeutic Exercise 5 Minutes (minutes) Therapeutic Exercise 0 Units Therapeutic Exercise Treatment Therapeutic Exercise Supine SHARLENE ankle pumps, quad sets x 10 and R hip ABD 3x Treatment to increase R LE strength. Patient reports a slight pull to proximal HS with ankle pumps. VC's to decrease intensity of ther ex to manage pain. Performed 7x heel slide with CGA +1 and no increase in pain. Therapeutic Activity Time Therapeutic Activity 24 Minutes (minutes) Therapeutic Activity 2 Units Therapeutic Activity Treatment Bed Mobility Ability Contact Guard Assist,Minimum Assist Chair Transfer Minimum Assist Ability Therapeutic Activity Patient performs bed mobility with CGA +1 and MIN A for Comments L LE management. Patient requires additional time to perform functional movements due to concern that pain will return. Patient sat EOB ~3 minutes without UE support and no LOB. STS to 2WW with CGA +1. Patient ambulated ~5 feet with 2WW and CGA +1. Patient reports pain is beginning to elevate while in standing. Stand to sit transfer is MIN A +1 to control descent to chair . Patient states she was not able to control sitting down yesterday. Patients SHARLENE LE elevated, CBWR and all post treatment needs met. Nursing notified of patient placement and acknowledged. Total Physical Therapy Time Total Therapy 29 Minutes Total Physical 2 Therapy Units Summary Daily Note Summary Patient is slow and purposeful with functional movements. Reports slight muscle pain with bed mobility , describes as tolerable. When in standing describes the sharp pain to the R LB/thigh beginning to set in. Patient is able to tolerate sitting in chair with legs elevated this date. No MT required secondary to patients ability to move R LE with less pain. Patient would benefit from SNF to address functional deficits for return to PLOF.
[2024-06-14 11:57] LABS: Glucometer 258 mg/dL (74-106)
[2024-06-14] MEDS: INSULIN ASPART 300 UNIT/3 ML PEN 30 UNIT SUBQ (14:50)
[2024-06-14 15:58] LABS: Glucometer 211 mg/dL (74-106)
[2024-06-14] MEDS: INSULIN ASPART 300 UNIT/3 ML PEN 40 UNIT SUBQ (17:59)
[2024-06-14 19:53] LABS: Glucometer 105 mg/dL (74-106)
[2024-06-14] MEDS: DOCUSATE SODIUM 100 MG CAPSULE 200 MG PO (21:48)
[2024-06-14] MEDS: ATORVASTATIN CALCIUM 20 MG TABLET PO (21:48)
[2024-06-15] VITALS: BP 119/70; PULSE 69; TEMP 36.7; O2SAT 94
[2024-06-15] MEDS: INSULIN GLARGINE 300 UNIT/3 ML INSULN.PEN 60 UNIT SQ (00:09)
[2024-06-15] MEDS: OXYCODONE HCL/ACETAMINOPHEN 5MG/325MG 1 TAB PO ×2 (00:18→10:20)
[2024-06-15 00:49] LABS: Glucometer 184 mg/dL (74-106)
[2024-06-15] MEDS: METHYLPREDNISOLONE SOD SUCC PF 125 MG/2 ML VIAL 60 MG IVP ×2 (02:58→08:35)
[2024-06-15 03:44] VITALS: BP 118/71; PULSE 70; TEMP 36.5; O2SAT 98
[2024-06-15] MEDS: HYDROCHLOROTHIAZIDE 25 MG TABLET 12.5 MG PO (06:33)
[2024-06-15] MEDS: LEVOTHYROXINE SODIUM 112 MCG TABLET PO (06:33)
[2024-06-15 07:22] LABS: Glucometer 189 mg/dL (74-106)
[2024-06-15 07:58] VITALS: BP 145/74; PULSE 74; TEMP 36.4; O2SAT 96
--- NOTE | 2024-06-15 08:09 | PM.DS1 ---
DS: Providers Provider Date of admission: 06/12/24 11:22 Primary care physician: Roby Dumont DO Attending physician on admission: Yony Tomlinson Consults: 06/11/24 17:46 Occupational Therapy Eval and Treat Routine Reason for consultation: Pain Physical Therapy Eval and Treat Routine Reason for consultation: Pain Discharging clinician: Ashley Gonzáles DS: Diagnosis Discharge Diagnosis (1) Right hamstring injury: Qualifiers: Encounter type: subsequent encounter Qualified Code(s): S76.301D - Unspecified injury of muscle, fascia and tendon of the posterior muscle group at thigh level, right thigh, subsequent encounter (2) Intractable pain: (3) Inability to walk: (4) Type 2 diabetes mellitus: Qualifiers: Diabetes mellitus complication status: without complication Diabetes mellitus intermediate insulin use: with buttermilk drier operator use Qualified Code(s): E11.9 - Type 2 diabetes mellitus without complications; Z79.4 - intermediate accountant (current) use of insulin (5) Essential hypertension: (6) Hypothyroidism: Qualifiers: Hypothyroidism type: acquired Qualified Code(s): E03.9 - Hypothyroidism, unspecified (7) TIA (transient ischemic attack): (8) Rheumatoid aortitis: DS: Summary Hospital Course Hospital Course: 73 y/o female to ER with right hamstring pain. Patient admitted after 2/5 stepping on footstool and felt pain in back leg near buttocks. Severe pain and hard to walk. Pain worsened and to ER 04/22. Told hamstring injury and given robaxin and norco. Seen by PCP and advised to stop norco and robaxin. Started steroid burst and PT. Initially making progress with PT but 2 weeks ago stepping out of shower and twisted foot. Graham severe pain in back thigh and getting worse since. Still in PT but losing progress. Pain worsened and not able to get up from sitting or stand. CT negative and MRI was negative. Not able to stand and given fentanyl and dilaudid. Pain remained intractable. Started solu-medrol and norflex. Started oral percocet. Pain improved and at the time of discharge was able to get up with PT and OT. She will be placed on Medrol dosepak, Percocet for pain, Norflex. She will be discharged today to [facility] for rehab. Labs and vitals are stable. Patient is requiring more sliding scale in addition to her TID dosing sliding scale due to steroids. Changes are in the discharge medication list. Status at Discharge Functional status at discharge: uses cane/walker Overall status at discharge: patient is progressing back to baseline Time Spent with Patient Time attestation: Total time spent providing and/or coordinating discharge services: Time spent: greater than 30 minutes Exam Narrative Exam Narrative: General: Patient is alert, and oriented to person, place and time with normal affect, proper hygiene Skin: no visible rashes, or ulcers Head: atraumatic, acephalic Heart: Normal rate and rhythm, no murmurs/rubs/gallops Lungs: no audible wheezes, crackles and normal breath sounds all lung torres Abdomen: Normal audible bowel sounds, no distension, No palpable masses, no organomegaly, no rebound/guarding/ or rigidity Musculoskeletal: no swelling bilateral lower extremities, tight hamstring on the right Neuro: CN II-X grossly intact Constitutional Vital Signs, click to edit/add: Last Vital Signs Temp 97.5 F L 06/15/24 07:58 Pulse 74 06/15/24 07:58 Resp 17 06/15/24 07:58 BP 145/74 H 06/15/24 07:58 Pulse Ox 96 06/15/24 07:58 O2 Del Method Room Air 06/15/24 07:58 DS: Data Data Completed and Pending Labs on day of discharge: Labs from last 24 hours 06/15/24 06/15/24 06/14/24 07:21 00:48 19:43 POC Glucose 189 H 184 H 105 06/14/24 06/14/24 15:56 11:50 POC Glucose 211 H 258 H Discharge Plan Discharge Disposition: Xfer SNF Condition: Good Discharge Medications: New oxycodone-acetaminophen 5-325 mg Tablet 2 tab PO Q6H PRN (Reason: Pain) 1 Days Qty: 8 0RF docusate sodium 100 mg Capsule 200 mg PO BID PRN (Reason: Constipation) 30 Days Qty: 0 0RF insulin aspart U-100 [Novolog FlexPen U-100 Insulin] 100 unit/mL (3 mL) Insulin Pen 40 unit subcut DAILY@1700 Qty: 0 0RF insulin aspart U-100 [Novolog FlexPen U-100 Insulin] 100 unit/mL (3 mL) Insulin Pen 3 - 32 unit subcut ACHS Qty: 0 0RF Protocol: Insulin Corrective High-Dose Regimen Condition: Fingerstick Blood Glucose Dose/Route: Insulin Units Condition: 141-200 mg/dl Dose/Route: 4 units/SQ Condition: 201-250 mg/dl Dose/Route: 8 units/SQ Condition: 251-300 mg/dl Dose/Route: 12 units/SQ Condition: 301-350 mg/dl Dose/Route: 16 units/SQ Condition: 351-400 mg/dl Dose/Route: 20 units/SQ Condition: 401-450 mg/dl Dose/Route: 24 units/SQ Condition: 451-500 mg/dl Dose/Route: 28 units/SQ Condition: greater than 500 mg/dl Dose/Route: 32 units/SQ and call practitioner insulin aspart U-100 [Novolog FlexPen U-100 Insulin] 100 unit/mL (3 mL) Insulin Pen 30 unit subcut BID@0800,1200 Qty: 0 0RF insulin glargine [Lantus Solostar U-100 Insulin] 100 unit/mL (3 mL) Insulin Pen 30 unit SQ QD Qty: 0 0RF insulin glargine [Lantus Solostar U-100 Insulin] 100 unit/mL (3 mL) Insulin Pen 60 unit SQ QHS Qty: 0 0RF orphenadrine citrate 100 mg tablet extended release 100 mg PO BID 7 Days Qty: 14 0RF methylprednisolone [Medrol (Bry)] 4 mg tablets,dose pack 4 mg PO DAILY Qty: 21 0RF Rx Instructions: take as directed on pack Continued clopidogrel 75 mg tablet 75 mg PO DAILY famotidine 20 mg tablet 20 mg PO BID levothyroxine 112 mcg tablet 112 mcg PO DAILY atorvastatin 20 mg tablet 20 mg PO BEDTIME hydrochlorothiazide 12.5 mg capsule 12.5 mg PO DAILY hydroxychloroquine 200 mg tablet 200 mg PO BID loratadine [Claritin] 10 mg tablet 10 mg PO DAILY Discontinued Novolin R Regular U100 Insulin 100 unit/mL solution 30 unit subcut .with meals Novolin N NPH U-100 Insulin 100 unit/mL suspension 30 unit SUBCUT .After breakfast Rx Instructions: 30 units after breakfast, 60 units at bedtime methocarbamol 750 mg tablet 750 mg PO TID PRN (Reason: pain) Qty: 30 0RF hydrocodone-acetaminophen 5-325 mg tablet 1 tab PO TID PRN (Reason: pain) Qty: 15 0RF Print Language: Turkish Forms: Portal Instructions Discharge Location: [facility] Discharge location: [facility]
[2024-06-15 08:23] LABS: Basophils Percent Auto 0.2 % (0.2-2.0); Eosinophils Absolute Auto 0.1 10^3/uL (0.0-0.7); Eosinophils Percent Auto 0.3 % (0.9-7.0); Hematocrit 44.2 % (36.0-48.0); Hemoglobin 15.4 g/dL (12.0-16.0); Immature Granulocytes Abs Auto 0.11 10^3/uL (0.00-0.03); Immature Granulocytes Pct Auto 0.7 % (0.0-0.5); Lymphocytes Percent Auto 6.6 % (20.5-60.0); Mean Corpuscular HGB Conc 34.8 g/dL (29.9-35.2); Mean Corpuscular Hemoglobin 31.8 pg (26.7-34.0); Mean Corpuscular Volume 91.3 fL (81.0-99.0); Mean Platelet Volume 8.5 fL (9.5-13.5); Monocytes Absolute Auto 0.7 10^3/uL (0.3-0.8); Monocytes Percent Auto 4.3 % (1.7-12.0); Neutrophils Absolute Auto 13.4 10^3/uL (1.4-6.5); Neutrophils Percent Auto 87.9 % (43.0-75.0); Platelet Count 228 10^3/uL (150-450); Red Blood Count 4.84 10^6/uL (4.20-5.40); Red Cell Distribution Width 14.7 % (11.0-15.0); White Blood Count 15.2 10^3/uL (4.0-11.0)
[2024-06-15] MEDS: INSULIN ASPART 300 UNIT/3 ML PEN SUBQ ×2 (08:33→11:38)
[2024-06-15] MEDS: INSULIN ASPART 300 UNIT/3 ML PEN 30 UNIT SUBQ ×2 (08:34→11:38)
[2024-06-15] MEDS: INSULIN GLARGINE 300 UNIT/3 ML INSULN.PEN 30 UNIT SQ (08:34)
[2024-06-15] MEDS: ORPHENADRINE 60 MG/2 ML VIAL IV (08:35)
[2024-06-15] MEDS: CLOPIDOGREL BISULFATE 75 MG TABLET PO (08:35)
[2024-06-15] MEDS: FAMOTIDINE 20 MG TABLET PO (08:35)
[2024-06-15] MEDS: DOCUSATE SODIUM 100 MG CAPSULE 200 MG PO (08:35)
[2024-06-15] MEDS: CETIRIZINE HCL 10 MG TABLET PO (08:35)
[2024-06-15] MEDS: HYDROXYCHLOROQUINE SULFATE 200 MG TABLET PO (08:35)
[2024-06-15 08:36] LABS: Anion Gap 13.1; BUN Creatinine Ratio 27.8; Calcium 9.1 mg/dL (8.5-10.1); Carbon Dioxide 27.9 mmol/L (21.0-32.0); Chloride 100 mmol/L (98-107); Estimated GFR (African America >60 (>=60 mL/min/1.73m^2); Estimated GFR (Non-African Ame 50 (>=60 mL/min/1.73m^2); Glucose 203 mg/dL (74-106); Sodium 137 mmol/L (136-145)
[2024-06-15 11:23] LABS: Glucometer 198 mg/dL (74-106)
== END 2024-06-15 12:45 | DRG 914 ==
LOC: ER 14:39 → MS 15:34
PROVIDERS: Physician Assistant; Admitting Provider Family Medicine; Emergency Provider Emergency Medicine; PCP Internal Medicine; Visit Provider Family Medicine
DX: S76.301A Unspecified injury of muscle, fascia and tendon of the posterior muscle group at thigh level, right thigh, initial encounter (principal); Z68.41 Body mass index [BMI] 40.0-44.9, adult; X50.1XXA Overexertion from prolonged static or awkward postures, initial encounter; R26.2 Difficulty in walking, not elsewhere classified; I10 Essential (primary) hypertension; E66.01 Morbid (severe) obesity due to excess calories; E03.9 Hypothyroidism, unspecified; Z90.49 Acquired absence of other specified parts of digestive tract; Z86.73 Personal history of transient ischemic attack (TIA), and cerebral infarction without residual deficits; Z85.038 Personal history of other malignant neoplasm of large intestine; E11.65 Type 2 diabetes mellitus with hyperglycemia; Z79.4 Long term (current) use of insulin; Z79.890 Hormone replacement therapy; I79.1 Aortitis in diseases classified elsewhere; M79.604 Pain in right leg; Z79.02 Long term (current) use of antithrombotics/antiplatelets
CPT/HCPCS: 36415; 72192; 73700; 73718; 80048; 82948; 85025; 96374; 96375; 96376; 97110; 97140; 97161; 97165; 97530; 99285; G0378; J1171; J1815; J2270; J2360; J2919; J3010

== ENCOUNTER 2024-08-07 14:52 | Outpatient (RCR) | payer MEDICARE, OTHER, SELFPAY | END 2024-10-03 10:29 | disposition home or self-care (01) | LOC: PT 14:52 | PROVIDERS: PCP Internal Medicine; Visit Provider Internal Medicine | DX: M79.604 Pain in right leg (principal); M54.50 Low back pain, unspecified; S76.811A Strain of other specified muscles, fascia and tendons at thigh level, right thigh, initial encounter | CPT/HCPCS: 20561; 97110; 97113; 97140; 97161 ==

== ENCOUNTER 2024-10-28 14:51 | Outpatient (OUT) | payer MEDICARE, OTHER, SELFPAY ==
--- NOTE | 2024-10-28 14:56 | MM_ITS ---
Patient Name: BILLIE URBINA MR#: [id number] : 1950 Exam Date: 10/28/2024 Ordering Doctor: DR PIEDAD GAMA D.O. RADIOLOGY REPORT PROCEDURE: MM TOMOSYNTHESIS SCREENING BI COMPARISON: MM TOMOSYNTHESIS SCREENING BI, 10/11/2023. MG MAMM SCREEN 3D SHARLENE CAD, 08/13/2020. MG MAMM SCREEN SHARLENE W CAD, 03/04/2018. MG MAMM SCREEN SHARLENE W CAD, 07/11/2016. INDICATIONS: screening for malignant neoplasm Calculator Name NCI Breast Cancer Risk Assessment Tool 5 Year Breast Cancer Risk 2.20% Lifetime Breast Cancer Risk 5.30% Personal Breast Cancer No Personal Ovarian Cancer No Treatments None Family Cancers None LOCATION: [facility] BREAST COMPOSITION: There are scattered areas of fibroglandular density. FINDINGS: RIGHT BREAST: No significant suspicious finding. Benign-appearing calcifications are present. LEFT BREAST: No significant suspicious finding. DIAGNOSTIC CATEGORY 2--BENIGN FINDING: RECOMMENDATIONS: ROUTINE MAMMOGRAM AND CLINICAL EVALUATION IN 12 MONTHS. PLEASE NOTE: A NORMAL MAMMOGRAM DOES NOT EXCLUDE THE POSSIBILITY OF BREAST CANCER. A CLINICALLY SUSPICIOUS PALPABLE LUMP SHOULD BE BIOPSIED. Dictated by: Rigoberto Baeza MD on 10/28/2024 at 16:05 Approved by: Rigoberto Baeza MD on 10/28/2024 at 16:10
[2024-10-28 15:41] LABS: Hematocrit 43.9 % (36.0-48.0); Hemoglobin 15.0 g/dL (12.0-16.0); Immature Granulocytes Abs Auto 0.06 10^3/uL (0.00-0.03); Immature Granulocytes Pct Auto 0.6 % (0.0-0.5); Lymphocytes Absolute Auto 1.9 10^3/uL (1.2-3.8); Mean Corpuscular HGB Conc 34.2 g/dL (29.9-35.2); Mean Corpuscular Hemoglobin 31.4 pg (26.7-34.0); Mean Corpuscular Volume 92.0 fL (81.0-99.0); Platelet Count 237 10^3/uL (150-450); Red Blood Count 4.77 10^6/uL (4.20-5.40); White Blood Count 10.1 10^3/uL (4.0-11.0)
[2024-10-28 18:07] LABS: Microalbum Creatinine Ratio Ur 41.0 mg/g (0.0-29.9)
[2024-10-28 18:45] LABS: Alanine Aminotransferase 25 U/L (14-59); Albumin Globulin Ratio 1.3; Albumin Level 4.2 g/dL (3.4-5.0); Alkaline Phosphatase 77 U/L (46-116); Anion Gap 13.7; Aspartate Amino Transferase 24 U/L (15-37); Blood Urea Nitrogen 11.0 mg/dL (7.0-18.0); Calcium 9.6 mg/dL (8.5-10.1); Carbon Dioxide 27.2 mmol/L (21.0-32.0); Chloride 103 mmol/L (98-107); Estimated GFR (African America >60 (>=60 mL/min/1.73m^2); Estimated GFR (Non-African Ame 54 (>=60 mL/min/1.73m^2); Globulin 3.2 g/dL; Glucose 64 mg/dL (74-106); Potassium 3.9 mmol/L (3.5-5.1); Sodium 140 mmol/L (136-145); Thyroid Stimulating Hormone 2.862 uIU/mL (0.358-3.740); Total Protein 7.4 g/dL (6.4-8.2)
== END 2024-10-28 14:52 | disposition home or self-care (01) ==
LOC: MAMMO 14:51
PROVIDERS: PCP Internal Medicine; Visit Provider Internal Medicine
DX: Z12.31 Encounter for screening mammogram for malignant neoplasm of breast (principal); E11.65 Type 2 diabetes mellitus with hyperglycemia; Z79.4 Long term (current) use of insulin; I10 Essential (primary) hypertension; E78.00 Pure hypercholesterolemia, unspecified; E03.9 Hypothyroidism, unspecified
CPT/HCPCS: 36415; 77063; 77067; 80053; 82043; 82570; 83036; 84443; 85025